=== PATIENT | female | born 1950 | race Caucasian/White ===

== ENCOUNTER 2018-08-10 21:19 | Emergency (ER) | payer MEDICARE, MEDICAID ==
[~2018-08-10] VITALS: Ht 165.1 cm; Wt 150.6 kg
[~2018-08-10 21:19] MED LIST: ALPR0.2550; ALPR0.2550 PO; AMIT100T2 PO; ARIP15TA PO; CEPH500C PO; DICL75TA2; DULO60CA6 PO; FURO20TA4 PO; HYDR-2890 PO; HYDR1CAP2; HYDR1TAB PO; LISI1TAB PO; MELO-195 PO; OMEP20TA2 PO; OXYC-272; PROP1TAB77; SIMV10TA3 PO; SRTR100T; TRAM50TA2 PO; ZOLP10TA5 PO
--- OUTSIDE RECORDS SUMMARY | 2018-08-10 21:24 | XMS REPORT | Continuity of Care Document ---
Author Organization Unknown Address Unknown Allergies There is no data. Medications There is no data. Problems There is no data. Procedures There is no data. Results Test Result Range LIPID PANEL - 07/01/18 11:55 CHOLESTEROL, TOTAL 212 mg/dL <200 HDL CHOLESTEROL 45 mg/dL >50 TRIGLYCERIDES 445 mg/dL <150 LDL-CHOLESTEROL mg/dL (calc) NRG CHOL/HDLC RATIO 4.7 (calc) <5.0 NON HDL CHOLESTEROL 167 mg/dL (calc) <130 CMP - 07/01/18 11:55 GLUCOSE 83 mg/dL 65-99 UREA NITROGEN (BUN) 16 mg/dL 7-25 CREATININE 0.80 mg/dL 0.50-0.99 eGFR NON-AFR. OMANI 76 mL/min/1.73m2 > OR=60 eGFR 88 mL/min/1.73m2 > OR=60 BUN/CREATININE RATIO NOT APPLICABLE (calc) 6-22 SODIUM 135 mmol/L 135-146 POTASSIUM 3.6 mmol/L 3.5-5.3 CHLORIDE 97 mmol/L 98-110 CARBON DIOXIDE 24 mmol/L 20-32 CALCIUM 9.0 mg/dL 8.6-10.4 PROTEIN, TOTAL 6.8 g/dL 6.1-8.1 ALBUMIN 4.0 g/dL 3.6-5.1 GLOBULIN 2.8 g/dL (calc) 1.9-3.7 ALBUMIN/GLOBULIN RATIO 1.4 (calc) 1.0-2.5 BILIRUBIN, TOTAL 0.4 mg/dL 0.2-1.2 ALKALINE PHOSPHATASE 78 U/L 33-130 AST 20 U/L 10-35 ALT 14 U/L 6-29 CULTURE, URINE - 07/15/18 14:45 CULTURE, URINE, ROUTINE SEE NOTE NRG Encounters ACCT No. Visit Date/Time Discharge Status Pt. Type Provider Facility Loc./Unit Complaint [id number] 07/15/2018 14:20:00 07/15/2018 23:59:59 CLS Outpatient LISETH DE LA ROSA [facility] [id number] 07/15/2018 14:20:00 Document Registration [id number] 07/01/2018 12:00:00 Document Registration
[2018-08-10] MEDS ORDERED: RT-ALBUTEROL/IPRATROPIUM 3 ML (DUONEB) VIAL INH ONE ×2 (22:00→23:45)
[2018-08-10 23:23] LABS: CHLORIDE 92 MMOL/L (98-107); POTASSIUM 3.7 MMOL/L (3.6-5.0); SODIUM 135 MMOL/L (135-145)
[2018-08-10 23:24] LABS: BUN/CREATININE RATIO 18; CALCIUM 8.9 MG/DL (8.5-10.1); CARBON DIOXIDE 25 MMOL/L (21-32); CREATININE SERUM 0.78 MG/DL (0.60-1.30); GFR ESTIMATED > 60; GLUCOSE 122 MG/DL (70-105)
[2018-08-10 23:25] LABS: BASOPHILS % (AUTO) 0 % (0-10); EOSINOPHILS % (AUTO) 0 % (0-10); HEMATOCRIT 47 % (35-52); HEMOGLOBIN 15.5 G/DL (11.5-16.0); LYMPHOCYTES % (AUTO) 24 % (12-44); MEAN CORPUSCULAR HEMOGLOBIN 32 PG (25-34); MEAN CORPUSCULAR HGB CONC 33 G/DL (32-36); MEAN CORPUSCULAR VOLUME 96 FL (80-99); MEAN PLATELET VOLUME 9.8 FL (7.4-10.4); MONOCYTES % (AUTO) 5 % (0-12); NEUTROPHILS % (AUTO) 71 % (42-75); PLATELET COUNT 276 10^3/uL (130-400); RED CELL DISTRIBUTION WIDTH 13.6 % (10.0-14.5); WHITE BLOOD COUNT 12.8 10^3/uL (4.3-11.0)
[2018-08-10 23:26] LABS: ATYPICAL LYMPHOCYTES 3 %; BAND NEUTROPHILS 2 %; LYMPHOCYTES # (AUTO) 3.1 X 10^3 (1.0-4.0); LYMPHOCYTES % (MANUAL) 26 %; MONOCYTES # (AUTO) 0.7 X 10^3 (0.0-1.0); MONOCYTES % (MANUAL) 3 %; NEUTROPHILS % (MANUAL) 66 %
[2018-08-10] MEDS ORDERED: DOXYCYCLINE 100 MG (VIBRAMYCIN) TABLET PO STA (23:35)
[2018-08-10] MEDS ORDERED: DOXY100T2 PO (23:40)
[2018-08-10] MEDS ORDERED: ALBU2.5V4 INH (23:40)
--- NOTE | 2018-08-10 23:41 | ED Dyspnea ---
General Chief Complaint: Cough/Cold/Flu Symptoms Stated Complaint: COUGH,SINUS DRAINAGE,SOB Nursing Triage Note: Patient states that she has been having a cough and coughing up thick green sputum for about a week. Patiet also states that she can feel her "right lung bubbling". Source of Information: Patient, Family Exam Limitations: No Limitations History of Present Illness Date Seen by Provider: Aug 10, 2018 Time Seen by Provider: 21:41 Initial Comments is is a 68 y/o f who presents to the ED for evaluation. Pt reports progressive productive cough x 2 days, green phlegm, Reports R sided chest wall pain with cough only. Increased SOB since yesterday. Longstanding tobacco abuse. Denies h/ o COPD. Denies history of needing inhalers, Has chronic LE edema that she feels is unchanged from baseline. Does not feel SOB at rest. Has chronic joint pain and anxiety. Is on daily Morphine and benzos. Allergies and Home Medications Allergies Coded Allergies: No Known Drug Allergies (Verified Allergy, Unknown, 11/20/08) Home Medications Albuterol Sulfate 2.5 Mg/3 Ml Vial.neb, 2.5 MG INH Q4H PRN for WHEEZING Prescribed by: KATHY GARCIA on 08/10/18 2340 Alprazolam 0.25 Mg Tab.rapdis, 1 EACH PO Q8HR PRN, (Reported) TAKES FOR ANXIETY CONTROL Amitriptyline Hcl 100 Mg Tablet, 1 EACH PO HS, (Reported) Aripiprazole 15 Mg Tab, 1 TAB PO DAILY, (Reported) DAILY Cephalexin Monohydrate 500 Mg Capsule, 1 EACH PO TID, (Reported) Doxycycline Hyclate 100 Mg Tablet, 100 MG PO BID Prescribed by: KATHY GARCIA on 08/10/18 2340 Duloxetine Hcl 60 Mg Capsule.dr, 1 EACH PO DAILY, (Reported) Furosemide 20 Mg Tablet, 1 EACH PO DAILY, (Reported) Hctz/Lisinopril 1 Each Tablet, 1 EACH PO DAILY, (Reported) Hydrocodone Bit/Acetaminophen 1 Each Tablet, 1 EACH PO Q8 PRN, (Reported) DO NOT USE THIS MED WHILE TAKING VICODIN (HYDROCODONE) SCRIPT GIVEN TO YOU BY DR MONREAL.(SAME MED) Hydrocodone Bit/Acetaminophen 1 Each Tablet, 1-2 EACH PO q4-6hrs PRN, (Reported) MAY TAKE 1 OR 2 TABLETS BY MOUTH EVERY 4-6 HRS NEEDED FOR PAIN DO NOT EXCEED 3000 MG TYLENOL (ACETAMINOPHEN) IN A 24 HR PERIOD Meloxicam 15 Mg Tablet, 1 EACH PO DAILY, (Reported) Omeprazole 20 Mg Tablet.dr, 20 MG PO DAILY, (Reported) Simvastatin 10 Mg Tablet, 10 MG PO DAILY, (Reported) Tramadol Hcl 50 Mg Tablet, 50 MG PO TID PRN, (Reported) TAKES FOR PAIN CONTROL Zolpidem Tartrate 10 Mg Tablet, 10 MG PO HS, (Reported) Patient Home Medication List Home Medication List Reviewed: Yes Review of Systems Review of Systems Constitutional: chills; No dizziness, No fever, No malaise, No weakness Respiratory: cough, dyspnea on exertion; No orthopnea; short of breath, wheezing Cardiovascular: No chest pain; edema; No palpitations Gastrointestinal: No abdominal pain, No diarrhea, No nausea, No vomiting Genitourinary: No dysuria, No frequency Musculoskeletal: back pain, joint pain, muscle pain Skin: No pruritus, No rash Psychiatric/Neurological: Anxiety; Denies Headache, Denies Numbness, Denies Tingling Past Qgnjnyp-Ndkkyj-Awvvkn Hx Patient Social History Alcohol Use: Denies Use Recreational Drug Use: No Smoking Status: Current Everyday Smoker Type Used: Cigarettes 2nd Hand Smoke Exposure: Yes Recent Foreign Travel: No Contact w/Someone Who Travel: No Recent Infectious Disease Expo: No Recent Hopitalizations: Yes (LEFT TKR) Physical Abuse: No Sexual Abuse: No Mistreated: No Fear: No Immunizations Up To Date Tetanus Booster (TDap): Unknown Past Medical History Surgeries: Yes (LEFT TKR) Respiratory: No Cardiac: Yes Coronary Artery Disease, Hypertension Neurological: No Reproductive Disorders: No Sexually Transmitted Disease: No Genitourinary: No Gastrointestinal: No Musculoskeletal: Yes (OSTEOARTHRITIS) Endocrine: No HEENT: No Cancer: No Psychosocial: Yes (Prior ETOH ) Depression Integumentary: No Blood Disorders: No Physical Exam Vital Signs Vital Signs - First Documented 08/10/18 08/10/18 21:30 21:35 Temp 99.2 Pulse 112 Resp 24 B/P (MAP) 118/84 (95) Pulse Ox 94 O2 Delivery Room Air Capillary Refill : Less Than 3 Seconds Height, Weight, BMI Height: 5'5.00" Weight: 332lbs. 0oz. 150.241146tg; BMI Method:Stated General Appearance: Other (morbidly obese) HEENT: PERRL/EOMI Neck: Normal Inspection; No JVD; Other (no stridor ) Respiratory: Wheezing, Other (Diffuse wheezing, no tachypnea, no accessory muscle use) Cardiovascular: Regular Rate, Rhythm, No Murmur, Other (+2 pitting edema to bilateral LE, Mild to moderate R lateral R chest wall pain tenderness) Gastrointestinal: Normal Bowel Sounds Extremity: Normal Capillary Refill Neurologic/Psychiatric: Alert, Oriented x3, No Motor/Sensory Deficits Skin: Other (venous stasis changes to bilateral LE) Progress/Results/Core Measures Results/Orders Lab Results Laboratory Tests Test 08/10/18 22:30 Range/Units White Blood Count 12.8 H 4.3-11.0 10^3/uL Red Blood Count 4.91 4.35-5.85 10^6/uL Hemoglobin 15.5 11.5-16.0 G/DL Hematocrit 47 35-52 % Mean Corpuscular Volume 96 80-99 FL Mean Corpuscular Hemoglobin 32 25-34 PG Mean Corpuscular Hemoglobin Concent 33 32-36 G/DL Red Cell Distribution Width 13.6 10.0-14.5 % Platelet Count 276 130-400 10^3/uL Mean Platelet Volume 9.8 7.4-10.4 FL Neutrophils (%) (Auto) 71 42-75 % Lymphocytes (%) (Auto) 24 12-44 % Monocytes (%) (Auto) 5 0-12 % Eosinophils (%) (Auto) 0 0-10 % Basophils (%) (Auto) 0 0-10 % Neutrophils # (Auto) 9.0 H 1.8-7.8 X 10^3 Lymphocytes # (Auto) 3.1 1.0-4.0 X 10^3 Monocytes # (Auto) 0.7 0.0-1.0 X 10^3 Eosinophils # (Auto) 0.0 0.0-0.3 10^3/uL Basophils # (Auto) 0.0 0.0-0.1 10^3/uL Neutrophils % (Manual) 66 % Lymphocytes % (Manual) 26 % Monocytes % (Manual) 3 % Band Neutrophils 2 % Atypical Lymphocytes 3 % Sodium Level 135 135-145 MMOL/L Potassium Level 3.7 3.6-5.0 MMOL/L Chloride Level 92 L 98-107 MMOL/L Carbon Dioxide Level 25 21-32 MMOL/L Anion Gap 18 H 5-14 MMOL/L Blood Urea Nitrogen 14 7-18 MG/DL Creatinine 0.78 0.60-1.30 MG/DL Estimat Glomerular Filtration Rate > 60 BUN/Creatinine Ratio 18 Glucose Level 122 H 70-105 MG/DL Calcium Level 8.9 8.5-10.1 MG/DL Troponin T 8 <=10 NG/L Pro-B-Type Natriuretic Peptide 40.7 <75.0 PG/ML Micro Results Microbiology 08/10/18 Influenza Types A,B Antigen (RADHA) - Final, Complete My Orders Orders - KATHY GARCIA DO Cbc And Manual Diff (08/10/18 21:41) Basic Metabolic Panel (08/10/18 21:41) Troponin T (08/10/18 21:41) Chest Pa/Lat (2 View) (08/10/18 21:41) Ekg Tracing (08/10/18 21:41) Probnp Fs (08/10/18 21:46) Albuterol/Ipra Inhalation Soln (Duoneb I (08/10/18 22:00) Svn Small Volume Nebulizer (08/10/18 21:46) Influenza A And B Antigens (08/10/18 21:48) Albuterol/Ipra Inhalation Soln (Duoneb I (08/10/18 23:45) Svn Small Volume Nebulizer (08/10/18 23:34) Doxycycline Hyclate Tablet (Vibramycin T (08/10/18 23:35) Doxycycline Hyclate Tablet (Vibramycin T (08/10/18 23:45) Medications Given in ED Current Medications Medications Dose Ordered Sig/Kylee Route Start Time Stop Time Status Last Admin Dose Admin Albuterol/ Ipratropium 3 ml ONCE ONCE INH 08/10/18 22:00 08/10/18 22:01 DC 08/10/18 22:09 3 ML Albuterol/ Ipratropium 3 ml ONCE ONCE INH 08/10/18 23:45 08/11/18 00:10 DC 08/10/18 23:38 3 ML Vital Signs/I&O 08/10/18 08/10/18 08/10/18 21:30 21:35 23:54 Temp 99.2 98.0 Pulse 112 99 Resp 24 24 B/P (MAP) 118/84 (95) 108/62 (77) Pulse Ox 94 100 O2 Delivery Room Air Room Air Room Air Blood Pressure Mean: 95 Progress Progress Note : Time: 23:50 Progress Note Pt significantly improved after breathing treatment and feels back to baseline. On repeat auscultation she has near resolution of wheezing. ?early infiltrate in RLL but not obvious on CXR. Will cover with Doxycycline. Given an albuterol breathing treatment prior to discharge. Given Rx for Albuterol inhaler and Doxycycline course. BNP reassuring. No elevation of troponin. Advised close follow up with PCP. Discussed Rx. ER return precautions given. Pt verbalized understanding. All questions answered. Initial ECG Impression Date: Aug 10, 2018 Initial ECG Impression Time: 22:23 Comment Normal Sinus Rhythm, HR 100, No significant ST segment changes Diagnostic Imaging Comments CXR 2 View No acute finding. Departure Impression Primary Impression: Pneumonia Additional Impression: Cough Disposition: 01 HOME, SELF-CARE Condition: Improved Departure-Patient Inst. Decision time for Depature: 23:50 Referrals: NO,LOCAL PHYSICIAN (PCP) Primary Care Physician Patient Instructions: Pneumonia, Adult (DC) Add. Discharge Instructions: Please read the attached handout. Use the inhaler as needed as prescribed. Take the entire course of antibiotics as prescribed. Follow up with your primary care physician TOMORROW. Return to the ER if your symptoms worsen or you have any other concerns. All discharge instructions reviewed with patient and/or family. Voiced understanding. Scripts Doxycycline Hyclate (Doxycycline Hyclate) 100 Mg Tablet 100 MG PO BID for 7 Days, #14 TAB 0 Refills Prov: KATHY GARCIA DO 08/10/18 Albuterol Sulfate (Albuterol Sulfate) 2.5 Mg/3 Ml Vial.neb 2.5 MG INH Q4H PRN for WHEEZING, #50 EA 1 Refill Prov: KATHY GARCIA DO 08/10/18 KATHY GARCIA DO Aug 10, 2018 23:41
[2018-08-10] MEDS ORDERED: DOXYCYCLINE 100 MG (VIBRAMYCIN) TABLET ONE (23:45)
[2018-08-10 23:54] VITALS: BP 108/62
--- NOTE | 2018-08-11 06:09 | Diagnostic Imaging Report ---
INDICATION: 68-year-old female with coughing with green sputum. COMPARISON: None. FINDINGS: PA and lateral films of chest show normal heart, pleura and diaphragms. There is mild central venous congestion with some perihilar infiltrates but no significant consolidations. There is some peribronchial cuffing suggesting an element of central reactive airway changes such as bronchitis. There is no effusion or pneumothorax. There is a right subclavian Mediport with tip projected over the upper SVC. Soft tissues and bony thorax are normal. IMPRESSION: Central reactive airway changes such as bronchitis with superimposed perihilar and bibasilar atelectatic infiltrates but no significant consolidations. Dictated by: Dictated on workstation # [id number]
== END 2018-08-10 23:54 | disposition home or self-care (01) ==
LOC: EDUNIT# 21:19 → ER FS 21:21
DX: J18.9 Pneumonia, unspecified organism (principal); I25.10 Atherosclerotic heart disease of native coronary artery without angina pectoris; I10 Essential (primary) hypertension; F32.9 Major depressive disorder, single episode, unspecified; F17.210 Nicotine dependence, cigarettes, uncomplicated; Z96.652 Presence of left artificial knee joint
CPT/HCPCS: 36415; 71046; 80048; 83880; 84484; 85007; 85027; 87804

== ENCOUNTER 2019-10-05 17:29 | Emergency (ER) | payer MEDICARE ==
[~2019-10-05] VITALS: Ht 165.1 cm; Wt 154.2 kg
[~2019-10-05 17:29] MED LIST changes: +ALBU2.5V4 INH; +APIX5TAB PO; +ARIP2TAB20 PO; +CLON1TAB13 PO; +DOXY100T2 PO; +DULO60CA59 PO; +FLUT12AE4 IH; +FURO-124 PO; +IPRA3AMP31 INH; +LISI-552 PO; +LISI1TAB26 PO; +MELO15TA39 PO; +MORP-68 PO; +NYST15CR TP; +OMEP20CA18 PO; +OXYC-471 PO; +POTA10TA36 PO; +PRED10TA22 PO; +SIMV10TA26 PO; +TRZ50T PO
--- NOTE | 2019-10-05 17:32 | ED Respiratory ---
General Stated Complaint: CHEST PAIN,SOB Source: patient Exam Limitations: no limitations History of Present Illness Date Seen by Provider: Oct 05, 2019 Time Seen by Provider: 17:32 Initial Comments 69-year-old female presents with chest pain with breathing, cough, shortness of breath. Patient has a history of CHF and COPD. Patient symptoms and again worse for the last 3 days. Patient wears 3 L home oxygen chronically. EMS reports when they arrived her oxygen was in the mid 80s, they gave her a couple DuoNeb that improved to the mid upper 90s. Patient denies fever or COVID-19 exposure. Patient admits to having chronic uterine bleeding and states that she is going to see an [employer]EM[employer] for and does not want that evaluated. Allergies and Home Medications Allergies Coded Allergies: No Known Drug Allergies (Verified , 11/20/08) Home Medications Apixaban 5 Mg Tablet, 5 MG PO BID Prescribed by: DARBY SELBY on 05/10/191917 Aripiprazole 2 Mg Tablet, 2 MG PO DAILY, (Reported) Clonazepam 1 Mg Tablet, 1 MG PO BID, (Reported) Dexamethasone 6 Mg Tablet, 6 MG PO DAILY Prescribed by: KETTY CUEVAS on 10/05/191906 Doxycycline Hyclate 100 Mg Tablet, 100 MG PO BID Prescribed by: KETTY CUEVAS on 10/05/191906 Duloxetine HCl 60 Mg Capsule.dr, 120 MG PO DAILY, (Reported) TAKES 2 (60MG) CAPSULES Fluticasone/Salmeterol 12 Gm Hfa.aer.ad, 2 PUFF IH BID@08,20 Prescribed by: DARBY SELBY on 05/11/19 1000 Furosemide 40 Mg Tablet, 40 MG PO BID Prescribed by: DARBY SELBY on 05/10/191917 Ipratropium/Albuterol Sulfate 3 Ml Ampul.neb, 3 ML INH RTQ4HR Prescribed by: DARBY SELBY on 05/10/191917 Lisinopril 20 Mg Tablet, 20 MG PO DAILY@0900 Prescribed by: DARBY SELBY on 05/10/191917 Morphine Sulfate 15 Mg Tablet.er, 15 MG PO BID, (Reported) Nystatin 15 Gm Cream..g., 1 GM TP BID Prescribed by: DARBY SELBY on 05/10/191917 Omeprazole 20 Mg Capsule.dr, 20 MG PO DAILY, (Reported) Oxycodone HCl/Acetaminophen 1 Each Tablet, 1 TAB PO BID PRN for PAIN-MODERATE (5-7), (Reported) Potassium Chloride 10 Meq Tab.er.prt, 10 MEQ PO DAILY Prescribed by: DARBY SELBY on 05/10/191917 Prednisone 10 Mg Tab.ds.pk, 10 MG PO DAILY Take 6 tabs(60mg)daily,decrease by 1 tab(10MG)daily. Prescribed by: DARBY SELBY on 05/10/191917 Simvastatin 10 Mg Tablet, 10 MG PO HS, (Reported) Trazodone HCl 50 Mg Tablet, 50-100 MG PO HS, (Reported) Patient Home Medication List Home Medication List Reviewed: Yes Review of Systems Review of Systems Constitutional: No chills, No fever EENTM: no symptoms reported Respiratory: cough, wheezing Cardiovascular: chest pain Genitourinary: see HPI Musculoskeletal: no symptoms reported Skin: no symptoms reported Psychiatric/Neurological: No Symptoms Reported Past Uewjvvh-Ytywjn-Apwrid Hx Past Med/Social Hx: Reviewed Nursing Past Med/Soc Hx Patient Social History Type Used: Cigarettes Former Smoker, Quit: May 01, 2019 2nd Hand Smoke Exposure: No Recent Hopitalizations: Yes Immunizations Up To Date Tetanus Booster (TDap): Unknown Date of Influenza Vaccine: Feb 11, 2019 Seasonal Allergies Seasonal Allergies: No Past Medical History Surgeries: Yes (LEFT TKR) Orthopedic Respiratory: No Cardiac: Yes Coronary Artery Disease, Hypertension Neurological: No Reproductive Disorders: No Sexually Transmitted Disease: No Genitourinary: No Gastrointestinal: No Musculoskeletal: Yes (OSTEOARTHRITIS) Endocrine: No HEENT: No Cancer: No Psychosocial: Yes (Prior ETOH ) Depression Integumentary: No Blood Disorders: No Physical Exam Vital Signs - First Documented 10/05/19 17:47 Temp 37.1 Pulse 96 Resp 21 B/P (MAP) 124/73 (90) Pulse Ox 96 O2 Delivery Nasal Cannula O2 Flow Rate 3.00 Capillary Refill : Height: 5'5.00" Weight: 332lbs. 0oz. 150.117804rs; 52.42 BMI Method:Stated General Appearance: no apparent distress, obese (morbid) Eyes: Bilateral Eye Normal Inspection Respiratory: no respiratory distress, wheezing (mild expiratory) Cardiovascular: regular rate, rhythm Gastrointestinal: non tender, soft Genital/Rectal: other (deferred vaginal exam) Extremities: swelling, other (dried blood on the inside of her bilateral thighs from her uterus) Neurologic/Psychiatric: alert, normal mood/affect, oriented x 3 Skin: other (chronic venous stasis changes) Progress/Results/Core Measures Suspected Sepsis SIRS Temperature: Pulse: Respiratory Rate: Laboratory Tests 10/05/19 18:00: White Blood Count 12.4H Blood Pressure / Mean: Laboratory Tests 10/05/19 18:00: Creatinine 0.90, Platelet Count 216, Total Bilirubin 0.4 Results/Orders Lab Results Laboratory Tests Test 10/05/19 18:00 Range/Units White Blood Count 12.4 H 4.3-11.0 10^3/uL Red Blood Count 4.17 L 4.35-5.85 10^6/uL Hemoglobin 12.4 11.5-16.0 G/DL Hematocrit 39 35-52 % Mean Corpuscular Volume 94 80-99 FL Mean Corpuscular Hemoglobin 30 25-34 PG Mean Corpuscular Hemoglobin Concent 32 32-36 G/DL Red Cell Distribution Width 13.3 10.0-14.5 % Platelet Count 216 130-400 10^3/uL Mean Platelet Volume 10.6 H 7.4-10.4 FL Neutrophils (%) (Auto) 88 H 42-75 % Lymphocytes (%) (Auto) 5 L 12-44 % Monocytes (%) (Auto) 6 0-12 % Eosinophils (%) (Auto) 0 0-10 % Basophils (%) (Auto) 0 0-10 % Neutrophils # (Auto) 10.9 H 1.8-7.8 X 10^3 Lymphocytes # (Auto) 0.7 L 1.0-4.0 X 10^3 Monocytes # (Auto) 0.8 0.0-1.0 X 10^3 Eosinophils # (Auto) 0.0 0.0-0.3 10^3/uL Basophils # (Auto) 0.0 0.0-0.1 10^3/uL Neutrophils % (Manual) 87 % Lymphocytes % (Manual) 6 % Monocytes % (Manual) 5 % Eosinophils % (Manual) 1 % Basophils % (Manual) 0 % Band Neutrophils 1 % Sodium Level 141 135-145 MMOL/L Potassium Level 4.3 3.6-5.0 MMOL/L Chloride Level 96 L 98-107 MMOL/L Carbon Dioxide Level 32 21-32 MMOL/L Anion Gap 13 5-14 MMOL/L Blood Urea Nitrogen 22 H 7-18 MG/DL Creatinine 0.90 0.60-1.30 MG/DL Estimat Glomerular Filtration Rate > 60 BUN/Creatinine Ratio 24 Glucose Level 114 H 70-105 MG/DL Calcium Level 8.8 8.5-10.1 MG/DL Corrected Calcium 9.3 8.5-10.1 MG/DL Magnesium Level 2.0 1.6-2.4 MG/DL Total Bilirubin 0.4 0.1-1.0 MG/DL Aspartate Amino Transf (AST/SGOT) 23 5-34 U/L Alanine Aminotransferase (ALT/SGPT) 16 0-55 U/L Alkaline Phosphatase 114 40-136 U/L Troponin I < 0.30 <0.30 NG/ML Pro-B-Type Natriuretic Peptide 309.6 H <75.0 PG/ML Total Protein 7.1 6.4-8.2 GM/DL Albumin 3.4 3.2-4.5 GM/DL My Orders Orders - TOSHA CUEVASR L DO Cbc With Automated Diff (10/05/19 17:45) Comprehensive Metabolic Panel (10/05/19 17:45) Magnesium (10/05/19 17:45) Probnp Fs (10/05/19 17:45) Dexamethasone Injection (Decadron Inject (10/05/19 17:45) Troponin I Fs (10/05/19 17:45) Chest Pa/Lat (2 View) (10/05/19 18:10) Manual Differential (10/05/19 18:00) Doxycycline Hyclate Tablet (Vibramycin T (10/05/19 18:45) Albuterol/Ipra Inhalation Soln (Duoneb I (10/05/19 19:15) Svn Small Volume Nebulizer (10/05/19 19:03) Medications Given in ED Current Medications Medications Dose Ordered Sig/Kylee Route Start Time Stop Time Status Last Admin Dose Admin Albuterol/ Ipratropium 3 ml ONCE ONCE INH 10/05/19 19:15 10/05/19 19:16 DC 10/05/19 19:16 3 ML Dexamethasone Sodium Phosphate 10 mg ONCE ONCE IV 10/05/19 17:45 10/05/19 17:46 DC 10/05/19 18:03 10 MG Vital Signs/I&O 10/05/19 17:47 Temp 37.1 Pulse 96 Resp 21 B/P (MAP) 124/73 (90) Pulse Ox 96 O2 Delivery Nasal Cannula O2 Flow Rate 3.00 Capillary Refill : Progress Note : Time: 19:04 Progress Note Patient's oxygen stayed in the mid to upper 90s throughout her stay in the ER. She was on her normal 3 L home oxygen. She was showing no signs of any respiratory distress or increased work of breathing. Patient with likely a COPD exacerbation. I will discharge her on doxycycline and steroid. Patient should follow-up with her primary care provider and 3-4 days for continuation of care and recheck in today symptoms Diagnostic Imaging Diagonstic Imaging: Xray Plain Films/CT/US/NM/MRI: chest Comments [facility] [place], [place] NAME: NURA ORTIZ [facility] REC#: [id number] PT STATUS: REG ER : 1950 PHYSICIAN: KETTY CUEVAS DO ADMIT DATE: 10/05/19/ER FS Draft Date of Exam:10/05/19 CHEST PA/LAT (2 VIEW) EXAMINATION: Chest (PA and lateral). CLINICAL INDICATION: 69-year-old female, shortness of breath. COMPARISON: May 10, 2019. FINDINGS: Stable overall appearance of the cardiomediastinal silhouette. There is no identified pneumothorax. The lateral view is significantly technically limited. There is no obvious pleural effusion. There are bilateral interstitial appearing opacities with fairly similar appearance to the comparison study. There are mild degenerative changes of the spine. IMPRESSION: Bilateral interstitial appearing opacities which may relate to pulmonary edema. Atypical infection and chronic lung changes are the primary differential diagnostic considerations. Departure Impression Primary Impression: COPD with exacerbation Additional Impression: On home oxygen therapy Disposition: 01 HOME, SELF-CARE Condition: Stable Departure-Patient Inst. Referrals: NO,LOCAL PHYSICIAN (PCP/Family) Primary Care Physician Patient Instructions: Chronic Obstructive Pulmonary Disease (COPD) (DC), Exacerbation of COPD (DC) Add. Discharge Instructions: Follow-up with your primary care provider in 3-4 days for recheck in today symptoms Scripts Dexamethasone (Dexamethasone) 6 Mg Tablet 6 MG PO DAILY for 3 Days, #3 TAB Prov: KETTY CUEVAS DO 10/05/19 Doxycycline Hyclate (Doxycycline Hyclate) 100 Mg Tablet 100 MG PO BID, #20 TAB 0 Refills Prov: KETTY CUEVAS DO 10/05/19 KETTY CUEVAS DO Oct 05, 2019 17:32
[2019-10-05] MEDS ORDERED: DEXAMETHASONE 10 MG/ML (DECADRON) 1 ML VIAL IV ONE (17:45)
--- OUTSIDE RECORDS SUMMARY | 2019-10-05 18:07 | XMS REPORT ---
Author Author Emily DE LA ROSA Organization [facility] Address [address] [place] [address] Care Team Providers Care Machine Filler Shredder Name Role Phone RJ LISETH Unavailable PROBLEMS Type Condition ICD9-CM Code [id number] Code Onset Dates Condition S tatus SNOMED Code Problem Mixed hyperlipidemia E78.2 Active 500995817 Problem Essential hypertension I10 Active 18443801 Problem Irritable bowel syndrome with diarrhea K58.0 Active 951826840 Problem Insomnia, unspecified type G47.00 Act larry 450518464 Problem Oxygen dependent Z99.81 Active 931 850020037 Problem Primary insomnia F51.01 Active 397 2004 Problem Generalized anxiety disorder F41.1 A ctive 70663926 Problem Persistent depressive disorder F34.1 Active 25650910 Problem Bipolar 1 disorder F31.9 Active 3 [id number] ALLERGIES No Information ENCOUNTERS Encounter Location Date Diagnosis [address] [place] [address] Apr, Pain in right hip M25.551 [address] [place] [address] Apr, [address] [place] [address] Mar, Pain in right hip M25.551 [address] [place] [address] Mar, [address] [place] [address] Mar, [address] [place] [address] Mar, Urinary tract infection, sit e not specified N39.[address] [place] [address] Mar, [facility] in right hip M25.551 [facility] [address] [place] [address] Mar, [facility] [address] [id number] [place] [address] Feb, [facility] [address] [place] [address] Feb, Pain in right hip M25.551 [facility] [address] [place] [address] Feb, Pain in right hip M25.551 [facility] [address] [place] [address] Feb, Urinary tract infection, sit e not specified N39.0 [facility] [address] [place] [address] Feb, Urinary tract infection, sit e not specified N39.0 [facility] [address] [place] [address] Feb, Dysuria R30.0 [facility] [address] [place] [address] Jan, Dysuria R30.0 [facility] [address] [place] [address] Jan, Pain in right hip M25.551 [facility] [address] [place] [address] Jan, [facility] [address] [place] [address] Jan, [facility] [address] [place] [address] Jan, Pain in right hip M25.551 [facility] [address] [place] [address] Jan, Hematuria, unspecified type R31.9 ; Urinary tract infection, site not specified N39.0 ; Oxygen dependent Z99.81 and Encounter for immunization Z23 [facility] [address] [place] [address] Jan, Pain in right hip M25.551 [facility] [address] [place] [address] Dec, Pain in right hip M25.551 [facility] [address] [place] [address] Dec, Yeast dermatitis B37.2 ; Ess ential hypertension I10 and Mixed hyperlipidemia E78.2 [facility] [address] [place] [address] Dec, Pain in right hip M25.551 [facility] [address] [place] [address] Nov, [facility] [address] [place] [address] Nov, Pain in right hip M25.551 [facility] [address] [place] [address] Nov, [facility] [address] [place] [address] Nov, Pain in right hip M25.551 [facility] [address] [place] [address] Nov, Pain in right hip M25.551 [facility] [address] [place] [address] Nov, [facility] [address] [place] [address] Oct, [facility] [address] [place] [address] Oct, Insomnia, unspecified type G 47.00 [facility] [address] [place] [address] Oct, Pain in right hip M25.551 [facility] [address] [place] [address] Oct, Pain in right hip M25.551 [facility] [address] [place] [address] Oct, Irritable bowel syndrome wit h diarrhea K58.0 ; Screening for breast cancer Z12.39 ; half-way (current) use of opiate analgesic Z79.891 ; Insomnia, unspecified type G47.00 ; Essential hypertension I10 ; Mixed hyperlipidemia E78.2 ; Pain in right hip M25.551 ; Pain in left hip M25.552 ; Pain in left shoulder M25.512 and Morbid obesity E66.01 [facility] [address] [place] [address] Sep, [facility] [address] [place] [address] Sep, [facility] [address] [place] [address] Sep, Pain in unspecified joint M2 5.50 [facility] [address] [place] [address] Sep, Irritable bowel syndrome wit h diarrhea K58.0 [facility] [address] [place] [address] Sep, Pain in left shoulder M25.51 2 [facility] [address] [place] [address] August, Pain in unspecified joint M2 5.50 [facility] [address] [place] [address] August, [facility] [address] [place] [address] August, Pain in left shoulder M25.51 2 [facility] [address] [place] [address] August, Irritable bowel syndrome wit h diarrhea K58.0 and Morbid obesity E66.01 [facility] [address] [place] [address] Jul, [facility] [address] [place] [address] Jul, Pain in unspecified joint M2 5.50 [facility] [address] [place] [address] Jul, [facility] [address] [place] [address] Jul, [facility] [address] [place] [address] Jul, Pain in left shoulder M25.51 2 [facility] [address] [facility] [address] [facility] [place] [address] Jul, [facility] [address] [place] [address] Jul, [facility] WO[facility] [address] [place] [address] Jul, Primary insomnia F51.01 ; Mo rbid obesity E66.01 ; Foul smelling urine R82.90 ; Painful urination R30.9 ; Dysuria R30.0 ; Acute cystitis with hematuria N30.01 and Irritable bowel syndrome with diarrhea K58.0 [facility] [address] [id number] [place] [address] Jul, Bipolar 1 disorder F31.9 ; Persistent de pressive disorder F34.1 and Generalized anxiety disorder F41.1 [facility] WO[facility] [address] [place] [address] Jun, Pain in unspecified joint M2 5.50 [facility] WO[facility] [address] [place] [address] Jun, [facility] [address] [place] [address] Jun, [facility] [address] [place] [address] Jun, Morbid obesity E66.01 and Es sential hypertension I10 [facility] [address] [id number] [place] [address] Jun, [address] [place] [address] Jun, Dysuria R30.0 [facility] [address] [place] [address] Jun, [facility] [address] [place] [address] Jun, Morbid obesity E66.01 ; Pain in left shoulder M25.512 ; Pain in unspecified joint M25.50 ; Encounter for tobacco use cessation counseling Z71.6 ; Essential hypertension I10 and Mixed hyperlipidemia E78.2 [facility] [address] [place] [address] Jun, [facility] [address] [place] [address] Jun, [facility] [address] [place] [address] Jun, [facility] [address] [place] [address] May, [facility] [address] [place] [address] May, IMMUNIZATIONS No Known Immunizations SOCIAL HISTORY Never Assessed REASON FOR VISIT Controlled fill 07/07 PLAN OF CARE VITAL SIGNS MEDICATIONS Medication Instructions Dosage Frequency Start Date End Date Duration S tatus Oxycodone-Acetaminophen 5-325 MG Orally 2 times a day 1 tablet as n eeded 12h Jun, 28 days Active RESULTS No Results PROCEDURES No Known procedures INSTRUCTIONS MEDICATIONS ADMINISTERED No Known Medications MEDICAL (GENERAL) HISTORY Type Description Date Surgical History left knee replacement Surgical History right knee replacement Surgical History cholecystectomy Hospitalization History Surgery(s) only
--- OUTSIDE RECORDS SUMMARY | 2019-10-05 18:08 | XMS REPORT | Continuity of Care Document ---
Author Organization Unknown Address Unknown Phone Unavailable Allergies Active Description Code Type Severity Reaction Onset Reported/Identified Relationship to Patient Clinical Status Yes No Known Drug Allergies [id number] Drug Allergy Unknown N/A 11/20/2008 Medications There is no data. Problems Date Dx Coded Attending Type Code Diagnosis Diagnosed By 08/10/2018 KEITHLY DO, KATHY T Ot F17.210 NICOTINE DEPENDENCE, CIGARETTES, UNCOMPL 08/10/2018 KEITHLY DO, KATHY T Ot F32.9 MAJOR DEPRESSIVE DISORDER, SINGLE EPISOD 08/10/2018 KEITHLY DO, KATHY T Ot I1 0 ESSENTIAL (PRIMARY) HYPERTENSION 08/10/2018 KEITHLY DO, KATHY T Ot I25.10 ATHSCL HEART DISEASE OF [place] CORONARY 08/10/2018 KEITHLY DO, KATHY T Ot J18.9 PNEUMONIA, UNSPECIFIED ORGANISM 08/10/2018 KEITHLY DO, KATHY T Ot R0 5 COUGH 08/10/2018 KEITHLY DO, KATHY T Ot Z96.652 PRESENCE OF LEFT ARTIFICIAL KNEE JOINT 08/12/2018 KEITHLY DO, KATHY T Ot F17.210 NICOTINE DEPENDENCE, CIGARETTES, UNCOMPL 08/12/2018 KEITHTRESA DO, KATHY T Ot F32.9 MAJOR DEPRESSIVE DISORDER, SINGLE EPISOD 08/12/2018 KEITHLY DO, KATHY T Ot I1 0 ESSENTIAL (PRIMARY) HYPERTENSION 08/12/2018 KEITHLY DO, KATHY T Ot I25.10 ATHSCL HEART DISEASE OF [place] CORONARY 08/12/2018 KEITHLY DO, KATHY T Ot J18.9 PNEUMONIA, UNSPECIFIED ORGANISM 08/12/2018 KEITHLY DO, KATHY T Ot R0 5 COUGH 08/12/2018 KEITHLY DO, KATHY T Ot Z96.652 PRESENCE OF LEFT ARTIFICIAL KNEE JOINT 05/06/2019 SELBY DO, DARBY Ot E66.01 MORBID (SEVERE) OBESITY DUE TO EXCESS CA 05/06/2019 SELBY DO, DARBY Ot F32.9 MAJOR DEPRESSIVE DISORDER, SINGLE EPISOD 05/06/2019 SELBY DO, DARBY Ot 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 HYPERTENSIVE HEART DISEASE WITH HEART FA 05/06/2019 SELBY DO, DARBY Ot I25.10 ATHSCL HEART DISEASE OF [place] CORONARY 05/06/2019 SELBY DO, DARBY Ot I50.9 HEART FAILURE, UNSPECIFIED 05/06/2019 SELBY DO, DARBY Ot J18.1 LOBAR PNEUMONIA, UNSPECIFIED ORGANISM 05/06/2019 SELBY DO, DARBY Ot M19.91 PRIMARY OSTEOARTHRITIS, UNSPECIFIED SITE 05/06/2019 SELBY DO, DARBY Ot Z68.43 BODY MASS INDEX (BMI) 50.0-59.9, ADULT 05/06/2019 SELBY DO, DARBY Ot Z87.89 1 PERSONAL HISTORY OF NICOTINE DEPENDENCE 05/06/2019 SELBY DO, DARBY Ot Z96.65 2 PRESENCE OF LEFT ARTIFICIAL KNEE JOINT 05/06/2019 SELBY DO, DARBY Ot Z99.81 DEPENDENCE ON SUPPLEMENTAL OXYGEN 05/06/2019 SELBY DO, DARBY Ot E66.01 MORBID (SEVERE) OBESITY DUE TO EXCESS CA 05/06/2019 SELBY DO, DARBY Ot F32.9 MAJOR DEPRESSIVE DISORDER, SINGLE EPISOD 05/06/2019 SELBY DO, DARBY Ot I11.0 HYPERTENSIVE HEART DISEASE WITH HEART FA 05/06/2019 SELBY DO, DARBY Ot I25.10 ATHSCL HEART DISEASE OF [place] CORONARY 05/06/2019 SELBY DO, DARBY Ot I50.9 HEART FAILURE, UNSPECIFIED 05/06/2019 SELBY DO, DARBY Ot J18.1 LOBAR PNEUMONIA, UNSPECIFIED ORGANISM 05/06/2019 SELBY DO, DARBY Ot M19.91 PRIMARY OSTEOARTHRITIS, UNSPECIFIED SITE 05/06/2019 SELBY DO, DARBY Ot Z68.43 BODY MASS INDEX (BMI) 50.0-59.9, ADULT 05/06/2019 SELBY DO, DARBY Ot Z87.89 1 PERSONAL HISTORY OF NICOTINE DEPENDENCE 05/06/2019 SELBY DO, DARBY Ot Z96.65 2 PRESENCE OF LEFT ARTIFICIAL KNEE JOINT 05/06/2019 SELBY DO, DARBY Ot Z99.81 DEPENDENCE ON SUPPLEMENTAL OXYGEN 05/06/2019 SELBY DO, DARBY Ot E66.01 MORBID (SEVERE) OBESITY DUE TO EXCESS CA 05/06/2019 SELBY DO, DARBY Ot F32.9 MAJOR DEPRESSIVE DISORDER, SINGLE EPISOD 05/06/2019 SELBY DO, DARBY Ot I11.0 HYPERTENSIVE HEART DISEASE WITH HEART FA 05/06/2019 SELBY DO, DRABY Ot I25.10 ATHSCL HEART DISEASE OF [place] CORONARY 05/06/2019 SELBY DO, DARBY Ot I50.9 HEART FAILURE, UNSPECIFIED 05/06/2019 SELBY DO, DARBY Ot J18.1 LOBAR PNEUMONIA, UNSPECIFIED ORGANISM 05/06/2019 SELBY DO, DARBY Ot M19.91 PRIMARY OSTEOARTHRITIS, UNSPECIFIED SITE 05/06/2019 SELBY DO, DARBY Ot Z68.43 BODY MASS INDEX (BMI) 50.0-59.9, ADULT 05/06/2019 SELBY DO, DARBY Ot Z87.89 1 PERSONAL HISTORY OF NICOTINE DEPENDENCE 05/06/2019 SELBY DO, DARBY Ot Z96.65 2 PRESENCE OF LEFT ARTIFICIAL KNEE JOINT 05/06/2019 SELBY DO, DARBY Ot Z99.81 DEPENDENCE ON SUPPLEMENTAL OXYGEN 05/10/2019 SELBY DO, DARBY Ot E66.01 MORBID (SEVERE) OBESITY DUE TO EXCESS CA 05/10/2019 SELBY DO, DARBY Ot F32.9 MAJOR DEPRESSIVE DISORDER, SINGLE EPISOD 05/10/2019 SELBY DO, DARBY Ot I11.0 HYPERTENSIVE HEART DISEASE WITH HEART FA 05/10/2019 SELBY DO, DARBY Ot I25.10 ATHSCL HEART DISEASE OF [place] CORONARY 05/10/2019 SELBY DO, DARBY Ot I50.9 HEART FAILURE, UNSPECIFIED 05/10/2019 SELBY DO, DARBY Ot J18.1 LOBAR PNEUMONIA, UNSPECIFIED ORGANISM 05/10/2019 SELBY DO, DARBY Ot M19.91 PRIMARY OSTEOARTHRITIS, UNSPECIFIED SITE 05/10/2019 SELBY DO, DARBY Ot Z68.43 BODY MASS INDEX (BMI) 50.0-59.9, ADULT 05/10/2019 SELBY DO, DARBY Ot Z87.89 1 PERSONAL HISTORY OF NICOTINE DEPENDENCE 05/10/2019 SELBY DO, DARBY Ot Z96.65 2 PRESENCE OF LEFT ARTIFICIAL KNEE JOINT 05/10/2019 SELBY DO, DABRY Ot Z99.81 DEPENDENCE ON SUPPLEMENTAL OXYGEN 05/11/2019 SELBY DO, DARBY Ot E66.2 MORBID (SEVERE) OBESITY WITH ALVEOLAR HY 05/11/2019 SELBY DO, DARBY Ot E78.5 HYPERLIPIDEMIA, UNSPECIFIED 05/11/2019 SELBY DO, DARBY Ot F17.21 0 NICOTINE DEPENDENCE, CIGARETTES, UNCOMPL 05/11/2019 SELBY DO, DARBY Ot F32.9 MAJOR DEPRESSIVE DISORDER, SINGLE EPISOD 05/11/2019 SELBY DO, DARBY Ot 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 HYPERTENSIVE HEART DISEASE WITH HEART FA 05/11/2019 SELBY DO, DARBY Ot I21.A1 MYOCARDIAL INFARCTION TYPE 2 05/11/2019 SELBY DO, DARBY Ot I25.10 ATHSCL HEART DISEASE OF [place] CORONARY 05/11/2019 SELBY DO, DARBY Ot I44.1 ATRIOVENTRICULAR BLOCK, SECOND DEGREE 05/11/2019 SELBY DO, DARBY Ot I48.3 TYPICAL ATRIAL FLUTTER 05/11/2019 SELBY DO, DARBY Ot I48.92 UNSPECIFIED ATRIAL FLUTTER 05/11/2019 SELBY DO, DARBY Ot I50.31 ACUTE DIASTOLIC (CONGESTIVE) HEART FAILU 05/11/2019 SELBY DO, DARBY Ot J18.1 LOBAR PNEUMONIA, UNSPECIFIED ORGANISM 05/11/2019 SELBY DO, DARBY Ot J18.9 PNEUMONIA, UNSPECIFIED ORGANISM 05/11/2019 SELBY DO, DARBY Ot J44.0 CHR OBSTRUCTIVE PULMON DISEASE WITH (ACU 05/11/2019 SELBY DO, DARBY Ot J44.1 CHRONIC OBSTRUCTIVE PULMONARY DISEASE W 05/11/2019 SELBY DO, DARBY Ot J96.01 ACUTE RESPIRATORY FAILURE WITH HYPOXIA 05/11/2019 SELBY DO, DARBY Ot J98.11 ATELECTASIS 05/11/2019 SELBY DO, DARBY Ot K21.9 GASTRO-ESOPHAGEAL REFLUX DISEASE WITHOUT 05/11/2019 SELBY DO, DARBY Ot M19.91 PRIMARY OSTEOARTHRITIS, UNSPECIFIED SITE 05/11/2019 SELBY DO, DARBY Ot R32 UNSPECIFIED URINARY INCONTINENCE 05/11/2019 SELBY DO, DARBY Ot Z68.43 BODY MASS INDEX (BMI) 50.0-59.9, ADULT 05/11/2019 SELBY DO, DARBY Ot Z87.89 1 PERSONAL HISTORY OF NICOTINE DEPENDENCE 05/11/2019 SELBY DO DARBY Ot Z96.65 2 PRESENCE OF LEFT ARTIFICIAL KNEE JOINT 05/11/2019 DARBY SELBY DO Ot Z99.81 DEPENDENCE ON SUPPLEMENTAL OXYGEN 09/01/2019 WALT, GINNA E C PYTHON DEVELOPER Ot G47.10 HYPERSOMNIA, UNSPECIFIED 09/01/2019 WALT, GINNA E C PYTHON DEVELOPER Ot G47.10 HYPERSOMNIA, UNSPECIFIED 09/06/2019 WALT, GINNA E C PYTHON DEVELOPER Ot G47.10 HYPERSOMNIA, UNSPECIFIED 09/06/2019 WALT, GINNA E C PYTHON DEVELOPER Ot G47.10 HYPERSOMNIA, UNSPECIFIED 09/06/2019 WALT, GINNA E C PYTHON DEVELOPER Ot G47.10 HYPERSOMNIA, UNSPECIFIED 09/09/2019 WALT, GINNA E C PYTHON DEVELOPER Ot G47.10 HYPERSOMNIA, UNSPECIFIED 09/09/2019 WALT, GINNA E C PYTHON DEVELOPER Ot G47.10 HYPERSOMNIA, UNSPECIFIED 09/12/2019 WALT, GINNA E C PYTHON DEVELOPER Ot G47.10 HYPERSOMNIA, UNSPECIFIED 09/12/2019 WALT, GINNA E C PYTHON DEVELOPER Ot G47.10 HYPERSOMNIA, UNSPECIFIED 09/21/2019 WALT, GINNA E C PYTHON DEVELOPER Ot G47.10 HYPERSOMNIA, UNSPECIFIED 09/21/2019 WALT, GINNA E C PYTHON DEVELOPER Ot G47.10 HYPERSOMNIA, UNSPECIFIED 10/03/2019 WALT, GINNA E C PYTHON DEVELOPER Ot G47.10 HYPERSOMNIA, UNSPECIFIED 10/03/2019 WALT, GINNA E C PYTHON DEVELOPER Ot G47.10 HYPERSOMNIA, UNSPECIFIED 10/03/2019 WALT, GINNA E C PYTHON DEVELOPER Ot G47.10 HYPERSOMNIA, UNSPECIFIED 10/03/2019 WALT, GINNA E C PYTHON DEVELOPER Ot G47.10 HYPERSOMNIA, UNSPECIFIED 10/03/2019 WALT, GINNA E C PYTHON DEVELOPER Ot G47.10 HYPERSOMNIA, UNSPECIFIED 10/03/2019 WALT, GINNA E C PYTHON DEVELOPER Ot G47.10 HYPERSOMNIA, UNSPECIFIED 10/04/2019 WALT, GINNA E C PYTHON DEVELOPER Ot G47.10 HYPERSOMNIA, UNSPECIFIED Procedures There is no data. Results Test Result Range LIPID PANEL - 07/01/18 11:55 CHOLESTEROL, TOTAL 212 mg/dL <200 HDL CHOLESTEROL 45 mg/dL >50 TRIGLYCERIDES 445 mg/dL <150 LDL-CHOLESTEROL mg/dL (calc) NRG CHOL/HDLC RATIO 4.7 (calc) <5.0 NON HDL CHOLESTEROL 167 mg/dL (calc) <13 0 CMP - 07/01/18 11:55 GLUCOSE 83 mg/dL 65-99 UREA NITROGEN (BUN) 16 mg/dL 7-25 CREATININE 0.80 mg/dL 0.50-0.99 eGFR NON-AFR. ZAMBIAN 76 mL/min/1.73m2 > OR = 60 eGFR 88 mL/min/1.73m2 > OR = 60 BUN/CREATININE RATIO NOT APPLICABLE (calc) 6-22 SODIUM 135 mmol/L 135-146 POTASSIUM 3.6 mmol/L 3.5-5.3 CHLORIDE 97 mmol/L 98-110 CARBON DIOXIDE 24 mmol/L 20-32 CALCIUM 9.0 mg/dL 8.6-10.4 PROTEIN, TOTAL 6.8 g/dL 6.1-8.1 ALBUMIN 4.0 g/dL 3.6-5.1 GLOBULIN 2.8 g/dL (calc) 1.9-3.7 ALBUMIN/GLOBULIN RATIO 1.4 (calc) 1.0-2. 5 BILIRUBIN, TOTAL 0.4 mg/dL 0.2-1.2 ALKALINE PHOSPHATASE 78 U/L 33-130 AST 20 U/L 10-35 ALT 14 U/L 6-29 CULTURE, URINE - 07/15/18 14:45 CULTURE, URINE, ROUTINE SEE NOTE [facility] Influenza virus A and B antigen detectio n - 08/10/18 21:51 FLU RESULT NEGATIVE FOR INFLUENZA A AND B ANTIGENS BY IA [facility] Whole blood basic metabolic panel - 07/14 22:30 Serum or plasma sodium measurement (moles/volume) 135 mmol/L 135-145 Serum or plasma potassium measurement (moles/volume) 3.7 mmol/L 3.6-5.0 Serum or plasma chloride measurement (moles/volume) 92 mmol/L 98-107 Carbon dioxide 25 mmol/L 21-32 Serum or plasma anion gap determination (moles/volume) 18 mmol/L 5-14 Serum or plasma urea nitrogen measurement (mass/volume ) 14 mg/dL 7-18 Serum or plasma creatinine measurement (mass/volume) 0.78 mg/dL 0.60-1.30 Serum or plasma urea nitrogen/creatinine mass ratio 18 NRG Serum or plasma creatinine measurement w ith calculation of estimated glomerular filtration rate > NRG Serum or plasma glucose measurement (mass/volume) 122 mg/dL 70-105 Serum or plasma calcium measurement (mass/volume) 8.9 mg/dL 8.5-10.1 TROPONIN T - 08/10/18 22:30 TROPONIN T 8 % <=10 PROBNP FS - 08/10/18 22:30 PROBNP FS 40.7 pg/mL <75.0 Blood CBC with ordered manual differenti al panel - 08/10/18 22:30 Blood leukocytes automated count (number/volume) 12.8 10*3/uL 4.3-11.0 Blood erythrocytes automated count (number/volume) 4.91 10*6/uL 4.35-5.85 Venous blood hemoglobin measurement (mass/volume) 15.5 g/dL 11.5-16.0 Blood hematocrit (volume fraction) 47 % 35-52 Automated erythrocyte mean corpuscular volume 96 [ foz_us] 80-99 Automated erythrocyte mean corpuscular h emoglobin (mass per erythrocyte) 32 pg 25-34 Automated erythrocyte mean corpuscular h emoglobin concentration measurement (mass/volume) 33 g/dL 32-36 Automated erythrocyte distribution width ratio 13. 6 % 10.0- 14.5 Automated blood platelet count (count/volume) 276 10*3/uL 130-400 Automated blood platelet mean volume measurement 9.8 [foz_us] 7.4-10.4 Automated blood neutrophils/100 leukocytes 71 % 42-75 Automated blood lymphocytes/100 leukocytes 24 % 12-44 Blood monocytes/100 leukocytes 3 % NRG Automated blood eosinophils/100 leukocytes 0 % 0-10 Automated blood basophils/100 leukocytes 0 % 0-10 Blood neutrophils automated count (number/volume) 9.0 10*3 1.8-7.8 Blood lymphocytes automated count (number/volume) 3.1 10*3 1.0-4.0 Blood monocytes automated count (number/volume) 0. 7 10*3 0.0-1.0 Automated eosinophil count 0.0 10*3/uL 0 .0-0.3 Automated blood basophil count (count/volume) 0.0 10*3/uL 0.0-0.1 Manual blood segmented neutrophils/100 leukocytes 66 % NRG Blood band neutrophils/100 leukocytes 2 % NRG Manual blood lymphocytes/100 leukocytes 26 % NRG Manual blood lymphocytes variant/100 leukocytes 3 % NRG PDM - 09 PANEL (PROFILE 1) - 10/18/18 10 :59 Prescribed Drug 1 Clonazepam NRG Creatinine 86.1 mg/dL > or = 20.0 pH 7.70 4.5 - 9.0 Oxidant NEGATIVE mcg/mL <200 Amphetamines NEGATIVE ng/mL <500 medMATCH Amphetamines CONSISTENT NRG Benzodiazepines POSITIVE ng/mL <100 Marijuana Metabolite NEGATIVE ng/mL <20 medMATCH Marijuana Metab CONSISTENT NRG Cocaine Metabolite NEGATIVE ng/mL <150 medMATCH Cocaine Metab CONSISTENT NRG Opiates POSITIVE ng/mL <100 Oxycodone POSITIVE ng/mL <100 COMMENT NRG Alphahydroxyalprazolam NEGATIVE ng/mL <25 medMATCH aOH alprazolam CONSISTENT NRG Alphahydroxymidazolam NEGATIVE ng/mL < 50 medMATCH aOH midazolam CONSISTENT NRG Alphahydroxytriazolam NEGATIVE ng/mL < 50 medMATCH aOH triazolam CONSISTENT NRG Aminoclonazepam 512 ng/mL <25 medMATCH Aminoclonazepam CONSISTENT NRG Hydroxyethylflurazepam NEGATIVE ng/mL <50 medMATCH OH,Et flurazepam CONSISTENT NR G Lorazepam NEGATIVE ng/mL <50 medMATCH Lorazepam CONSISTENT NRG Nordiazepam NEGATIVE ng/mL <50 medMATCH Nordiazepam CONSISTENT NRG Oxazepam NEGATIVE ng/mL <50 medMATCH Oxazepam CONSISTENT NRG Temazepam NEGATIVE ng/mL <50 medMATCH Temazepam CONSISTENT NRG Codeine NEGATIVE ng/mL <50 medMATCH Codeine CONSISTENT NRG Hydrocodone NEGATIVE ng/mL <50 medMATCH Hydrocodone CONSISTENT NRG Hydromorphone NEGATIVE ng/mL <50 medMATCH Hydromorphone CONSISTENT NRG Morphine >67548 ng/mL <50 medMATCH Morphine CONSISTENT NRG Norhydrocodone NEGATIVE ng/mL <50 medMATCH Norhydrocodone CONSISTENT NRG Prescribed Drug 2 Morphine NRG Prescribed Drug 3 Oxycodone NRG Noroxycodone 1021 ng/mL <50 medMATCH Noroxycodone CONSISTENT NRG Oxycodone 358 ng/mL <50 medMATCH Oxycodone CONSISTENT NRG Oxymorphone 165 ng/mL <50 medMATCH Oxymorphone CONSISTENT NRG Barbiturates NEGATIVE ng/mL <300 medMATCH Barbiturates CONSISTENT NRG Methadone Metabolite NEGATIVE ng/mL <100 medMATCH Methadone Metab CONSISTENT NRG Phencyclidine NEGATIVE ng/mL <25 medMATCH Phencyclidine CONSISTENT NRG CBC w/MANUAL DIFF - 12/16/18 09:55 WHITE BLOOD CELL COUNT 7.0 Thousand/uL 3 .8-10.8 RED BLOOD CELL COUNT 4.72 Million/uL 3.8 0-5.10 HEMOGLOBIN 14.3 g/dL 11.7-15.5 HEMATOCRIT 44.7 % 35.0-45.0 MCV 94.7 fL 80.0-100.0 MCH 30.3 pg 27.0-33.0 MCHC 32.0 g/dL 32.0-36.0 RDW 13.3 % 11.0-15.0 PLATELET COUNT 218 Thousand/uL 140-400 MPV 9.9 fL 7.5-12.5 ABSOLUTE NEUTROPHILS 5040 cells/uL 1500- 7800 ABSOLUTE MONOCYTES 280 cells/uL 200-950 ABSOLUTE EOSINOPHILS 70 cells/uL 15-500 ABSOLUTE BASOPHILS 0 cells/uL 0-200 NEUTROPHILS 72.0 % NRG LYMPHOCYTES 23.0 % NRG MONOCYTES 4.0 % NRG EOSINOPHILS 1.0 % NRG BASOPHILS 0 % NRG ABSOLUTE LYMPHOCYTES 1610 cells/uL 850-3 900 PLATELET ESTIMATION ADEQUATE ADEQUATE CBC MORPHOLOGY NORMAL COMMENT(S) NRG CULTURE, URINE - 01/21/19 16:06 CULTURE, URINE, ROUTINE SEE NOTE NRG CULTURE, URINE - 02/11/19 11:18 CULTURE, URINE, ROUTINE SEE NOTE NRG CULTURE, URINE - 03/25/19 14:19 CULTURE, URINE, ROUTINE SEE NOTE NRG Complete blood count (CBC) with automate d white blood cell (WBC) differential - 05/05/19 08:55 Blood leukocytes automated count (number/volume) 9.7 10*3/uL 4.3-11.0 Blood erythrocytes automated count (number/volume) 4.86 10*6/uL 4.35-5.85 Venous blood hemoglobin measurement (mass/volume) 14.8 g/dL 11.5-16.0 Blood hematocrit (volume fraction) 46 % 35-52 Automated erythrocyte mean corpuscular volume 95 [ foz_us] 80-99 Automated erythrocyte mean corpuscular h emoglobin (mass per erythrocyte) 30 pg 25-34 Automated erythrocyte mean corpuscular h emoglobin concentration measurement (mass/volume) 32 g/dL 32-36 Automated erythrocyte distribution width ratio 13. 6 % 10.0- 14.5 Automated blood platelet count (count/volume) 183 10*3/uL 130-400 Automated blood platelet mean volume measurement 10.2 [foz_us] 7.4-10.4 Automated blood neutrophils/100 leukocytes 80 % 42-75 Automated blood lymphocytes/100 leukocytes 12 % 12-44 Blood monocytes/100 leukocytes 7 % 0-12 Automated blood eosinophils/100 leukocytes 0 % 0-10 Automated blood basophils/100 leukocytes 0 % 0-10 Blood neutrophils automated count (number/volume) 7.7 10*3 1.8-7.8 Blood lymphocytes automated count (number/volume) 1.2 10*3 1.0-4.0 Blood monocytes automated count (number/volume) 0. 7 10*3 0.0-1.0 Automated eosinophil count 0.0 10*3/uL 0 .0-0.3 Automated blood basophil count (count/volume) 0.0 10*3/uL 0.0-0.1 Blood lactic acid measurement (moles/vol ume) - 05/05/19 08:55 Blood lactic acid measurement (moles/volume) 2.10 mmol/L 0.50-2.00 Comprehensive metabolic panel - 05/05/19 08:55 Serum or plasma sodium measurement (moles/volume) 134 mmol/L 135-145 Serum or plasma potassium measurement (moles/volume) 4.0 mmol/L 3.6-5.0 Serum or plasma chloride measurement (moles/volume) 90 mmol/L 98-107 Carbon dioxide 29 mmol/L 21-32 Serum or plasma anion gap determination (moles/volume) 15 mmol/L 5-14 Serum or plasma urea nitrogen measurement (mass/volume ) 20 mg/dL 7-18 Serum or plasma creatinine measurement (mass/volume) 0.75 mg/dL 0.60-1.30 Serum or plasma urea nitrogen/creatinine mass ratio 27 NRG Serum or plasma creatinine measurement w ith calculation of estimated glomerular filtration rate > NRG Serum or plasma glucose measurement (mass/volume) 149 mg/dL 70-105 Serum or plasma calcium measurement (mass/volume) 8.9 mg/dL 8.5-10.1 Serum or plasma total bilirubin measurement (mass/volu me) 0.3 mg/dL 0.1-1.0 Serum or plasma alkaline phosphatase ewelina surement (enzymatic activity/volume) 106 U/L 40-136 Serum or plasma aspartate aminotransfera se measurement (enzymatic activity/volume) 34 U/L 5-34 Serum or plasma alanine aminotransferase measurement (enzymatic activity/volume) 16 U/L 0-55 Serum or plasma protein measurement (mass/volume) 7.2 g/dL 6.4-8.2 Serum or plasma albumin measurement (mass/volume) 3.3 g/dL 3.2-4.5 CALCIUM CORRECTED 9.5 mg/dL 8.5-10.1 Magnesium - 05/05/19 08:55 Magnesium 1.7 mg/dL 1.6-2.4 TROPONIN I FS - 05/05/19 08:55 TROPONIN I FS < 0.30 <0.30 PROBNP FS - 05/05/19 08:55 PROBNP FS 1375.0 pg/mL <75.0 Bacterial blood culture - 05/05/19 08:55 Bacterial blood culture NG NRG Influenza virus A and B antigen detectio n - 05/05/19 09:37 FLU RESULT NEGATIVE FOR INFLUENZA A AND B ANTIGENS BY IA NRG Bacterial blood culture - 05/05/19 10:10 Bacterial blood culture NG NRG Arterial blood gas measurement - 0 10:15 Blood pCO2 63 mm[Hg] 35-45 Blood pO2 64 mm[Hg] 79-93 Arterial blood bicarbonate measurement (moles/volume) 36 mmol/L 23-27 Arterial blood base excess by calculation 9.0 mmol /L -2.5-2.5 Arterial blood oxygen saturation measurement 91 % 94-100 * Inhaled oxygen flow rate 3.5 NC NRG Arterial blood pH measurement with patient temperature correction 7.37 7.37-7.43 Arterial blood carbon dioxide, total measurement (mole s/volume) 38.3 mmol/L 21.0-31.0 Body site LT RADIAL NRG Assessment of wrist artery patency prior to arterial p uncture [place] NRG Setting of ventilation mode NO NR G Measurement of body temperature 37 C NRG Serum or plasma lactate measurement (mol es/volume) - 05/05/19 11:18 Serum or plasma lactate measurement (moles/volume) 1.12 mmol/L 0.50-2.00 Complete blood count (CBC) with automate d white blood cell (WBC) differential - 05/06/19 05:45 Blood leukocytes automated count (number/volume) 6.6 10*3/uL 4.3-11.0 Blood erythrocytes automated count (number/volume) 4.51 10*6/uL 4.35-5.85 Venous blood hemoglobin measurement (mass/volume) 13.3 g/dL 11.5-16.0 Blood hematocrit (volume fraction) 43 % 35-52 Automated erythrocyte mean corpuscular volume 96 [ foz_us] 80-99 Automated erythrocyte mean corpuscular h emoglobin (mass per erythrocyte) 30 pg 25-34 Automated erythrocyte mean corpuscular h emoglobin concentration measurement (mass/volume) 31 g/dL 32-36 Automated erythrocyte distribution width ratio 14. 2 % 10.0- 14.5 Automated blood platelet count (count/volume) 167 10*3/uL 130-400 Automated blood platelet mean volume measurement 10.1 [foz_us] 7.4-10.4 Automated blood neutrophils/100 leukocytes 68 % 42-75 Automated blood lymphocytes/100 leukocytes 20 % 12-44 Blood monocytes/100 leukocytes 11 % 0-12 Automated blood eosinophils/100 leukocytes 0 % 0-10 Automated blood basophils/100 leukocytes 0 % 0-10 Blood neutrophils automated count (number/volume) 4.5 10*3 1.8-7.8 Blood lymphocytes automated count (number/volume) 1.3 10*3 1.0-4.0 Blood monocytes automated count (number/volume) 0. 8 10*3 0.0-1.0 Automated eosinophil count 0.0 10*3/uL 0 .0-0.3 Automated blood basophil count (count/volume) 0.0 10*3/uL 0.0-0.1 Comprehensive metabolic panel - 05/06/19 05:45 Serum or plasma sodium measurement (moles/volume) 139 mmol/L 135-145 Serum or plasma potassium measurement (moles/volume) 3.6 mmol/L 3.6-5.0 Serum or plasma chloride measurement (moles/volume) 94 mmol/L 98-107 Carbon dioxide 30 mmol/L 21-32 Serum or plasma anion gap determination (moles/volume) 15 mmol/L 5-14 Serum or plasma urea nitrogen measurement (mass/volume ) 18 mg/dL 7-18 Serum or plasma creatinine measurement (mass/volume) 0.82 mg/dL 0.60-1.30 Serum or plasma urea nitrogen/creatinine mass ratio 22 NRG Serum or plasma creatinine measurement w ith calculation of estimated glomerular filtration rate > NRG Serum or plasma glucose measurement (mass/volume) 111 mg/dL 70-105 Serum or plasma calcium measurement (mass/volume) 8.7 mg/dL 8.5-10.1 Serum or plasma total bilirubin measurement (mass/volu me) 0.3 mg/dL 0.1-1.0 Serum or plasma alkaline phosphatase ewelina surement (enzymatic activity/volume) 87 U/L 40-136 Serum or plasma aspartate aminotransfera se measurement (enzymatic activity/volume) 32 U/L 5-34 Serum or plasma alanine aminotransferase measurement (enzymatic activity/volume) 18 U/L 0-55 Serum or plasma protein measurement (mass/volume) 6.7 g/dL 6.4-8.2 Serum or plasma albumin measurement (mass/volume) 3.2 g/dL 3.2-4.5 CALCIUM CORRECTED 9.3 mg/dL 8.5-10.1 PROCALCITONIN (PCT) - 05/06/19 05:45 PROCALCITONIN (PCT) 0.11 ng/mL <0.10 Serum or plasma troponin i.cardiac measu rement (mass/volume) - 05/06/19 05:45 Serum or plasma troponin i.cardiac measurement (mass/v olume) 0.035 ng/mL <0.028 Capillary blood glucose measurement by g lucometer (mass/volume) - 05/06/19 16:40 Capillary blood glucose measurement by glucometer (mas s/volume) 127 mg/dL 70-110 Capillary blood glucose measurement by g lucometer (mass/volume) - 05/06/19 20:21 Capillary blood glucose measurement by glucometer (mas s/volume) 130 mg/dL 70-110 Capillary blood glucose measurement by g lucometer (mass/volume) - 05/07/19 06:15 Capillary blood glucose measurement by glucometer (mas s/volume) 134 mg/dL 70-110 Whole blood basic metabolic panel - 04/14 08/30 07:55 Serum or plasma sodium measurement (moles/volume) 141 mmol/L 135-145 Serum or plasma potassium measurement (moles/volume) 3.5 mmol/L 3.6-5.0 Serum or plasma chloride measurement (moles/volume) 93 mmol/L 98-107 Carbon dioxide 34 mmol/L 21-32 Serum or plasma anion gap determination (moles/volume) 14 mmol/L 5-14 Serum or plasma urea nitrogen measurement (mass/volume ) 15 mg/dL 7-18 Serum or plasma creatinine measurement (mass/volume) 0.77 mg/dL 0.60-1.30 Serum or plasma urea nitrogen/creatinine mass ratio 19 NRG Serum or plasma creatinine measurement w ith calculation of estimated glomerular filtration rate > NRG Serum or plasma glucose measurement (mass/volume) 154 mg/dL 70-105 Serum or plasma calcium measurement (mass/volume) 9.1 mg/dL 8.5-10.1 Magnesium - 05/07/19 07:55 Magnesium 1.4 mg/dL 1.6-2.4 Capillary blood glucose measurement by g lucometer (mass/volume) - 05/07/19 11:28 Capillary blood glucose measurement by glucometer (mas s/volume) 163 mg/dL 70-110 Capillary blood glucose measurement by g lucometer (mass/volume) - 05/07/19 15:30 Capillary blood glucose measurement by glucometer (mas s/volume) 204 mg/dL 70-110 Capillary blood glucose measurement by g lucometer (mass/volume) - 05/07/19 20:06 Capillary blood glucose measurement by glucometer (mas s/volume) 102 mg/dL 70-110 Whole blood basic metabolic panel - 04/14 09/30 04:48 Serum or plasma sodium measurement (moles/volume) 140 mmol/L 135-145 Serum or plasma potassium measurement (moles/volume) 3.8 mmol/L 3.6-5.0 Serum or plasma chloride measurement (moles/volume) 94 mmol/L 98-107 Carbon dioxide 32 mmol/L 21-32 Serum or plasma anion gap determination (moles/volume) 14 mmol/L 5-14 Serum or plasma urea nitrogen measurement (mass/volume ) 19 mg/dL 7-18 Serum or plasma creatinine measurement (mass/volume) 0.80 mg/dL 0.60-1.30 Serum or plasma urea nitrogen/creatinine mass ratio 24 NRG Serum or plasma creatinine measurement w ith calculation of estimated glomerular filtration rate > NRG Serum or plasma glucose measurement (mass/volume) 134 mg/dL 70-105 Serum or plasma calcium measurement (mass/volume) 9.5 mg/dL 8.5-10.1 Capillary blood glucose measurement by g lucometer (mass/volume) - 05/08/19 05:39 Capillary blood glucose measurement by glucometer (mas s/volume) 186 mg/dL 70-110 Capillary blood glucose measurement by g lucometer (mass/volume) - 05/08/19 11:12 Capillary blood glucose measurement by glucometer (mas s/volume) 165 mg/dL 70-110 Capillary blood glucose measurement by g lucometer (mass/volume) - 05/08/19 15:45 Capillary blood glucose measurement by glucometer (mas s/volume) 183 mg/dL 70-110 Capillary blood glucose measurement by g lucometer (mass/volume) - 05/08/19 20:52 Capillary blood glucose measurement by glucometer (mas s/volume) 166 mg/dL 70-110 Capillary blood glucose measurement by g lucometer (mass/volume) - 05/09/19 05:46 Capillary blood glucose measurement by glucometer (mas s/volume) 120 mg/dL 70-110 Complete blood count (CBC) with automate d white blood cell (WBC) differential - 05/09/19 06:05 Blood leukocytes automated count (number/volume) 10.9 10*3/uL 4.3-11.0 Blood erythrocytes automated count (number/volume) 4.64 10*6/uL 4.35-5.85 Venous blood hemoglobin measurement (mass/volume) 13.7 g/dL 11.5-16.0 Blood hematocrit (volume fraction) 45 % 35-52 Automated erythrocyte mean corpuscular volume 97 [ foz_us] 80-99 Automated erythrocyte mean corpuscular h emoglobin (mass per erythrocyte) 30 pg 25-34 Automated erythrocyte mean corpuscular h emoglobin concentration measurement (mass/volume) 30 g/dL 32-36 Automated erythrocyte distribution width ratio 14. 1 % 10.0- 14.5 Automated blood platelet count (count/volume) 238 10*3/uL 130-400 Automated blood platelet mean volume measurement 10.1 [foz_us] 7.4-10.4 Automated blood neutrophils/100 leukocytes 66 % 42-75 Automated blood lymphocytes/100 leukocytes 22 % 12-44 Blood monocytes/100 leukocytes 11 % 0-12 Automated blood eosinophils/100 leukocytes 0 % 0-10 Automated blood basophils/100 leukocytes 0 % 0-10 Blood neutrophils automated count (number/volume) 7.2 10*3 1.8-7.8 Blood lymphocytes automated count (number/volume) 2.4 10*3 1.0-4.0 Blood monocytes automated count (number/volume) 1. 2 10*3 0.0-1.0 Automated eosinophil count 0.0 10*3/uL 0 .0-0.3 Automated blood basophil count (count/volume) 0.0 10*3/uL 0.0-0.1 Comprehensive metabolic panel - 05/09/19 06:05 Serum or plasma sodium measurement (moles/volume) 141 mmol/L 135-145 Serum or plasma potassium measurement (moles/volume) 4.0 mmol/L 3.6-5.0 Serum or plasma chloride measurement (moles/volume) 93 mmol/L 98-107 Carbon dioxide 37 mmol/L 21-32 Serum or plasma anion gap determination (moles/volume) 11 mmol/L 5-14 Serum or plasma urea nitrogen measurement (mass/volume ) 25 mg/dL 7-18 Serum or plasma creatinine measurement (mass/volume) 0.83 mg/dL 0.60-1.30 Serum or plasma urea nitrogen/creatinine mass ratio 30 NRG Serum or plasma creatinine measurement w ith calculation of estimated glomerular filtration rate > NRG Serum or plasma glucose measurement (mass/volume) 122 mg/dL 70-105 Serum or plasma calcium measurement (mass/volume) 9.2 mg/dL 8.5-10.1 Serum or plasma total bilirubin measurement (mass/volu me) 0.3 mg/dL 0.1-1.0 Serum or plasma alkaline phosphatase ewelina surement (enzymatic activity/volume) 91 U/L 40-136 Serum or plasma aspartate aminotransfera se measurement (enzymatic activity/volume) 53 U/L 5-34 Serum or plasma alanine aminotransferase measurement (enzymatic activity/volume) 57 U/L 0-55 Serum or plasma protein measurement (mass/volume) 7.0 g/dL 6.4-8.2 Serum or plasma albumin measurement (mass/volume) 3.4 g/dL 3.2-4.5 CALCIUM CORRECTED 9.7 mg/dL 8.5-10.1 Capillary blood glucose measurement by g lucometer (mass/volume) - 05/09/19 10:56 Capillary blood glucose measurement by glucometer (mas s/volume) 191 mg/dL 70-110 Capillary blood glucose measurement by g lucometer (mass/volume) - 05/09/19 15:52 Capillary blood glucose measurement by glucometer (mas s/volume) 190 mg/dL 70-110 Capillary blood glucose measurement by g lucometer (mass/volume) - 05/09/19 21:02 Capillary blood glucose measurement by glucometer (mas s/volume) 148 mg/dL 70-110 Capillary blood glucose measurement by g lucometer (mass/volume) - 05/10/19 05:28 Capillary blood glucose measurement by glucometer (mas s/volume) 126 mg/dL 70-110 Capillary blood glucose measurement by g lucometer (mass/volume) - 05/10/19 11:30 Capillary blood glucose measurement by glucometer (mas s/volume) 117 mg/dL 70-110 Capillary blood glucose measurement by g lucometer (mass/volume) - 05/10/19 15:43 Capillary blood glucose measurement by glucometer (mas s/volume) 217 mg/dL 70-110 Capillary blood glucose measurement by g lucometer (mass/volume) - 05/10/19 17:24 Capillary blood glucose measurement by glucometer (mas s/volume) 190 mg/dL 70-110 Capillary blood glucose measurement by g lucometer (mass/volume) - 05/10/19 20:12 Capillary blood glucose measurement by glucometer (mas s/volume) 186 mg/dL 70-110 Capillary blood glucose measurement by g lucometer (mass/volume) - 05/10/19 21:34 Capillary blood glucose measurement by glucometer (mas s/volume) 156 mg/dL 70-110 Capillary blood glucose measurement by g lucometer (mass/volume) - 05/11/19 05:45 Capillary blood glucose measurement by glucometer (mas s/volume) 131 mg/dL 70-110 Complete blood count (CBC) with automate d white blood cell (WBC) differential - 05/11/19 05:47 Blood leukocytes automated count (number/volume) 13.7 10*3/uL 4.3-11.0 Blood erythrocytes automated count (number/volume) 4.92 10*6/uL 4.35-5.85 Venous blood hemoglobin measurement (mass/volume) 14.5 g/dL 11.5-16.0 Blood hematocrit (volume fraction) 47 % 35-52 Automated erythrocyte mean corpuscular volume 96 [ foz_us] 80-99 Automated erythrocyte mean corpuscular h emoglobin (mass per erythrocyte) 30 pg 25-34 Automated erythrocyte mean corpuscular h emoglobin concentration measurement (mass/volume) 31 g/dL 32-36 Automated erythrocyte distribution width ratio 13. 9 % 10.0- 14.5 Automated blood platelet count (count/volume) 325 10*3/uL 130-400 Automated blood platelet mean volume measurement 10.2 [foz_us] 7.4-10.4 Automated blood neutrophils/100 leukocytes 66 % 42-75 Automated blood lymphocytes/100 leukocytes 23 % 12-44 Blood monocytes/100 leukocytes 10 % 0-12 Automated blood eosinophils/100 leukocytes 0 % 0-10 Automated blood basophils/100 leukocytes 0 % 0-10 Blood neutrophils automated count (number/volume) 9.1 10*3 1.8-7.8 Blood lymphocytes automated count (number/volume) 3.2 10*3 1.0-4.0 Blood monocytes automated count (number/volume) 1. 4 10*3 0.0-1.0 Automated eosinophil count 0.0 10*3/uL 0 .0-0.3 Automated blood basophil count (count/volume) 0.0 10*3/uL 0.0-0.1 Comprehensive metabolic panel - 05/11/19 05:47 Serum or plasma sodium measurement (moles/volume) 138 mmol/L 135-145 Serum or plasma potassium measurement (moles/volume) 4.1 mmol/L 3.6-5.0 Serum or plasma chloride measurement (moles/volume) 87 mmol/L 98-107 Carbon dioxide 37 mmol/L 21-32 Serum or plasma anion gap determination (moles/volume) 14 mmol/L 5-14 Serum or plasma urea nitrogen measurement (mass/volume ) 30 mg/dL 7-18 Serum or plasma creatinine measurement (mass/volume) 0.84 mg/dL 0.60-1.30 Serum or plasma urea nitrogen/creatinine mass ratio 36 NRG Serum or plasma creatinine measurement w ith calculation of estimated glomerular filtration rate > NRG Serum or plasma glucose measurement (mass/volume) 128 mg/dL 70-105 Serum or plasma calcium measurement (mass/volume) 9.5 mg/dL 8.5-10.1 Serum or plasma total bilirubin measurement (mass/volu me) 0.3 mg/dL 0.1-1.0 Serum or plasma alkaline phosphatase ewelina surement (enzymatic activity/volume) 89 U/L 40-136 Serum or plasma aspartate aminotransfera se measurement (enzymatic activity/volume) 53 U/L 5-34 Serum or plasma alanine aminotransferase measurement (enzymatic activity/volume) 79 U/L 0-55 Serum or plasma protein measurement (mass/volume) 7.6 g/dL 6.4-8.2 Serum or plasma albumin measurement (mass/volume) 3.6 g/dL 3.2-4.5 CALCIUM CORRECTED 9.8 mg/dL 8.5-10.1 Capillary blood glucose measurement by g lucometer (mass/volume) - 05/11/19 11:00 Capillary blood glucose measurement by glucometer (mas s/volume) 175 mg/dL 70-110 CBC - 08/09/19 11:51 WHITE BLOOD CELL COUNT 8.6 Thousand/uL 3 .8-10.8 RED BLOOD CELL COUNT 4.32 Million/uL 3.8 0-5.10 HEMOGLOBIN 13.5 g/dL 11.7-15.5 HEMATOCRIT 40.5 % 35.0-45.0 MCV 93.8 fL 80.0-100.0 MCH 31.3 pg 27.0-33.0 MCHC 33.3 g/dL 32.0-36.0 RDW 13.0 % 11.0-15.0 PLATELET COUNT 212 Thousand/uL 140-400 MPV 10.5 fL 7.5-12.5 ABSOLUTE NEUTROPHILS 6373 cells/uL 1500- 7800 ABSOLUTE LYMPHOCYTES 1651 cells/uL 850-3 900 ABSOLUTE MONOCYTES 499 cells/uL 200-950 ABSOLUTE EOSINOPHILS 60 cells/uL 15-500 ABSOLUTE BASOPHILS 17 cells/uL 0-200 NEUTROPHILS 74.1 % NRG LYMPHOCYTES 19.2 % NRG MONOCYTES 5.8 % NRG EOSINOPHILS 0.7 % NRG BASOPHILS 0.2 % NRG CULTURE, URINE - 08/23/19 15:23 CULTURE, URINE, ROUTINE SEE NOTE NRG PDM - 09 PANEL (PROFILE 1) - 08/23/19 15 :23 Prescribed Drug 1 Oxycodone NRG Creatinine 153.8 mg/dL > or = 20.0 pH 6.3 4.5-9.0 Oxidant NEGATIVE mcg/mL <200 Amphetamines NEGATIVE ng/mL <500 medMATCH Amphetamines CONSISTENT NRG Benzodiazepines POSITIVE ng/mL <100 Marijuana Metabolite NEGATIVE ng/mL <20 medMATCH Marijuana Metab CONSISTENT NRG Cocaine Metabolite NEGATIVE ng/mL <150 medMATCH Cocaine Metab CONSISTENT NRG Opiates POSITIVE ng/mL <100 Oxycodone POSITIVE ng/mL <100 COMMENT NRG Alphahydroxyalprazolam NEGATIVE ng/mL <25 medMATCH aOH alprazolam CONSISTENT NRG Alphahydroxymidazolam NEGATIVE ng/mL < 50 medMATCH aOH midazolam CONSISTENT NRG Alphahydroxytriazolam NEGATIVE ng/mL < 50 medMATCH aOH triazolam CONSISTENT NRG Aminoclonazepam 727 ng/mL <25 medMATCH Aminoclonazepam INCONSISTENT N RG Hydroxyethylflurazepam NEGATIVE ng/mL <50 medMATCH OH,Et flurazepam CONSISTENT NR G Lorazepam NEGATIVE ng/mL <50 medMATCH Lorazepam CONSISTENT NRG Nordiazepam NEGATIVE ng/mL <50 medMATCH Nordiazepam CONSISTENT NRG Oxazepam NEGATIVE ng/mL <50 medMATCH Oxazepam CONSISTENT NRG Temazepam NEGATIVE ng/mL <50 medMATCH Temazepam CONSISTENT NRG Codeine NEGATIVE ng/mL <50 medMATCH Codeine CONSISTENT NRG Hydrocodone NEGATIVE ng/mL <50 medMATCH Hydrocodone CONSISTENT NRG Hydromorphone 223 ng/mL <50 medMATCH Hydromorphone CONSISTENT NRG Morphine >78529 ng/mL <50 medMATCH Morphine CONSISTENT NRG Norhydrocodone NEGATIVE ng/mL <50 medMATCH Norhydrocodone CONSISTENT NRG Prescribed Drug 2 Morphine NRG Noroxycodone 2045 ng/mL <50 medMATCH Noroxycodone CONSISTENT NRG Oxycodone 495 ng/mL <50 medMATCH Oxycodone CONSISTENT NRG Oxymorphone 101 ng/mL <50 medMATCH Oxymorphone CONSISTENT NRG Barbiturates NEGATIVE ng/mL <300 medMATCH Barbiturates CONSISTENT NRG Methadone Metabolite NEGATIVE ng/mL <100 medMATCH Methadone Metab CONSISTENT NRG Phencyclidine NEGATIVE ng/mL <25 medMATCH Phencyclidine CONSISTENT NRG LIPID PANEL - 08/30/19 15:06 CHOLESTEROL, TOTAL 153 mg/dL <200 HDL CHOLESTEROL 32 mg/dL > OR = 50 TRIGLYCERIDES 276 mg/dL <150 LDL-CHOLESTEROL 85 mg/dL (calc) NRG CHOL/HDLC RATIO 4.8 (calc) <5.0 NON HDL CHOLESTEROL 121 mg/dL (calc) <13 0 CMP - 08/30/19 15:06 GLUCOSE 82 mg/dL 65-99 UREA NITROGEN (BUN) 16 mg/dL 7-25 CREATININE 0.87 mg/dL 0.50-0.99 eGFR NON-AFR. ZAMBIAN 68 mL/min/1.73m2 > OR = 60 eGFR 79 mL/min/1.73m2 > OR = 60 BUN/CREATININE RATIO NOT APPLICABLE (calc) 6-22 SODIUM 143 mmol/L 135-146 POTASSIUM 3.9 mmol/L 3.5-5.3 CHLORIDE 101 mmol/L 98-110 CARBON DIOXIDE 34 mmol/L 20-32 CALCIUM 8.5 mg/dL 8.6-10.4 PROTEIN, TOTAL 6.2 g/dL 6.1-8.1 ALBUMIN 3.5 g/dL 3.6-5.1 GLOBULIN 2.7 g/dL (calc) 1.9-3.7 ALBUMIN/GLOBULIN RATIO 1.3 (calc) 1.0-2. 5 BILIRUBIN, TOTAL 0.3 mg/dL 0.2-1.2 ALKALINE PHOSPHATASE 92 U/L 37-153 AST 10 U/L 10-35 ALT 10 U/L 6-29 Encounters ACCT No. Visit Date/Time Discharge Status Pt. Type Provider Facility Loc./Unit Complaint [id number] 09/23/2019 11:00:00 09/23/2019 23:59:5 9 [facility] Outpatient LISETH DE LA ROSA [facility] [id number] 08/30/2019 10:30:00 Document Registration [id number] 08/23/2019 13:20:00 Document Registration [id number] 08/09/2019 12:15:00 Document Registration [id number] 03/25/2019 13:45:00 Document Registration [id number] 02/11/2019 10:45:00 Document Registration [id number] 01/21/2019 15:20:00 Document Registration [id number] 12/16/2018 09:00:00 Document Registration [id number] 10/18/2018 10:20:00 Document Registration [id number] 07/15/2018 14:20:00 Document Registration [id number] 07/01/2018 12:00:00 Document Registration [id number] 09/08/2019 15:30:00 020 23:59:59 CLS Preadmit GINNA GODOY APRN [facility] RT DYSPNEA/HYPERSO MNIA [id number] 05/05/2019 11:36:00 020 13:42:00 DIS Inpatient DARBY SELBY DO, V [facility] 4TH PNEUMONIA NEW ONSET C HF [id number] 08/10/2018 21:21:00 019 23:54:00 DIS Emergency KATHY GARCIA DO [facility] ER FS COUGH,SINUS DRAINAGE,SO B
--- OUTSIDE RECORDS SUMMARY | 2019-10-05 18:08 | XMS REPORT ---
Author Author Emily DE LA ROSA Organization [facility] Address [address] [place] [address] Care Team Providers Care Wheelman Name Role Phone RJ LISETH Unavailable PROBLEMS Type Condition ICD9-CM Code [id number] Code Onset Dates Condition S tatus SNOMED Code Problem Mixed hyperlipidemia E78.2 Active 195604447 Problem Essential hypertension I10 Active 16927359 Problem Irritable bowel syndrome with diarrhea K58.0 Active 326204989 Problem Insomnia, unspecified type G47.00 Act larry 930519797 Problem Oxygen dependent Z99.81 Active 931 575612391 Problem Primary insomnia F51.01 Active 397 2004 Problem Generalized anxiety disorder F41.1 A ctive 38390598 Problem Persistent depressive disorder F34.1 Active 10565577 Problem Bipolar 1 disorder F31.9 Active 3 [id number] ALLERGIES No Information ENCOUNTERS Encounter Location Date Diagnosis [address] [place] [address] Apr, Pain in right hip M25.551 [address] [place] [address] Apr, [address] [place] [address] Mar, Pain in right hip M25.551 [address] [place] [address] Mar, [address] [place] [address] Mar, [address] [place] [address] Mar, Urinary tract infection, sit e not specified N39.[address] [place] [address] Mar, Pain in right hip M25.551 [facility] [address] [place] [address] Mar, [facility] [address] [id number] [place] [address] Feb, [facility] [address] [place] [address] Feb, Pain in right hip M25.551 [facility] [address] [place] [address] Feb, Pain in right hip M25.551 [facility] [address] [place] [address] Feb, Urinary tract infection, sit e not specified N39.0 [facility] [address] [place] [address] Feb, Urinary tract infection, sit e not specified N39.0 [facility] [address] [place] [address] Feb, Dysuria R30.0 [facility] [address] [place] [address] Jan, Dysuria R30.0 [facility] [address] [place] [address] Jan, Pain in right hip M25.551 [facility] [address] [place] [address] Jan, [facility] [address] [place] [address] Jan, [facility] [address] [place] [address] Jan, Pain in right hip M25.551 [facility] [address] [place] [address] Jan, Hematuria, unspecified type R31.9 ; Urinary tract infection, site not specified N39.0 ; Oxygen dependent Z99.81 and Encounter for immunization Z23 [facility] [address] [place] [address] Jan, Pain in right hip M25.[address] [facility] [address] [place] [address] Dec, Pain in right hip M25.[address] [facility] [address] [place] [address] Dec, Yeast dermatitis B37.2 ; Ess ential hypertension I10 and Mixed hyperlipidemia E78.[address] [facility] [address] [place] [address] Dec, Pain in right hip M25.[address] [facility] [address] [place] [address] Nov, [facility] [address] [place] [address] Nov, Pain in right hip M25.551 [facility] [address] [place] [address] Nov, [facility] [address] [place] [address] Nov, Pain in right hip M25.[address] [facility] [address] [place] [address] Nov, Pain in right hip M25.[address] [facility] [address] [place] [address] Nov, [facility] [address] [place] [address] Oct, [facility] [address] [place] [address] Oct, Insomnia, unspecified type G 47.00 [facility] [address] [place] [address] Oct, Pain in right hip M25.551 [facility] [address] [place] [address] Oct, Pain in right hip M25.551 [facility] [address] [place] [address] Oct, Irritable bowel syndrome wit h diarrhea K58.0 ; Screening for breast cancer Z12.39 ; longterm (current) use of opiate analgesic Z79.891 ; Insomnia, unspecified type G47.00 ; Essential hypertension I10 ; Mixed hyperlipidemia E78.2 ; Pain in right hip M25.551 ; Pain in left hip M25.552 ; Pain in left shoulder M25.512 and Morbid obesity E66.01 [facility] [address] [place] [address] Sep, [facility] [address] [place] [address] Sep, [facility] [address] [place] [address] Sep, Pain in unspecified joint M2 5.50 [facility] [address] [place] [address] Sep, Irritable bowel syndrome wit h diarrhea K58.[address] [facility] [address] [place] [address] Sep, Pain in left shoulder M25.51 2 [facility] [address] [place] [address] August, Pain in unspecified joint M2 5.50 [facility] [address] [place] [address] August, [facility] [address] [place] [address] August, Pain in left shoulder M25.51 [address] [facility] [address] [place] [address] August, Irritable bowel syndrome wit h diarrhea K58.0 and Morbid obesity E66.[address] [facility] [address] [place] [address] Jul, [facility] [address] [place] [address] Jul, Pain in unspecified joint M2 5.[address] [facility] [address] [place] [address] Jul, [facility] [address] [place] [address] Jul, [facility] [address] [place] [address] Jul, Pain in left shoulder M25.[address] [facility] [address] [facility] [address] [facility] [place] [address] Jul, [facility] [address] [place] [address] Jul, [facility] [address] [place] [address] Jul, Primary insomnia F51.01 ; Mo rbid obesity E66.01 ; Foul smelling urine R82.90 ; Painful urination R30.9 ; Dysuria R30.0 ; Acute cystitis with hematuria N30.01 and Irritable bowel syndrome with diarrhea K58.0 [facility] [address] [id number] [place] [address] Jul, Bipolar 1 disorder F31.9 ; Persistent de pressive disorder F34.1 and Generalized anxiety disorder F41.[address] [facility] [address] [place] [address] Jun, Pain in unspecified joint M2 5.[address] [facility] [address] [place] [address] Jun, [facility] [address] [place] [address] Jun, [facility] [address] [place] [address] Jun, Morbid obesity E66.01 and Es sential hypertension I10 [facility] [address] [id number] [place] [address] Jun, [facility] [address] [place] [address] Jun, Dysuria R30.[address] [facility] [address] [place] [address] Jun, [facility] [address] [place] [address] Jun, Morbid obesity E66.01 ; Pain in left shoulder M25.512 ; Pain in unspecified joint M25.50 ; Encounter for tobacco use cessation counseling Z71.6 ; Essential hypertension I10 and Mixed hyperlipidemia E78.[address] [facility] [address] [place] [address] Jun, [facility] [address] [place] [address] Jun, [facility] [address] [place] [address] Jun, [facility] [address] [place] [address] May, [facility] [address] [place] [address] May, IMMUNIZATIONS No Known Immunizations SOCIAL HISTORY Never Assessed REASON FOR VISIT Requests return call PLAN OF CARE VITAL SIGNS MEDICATIONS Unknown Medications RESULTS No Results PROCEDURES No Known procedures INSTRUCTIONS MEDICATIONS ADMINISTERED No Known Medications MEDICAL (GENERAL) HISTORY Type Description Date Surgical History left knee replacement Surgical History right knee replacement Surgical History cholecystectomy Hospitalization History Surgery(s) only
--- OUTSIDE RECORDS SUMMARY | 2019-10-05 18:08 | XMS REPORT ---
Author Author Emily DE LA ROSA Organization [facility] Address [address] [place] [address] Care Team Providers Care Nurse Research Name Role Phone RJ LISETH Unavailable PROBLEMS Type Condition ICD9-CM Code HOG89-CP Code Onset Dates Condition S tatus SNOMED Code Problem Mixed hyperlipidemia E78.2 Active 721802662 Problem Essential hypertension I10 Active 55509369 Problem Bipolar 1 disorder F31.9 Active 3 87201102 Problem Insomnia, unspecified type G47.00 Act larry 778278076 Problem Irritable bowel syndrome with diarrhea K58.0 Active 901771872 Problem Primary insomnia F51.01 Active 397 2004 Problem Generalized anxiety disorder F41.1 A ctive 04216588 Problem Persistent depressive disorder F34.1 Active 06502392 ALLERGIES No Information ENCOUNTERS Encounter Location Date Diagnosis [address] [address] Jan, [address] [address] Nov, [address] [address] Oct, [address] [address] Oct, Insomnia, unspecified type G47.[address] [address] Oct, Pain in right hip M25.[address] [address] Oct, Pain in right hip M25.[address] [address] Oct, Irritable bowel syndrome with diarrhea K 58.0 ; Screening for breast cancer Z12.39 ; FDC (current) use of opiate analgesic Z79.891 ; Insomnia, unspecified type G47.00 ; Essential hypertension I10 ; Mixed hyperlipidemia E78.2 ; Pain in right hip M25.551 ; Pain in left hip M25.552 ; Pain in left shoulder M25.512 and Morbid obesity E66.01 [facility] [address] [place] [address] Sep, [facility] [address] [address] Sep, [facility] [address] [address] Sep, Pain in unspecified joint M25.50 [facility] [address] [place] [address] Sep, Irritable bowel syndrome with diarrhea K 58.0 [facility] [address] [place] [address] Sep, Pain in left shoulder M25.512 [facility] [address] [place] [address] August, Pain in unspecified joint M25.50 [facility] [address] [place] [address] August, [facility] [address] [place] [address] August, Pain in left shoulder M25.512 [facility] [address] [place] [address] August, Irritable bowel syndrome with diarrhea K 58.0 and Morbid obesity E66.01 [facility] [address] [place] [address] Jul, [facility] [address] [place] [address] Jul, Pain in unspecified joint M25.50 [facility] [address] [place] [address] Jul, [facility] [address] [address] Jul, [facility] [address] [address] Jul, Pain in left shoulder M25.512 [facility] [address] [place] [address] Jul, [address] [address] Jul, [address] [address] Jul, Primary insomnia F51.01 ; Morbid obesity E66.01 ; Foul smelling urine R82.90 ; Painful urination R30.9 ; Dysuria R30.0 ; Acute cystitis with hematuria N30.01 and Irritable bowel syndrome with diarrhea K58.0 [facility] [address] [facility] [id number] [address] [place] [address] Jul, Bipolar 1 disorder F31.9 ; P ersistent depressive disorder F34.1 and Generalized anxiety disorder F41.[address] [address] Jun, Pain in unspecified joint M25.[address] [address] Jun, [address] [address] Jun, [address] [address] Jun, Morbid obesity E66.01 and Essential hype rtension I10 [facility] [address] [facility] [id number] [place] [address] Jun, [address] [address] Jun, Dysuria R30.[address] [address] Jun, [address] [address] Jun, Morbid obesity E66.01 ; Pain in left per ulder M25.512 ; Pain in unspecified joint M25.50 ; Encounter for tobacco use cessation counseling Z71.6 ; Essential hypertension I10 and Mixed hyperlipidemia E78.[address] [address] Jun, [address] [address] Jun, [address] [address] Jun, [address] [address] May, [address] [address] May, IMMUNIZATIONS No Known Immunizations SOCIAL HISTORY Never Assessed REASON FOR VISIT Controlled med refill PLAN OF CARE VITAL SIGNS MEDICATIONS Unknown Medications RESULTS No Results PROCEDURES No Known procedures INSTRUCTIONS MEDICATIONS ADMINISTERED No Known Medications MEDICAL (GENERAL) HISTORY Type Description Date Surgical History left knee replacement Surgical History right knee replacement Surgical History cholecystectomy Hospitalization History Surgery(s) only
--- OUTSIDE RECORDS SUMMARY | 2019-10-05 18:08 | XMS REPORT ---
Author Author Emily DE LA ROSA Organization [facility] Address [address] [place] [address] Care Team Providers Care Manager Of Community Relations Name Role Phone RJ, LISETH Unavailable PROBLEMS Type Condition ICD9-CM Code CCR09-OM Code Onset Dates Condition S tatus SNOMED Code Problem Mixed hyperlipidemia E78.2 Active 524227563 Problem Bipolar 1 disorder F31.9 Active 3 70842549 Problem Generalized anxiety disorder F41.1 A ctive 77001534 Problem Essential hypertension I10 Active 03437989 Problem Irritable bowel syndrome with diarrhea K58.0 Active 967991720 Problem Primary insomnia F51.01 Active 397 2004 Problem Persistent depressive disorder F34.1 Active 22681352 ALLERGIES No Information ENCOUNTERS Encounter Location Date Diagnosis [address] [address] Oct, [address] [address] Sep, [address] [address] Sep, [address] [address] Sep, Pain in unspecified joint M25.[address] [address] Sep, Irritable bowel syndrome with diarrhea K 58.[address] [address] Sep, Pain in left shoulder M25.[address] [address] August, Pain in unspecified joint M25.[address] [address] August, [facility] [address] [address] August, Pain in left shoulder M25.512 [facility] [place] [address] [address] August, Irritable bowel syndrome with diarrhea K 58.0 and Morbid obesity E66.01 [facility] [place] [address] [address] Jul, [facility] [address] [address] Jul, Pain in unspecified joint M25.50 [facility] [address] [address] Jul, [facility] [address] [address] Jul, [facility] [address] [address] Jul, Pain in left shoulder M25.512 [facility] [address] [place] [address] 15 Jul, 19 [facility] [place] [address] [address] Jul, [facility] [address] [address] Jul, Primary insomnia F51.01 ; Morbid obesity E66.01 ; Foul smelling urine R82.90 ; Painful urination R30.9 ; Dysuria R30.0 ; Acute cystitis with hematuria N30.01 and Irritable bowel syndrome with diarrhea K58.0 [facility] [address] [facility] [id number] [place] [address] Jul, Bipolar 1 disorder F31.9 ; P ersistent depressive disorder F34.1 and Generalized anxiety disorder F41.1 [facility] [address] [address] Jun, Pain in unspecified joint M25.50 [facility] [place] [address] [address] Jun, [facility] [address] [address] Jun, [facility] [address] [facility] [id number] [address] [place] [address] Jun, [facility] [address] [address] Jun, Morbid obesity E66.01 and Essential hype rtension I10 [facility] [address] [address] Jun, Dysuria R30.[address] [address] Jun, [address] [address] Jun, Morbid obesity E66.01 ; Pain in left per ulder M25.512 ; Pain in unspecified joint M25.50 ; Encounter for tobacco use cessation counseling Z71.6 ; Essential hypertension I10 and Mixed hyperlipidemia E78.[address] [address] Jun, [facility] [address] [address] Jun, [address] [address] Jun, [address] [address] May, [address] [address] May, IMMUNIZATIONS No Known Immunizations SOCIAL HISTORY Never Assessed REASON FOR VISIT request return call PLAN OF CARE VITAL SIGNS MEDICATIONS Unknown Medications RESULTS No Results PROCEDURES No Known procedures INSTRUCTIONS MEDICATIONS ADMINISTERED No Known Medications MEDICAL (GENERAL) HISTORY Type Description Date Surgical History left knee replacement Surgical History right knee replacement Surgical History cholecystectomy Hospitalization History Surgery(s) only
--- OUTSIDE RECORDS SUMMARY | 2019-10-05 18:08 | XMS REPORT ---
Author Author Emily DE LA ROSA Organization [facility] Address [address] [place] [address] Care Team Providers Care Sanitary Engineering Teacher Name Role Phone RJ LISETH Unavailable PROBLEMS Type Condition ICD9-CM Code SOA25-LW Code Onset Dates Condition S tatus SNOMED Code Problem Mixed hyperlipidemia E78.2 Active 704147293 Problem Essential hypertension I10 Active 34296839 Problem Irritable bowel syndrome with diarrhea K58.0 Active 770649967 Problem Insomnia, unspecified type G47.00 Act larry 294102264 Problem Oxygen dependent Z99.81 Active 931 147835165 Problem Primary insomnia F51.01 Active 397 2004 Problem Generalized anxiety disorder F41.1 A ctive 34750055 Problem Persistent depressive disorder F34.1 Active 04220076 Problem Bipolar 1 disorder F31.9 Active 3 32428108 ALLERGIES No Information ENCOUNTERS Encounter Location Date Diagnosis [address] [place] [address] Apr, Pain in right hip M25.551 [address] [place] [address] Apr, [address] [place] [address] Mar, Pain in right hip M25.551 [address] [place] [address] Mar, [address] [place] [address] Mar, [address] [place] [address] Mar, Urinary tract infection, sit e not specified N39.0 [address] [place] [address] Mar, Pain in right hip M25.551 [facility] [address] [place] [address] Mar, [facility] [address] [id number] [place] [address] Feb, [facility] [address] [place] [address] Feb, Pain in right hip M25.551 [facility] [address] [place] [address] Feb, Pain in right hip M25.551 [facility] [address] [place] [address] Feb, Urinary tract infection, sit e not specified N39.0 [facility] [address] [place] [address] Feb, Urinary tract infection, sit e not specified N39.0 [facility] [place] [address] [place] [address] Feb, Dysuria R30.0 [facility] [address] [place] [address] Jan, Dysuria R30.0 [facility] [address] [place] [address] Jan, Pain in right hip M25.551 [facility] [address] [place] [address] Jan, [facility] [place] [address] [place] [address] Jan, [facility] [place] [address] [place] [address] Jan, Pain in right hip M25.551 [facility] [address] [place] [address] Jan, Hematuria, unspecified type R31.9 ; Urinary tract infection, site not specified N39.0 ; Oxygen dependent Z99.81 and Encounter for immunization Z23 [facility] [address] [place] [address] Jan, Pain in right hip M25.551 [facility] [address] [place] [address] Dec, Pain in right hip M25.551 [facility] [address] [place] [address] Dec, Yeast dermatitis B37.2 ; Ess ential hypertension I10 and Mixed hyperlipidemia E78.2 [facility] [address] [place] [address] Dec, Pain in right hip M25.551 [facility] [address] [place] [address] Nov, [facility] [address] [place] [address] Nov, Pain in right hip M25.551 [facility] [address] [place] [address] Nov, [facility] [address] [place] [address] Nov, Pain in right hip M25.551 [facility] [address] [place] [address] Nov, Pain in right hip M25.551 [facility] [address] [place] [address] Nov, [facility] [address] [place] [address] Oct, [facility] [address] [place] [address] Oct, Insomnia, unspecified type G 47.00 [facility] [place] [address] [place] [address] Oct, Pain in right hip M25.551 [facility] [address] [place] [address] Oct, Pain in right hip M25.551 [facility] [address] [place] [address] Oct, Irritable bowel syndrome wit h diarrhea K58.0 ; Screening for breast cancer Z12.39 ; long-term (current) use of opiate analgesic Z79.891 ; Insomnia, unspecified type G47.00 ; Essential hypertension I10 ; Mixed hyperlipidemia E78.2 ; Pain in right hip M25.551 ; Pain in left hip M25.552 ; Pain in left shoulder M25.512 and Morbid obesity E66.01 [facility] [address] [place] [address] Sep, [facility] [place] [address] [place] [address] Sep, [facility] [place] [address] [place] [address] Sep, Pain in unspecified joint M2 5.50 [facility] [address] [place] [address] Sep, Irritable bowel syndrome wit h diarrhea K58.0 [facility] [place] [address] [place] [address] Sep, Pain in left shoulder M25.51 2 [facility] [address] [place] [address] August, Pain in unspecified joint M2 5.50 [facility] [address] [place] [address] August, [facility] [address] [place] [address] August, Pain in left shoulder M25.51 2 [facility] [address] [place] [address] August, Irritable bowel syndrome wit h diarrhea K58.0 and Morbid obesity E66.01 [facility] [place] [address] [place] [address] Jul, [facility] [place] [address] [place] [address] Jul, Pain in unspecified joint M2 5.50 [facility] [place] [address] [place] [address] Jul, [facility] [place] [address] [place] [address] Jul, [facility] [place] [address] [place] [address] Jul, Pain in left shoulder M25.51 2 [facility] [address] [facility] [address] [facility] [place] [address] Jul, [facility] [place] [address] [place] [address] Jul, [facility] [place] [address] [place] [address] Jul, Primary insomnia F51.01 ; Mo rbid obesity E66.01 ; Foul smelling urine R82.90 ; Painful urination R30.9 ; Dysuria R30.0 ; Acute cystitis with hematuria N30.01 and Irritable bowel syndrome with diarrhea K58.0 [facility] [address] [id number] [place] [address] Jul, Bipolar 1 disorder F31.9 ; Persistent de pressive disorder F34.1 and Generalized anxiety disorder F41.1 [facility] [place] [address] [place] [address] Jun, Pain in unspecified joint M2 5.50 [facility] [place] [address] [place] [address] Jun, [facility] [place] [address] [place] [address] Jun, [facility] [place] [address] [place] [address] Jun, Morbid obesity E66.01 and Es sential hypertension I10 [facility] [address] [facility] [place] [address] Jun, [facility] [address] [place] [address] Jun, Dysuria R30.0 [facility] [place] [address] [place] [address] Jun, [facility] [place] [address] [place] [address] Jun, Morbid obesity E66.01 ; Pain in left shoulder M25.512 ; Pain in unspecified joint M25.50 ; Encounter for tobacco use cessation counseling Z71.6 ; Essential hypertension I10 and Mixed hyperlipidemia E78.2 [facility] [place] [address] [place] [address] Jun, [facility] [place] [address] [place] [address] Jun, [facility] [address] [place] [address] Jun, [facility] [place] [address] [place] [address] May, [facility] [address] [place] [address] May, IMMUNIZATIONS No Known Immunizations SOCIAL HISTORY Never Assessed REASON FOR VISIT PLAN OF CARE VITAL SIGNS MEDICATIONS Unknown Medications RESULTS No Results PROCEDURES No Known procedures INSTRUCTIONS MEDICATIONS ADMINISTERED No Known Medications MEDICAL (GENERAL) HISTORY Type Description Date Surgical History left knee replacement Surgical History right knee replacement Surgical History cholecystectomy Hospitalization History Surgery(s) only
--- OUTSIDE RECORDS SUMMARY | 2019-10-05 18:08 | XMS REPORT ---
Author Author Emily DE LA ROSA Organization [facility] Address [address] [place] [address] Care Team Providers Care Supervisor [employer] Name Role Phone RJ, LISETH Unavailable PROBLEMS Type Condition ICD9-CM Code UXS38-MD Code Onset Dates Condition S tatus SNOMED Code Problem Mixed hyperlipidemia E78.2 Active 633273845 Problem Bipolar 1 disorder F31.9 Active 3 46587393 Problem Generalized anxiety disorder F41.1 A ctive 99177125 Problem Essential hypertension I10 Active 68641123 Problem Irritable bowel syndrome with diarrhea K58.0 Active 023590391 Problem Primary insomnia F51.01 Active 397 2004 Problem Persistent depressive disorder F34.1 Active 22837834 ALLERGIES No Information ENCOUNTERS Encounter Location Date Diagnosis [address] [address] Oct, [address] [address] Sep, [address] [address] Sep, [address] [address] Sep, Pain in unspecified joint M25.[address] [address] Sep, Irritable bowel syndrome with diarrhea K 58.[address] [address] Sep, Pain in left shoulder M25.[address] [address] August, Pain in unspecified joint M25.[address] [address] August, [facility] [address] [address] August, Pain in left shoulder M25.512 [facility] [place] [address] [address] August, Irritable bowel syndrome with diarrhea K 58.0 and Morbid obesity E66.01 [facility] [place] [address] [address] Jul, [facility] [address] [address] Jul, Pain in unspecified joint M25.50 [facility] [address] [address] Jul, [facility] [address] [address] Jul, [facility] [address] [address] Jul, Pain in left shoulder M25.512 [facility] [address] [place] [address] 15 Jul, 19 [facility] [place] [address] [address] Jul, [facility] [address] [address] Jul, Primary insomnia F51.01 ; Morbid obesity E66.01 ; Foul smelling urine R82.90 ; Painful urination R30.9 ; Dysuria R30.0 ; Acute cystitis with hematuria N30.01 and Irritable bowel syndrome with diarrhea K58.0 [facility] [address] [facility] [id number] [address] [address] Jul, Bipolar 1 disorder F31.9 ; P ersistent depressive disorder F34.1 and Generalized anxiety disorder F41.1 [facility] [address] [address] Jun, Pain in unspecified joint M25.50 [facility] [place] [address] [address] Jun, [facility] [address] [address] Jun, [facility] [address] [facility] [id number] [address] [place] [address] Jun, [facility] [address] [address] Jun, Morbid obesity E66.01 and Essential hype rtension I10 [facility] [address] [address] Jun, Dysuria R30.[address] [address] Jun, [address] [address] Jun, Morbid obesity E66.01 ; Pain in left per ulder M25.512 ; Pain in unspecified joint M25.50 ; Encounter for tobacco use cessation counseling Z71.6 ; Essential hypertension I10 and Mixed hyperlipidemia E78.[address] [address] Jun, [facility] [address] [address] Jun, [address] [address] Jun, [address] [address] May, [address] [address] May, IMMUNIZATIONS No Known Immunizations SOCIAL HISTORY Never Assessed REASON FOR VISIT Quit Smoking PLAN OF CARE VITAL SIGNS MEDICATIONS Unknown Medications RESULTS No Results PROCEDURES No Known procedures INSTRUCTIONS MEDICATIONS ADMINISTERED No Known Medications MEDICAL (GENERAL) HISTORY Type Description Date Surgical History left knee replacement Surgical History right knee replacement Surgical History cholecystectomy Hospitalization History Surgery(s) only
[2019-10-05 18:11] LABS: BASOPHILS % (AUTO) 0 % (0-10); EOSINOPHILS % (AUTO) 0 % (0-10); HEMATOCRIT 39 % (35-52); HEMOGLOBIN 12.4 G/DL (11.5-16.0); LYMPHOCYTES # (AUTO) 0.7 X 10^3 (1.0-4.0); LYMPHOCYTES % (AUTO) 5 % (12-44); MEAN CORPUSCULAR HEMOGLOBIN 30 PG (25-34); MEAN CORPUSCULAR HGB CONC 32 G/DL (32-36); MEAN CORPUSCULAR VOLUME 94 FL (80-99); MEAN PLATELET VOLUME 10.6 FL (7.4-10.4); MONOCYTES % (AUTO) 6 % (0-12); NEUTROPHILS # (AUTO) 10.9 X 10^3 (1.8-7.8); NEUTROPHILS % (AUTO) 88 % (42-75); PLATELET COUNT 216 10^3/uL (130-400); RED CELL DISTRIBUTION WIDTH 13.3 % (10.0-14.5); WHITE BLOOD COUNT 12.4 10^3/uL (4.3-11.0)
[2019-10-05 18:12] LABS: MONOCYTES # (AUTO) 0.8 X 10^3 (0.0-1.0)
[2019-10-05 18:28] LABS: BAND NEUTROPHILS 1 %; BASOPHILS % (MANUAL) 0 %; EOSINOPHILS % (MANUAL) 1 %; LYMPHOCYTES % (MANUAL) 6 %; MONOCYTES % (MANUAL) 5 %; NEUTROPHILS % (MANUAL) 87 %
[2019-10-05 18:41] LABS: CHLORIDE 96 MMOL/L (98-107); POTASSIUM 4.3 MMOL/L (3.6-5.0); SODIUM 141 MMOL/L (135-145)
[2019-10-05 18:42] LABS: ALANINE AMINOTRANSFERASE 16 U/L (0-55); ALBUMIN 3.4 GM/DL (3.2-4.5); ALKALINE PHOSPHATASE 114 U/L (40-136); BILIRUBIN,TOTAL 0.4 MG/DL (0.1-1.0); BUN/CREATININE RATIO 24; CALCIUM 8.8 MG/DL (8.5-10.1); CARBON DIOXIDE 32 MMOL/L (21-32); GFR ESTIMATED > 60; GLUCOSE 114 MG/DL (70-105); TOTAL PROTEIN 7.1 GM/DL (6.4-8.2)
[2019-10-05] MEDS ORDERED: DOXYCYCLINE 100 MG (VIBRAMYCIN) TABLET PO SCH (18:45)
[2019-10-05] MEDS ORDERED: DOXY100T2 PO (19:07)
[2019-10-05] MEDS ORDERED: DEXA6TAB PO (19:07)
[2019-10-05] MEDS ORDERED: RT-ALBUTEROL/IPRATROPIUM 3 ML (DUONEB) VIAL INH ONE (19:15)
--- NOTE | 2019-10-05 19:25 | NUR ---
notified son of pt discharge, son states he will bring pants for pt to wear
--- NOTE | 2019-10-05 19:30 | Diagnostic Imaging Report ---
EXAMINATION: Chest (PA and lateral). CLINICAL INDICATION: 69-year-old female, shortness of breath. COMPARISON: May 10, 2019. FINDINGS: Stable overall appearance of the cardiomediastinal silhouette. There is no identified pneumothorax. The lateral view is significantly technically limited. There is no obvious pleural effusion. There are bilateral interstitial appearing opacities with fairly similar appearance to the comparison study. There are mild degenerative changes of the spine. IMPRESSION: Bilateral interstitial appearing opacities which may relate to pulmonary edema. Atypical infection and chronic lung changes are the primary differential diagnostic considerations. Dictated by: Dictated on workstation # [id number]
[2019-10-05 19:33] VITALS: BP 153/93
== END 2019-10-05 19:33 | disposition home or self-care (01) ==
LOC: EDUNIT# 17:29 → ER FS 17:30
DX: J44.1 Chronic obstructive pulmonary disease with (acute) exacerbation (principal); I11.0 Hypertensive heart disease with heart failure; I50.9 Heart failure, unspecified; I25.10 Atherosclerotic heart disease of native coronary artery without angina pectoris; F32.9 Major depressive disorder, single episode, unspecified; Z99.81 Dependence on supplemental oxygen; Z79.01 Long term (current) use of anticoagulants; Z79.51 Long term (current) use of inhaled steroids; Z79.52 Long term (current) use of systemic steroids; Z87.891 Personal history of nicotine dependence; Z96.652 Presence of left artificial knee joint
CPT/HCPCS: 36415; 71046; 80053; 83735; 83880; 84484; 85007; 85027

== ENCOUNTER → 2019-11-21 | Outpatient (CLI) | payer MEDICARE ==
[~2019-11-21] MED LIST changes: +CATHETER FLUSH 10 ML SYR IV PRN; +DEXA6TAB PO; +HOLD METFORMIN - RECEIVED CONTRAST 20 ML VIAL IV SCH; +IOHEXOL 350 MG/ML 100 ML (OMNIPAQUE 350) VIAL IV ONE; +NS 100 ML (IVPB) BAG IV ONE
[2019-11-21 12:25] LABS: CREATININE SERUM 1.04 MG/DL (0.60-1.30)
--- NOTE | 2019-11-21 14:12 | Diagnostic Imaging Report ---
PROCEDURE: CT chest with contrast only. TECHNIQUE: Multiple contiguous axial images were obtained through the chest after administration of intravenous contrast. Auto Exposure Controls were utilized during the CT exam to meet ALARA standards for radiation dose reduction. DATE: November 21, 2019. COMPARISON: Chest radiographs October 05, 2019. INDICATION: 69-year-old female, hypoxia. Tobacco use. FINDINGS: There is a 2 mm left lower lobe pulmonary nodule on axial image 80. There is a 2 mm left lower lobe pulmonary nodule on axial image 89. There is no lung mass. There is a pleural-based 5 mm right lower lobe pulmonary nodule on axial image 66. There is no otherwise noted focal airspace consolidation. There is no pneumothorax. There is no pleural effusion. The central airways are patent. There is no identified central pulmonary embolus. There is nondiagnostic assessment for segmental and subsegmental pulmonary emboli. There are coronary artery calcifications and additional areas of atherosclerotic disease. The heart is not enlarged. There is no pericardial effusion. There is no identified abnormally enlarged mediastinal, hilar, or axillary lymph node which meets CT size criteria for adenopathy. The patient is status post cholecystectomy. There is mild intrahepatic bile duct dilation. The common bile duct is not grossly dilated. The main pancreatic duct is not abnormally dilated. Limited evaluation of the pancreatic parenchyma is unremarkable. There is an incompletely imaged low-attenuation left renal lesion measuring 1.8 cm in size on axial image 169. Internal attenuation is measured at 4 Hounsfield units. This is compatible with a benign cyst in the imaged portions of the lesion; however, the lesion cannot be definitively characterized as it is incompletely imaged. There are degenerative changes of the spine. There are severe left glenohumeral arthritic changes. There is no identified acute bony abnormality. IMPRESSION: CT CHEST. 1. Subcentimeter pulmonary nodules measuring up to maximally 5 mm in size in the right lower lobe. Recommend comparison with prior CT imaging if available to assess for possible stability. If stability cannot be documented, follow-up CT chest without contrast is recommended in 6 months. 2. No identified acute cardiopulmonary abnormality. Dictated by: Dictated on workstation # [id number]
== END ==
LOC: RT 11:42
PROVIDERS: ATTEND Nurse Practitioner Family
DX: J98.4 Other disorders of lung (principal); G47.10 Hypersomnia, unspecified; G47.8 Other sleep disorders; R91.8 Other nonspecific abnormal finding of lung field; F17.210 Nicotine dependence, cigarettes, uncomplicated
CPT/HCPCS: 36415; 71260; 82565; 84520

== ENCOUNTER 2019-11-29 09:01 | Inpatient (IN) | payer MEDICARE ==
[~2019-11-29] VITALS: Ht 165.1 cm; Wt 150.6 kg
[~2019-11-29 09:01] MED LIST changes: -CATHETER FLUSH 10 ML SYR IV PRN; -HOLD METFORMIN - RECEIVED CONTRAST 20 ML VIAL IV SCH; -IOHEXOL 350 MG/ML 100 ML (OMNIPAQUE 350) VIAL IV ONE; -NS 100 ML (IVPB) BAG IV ONE
[2019-11-29] MEDS ORDERED: NS IV 1000 ML 1,000 ML IV SCH (09:30)
--- NOTE | 2019-11-29 09:55 | Diagnostic Imaging Report ---
CLINICAL INDICATION: Patient with hip pain. Patient states she sat down hard in her recliner 2 days ago and has right hip pain since and cannot put weight on her right leg. EXAM: X-ray of the pelvis AP view and x-ray of the right hip, 2 AP views. COMPARISON: None. FINDINGS: There is no acute fracture or dislocation. There is moderate to severely hypertrophic spurs involving both hips. (Left side more than the right) with hypertrophic acetabular spurs and spurring of the proximal femoral head/neck junction region. There are small spurs involving the symphysis pubis region. Bowel gas seen overlying the sacrum and pelvis partially obscures region but there is no significant abnormality of the pelvis or sacrum seen. There is mild spurring of the sacroiliac joints. Likely phleboliths seen in the pelvis and vascular calcifications. IMPRESSION: 1: There is no acute fracture or dislocation. 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 Dictated by: Dictated on workstation # [id number]
[2019-11-29 10:15] LABS: HEMATOCRIT 26 % (35-52); HEMOGLOBIN 8.1 G/DL (11.5-16.0); MEAN CORPUSCULAR HEMOGLOBIN 28 PG (25-34); MEAN CORPUSCULAR VOLUME 91 FL (80-99); WHITE BLOOD COUNT 12.3 10^3/uL (4.3-11.0)
[2019-11-29 10:16] LABS: BASOPHILS % (AUTO) 0 % (0-10); EOSINOPHILS # (AUTO) 0.1 10^3/uL (0.0-0.3); EOSINOPHILS % (AUTO) 1 % (0-10); LYMPHOCYTES # (AUTO) 1.2 X 10^3 (1.0-4.0); LYMPHOCYTES % (AUTO) 10 % (12-44); MEAN CORPUSCULAR HGB CONC 31 G/DL (32-36); MEAN PLATELET VOLUME 10.1 FL (7.4-10.4); MONOCYTES # (AUTO) 0.7 X 10^3 (0.0-1.0); MONOCYTES % (AUTO) 5 % (0-12); NEUTROPHILS # (AUTO) 10.3 X 10^3 (1.8-7.8); NEUTROPHILS % (AUTO) 84 % (42-75); PLATELET COUNT 281 10^3/uL (130-400); RED CELL DISTRIBUTION WIDTH 14.5 % (10.0-14.5)
--- NOTE | 2019-11-29 10:24 | ED Hip Pain/Injury ---
General Chief Complaint: Hip/Pelvic Problems Stated Complaint: GEN WEAKNESS; HIP PAIN Nursing Triage Note: Patient reports she sat down hard in her recliner on Thursday and has had pain in her right hip since that time. She reports she has not been out of her recliner since Thursday as she has been unable to stand on her hip. Source: patient, EMS Exam Limitations: no limitations History of Present Illness Date Seen by Provider: Nov 29, 2019 Time Seen by Provider: 09:10 Initial Comments 69-year-old female presents via EMS for complaint of hip pain. Patient states t hat 2 days ago she fell back into her recliner and has not been able to get out of her recliner since then. States that she thought she heard her hips when she sat down in her chair, she denies falling to the floor. Patient said due to the pain in her hip she hasn't gotten out of her chair even to use the restroom. EMS reports very poor living conditions and very poor hygiene as patient had soiled herself sitting in her chair for the past at least 2 days. Allergies and Home Medications Allergies Coded Allergies: No Known Drug Allergies (Verified , 11/20/08) Home Medications Apixaban 5 Mg Tablet, 5 MG PO BID Prescribed by: DARBY SELBY on 05/10/191917 Aripiprazole 2 Mg Tablet, 2 MG PO DAILY, (Reported) Clonazepam 1 Mg Tablet, 1 MG PO BID, (Reported) Dexamethasone 6 Mg Tablet, 6 MG PO DAILY Prescribed by: KETTY CUEVAS on 10/05/191906 Doxycycline Hyclate 100 Mg Tablet, 100 MG PO BID Prescribed by: KETTY CUEVAS on 10/05/191906 Duloxetine HCl 60 Mg Capsule.dr, 120 MG PO DAILY, (Reported) TAKES 2 (60MG) CAPSULES Fluticasone/Salmeterol 12 Gm Hfa.aer.ad, 2 PUFF IH BID@ Prescribed by: DARBY SELBY on 05/11/19 1000 Furosemide 40 Mg Tablet, 40 MG PO BID Prescribed by: DARBY SELBY on 05/10/191917 Ipratropium/Albuterol Sulfate 3 Ml Ampul.neb, 3 ML INH RTQ4HR Prescribed by: DARBY SELBY on 05/10/191917 Lisinopril 20 Mg Tablet, 20 MG PO DAILY@0900 Prescribed by: DARBY SELBY on 05/10/191917 Morphine Sulfate 15 Mg Tablet.er, 15 MG PO BID, (Reported) Nystatin 15 Gm Cream..g., 1 GM TP BID Prescribed by: DARBY SELBY on 05/10/191917 Omeprazole 20 Mg Capsule.dr, 20 MG PO DAILY, (Reported) Oxycodone HCl/Acetaminophen 1 Each Tablet, 1 TAB PO BID PRN for PAIN-MODERATE (5-7), (Reported) Potassium Chloride 10 Meq Tab.er.prt, 10 MEQ PO DAILY Prescribed by: DARBY SELBY on 05/10/191917 Prednisone 10 Mg Tab.ds.pk, 10 MG PO DAILY Take 6 tabs(60mg)daily,decrease by 1 tab(10MG)daily. Prescribed by: DARBY SELBY on 05/10/191917 Simvastatin 10 Mg Tablet, 10 MG PO HS, (Reported) Trazodone HCl 50 Mg Tablet, 50-100 MG PO HS, (Reported) Patient Home Medication List Home Medication List Reviewed: Yes Review of Systems Constitutional: No diaphoresis, No dizziness, No fever; weakness (unable to get out of her recliner for 2 days. States she normally walks to restroom without assistance.) Respiratory: No cough, No short of breath Cardiovascular: No chest pain, No palpitations, No syncope Gastrointestinal: No abdominal pain, No constipation, No diarrhea, No loss of appetite, No nausea, No vomiting Genitourinary: No dysuria, No frequency Musculoskeletal: No back pain; joint pain (both hips, R greater than L) Psychiatric/Neurological: Denies Headache, Denies Numbness, Denies Paresthesia; Weakness Past Wwpmuqs-Ktfkte-Wgfhbq Hx Past Med/Social Hx: Reviewed Nursing Past Med/Soc Hx Patient Social History Alcohol Use: Occasionally Uses Recreational Drug Use: No Smoking Status: Current Everyday Smoker Type Used: Cigarettes Former Smoker, Quit: May 01, 2019 2nd Hand Smoke Exposure: No Recent Foreign Travel: No Contact w/Someone Who Travel: No Recent Infectious Disease Expo: No Recent Hopitalizations: Yes Physical Abuse: No Sexual Abuse: No Mistreated: No Fear: No Immunizations Up To Date Tetanus Booster (TDap): Unknown Date of Influenza Vaccine: Feb 11, 2019 Seasonal Allergies Seasonal Allergies: No Past Medical History Surgeries: Yes (LEFT TKR) Orthopedic Respiratory: No Cardiac: Yes Coronary Artery Disease, Hypertension Neurological: No Reproductive Disorders: No Sexually Transmitted Disease: No Genitourinary: No Gastrointestinal: No Musculoskeletal: Yes (OSTEOARTHRITIS) Endocrine: No HEENT: No Cancer: No Psychosocial: Yes (Prior ETOH ) Depression Integumentary: No Blood Disorders: No Physical Exam Vital Signs Vital Signs - First Documented 11/29/19 09:09 Temp 37.0 Pulse 91 Resp 20 Pulse Ox 95 O2 Delivery Room Air Capillary Refill : Less Than 3 Seconds Height, Weight, BMI Height: 5'5.00" Weight: 332lbs. 0oz. 150.850295we; 54.00 BMI Method:Stated General Appearance: No Apparent Distress, Obese, Other (severely poor hygiene. Wreaks of urine and stool. ) HEENT: Normal ENT Inspection Neck: Non Tender, Supple Cardiovascular: Regular Rate, Rhythm, Normal Peripheral Pulses Respiratory: Chest Non Tender, Lungs Clear Gastrointestinal: Non Tender, Soft Extremity: Other (tender b/l Hips (R >> L)) Neurologic/Psychiatric: Alert, Oriented x3, Normal Mood/Affect, Other (generalized weakness, barely able to lift either leg from bed) Progress/Results/Core Measures Results/Orders Lab Results Laboratory Tests Test 11/29/19 09:50 Range/Units White Blood Count 12.3 H 4.3-11.0 10^3/uL Red Blood Count 2.86 L 4.35-5.85 10^6/uL Hemoglobin 8.1 L 11.5-16.0 G/DL Hematocrit 26 L 35-52 % Mean Corpuscular Volume 91 80-99 FL Mean Corpuscular Hemoglobin 28 25-34 PG Mean Corpuscular Hemoglobin Concent 31 L 32-36 G/DL Red Cell Distribution Width 14.5 10.0-14.5 % Platelet Count 281 130-400 10^3/uL Mean Platelet Volume 10.1 7.4-10.4 FL Neutrophils (%) (Auto) 84 H 42-75 % Lymphocytes (%) (Auto) 10 L 12-44 % Monocytes (%) (Auto) 5 0-12 % Eosinophils (%) (Auto) 1 0-10 % Basophils (%) (Auto) 0 0-10 % Neutrophils # (Auto) 10.3 H 1.8-7.8 X 10^3 Lymphocytes # (Auto) 1.2 1.0-4.0 X 10^3 Monocytes # (Auto) 0.7 0.0-1.0 X 10^3 Eosinophils # (Auto) 0.1 0.0-0.3 10^3/uL Basophils # (Auto) 0.0 0.0-0.1 10^3/uL Sodium Level 138 135-145 MMOL/L Potassium Level 4.4 3.6-5.0 MMOL/L Chloride Level 98 98-107 MMOL/L Carbon Dioxide Level 30 21-32 MMOL/L Anion Gap 10 5-14 MMOL/L Blood Urea Nitrogen 24 H 7-18 MG/DL Creatinine 1.37 H 0.60-1.30 MG/DL Estimat Glomerular Filtration Rate 38 BUN/Creatinine Ratio 18 Glucose Level 134 H 70-105 MG/DL Lactic Acid Level 1.36 0.50-2.00 MMOL/L Calcium Level 8.7 8.5-10.1 MG/DL Corrected Calcium 9.3 8.5-10.1 MG/DL Total Bilirubin 0.2 0.1-1.0 MG/DL Aspartate Amino Transf (AST/SGOT) 12 5-34 U/L Alanine Aminotransferase (ALT/SGPT) 8 0-55 U/L Alkaline Phosphatase 89 40-136 U/L Total Protein 6.8 6.4-8.2 GM/DL Albumin 3.2 3.2-4.5 GM/DL My Orders Orders - ROVENSTHARVEY GEORGE DO Ed Iv/Invasive Line Start (11/29/19 09:19) Cbc With Automated Diff (11/29/19 09:19) Comprehensive Metabolic Panel (11/29/19 09:19) Lactic Acid Analyzer (11/29/19 09:19) Urinalysis (11/29/19 09:19) Pelvis With Right Hip 2-3 View (11/29/19 09:20) Ns Iv 1000 Ml (Sodium Chloride 0.9%) (11/29/19 09:30) Ibuprofen Tablet (Motrin Tablet) (11/29/19 11:00) Medications Given in ED Current Medications Medications Dose Ordered Sig/Kylee Route Start Time Stop Time Status Last Admin Dose Admin Ibuprofen 800 mg ONCE ONCE PO 11/29/19 11:00 11/29/19 11:02 DC 11/29/19 11:24 800 MG Vital Signs/I&O 11/29/19 09:09 Temp 37.0 Pulse 91 Resp 20 B/P (MAP) Pulse Ox 95 O2 Delivery Room Air Progress Progress Note : Progress Note Nursing called [facility] and spoke to Nurse who is going to assist w getting more frequent Home Health care assistance. Currently only getting 2 hours weekly. Patient probably needs daily to every other day. Diagnostic Imaging Diagonstic Imaging: Xray Comments NAME: NURA ORTIZ [facility] REC#: [id number] PT STATUS: REG ER : 1950 PHYSICIAN: HARVEY MCLAUGHLIN DO ADMIT DATE: 11/29/19/ER FS Draft Date of Exam:11/29/19 PELVIS WITH RIGHT HIP 2-3 VIEW CLINICAL INDICATION: Patient with hip pain. Patient states she sat down hard in her recliner 2 days ago and has right hip pain since and cannot put weight on her right leg. EXAM: X-ray of the pelvis AP view and x-ray of the right hip, 2 AP views. COMPARISON: None. FINDINGS: There is no acute fracture or dislocation. There is moderate to severely hypertrophic spurs involving both hips. (Left side more than the right) with hypertrophic acetabular spurs and spurring of the proximal femoral head/neck junction region. There are small spurs involving the symphysis pubis region. Bowel gas seen overlying the sacrum and pelvis partially obscures region but there is no significant abnormality of the pelvis or sacrum seen. There is mild spurring of the sacroiliac joints. Likely phleboliths seen in the pelvis and vascular calcifications. IMPRESSION: 1: There is no acute fracture or dislocation. 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 Dictated on workstation # [id number] Dict: 11/29/19 0948 Trans: 11/29/19 0954 [facility] [id number] Interpreted by: NAVJOT POWERS MD Electronically signed by: Departure Communication (Admissions) Time/Spoke to Admitting Phy: 15:[address] Niall Lima, who accepts for transfer to [facility]. Explained prolonged attempt by Nursing staff to either get care to manage her or get LT care facility to take her..... both stated they said they were unable to manage her Will need forensic social worker consultation for LT placement. Impression Primary Impression: Weakness Additional Impressions: Dehydration Poor social situation Unable to ambulate Disposition: HOME, SELF-CARE Condition: Stable Admissions Decision to Admit Reason: Admit from ER (General) Decision to Admit/Date: Nov 29, 2019 Time/Decision to Admit Time: 15:00 Departure-Patient Inst. Referrals: [facility]/JESSICA (PCP) Primary Care Physician LISETH DE LA ROSA APRN (Family) Primary Care Physician HARVEY MCLAUGHLIN DO Nov 29, 2019 10:24
--- OUTSIDE RECORDS SUMMARY | 2019-11-29 10:27 | XMS REPORT ---
Author Author Emily DE LA ROSA Organization [facility] Address [address] [place] [address] Care Team Providers Care Parts Designer Name Role Phone RJ LISETH Unavailable PROBLEMS Type Condition ICD9-CM Code [id number] Code Onset Dates Condition S tatus SNOMED Code Problem Essential hypertension I10 Active 63863816 Problem Mixed hyperlipidemia E78.2 Active 494777023 Problem Primary insomnia F51.01 Active 397 2004 Problem Irritable bowel syndrome with diarrhea K58.0 Active 964395266 Problem Persistent depressive disorder F34.1 Active 92755047 Problem Generalized anxiety disorder F41.1 A ctive 01287558 Problem Oxygen dependent Z99.81 Active 931 265756052 Problem Morbid (severe) obesity due to excess calories E66 .01 Active 626758775 Problem Congestive heart failure, un specified HF chronicity, unspecified heart failure type I50.9 Active 02187072 Problem Incontinence in female R32 Active 74947750 Problem Insomnia, unspecified type G47.00 Act larry 087421927 Problem Other chronic pain G89.29 Active 8 0364666 Problem Bipolar 1 disorder F31.9 Active 3 31258158 Problem History of atrial fibrillation Z86.79 Active 365130374 Problem Postmenopausal bleeding N95.0 Active 06851990 Problem Vaginal bleeding, abnormal N93.9 Act larry 94313067662589 Problem Tobacco abuse Z72.0 Active 241690 05 ALLERGIES No Information ENCOUNTERS Encounter Location Date Diagnosis [address] [id number], [place] [address] Oct, Pain in right hip M25.[address] 340B [id number], [place] [address] Oct, Pain in right hip M25.[address] 340B [id number], [place] [address] Sep, [facility] [address] [id number] [place] [address] Sep, [facility] [address] [id number] [place] [address] Sep, Pain in right hip M25.551 [facility] [address] 340B [id number] [place] [address] Sep, Breast cancer screening Z12. 39 [facility] [address] [id number] [place] [address] 08 Sep, 2019 Pain in right hip M25.551 [facility] [address] [id number], [place] [address] August, Pain in right hip M25.551 [facility] WOODS [address] 340[address] [id number], [place] [address] August, [facility] [address] [id number], [place] [address] August, Essential hypertension I10 a nd Mixed hyperlipidemia E78.2 [facility] [address] [id number], [place] [address] August, [facility] [address] [id number] [place] [address] August, Essential hypertension I10 ; Mixed hyperlipidemia E78.2 ; Pain in right hip M25.551 ; Pain in left shoulder M25.512 ; Medication monitoring encounter Z51.81 ; Breast cancer screening Z12.39 ; Incontinence in female R32 ; Frequent UTI N39.0 and Encounter for immunization Z23 [facility] [address] [id number], [place] [address] August, Pain in right hip M25.551 [facility] [address] [id number], [place] [address] August, [facility] WOODS [address] [id number] [place] [address] 30 Jul, 2019 [facility] [address] 340B [id number] [place] [address] Jul, Postmenopausal bleeding N95. 0 [facility] [address] [place] [address] Jul, 0 [facility] [address] 340B [id number] [place] [address] Jul, Pain in right hip M25.551 [facility] [address] 340B [id number] [place] [address] Jul, [facility] [address] [id number] [place] [address] Jul, Postmenopausal bleeding N95. 0 [facility] [address] [id number] [place] [address] Jul, [facility] [address] 340B [id number] [place] [address] Jul, Pain in right hip M25.551 [facility] [address] 340B [id number] [place] [address] Jul, [facility] [address] 340B [id number] [place] [address] Jul, [facility] [address] [id number] [place] [address] Jun, [facility] [address] 340B [id number] [place] [address] 30 Jun, 2019 Postmenopausal bleeding N95. 0 [facility] [address] [id number] [place] [address] Jun, [facility] [address] 340B [id number] [place] [address] Jun, Pain in right hip M25.551 [facility] [address] 340B [id number] [place] [address] Jun, [facility] [address] [facility] [id number] 100KS [place] [address] Jun, [address] 340[address] [id number], [place] [address] Jun, Essential hypertension I10 ; Bipolar 1 disorder F31.9 ; Persistent depressive disorder F34.1 ; Generalized anxiety disorder F41.1 ; Primary insomnia F51.01 ; Mixed hyperlipidemia E78.2 ; Irritable bowel syndrome with diarrhea K58.0 ; Oxygen dependent Z99.81 ; Congestive heart failure, unspecified HF chronicity, unspecified heart failure type I50.9 and Tobacco abuse Z72.[address] 340B [id number], [place] [address] Jun, [address] 340[address] [id number], [place] [address] 16 Jun, 2019 Pain in right hip M25.[address] 340B [id number], [place] [address] 28 May, 2019 History of atrial fibrillati on Z86.[address] 340B [id number], [place] [address] 28 May, 2019 Pain in right hip M25.551 [facility] [address] [facility] [id number] 100[place] [address] 24 May, [address] 340B [id number], [place] [address] 19 May, 2019 History of atrial fibrillati on Z86.[address] 340B [id number], [place] [address] 14 May, 2019 Pain in right hip M25.[address] 340B [id number], [place] [address] 07 May, [address] 340B [id number], [place] [address] 04 May, 2019 Hospital discharge follow-up Z09 ; Essential hypertension I10 ; Morbid (severe) obesity due to excess calories E66.01 ; Congestive heart failure, unspecified HF chronicity, unspecified heart failure type I50.9 and Pneumonia due to infectious organism, unspecified laterality, unspecified part of lung J18.9 [facility] WO[facility]S [address] 340B [id number] [place] [address] May, [facility] [address] [facility] [id number] 100[place], [place] [address] Apr, [facility] [address] [facility] [id number] 100[place] [address] Apr, [facility] WOODS [address] 340B [id number] [place] [address] Apr, Pain in right hip M25.551 [facility] WOODS [address] 340B [id number] [place] [address] Apr, [facility] WOODS [address] 340B [id number] [place] [address] Apr, [facility] WOODS [address] 340B [id number] [place] [address] Apr, Pain in right hip M25.551 [facility] WOODS [address] 340B [id number] [place] [address] Apr, [facility] WO[facility] [address] 340B [id number] [place] [address] Mar, Pain in right hip M25.551 [facility] [address] [id number] [place] [address] Mar, [facility] WO[facility] [address] 340B [id number] [place] [address] Mar, [facility] [address] [id number] [place] [address] Mar, Urinary tract infection, sit e not specified N39.0 [facility] WO[facility]S [address] 340B [id number] [place] [address] Mar, Pain in right hip M25.551 [facility] [address] [id number] [place] [address] Mar, [facility] [address] [facility] [id number] 100[place] [address] Feb, [facility] [address] 340B [id number] [place] [address] Feb, Pain in right hip M25.551 [facility] [address] [id number] [place] [address] Feb, Pain in right hip M25.551 [facility] WO[facility] [address] 340B [id number] [place] [address] Feb, Urinary tract infection, sit e not specified N39.0 [facility] [address] [id number] [place] [address] Feb, Urinary tract infection, sit e not specified N39.0 [facility] [address] [id number] [place] [address] Feb, Dysuria R30.[address] [facility] [address] 340B [id number] [place] [address] Jan, Dysuria R30.0 [facility] [address] [id number] [place] [address] Jan, Pain in right hip M25.551 [facility] [address] 340B [id number] [place] [address] Jan, [facility] [address] [id number] [place] [address] Jan, [facility] [address] [id number] [place] [address] Jan, Pain in right hip M25.551 [facility] [address] [id number] [place] [address] Jan, Hematuria, unspecified type R31.9 ; Urinary tract infection, site not specified N39.0 ; Oxygen dependent Z99.81 and Encounter for immunization Z23 [facility] [address] 340B [id number] [place] [address] Jan, Pain in right hip M25.551 [facility] [address] 340B [id number] [place] [address] Dec, Pain in right hip M25.551 [facility] [address] 340B [id number] [place] [address] Dec, Yeast dermatitis B37.2 ; Ess ential hypertension I10 and Mixed hyperlipidemia E78.2 [facility] [address] 340B [id number] [place] [address] Dec, Pain in right hip M25.551 [facility] [address] 340B [id number] [place] [address] Nov, [facility] [address] 340B [id number] [place] [address] Nov, Pain in right hip M25.551 [facility] [address] [id number] [place] [address] Nov, [facility] [address] 340B [id number] [place] [address] Nov, Pain in right hip M25.551 [facility] [address] [id number] [place] [address] Nov, Pain in right hip M25.551 [facility] [address] [id number] [place] [address] Nov, [facility] [address] [id number] [place] [address] Oct, [facility] [address] 340B [id number], [place] [address] Oct, Insomnia, unspecified type G 47.00 [facility] [address] 340B [id number] [place] [address] Oct, Pain in right hip M25.551 [facility] [address] 340B [id number] [place] [address] Oct, Pain in right hip M25.551 [facility] [address] 340B [id number], [place] [address] Oct, Irritable bowel syndrome wit h diarrhea K58.0 ; Screening for breast cancer Z12.39 ; grape cutter (current) use of opiate analgesic Z79.891 ; Insomnia, unspecified type G47.00 ; Essential hypertension I10 ; Mixed hyperlipidemia E78.2 ; Pain in right hip M25.551 ; Pain in left hip M25.552 ; Pain in left shoulder M25.512 and Morbid obesity E66.01 [facility] [address] 340B [id number], [place] [address] Sep, [facility] [address] 340B [id number] [place] [address] Sep, [facility] [address] 340B [id number], [place] [address] Sep, Pain in unspecified joint M2 5.50 [facility] [address] 340B [id number], [place] [address] Sep, Irritable bowel syndrome wit h diarrhea K58.0 [facility] [address] 340B [id number] [place] [address] Sep, Pain in left shoulder M25.51 2 [facility] [address] 340B [id number], [place] [address] August, Pain in unspecified joint M2 5.50 [facility] [address] 340B [id number], [place] [address] August, [facility] [address] 340B [id number] [place] [address] August, Pain in left shoulder M25.51 2 [facility] WOODS [address] 340B [id number] [place] [address] August, Irritable bowel syndrome wit h diarrhea K58.0 and Morbid obesity E66.01 [facility] [address] [id number] [place] [address] Jul, [facility] [address] 340B [id number] [place] [address] Jul, Pain in unspecified joint M2 5.50 [facility] [address] [id number] [place] [address] Jul, [facility] [address] 340[address] [id number], [place] [address] Jul, [facility] [address] 340[address] [id number], [place] [address] Jul, Pain in left shoulder M25.51 2 [facility] [address] [place] [address] [facility] [id number] [place] [address] Jul, [facility] [address] 340[address] [id number], [place] [address] Jul, [facility] [address] [id number] [place] [address] Jul, Primary insomnia F51.01 ; Mo rbid obesity E66.01 ; Foul smelling urine R82.90 ; Painful urination R30.9 ; Dysuria R30.0 ; Acute cystitis with hematuria N30.01 and Irritable bowel syndrome with diarrhea K58.0 [facility] [address] [facility] [id number] [address] [address] Jul, Bipolar 1 disorder F31.9 ; P ersistent depressive disorder F34.1 and Generalized anxiety disorder F41.1 [facility] WO[facility] [address] 340B [id number] [place] [address] Jun, Pain in unspecified joint M2 5.50 [facility] [address] 340B [id number] [place] [address] Jun, [facility] [address] 340B [id number] [place] [address] Jun, [facility] [address] [facility] [id number] 100[place] [address] Jun, [facility] [address] 340B [id number] [place] [address] Jun, Morbid obesity E66.01 and Es sential hypertension I10 [facility] [address] 340 [id number], [place] [address] Jun, Dysuria R30.0 [facility] [address] 340B [id number] [place] [address] Jun, [facility] [address] 340B [id number], [place] [address] Jun, Morbid obesity E66.01 ; Pain in left shoulder M25.512 ; Pain in unspecified joint M25.50 ; Encounter for tobacco use cessation counseling Z71.6 ; Essential hypertension I10 and Mixed hyperlipidemia E78.2 [facility] [address] 340B [id number] [place] [address] Jun, [facility] [address] 340 [id number], [place] [address] Jun, [facility] [address] 340B [id number], [place] [address] Jun, [facility] [address] 340B [id number], [place] [address] May, [facility] [address] 340B [id number], [place] [address] May, IMMUNIZATIONS No Known Immunizations SOCIAL HISTORY Never Assessed REASON FOR VISIT PLAN OF CARE VITAL SIGNS MEDICATIONS Unknown Medications RESULTS No Results PROCEDURES No Known procedures INSTRUCTIONS MEDICATIONS ADMINISTERED No Known Medications MEDICAL (GENERAL) HISTORY Type Description Date Surgical History left knee replacement Surgical History right knee replacement Surgical History cholecystectomy Hospitalization History Surgery(s) only Hospitalization History via zhnag for 6 days 04/2019
--- OUTSIDE RECORDS SUMMARY | 2019-11-29 10:28 | XMS REPORT | Continuity of Care Document ---
Author Author [facility] Organization [employer] Address Unknown Phone Unavailable Allergies Active Description Code Type Severity Reaction Onset Reported/Identified Relationship to Patient Clinical Status Yes No Known Drug Allergies [id number] Drug Allergy Unknown N/A 11/20/2008 Medications There is no data. Problems Date Dx Coded Attending Type Code Diagnosis Diagnosed By 08/10/2018 JOSE BLUM, KATHY T Ot F17.210 NICOTINE DEPENDENCE, CIGARETTES, UNCOMPL 08/10/2018 KEPARDEEPLY DO, KATHY T Ot F32.9 MAJOR DEPRESSIVE DISORDER, SINGLE EPISOD 08/10/2018 KECHASE DO, KATHY T Ot I1 0 ESSENTIAL (PRIMARY) HYPERTENSION 08/10/2018 KECHASE DO, KATHY T Ot I25.10 ATHSCL HEART DISEASE OF [place] CORONARY 08/10/2018 KECHASE DO, KATHY T Ot J18.9 PNEUMONIA, UNSPECIFIED ORGANISM 08/10/2018 KEITHTRESA DO, KATHY T Ot R0 5 COUGH 08/10/2018 KEITHTRESA DO, KATHY T Ot Z96.652 PRESENCE OF LEFT ARTIFICIAL KNEE JOINT 08/12/2018 KECHASE DO KATHY T Ot F17.210 NICOTINE DEPENDENCE, CIGARETTES, UNCOMPL 08/12/2018 KECHASE DO, KATHY T Ot F32.9 MAJOR DEPRESSIVE DISORDER, SINGLE EPISOD 08/12/2018 KEITHTRESA DO, KATHY T Ot I1 0 ESSENTIAL (PRIMARY) HYPERTENSION 08/12/2018 KEITHLY DO, KATHY T Ot I25.10 ATHSCL HEART DISEASE OF [place] CORONARY 08/12/2018 KECHASE DO, KATHY T Ot J18.9 PNEUMONIA, UNSPECIFIED ORGANISM 08/12/2018 KECHASE DO, KATHY T Ot R0 5 COUGH 08/12/2018 KECHASE DO, KATHY T Ot Z96.652 PRESENCE OF LEFT ARTIFICIAL KNEE JOINT 05/06/2019 BAL BLUM DARBY Ot E66.01 MORBID (SEVERE) OBESITY DUE TO EXCESS CA 05/06/2019 SELBY DO, DARBY Ot F32.9 MAJOR DEPRESSIVE DISORDER, SINGLE EPISOD 05/06/2019 SELBY DO, DARBY Ot I11.0 HYPERTENSIVE HEART DISEASE WITH HEART FA 05/06/2019 SELBY DO, DARBY Ot I25.10 ATHSCL HEART DISEASE OF [place] CORONARY 05/06/2019 SELBY DO, DARBY Ot I50.9 [...] DARBY Ot I25.10 ATHSCL HEART DISEASE OF [place] CORONARY 05/06/2019 SELBY DO, DARBY Ot I50.9 [...] DARBY Ot I25.10 ATHSCL HEART DISEASE OF [place] CORONARY 05/06/2019 SELBY DO, DARBY Ot I50.9 [...] DARBY Ot I25.10 ATHSCL HEART DISEASE OF [place] CORONARY 05/10/2019 SELBY DO, DARBY Ot I50.9 [...] LEFT ARTIFICIAL KNEE JOINT 05/10/2019 SELBY DO, DARBY Ot Z99.81 DEPENDENCE ON SUPPLEMENTAL OXYGEN 05/11/2019 [...] DARBY Ot I25.10 ATHSCL HEART DISEASE OF [place] CORONARY 05/11/2019 SELBY DO, DARBY Ot I44.1 [...] PERSONAL HISTORY OF NICOTINE DEPENDENCE 05/11/2019 SELBY DO, DARBY Ot Z96.65 2 PRESENCE OF LEFT ARTIFICIAL KNEE JOINT 05/11/2019 BAL BLUM, DARBY Ot Z99.81 DEPENDENCE ON SUPPLEMENTAL OXYGEN 09/01/2019 WALT, GINNA E CUTTER IN Ot G47.10 HYPERSOMNIA, UNSPECIFIED 09/01/2019 WALT, GINNA E CUTTER IN Ot G47.10 HYPERSOMNIA, UNSPECIFIED 09/06/2019 WALT, GINNA E CUTTER IN Ot G47.10 HYPERSOMNIA, UNSPECIFIED 09/06/2019 WALT, GINNA E CUTTER IN Ot G47.10 HYPERSOMNIA, UNSPECIFIED 09/06/2019 WALT, GINNA E CUTTER IN Ot G47.10 HYPERSOMNIA, UNSPECIFIED 09/09/2019 WALT, GINNA E CUTTER IN Ot G47.10 HYPERSOMNIA, UNSPECIFIED 09/09/2019 WALT, GINNA E CUTTER IN Ot G47.10 HYPERSOMNIA, UNSPECIFIED 09/12/2019 WALT, GINNA E CUTTER IN Ot G47.10 HYPERSOMNIA, UNSPECIFIED 09/12/2019 WALT, GINNA E CUTTER IN Ot G47.10 HYPERSOMNIA, UNSPECIFIED 09/21/2019 WALT, GINNA E CUTTER IN Ot G47.10 HYPERSOMNIA, UNSPECIFIED 09/21/2019 WALT, GINNA E CUTTER IN Ot G47.10 HYPERSOMNIA, UNSPECIFIED 10/03/2019 WALT, GINNA E CUTTER IN Ot G47.10 HYPERSOMNIA, UNSPECIFIED 10/03/2019 WALT, GINNA E CUTTER IN Ot G47.10 HYPERSOMNIA, UNSPECIFIED 10/03/2019 WALT, GINNA E CUTTER IN Ot G47.10 HYPERSOMNIA, UNSPECIFIED 10/03/2019 WALT, GINNA E CUTTER IN Ot G47.10 HYPERSOMNIA, UNSPECIFIED 10/03/2019 WALT, GINNA E CUTTER IN Ot G47.10 HYPERSOMNIA, UNSPECIFIED 10/03/2019 WALT, GINNA E CUTTER IN Ot G47.10 HYPERSOMNIA, UNSPECIFIED 10/04/2019 WALT, GINNA E CUTTER IN Ot G47.10 HYPERSOMNIA, UNSPECIFIED 10/07/2019 CUEVAS DO, KETTY L Ot F32.9 MAJOR DEPRESSIVE DISORDER, SINGLE EPISOD 10/07/2019 CUEVAS DO, KETTY L Ot I11.0 HYPERTENSIVE HEART DISEASE WITH HEART FA 10/07/2019 CUEVAS DO, EKTTY L Ot I25.1 0 ATHSCL HEART DISEASE OF [place] CORONARY 10/07/2019 CUEVAS DO, KETTY L Ot I50.9 HEART FAILURE, UNSPECIFIED 10/07/2019 CUEVAS DO, KETTY L Ot J44.1 CHRONIC OBSTRUCTIVE PULMONARY DISEASE W 10/07/2019 CUEVAS DO, KETTY L Ot R07.9 CHEST PAIN, UNSPECIFIED 10/07/2019 CUEVAS DO, KETTY L Ot Z79.0 1 PRISON (CURRENT) USE OF ANTICOAGULANT 10/07/2019 CUEVAS DO, KETTY L Ot 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 10/07/2019 CUEVAS DO, KETTY L Ot Z79.5 2 GRIPPER ATTACHER (CURRENT) USE OF SYSTEMIC STER 10/07/2019 CUEVAS DO, KETTY L Ot Z87.8 91 PERSONAL HISTORY OF NICOTINE DEPENDENCE 10/07/2019 CUEVAS DO, KETTY L Ot Z96.6 52 PRESENCE OF LEFT ARTIFICIAL KNEE JOINT 10/07/2019 CUEVAS DO, KETTY L Ot Z99.8 1 DEPENDENCE ON SUPPLEMENTAL OXYGEN 10/11/2019 WALT, GINNA E CUTTER IN Ot G47.10 HYPERSOMNIA, UNSPECIFIED 10/11/2019 WALT, GINNA E CUTTER IN Ot G47.10 HYPERSOMNIA, UNSPECIFIED 10/13/2019 WALT, GINNA E CUTTER IN Ot G47.10 HYPERSOMNIA, UNSPECIFIED 10/13/2019 WALT, GINNA E CUTTER IN Ot G47.10 HYPERSOMNIA, UNSPECIFIED 10/27/2019 WALT, GINNA E CUTTER IN Ot G47.10 HYPERSOMNIA, UNSPECIFIED 10/27/2019 WALT, GINNA E CUTTER IN Ot G47.10 HYPERSOMNIA, UNSPECIFIED 10/27/2019 WALT, GINNA E CUTTER IN Ot G47.10 HYPERSOMNIA, UNSPECIFIED 10/27/2019 WALT, GINNA E CUTTER IN Ot G47.10 HYPERSOMNIA, UNSPECIFIED 11/08/2019 WALT, GINNA E CUTTER IN Ot G47.10 HYPERSOMNIA, UNSPECIFIED 11/08/2019 WALT, GINNA E CUTTER IN Ot G47.10 HYPERSOMNIA, UNSPECIFIED 11/14/2019 WALT, GINNA E CUTTER IN Ot G47.10 HYPERSOMNIA, UNSPECIFIED 11/23/2019 WALT, GINNA E CUTTER IN Ot F17.210 NICOTINE DEPENDENCE, CIGARETTES, UNCOMPL 11/23/2019 THNAG GODOYINE E CUTTER IN Ot G47.10 HYPERSOMNIA, UNSPECIFIED 11/23/2019 THANG GODOYINE E CUTTER IN Ot G47.8 OTHER SLEEP DISORDERS 11/23/2019 WALT GINNA E CUTTER IN Ot J98.4 OTHER DISORDERS OF LUNG 11/23/2019 WALT GINNA E CUTTER IN Ot R91.8 OTHER NONSPECIFIC ABNORMAL FINDING OF [place] 11/27/2019 GINNA GODOY CUTTER IN Ot F17.210 NICOTINE DEPENDENCE, CIGARETTES, UNCOMPL 11/27/2019 THANG GODOYINE Diana CUTTER IN Ot G47.10 HYPERSOMNIA, UNSPECIFIED 11/27/2019 THANG GODOYINE Diana CUTTER IN Ot G47.8 OTHER SLEEP DISORDERS 11/27/2019 THANG GODOYINE Diana CUTTER IN Ot J98.4 OTHER DISORDERS OF LUNG 11/27/2019 THANG GODOYINE Diana CUTTER IN Ot R91.8 OTHER NONSPECIFIC ABNORMAL FINDING OF [place] Procedures There is no data. Results Test [...] 7-25 CREATININE 0.80 mg/dL 0.50-0.99 eGFR NON-AFR. WELSH 76 mL/min/1.73m2 > OR = 60 eGFR [...] 07/15/18 14:45 CULTURE, URINE, ROUTINE SEE NOTE [facility] Influenza virus A and B antigen detectio n - 08/10/18 21:51 FLU RESULT NEGATIVE FOR INFLUENZA A AND B ANTIGENS BY IA [facility] Whole blood basic metabolic panel - 07/14 [...] ng/mL <50 medMATCH Hydromorphone CONSISTENT NRG Morphine >56242 ng/mL <50 medMATCH Morphine CONSISTENT NRG Norhydrocodone [...] ng/mL <50 medMATCH Hydromorphone CONSISTENT NRG Morphine >71514 ng/mL <50 medMATCH Morphine CONSISTENT NRG Norhydrocodone [...] 7-25 CREATININE 0.87 mg/dL 0.50-0.99 eGFR NON-AFR. WELSH 68 mL/min/1.73m2 > OR = 60 eGFR [...] 10 U/L 10-35 ALT 10 U/L 6-29 Complete blood count (CBC) with automate d white blood cell (WBC) differential - 10/05/19 18:00 Blood leukocytes automated count (number/volume) 12.4 10*3/uL 4.3-11.0 Blood erythrocytes automated count (number/volume) 4.17 10*6/uL 4.35-5.85 Venous blood hemoglobin measurement (mass/volume) 12.4 g/dL 11.5-16.0 Blood hematocrit (volume fraction) 39 % 35-52 Automated erythrocyte mean corpuscular volume 94 [ foz_us] 80-99 Automated erythrocyte mean corpuscular h emoglobin (mass per erythrocyte) 30 pg 25-34 Automated erythrocyte mean corpuscular h emoglobin concentration measurement (mass/volume) 32 g/dL 32-36 Automated erythrocyte distribution width ratio 13. 3 % 10.0- 14.5 Automated blood platelet count (count/volume) 216 10*3/uL 130-400 Automated blood platelet mean volume measurement 10.6 [foz_us] 7.4-10.4 Automated blood neutrophils/100 leukocytes 88 % 42-75 Automated blood lymphocytes/100 leukocytes 5 % 12-44 Blood monocytes/100 leukocytes 6 % 0-12 Automated blood eosinophils/100 leukocytes 0 % 0-10 Automated blood basophils/100 leukocytes 0 % 0-10 Blood neutrophils automated count (number/volume) 10.9 10*3 1.8-7.8 Blood lymphocytes automated count (number/volume) 0.7 10*3 1.0-4.0 Blood monocytes automated count (number/volume) 0. 8 10*3 0.0-1.0 Automated eosinophil count 0.0 10*3/uL 0 .0-0.3 Automated blood basophil count (count/volume) 0.0 10*3/uL 0.0-0.1 Manual absolute plasma cell count - 09/12 07/31 18:00 Blood monocytes/100 leukocytes 5 % NRG Manual blood segmented neutrophils/100 leukocytes 87 % NRG Blood band neutrophils/100 leukocytes 1 % NRG Manual blood lymphocytes/100 leukocytes 6 % NRG Manual eosinophils/100 leukocytes in nose 1 % NRG Manual blood basophils/100 leukocytes 0 % NRG Comprehensive metabolic panel - 10/05/19 18:00 Serum or plasma sodium measurement (moles/volume) 141 mmol/L 135-145 Serum or plasma potassium measurement (moles/volume) 4.3 mmol/L 3.6-5.0 Serum or plasma chloride measurement (moles/volume) 96 mmol/L 98-107 Carbon dioxide 32 mmol/L 21-32 Serum or plasma anion gap determination (moles/volume) 13 mmol/L 5-14 Serum or plasma urea nitrogen measurement (mass/volume ) 22 mg/dL 7-18 Serum or plasma creatinine measurement (mass/volume) 0.90 mg/dL 0.60-1.30 Serum or plasma urea nitrogen/creatinine mass ratio 24 NRG Serum or plasma creatinine measurement w ith calculation of estimated glomerular filtration rate > NRG Serum or plasma glucose measurement (mass/volume) 114 mg/dL 70-105 Serum or plasma calcium measurement (mass/volume) 8.8 mg/dL 8.5-10.1 Serum or plasma total bilirubin measurement (mass/volu me) 0.4 mg/dL 0.1-1.0 Serum or plasma alkaline phosphatase ewelina surement (enzymatic activity/volume) 114 U/L 40-136 Serum or plasma aspartate aminotransfera se measurement (enzymatic activity/volume) 23 U/L 5-34 Serum or plasma alanine aminotransferase measurement (enzymatic activity/volume) 16 U/L 0-55 Serum or plasma protein measurement (mass/volume) 7.1 g/dL 6.4-8.2 Serum or plasma albumin measurement (mass/volume) 3.4 g/dL 3.2-4.5 CALCIUM CORRECTED 9.3 mg/dL 8.5-10.1 Magnesium - 10/05/19 18:00 Magnesium 2.0 mg/dL 1.6-2.4 TROPONIN I FS - 10/05/19 18:00 TROPONIN I FS < 0.30 <0.30 PROBNP FS - 10/05/19 18:00 PROBNP FS 309.6 pg/mL <75.0 [id number] - 11/21/19 12:03 Serum or plasma urea nitrogen measurement (mass/volume ) 19 mg/dL 7-18 Serum or plasma creatinine measurement (mass/volume) 1.04 mg/dL 0.60-1.30 Serum or plasma urea nitrogen/creatinine mass ratio 18 NRG Serum or plasma creatinine measurement w ith calculation of estimated glomerular filtration rate 53 NRG Encounters ACCT No. Visit Date/Time Discharge Status Pt. Type Provider Facility Loc./Unit Complaint [id number] 09/23/2019 11:00:00 09/23/2019 23:59:5 9 CLS Outpatient RJ LISETH Rios Digna [facility] [id number] 08/30/2019 10:30:00 Document Registration [id number] 08/23/2019 13:20:00 Document Registration [id number] 08/09/2019 12:15:00 Document Registration [id number] 03/25/2019 13:45:00 Document Registration [id number] 02/11/2019 10:45:00 Document Registration [id number] 01/21/2019 15:20:00 Document Registration [id number] 12/16/2018 09:00:00 Document Registration [id number] 10/18/2018 10:20:00 Document Registration [id number] 07/15/2018 14:20:00 Document Registration [id number] 07/01/2018 12:00:00 Document Registration [id number] 11/21/2019 11:42:00 23:59:59 CLS Outpatient GINNA GODOY CUTTER IN [facility] RT DYSPNEA/HYPERSO MNIA [id number] 10/18/2019 10:30:00 23:59:59 CLS Preadmit GINNA GODOY CUTTER IN [facility] RT DYSPNEA/HYPERSO MNIA [id number] 10/05/2019 17:30:00 19:33:00 DIS Outpatient KETTY CUEVAS DO [facility] ER FS CHEST PAIN,SOB [id number] 05/05/2019 11:36:00 020 13:42:00 DIS Inpatient DARBY SELBY DO, [facility] 4TH PNEUMONIA NEW ONSET C HF [id number] 08/10/2018 21:21:00 23:54:00 DIS Emergency KATHY GARCIA DO [facility] ER FS COUGH,SINUS DRAINAGE,SO B
[2019-11-29 10:32] LABS: ALBUMIN 3.2 GM/DL (3.2-4.5); BILIRUBIN,TOTAL 0.2 MG/DL (0.1-1.0); CALCIUM 8.7 MG/DL (8.5-10.1); CREATININE SERUM 1.37 MG/DL (0.60-1.30); POTASSIUM 4.4 MMOL/L (3.6-5.0); TOTAL PROTEIN 6.8 GM/DL (6.4-8.2)
--- NOTE | 2019-11-29 10:45 | NUR ---
Spoke with nurse at patient's PCP office, explained patient's poor hygiene at home and increased need for home health care. Nurse at Mickie Maza's office states she will speak with provider and attempt to arrange more care for patient.
[2019-11-29] MEDS ORDERED: IBUPROFEN 800 MG (MOTRIN) TAB PO ONE (11:00)
--- NOTE | 2019-11-29 12:00 | NUR ---
Physician informed of patient's blood pressure readings.
--- NOTE | 2019-11-29 12:04 | NUR ---
Patient given extensive hygiene care by ER staff, large open wound noted to patient's buttock, skin discolored from dried stool, large amounts of dried and fresh stool cleaned from patient's skin. Patient's abdominal, groin, and buttock folds excoriated and bleeding. Patient states she has had ongoing vaginal bleeding for several months, states she has not made it to her [facility] to be evaluated. Patient states she is unable to roll herself over in bed, unable to stand to get herself to the bathroom at home. Called patient's son, he states he works time motion analyst and is unable to care for patient at her home, states the family does not have the funds to place patient in long-term care. He states he checks on patient daily and tries to get her out of her chair, but she refuses. He states he has an aide coming to the patient's house two times per week to help patient take a bath. Patient states she has not been getting up to bathe when aide comes. Called patient's PCP office per Dr. Thompson to increase patient's home health care and involve a social media executive. Called [facility], home health RN states she will call Mickie Maza (patient's PCP) and discuss patient's situation.
--- NOTE | 2019-11-29 12:52 | NUR ---
Call received from patient's PCP's office, they state home health is unable to offer the level of care that patient requires. PCP's office states that an emergency assisted admission would be the best solution, state they are unable to make that happen today. This RN has attempted to contact patient's son and daughter multiple times, messages left for both son and daughter, no answer received.
--- NOTE | 2019-11-29 14:03 | NUR ---
Again attempted to contact patient's son, phone went straight to voicenjil. Patient states she is willing to go to a facility to ensure her safety and physical care needs are met. Called [facility], welfare administrator states patient's insurance will likely not cover admission/long-term care. Cardiology Clinical Nurse Specialist suggested [facility] as a possible admission site. Situation discussed with Dr. Thompson, call placed to [facility], patient information faxed to facility.
--- NOTE | 2019-11-29 14:54 | NUR ---
Call received from [facility]. RN states that patient would need to be more medically stable before they could accept her. Dr. Thompson notified.
--- NOTE | 2019-11-29 16:40 | NUR ---
patient has been running SBP in low to highs 80s. Doctor Clarence aware of BP and stated no additional needs at this time due to patient being Asymptomatic
[2019-11-29 16:41] VITALS: BP 89/46
--- NOTE | 2019-11-29 16:42 | NUR ---
NURA ORTIZ admitted to room 404-1, with an admitting diagnosis of Debility, on 11/29/19 from [facility], accompanied by staff.NURA ORTIZ introduced to surroundings, call light, bed controls, phone, TV, temperature control, lights, meal times, smoking policy, visitor policy, side rail policy, bathrooms and showers. Patient Rights given to patient in the handbook. NURA ORTIZ verbalizes understanding that [facility] is not responsible for the loss or damage to any personal effects or valuables that are kept in the patients posession during their hospitalization. NURA ORTIZ verbalizes understanding of Interdisciplinary Patient Education. Patient and/or family were informed about the Rapid Response Team and its purpose.
[2019-11-29] MEDS ORDERED: PATIENT MAY USE OWN MEDS, ALL PO SCH (16:45)
[2019-11-29] MEDS ORDERED: FURO40TA4 PO (17:07)
[2019-11-29] MEDS ORDERED: METO-333 PO (17:07)
[2019-11-29] MEDS ORDERED: LISI-552 PO (17:07)
[2019-11-29] MEDS ORDERED: BUPR100T8 PO (17:07)
[2019-11-29] MEDS ORDERED: APIX5TAB PO (17:07)
[2019-11-29] MEDS ORDERED: POTA10CA43 PO (17:07)
[2019-11-29] MEDS ORDERED: FLUT12AE4 IH (17:07)
--- NOTE | 2019-11-29 17:08 | NUR ---
SPOKE WITH THE PT, WENT THRU THE EXT MED HISTORY, GOT A MED LIST FROM [facility] AND CALLED [facility] TO COMPLETE THE MED REC WHEN I SPOKE WITH THE PT SHE COULD NOT ANSWER ANY OF MY QUESTIONS AND SAID SHE DIDNT KNOW ANYTHING ABOUT HER MEDICATIONS AND SUGGESTED I CALL HER SON SHANKAR. WHEN I ASKED IF SHANKAR HELPED HER TAKE CARE OF HER MEDS SHE SAID "NO BUT HE SHOULD KNOW THEM" I REACHED OUT TO SHANKAR AND IT WENT STRAIGHT TO VOICE MAIL. DUE TO THE REASONS ABOVE I HAVE ENTERED THE MED REC USING THE EXT MED HISTORY AND THE LIST FROM [facility]. BUPROPION [id number] IS NOT ON THE LIST FROM [facility] BUT THE [facility] PRESCRIBES THIS- I REACHED OUT TO THE OFFICE AND SPOKE WITH THE NURSE AND SHE VERIFIED THAT YES THE PT DOES TAKES BUPROPION SR 100MG 2 TABS DAILY AND DULOXETINE 60MG 2 TABS DAILY.
--- NOTE | 2019-11-29 18:30 | NUR ---
requested yeast powder for patient. no orders at this time
[2019-11-29] MEDS ORDERED: ENOXAPARIN 60 MG/0.6 ML (LOVENOX) SYR SC SCH (19:00)
--- OUTSIDE RECORDS SUMMARY | 2019-11-29 19:37 | XMS REPORT | Continuity of Care Document ---
Author Author [facility] Organization [employer] Address Unknown Phone Unavailable Allergies Active Description Code Type Severity Reaction Onset Reported/Identified Relationship to Patient Clinical Status Yes No Known Drug Allergies [id number] Drug Allergy Unknown N/A 11/20/2008 Medications There [...] T Ot I25.10 ATHSCL HEART DISEASE OF [place] CORONARY 08/10/2018 KECHASE DO, KATHY T Ot [...] T Ot I25.10 ATHSCL HEART DISEASE OF [place] CORONARY 08/12/2018 KECHASE DO, KATHY T Ot [...] DARBY Ot I25.10 ATHSCL HEART DISEASE OF [place] CORONARY 05/06/2019 SELBY DO, DARBY Ot I50.9 [...] DARBY Ot I25.10 ATHSCL HEART DISEASE OF [place] CORONARY 05/06/2019 SELBY DO, DARBY Ot I50.9 [...] DARBY Ot I25.10 ATHSCL HEART DISEASE OF [place] CORONARY 05/06/2019 SELBY DO, DARBY Ot I50.9 [...] DARBY Ot I25.10 ATHSCL HEART DISEASE OF [place] CORONARY 05/10/2019 SELBY DO, DARBY Ot I50.9 [...] DARBY Ot I25.10 ATHSCL HEART DISEASE OF [place] CORONARY 05/11/2019 SELBY DO, DARBY Ot I44.1 [...] ON SUPPLEMENTAL OXYGEN 09/01/2019 WALT, GINNA E HYDRAULIC GOVERNOR ASSEMBLER Ot G47.10 HYPERSOMNIA, UNSPECIFIED 09/01/2019 WALT, GINNA E HYDRAULIC GOVERNOR ASSEMBLER Ot G47.10 HYPERSOMNIA, UNSPECIFIED 09/06/2019 WALT, GINNA E HYDRAULIC GOVERNOR ASSEMBLER Ot G47.10 HYPERSOMNIA, UNSPECIFIED 09/06/2019 WALT, GINNA E HYDRAULIC GOVERNOR ASSEMBLER Ot G47.10 HYPERSOMNIA, UNSPECIFIED 09/06/2019 WALT, GINNA E HYDRAULIC GOVERNOR ASSEMBLER Ot G47.10 HYPERSOMNIA, UNSPECIFIED 09/09/2019 WALT, GINNA E HYDRAULIC GOVERNOR ASSEMBLER Ot G47.10 HYPERSOMNIA, UNSPECIFIED 09/09/2019 WALT, GINNA E HYDRAULIC GOVERNOR ASSEMBLER Ot G47.10 HYPERSOMNIA, UNSPECIFIED 09/12/2019 WALT, GINNA E HYDRAULIC GOVERNOR ASSEMBLER Ot G47.10 HYPERSOMNIA, UNSPECIFIED 09/12/2019 WALT, GINNA E HYDRAULIC GOVERNOR ASSEMBLER Ot G47.10 HYPERSOMNIA, UNSPECIFIED 09/21/2019 WALT, GINNA E HYDRAULIC GOVERNOR ASSEMBLER Ot G47.10 HYPERSOMNIA, UNSPECIFIED 09/21/2019 WALT, GINNA E HYDRAULIC GOVERNOR ASSEMBLER Ot G47.10 HYPERSOMNIA, UNSPECIFIED 10/03/2019 WALT, GINNA E HYDRAULIC GOVERNOR ASSEMBLER Ot G47.10 HYPERSOMNIA, UNSPECIFIED 10/03/2019 WALT, GINNA E HYDRAULIC GOVERNOR ASSEMBLER Ot G47.10 HYPERSOMNIA, UNSPECIFIED 10/03/2019 WALT, GINNA E HYDRAULIC GOVERNOR ASSEMBLER Ot G47.10 HYPERSOMNIA, UNSPECIFIED 10/03/2019 WALT, GINNA E HYDRAULIC GOVERNOR ASSEMBLER Ot G47.10 HYPERSOMNIA, UNSPECIFIED 10/03/2019 WALT, GINNA E HYDRAULIC GOVERNOR ASSEMBLER Ot G47.10 HYPERSOMNIA, UNSPECIFIED 10/03/2019 WALT, GINNA E HYDRAULIC GOVERNOR ASSEMBLER Ot G47.10 HYPERSOMNIA, UNSPECIFIED 10/04/2019 WALT, GINNA E HYDRAULIC GOVERNOR ASSEMBLER Ot G47.10 HYPERSOMNIA, UNSPECIFIED 10/07/2019 CUEVAS DO, KETTY L Ot F32.9 MAJOR DEPRESSIVE DISORDER, SINGLE EPISOD 10/07/2019 CUEVAS DO, KETTY L Ot I11.0 HYPERTENSIVE HEART DISEASE WITH HEART FA 10/07/2019 CUEVAS DO, KETTY L Ot I25.1 0 ATHSCL HEART DISEASE OF [place] CORONARY 10/07/2019 CUEVAS DO, KETTY L Ot I50.9 HEART FAILURE, UNSPECIFIED 10/07/2019 CUEVAS DO, KETTY L Ot J44.1 CHRONIC OBSTRUCTIVE PULMONARY DISEASE W 10/07/2019 CUEVAS DO, KETTY L Ot R07.9 CHEST PAIN, UNSPECIFIED 10/07/2019 CUEVAS DO, KETTY L Ot Z79.0 1 LONG-TERM (CURRENT) USE OF ANTICOAGULANT 10/07/2019 CUEVAS DO, KETTY L Ot Z79.5 1 CORPORATE EXECUTIVE CHEF (CURRENT) USE OF INHALED STERO 10/07/2019 CUEVAS DO, KETTY L Ot Z79.5 2 CORPORATE EXECUTIVE CHEF (CURRENT) USE OF SYSTEMIC STER 10/07/2019 CUEVAS DO, KETTY L Ot Z87.8 91 PERSONAL HISTORY OF NICOTINE DEPENDENCE 10/07/2019 CUEVAS DO, KETTY L Ot Z96.6 52 PRESENCE OF LEFT ARTIFICIAL KNEE JOINT 10/07/2019 CUEVAS DO, KETTY L Ot Z99.8 1 DEPENDENCE ON SUPPLEMENTAL OXYGEN 10/11/2019 WALT, GINNA E HYDRAULIC GOVERNOR ASSEMBLER Ot G47.10 HYPERSOMNIA, UNSPECIFIED 10/11/2019 WALT, GINNA E HYDRAULIC GOVERNOR ASSEMBLER Ot G47.10 HYPERSOMNIA, UNSPECIFIED 10/13/2019 WALT, GINNA E HYDRAULIC GOVERNOR ASSEMBLER Ot G47.10 HYPERSOMNIA, UNSPECIFIED 10/13/2019 WALT, GINNA E HYDRAULIC GOVERNOR ASSEMBLER Ot G47.10 HYPERSOMNIA, UNSPECIFIED 10/27/2019 WALT, GINNA E HYDRAULIC GOVERNOR ASSEMBLER Ot G47.10 HYPERSOMNIA, UNSPECIFIED 10/27/2019 WALT, GINNA E HYDRAULIC GOVERNOR ASSEMBLER Ot G47.10 HYPERSOMNIA, UNSPECIFIED 10/27/2019 WALT, GINNA E HYDRAULIC GOVERNOR ASSEMBLER Ot G47.10 HYPERSOMNIA, UNSPECIFIED 10/27/2019 WALT, GINNA E HYDRAULIC GOVERNOR ASSEMBLER Ot G47.10 HYPERSOMNIA, UNSPECIFIED 11/08/2019 WALT, GINNA E HYDRAULIC GOVERNOR ASSEMBLER Ot G47.10 HYPERSOMNIA, UNSPECIFIED 11/08/2019 WALT, GINNA E HYDRAULIC GOVERNOR ASSEMBLER Ot G47.10 HYPERSOMNIA, UNSPECIFIED 11/14/2019 WALT, GINNA E HYDRAULIC GOVERNOR ASSEMBLER Ot G47.10 HYPERSOMNIA, UNSPECIFIED 11/23/2019 WALT, GINNA E HYDRAULIC GOVERNOR ASSEMBLER Ot F17.210 NICOTINE DEPENDENCE, CIGARETTES, UNCOMPL 11/23/2019 THANG GODOYINE E HYDRAULIC GOVERNOR ASSEMBLER Ot G47.10 HYPERSOMNIA, UNSPECIFIED 11/23/2019 THANG GODOYINE E HYDRAULIC GOVERNOR ASSEMBLER Ot G47.8 OTHER SLEEP DISORDERS 11/23/2019 WALT GINNA E HYDRAULIC GOVERNOR ASSEMBLER Ot J98.4 OTHER DISORDERS OF LUNG 11/23/2019 WALT GINNA E HYDRAULIC GOVERNOR ASSEMBLER Ot R91.8 OTHER NONSPECIFIC ABNORMAL FINDING OF [place] 11/27/2019 GINNA GODOY HYDRAULIC GOVERNOR ASSEMBLER Ot F17.210 NICOTINE DEPENDENCE, CIGARETTES, UNCOMPL 11/27/2019 THANG GODOYINE Diana HYDRAULIC GOVERNOR ASSEMBLER Ot G47.10 HYPERSOMNIA, UNSPECIFIED 11/27/2019 THANG GODOYINE Diana HYDRAULIC GOVERNOR ASSEMBLER Ot G47.8 OTHER SLEEP DISORDERS 11/27/2019 THANG GODOYINE Diana HYDRAULIC GOVERNOR ASSEMBLER Ot J98.4 OTHER DISORDERS OF LUNG 11/27/2019 THANG GODOYINE Diana HYDRAULIC GOVERNOR ASSEMBLER Ot R91.8 OTHER NONSPECIFIC ABNORMAL FINDING OF [...] 7-25 CREATININE 0.80 mg/dL 0.50-0.99 eGFR NON-AFR. DJIBOUTIAN 76 mL/min/1.73m2 > OR = 60 eGFR [...] 14:45 CULTURE, URINE, ROUTINE SEE NOTE [facility] Influenza virus A and B antigen detectio n - 08/10/18 21:51 FLU RESULT NEGATIVE FOR INFLUENZA A AND B ANTIGENS BY IA [facility] Whole blood basic metabolic panel - 07/14 [...] ng/mL <50 medMATCH Hydromorphone CONSISTENT NRG Morphine >59835 ng/mL <50 medMATCH Morphine CONSISTENT NRG Norhydrocodone [...] ng/mL <50 medMATCH Hydromorphone CONSISTENT NRG Morphine >62968 ng/mL <50 medMATCH Morphine CONSISTENT NRG Norhydrocodone [...] 7-25 CREATININE 0.87 mg/dL 0.50-0.99 eGFR NON-AFR. DJIBOUTIAN 68 mL/min/1.73m2 > OR = 60 eGFR [...] 10/05/19 18:00 PROBNP FS 309.6 pg/mL <75.0 [id number] - 11/21/19 12:03 Serum or plasma urea nitrogen measurement (mass/volume ) 19 mg/dL 7-18 Serum or plasma creatinine measurement (mass/volume) 1.04 mg/dL 0.60-1.30 Serum or plasma urea nitrogen/creatinine mass ratio 18 NRG Serum or plasma creatinine measurement w ith calculation of estimated glomerular filtration rate 53 NRG Encounters ACCT No. Visit Date/Time Discharge Status Pt. Type Provider Facility Loc./Unit Complaint [id number] 09/23/2019 11:00:00 09/23/2019 23:59:5 9 CLS Outpatient RJ LISETH Rios Digna [facility] [id number] 08/30/2019 10:30:00 Document Registration [id number] 08/23/2019 13:20:00 Document Registration [id number] 08/09/2019 12:15:00 Document Registration [id number] 03/25/2019 13:45:00 Document Registration [id number] 02/11/2019 10:45:00 Document Registration [id number] 01/21/2019 15:20:00 Document Registration [id number] 12/16/2018 09:00:00 Document Registration [id number] 10/18/2018 10:20:00 Document Registration [id number] 07/15/2018 14:20:00 Document Registration [id number] 07/01/2018 12:00:00 Document Registration [id number] 11/21/2019 11:42:00 23:59:59 CLS Outpatient GINNA GODOY HYDRAULIC GOVERNOR ASSEMBLER [facility] RT DYSPNEA/HYPERSO MNIA [id number] 10/18/2019 10:30:00 23:59:59 CLS Preadmit GINNA GODOY HYDRAULIC GOVERNOR ASSEMBLER [facility] RT DYSPNEA/HYPERSO MNIA [id number] 10/05/2019 17:30:00 19:33:00 DIS Outpatient KETTY CUEVAS DO [facility] ER FS CHEST PAIN,SOB [id number] 05/05/2019 11:36:00 020 13:42:00 DIS Inpatient DARBY SELBY DO, V [facility] 4TH PNEUMONIA NEW ONSET C HF [id number] 08/10/2018 21:21:00 23:54:00 DIS Emergency KATHY GARCIA DO [facility] ER FS COUGH,SINUS DRAINAGE,SO B
[2019-11-29 20:07] VITALS: BP 122/77
[2019-11-29] MEDS ORDERED: ACETAMINOPHEN 500 MG TAB (TYLENOL) PO PRN (20:45)
--- NOTE | 2019-11-29 20:50 | NUR ---
pt requesting pain medication for bilateral hip pain this rn contacted dr. nevarez orders received for pain management & also received order for Desenex/miconazole powder
[2019-11-29] MEDS: MICONAZOLE 2% POWDER (DESENEX AF) 90 GM TOP SCH (21:25)
--- NOTE | 2019-11-29 21:37 | History & Physical ---
HPI History of Present Illness: 69 yo female brought to ER due to severe hip pain bilaterally, she states that started suddenly about a week ago. It is so severe that she has been unable to get out of her chair and had soiled herself and apparently been in her chair for a few days. She has had some home health, but they were unable to assist her david ugh to adequately move her either. She denies fever or other signs of illness. Her left ear feels like it needs to pop. Source: patient Date seen by provider: Nov 29, 2019 Time Seen by Provider: 20:10 Attending Physician Kesha Lima MD PCP [facility] Consult Date of Admission Nov 29, 2019 at 16:29 Home Medications Home Medications Reviewed patient Home Medication Reconciliation performed by pharmacy medication reconciliations engine test cell technician and/or nursing. Patients Allergies have been reviewed. Allergies Coded Allergies: No Known Drug Allergies (Verified , 11/20/08) NRC-Ezehri-Xqpbca Hx Patient Social History Alcohol Use: Occasionally Uses Recreational Drug Use: No Smoking Status: Current Everyday Smoker Type Used: Cigarettes 2nd Hand Smoke Exposure: No Recent Foreign Travel: No Contact w/other who traveled: No Recent Hopitalizations: Yes Recent Infectious Disease Expo: No Immunizations Up To Date Tetanus Booster (TDap): Unknown Date of Influenza Vaccine: Feb 11, 2019 Past Medical History PMHx: Poor historian- denies PMH but is on multiple medications suggesting HTN, HLD, COPD, CHF, mood disorder Review of Systems (CHC) Constitutional: No fever EENTM: No nose congestion, No throat pain Respiratory: No cough, No short of breath Cardiovascular: No chest pain Gastrointestinal: No abdominal pain; constipation, diarrhea, nausea, vomiting Genitourinary: No dysuria Musculoskeletal: joint pain Reviewed Test Results Reviewed Test Results Lab Laboratory Tests Test 11/29/19 09:50 Range/Units White Blood Count 12.3 H 4.3-11.0 10^3/uL Red Blood Count 2.86 L 4.35-5.85 10^6/uL Hemoglobin 8.1 L 11.5-16.0 G/DL Hematocrit 26 L 35-52 % Mean Corpuscular Volume 91 80-99 FL Mean Corpuscular Hemoglobin 28 25-34 PG Mean Corpuscular Hemoglobin Concent 31 L 32-36 G/DL Red Cell Distribution Width 14.5 10.0-14.5 % Platelet Count 281 130-400 10^3/uL Mean Platelet Volume 10.1 7.4-10.4 FL Neutrophils (%) (Auto) 84 H 42-75 % Lymphocytes (%) (Auto) 10 L 12-44 % Monocytes (%) (Auto) 5 0-12 % Eosinophils (%) (Auto) 1 0-10 % Basophils (%) (Auto) 0 0-10 % Neutrophils # (Auto) 10.3 H 1.8-7.8 X 10^3 Lymphocytes # (Auto) 1.2 1.0-4.0 X 10^3 Monocytes # (Auto) 0.7 0.0-1.0 X 10^3 Eosinophils # (Auto) 0.1 0.0-0.3 10^3/uL Basophils # (Auto) 0.0 0.0-0.1 10^3/uL Sodium Level 138 135-145 MMOL/L Potassium Level 4.4 3.6-5.0 MMOL/L Chloride Level 98 98-107 MMOL/L Carbon Dioxide Level 30 21-32 MMOL/L Anion Gap 10 5-14 MMOL/L Blood Urea Nitrogen 24 H 7-18 MG/DL Creatinine 1.37 H 0.60-1.30 MG/DL Estimat Glomerular Filtration Rate 38 BUN/Creatinine Ratio 18 Glucose Level 134 H 70-105 MG/DL Lactic Acid Level 1.36 0.50-2.00 MMOL/L Calcium Level 8.7 8.5-10.1 MG/DL Corrected Calcium 9.3 8.5-10.1 MG/DL Total Bilirubin 0.2 0.1-1.0 MG/DL Aspartate Amino Transf (AST/SGOT) 12 5-34 U/L Alanine Aminotransferase (ALT/SGPT) 8 0-55 U/L Alkaline Phosphatase 89 40-136 U/L Total Protein 6.8 6.4-8.2 GM/DL Albumin 3.2 3.2-4.5 GM/DL Radiology Pelvis X-ray 11/28: IMPRESSION: 1: There is no acute fracture or dislocation. 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 Physical Exam-(CHC) Physical Exam Vital Signs VS - Last 72 Hours, by Label 11/29/19 11/29/19 11/29/19 11/29/19 09:09 15:35 16:41 16:41 Temp 37.0 36.8 36.8 Pulse 91 89 92 Resp 20 20 16 B/P (MAP) 82/38 89/46 Pulse Ox 95 94 98 98 O2 Delivery Room Air Room Air Nasal Cannula Nasal Cannula O2 Flow Rate 3.00 3.00 11/29/19 11/29/19 19:31 20:07 Temp 36.9 Pulse 79 Resp 20 B/P (MAP) 122/77 (92) Pulse Ox 100 O2 Delivery Nasal Cannula Nasal Cannula O2 Flow Rate 3.00 3.00 Capillary Refill : Less Than 3 Seconds General Appearance: no apparent distress, obese Eyes: Bilateral Eye EOMI Respiratory: lungs clear, normal breath sounds, other (limited exam- patient unable to sit up due to pain) Cardiovascular: regular rate, rhythm, no murmur Gastrointestinal: normal bowel sounds, non tender, soft Extremities: no pedal edema Neurologic/Psychiatric: alert; No abnormal cerebellar tests; abnormal application security engineer II-XII (decreased hearing to finger rub on left, normal facial sensation and facial muscle strength, shoulder shrug and tongue movement); No facial droop; other (oriented to self and location, slowly able to come to the month and year for date but not day, frequently mumbling and changing subjects. 5/5 strength in elbow flexion, decreased statistical secretary strength bilaterally, unable to raise arms due to shoulder pain, minimally able to lift legs off bed which she relates to pain) Skin: normal color, warm/dry Assessment/Plan Assessment/Plan Admission Status: Observation (1) Acute kidney injury Assessment & Plan: NS @ 125 (2) Hip pain Status: Acute Assessment & Plan: No fracture, marked arthritis, already on chronic opiate therapy. PT, will likely need NH placement given inability to transfer with assistance at home. (3) Hypertension Status: Chronic Assessment & Plan: BP low to normal, hold home meds. Qualifiers: Qualified Codes: I10 - Essential (primary) hypertension (4) Mood disorder Status: Chronic Assessment & Plan: On multiple mood medications, will resume. (5) Chronic pain Status: Chronic Assessment & Plan: Resume home morphine. (6) Morbid obesity Status: Chronic (7) Obesity hypoventilation syndrome Status: Chronic (8) Debility (9) Chronic respiratory failure Status: Chronic Assessment & Plan: On baseline 3 lpm. Qualifiers: Qualified Codes: J96.11 - Chronic respiratory failure with hypoxia (10) Leukocytosis Status: Acute Assessment & Plan: Uncertain etiology, no clear evidence of infection, possibly reactive, monitor. (11) Anemia Status: Acute Assessment & Plan: Check iron studies. (12) DVT prophylaxis Status: Acute Assessment & Plan: Enoxaparin Clinical Quality Measures DVT/VTE Risk/Contraindication: Risk Factor Score Per Nursin RFS Level Per Nursing on Admit: 4+=Very High KESHA LIMA MD Nov 29, 2019 21:37
[2019-11-29] MEDS ORDERED: NS IV 1000 ML 1,000 ML ONE (22:06)
[2019-11-29] MEDS ORDERED: morphine ER 15 MG (MS CONTIN) TAB PO ONE (22:06)
[2019-11-29] MEDS: morphine ER 15 MG (MS CONTIN) TAB PO SCH (22:11)
[2019-11-29] MEDS: NS IV 1000 ML 1,000 ML IV SCH (22:11)
[2019-11-30] MEDS ORDERED: oxyCODONE/APAP 5/325MG (PERCOCET 5) TABLET ONE ×2 (03:56→17:27)
[2019-11-30] MEDS ORDERED: meTOprolol TARTRATE 25 MG (LOPRESSOR) TABLET PO SCH (09:00)
[2019-11-30] MEDS ORDERED: clonazePAM 1 MG (KlonoPIN) TAB PO SCH (09:00)
[2019-11-30] MEDS ORDERED: lisINopril 20 MG (PRINIVIL) TABLET PO SCH (09:00)
[2019-11-30] MEDS ORDERED: buPROPion SR 100 MG (WELLBUTRIN SR) TAB PO SCH (09:00)
[2019-11-30] MEDS ORDERED: NON-FORMULARY MEDICATION 1 EA EA (Potassium Chloride 10 MEQ) PO SCH (09:00)
[2019-11-30] MEDS ORDERED: WATER (STERILE) FOR INJECTION 10 ML ONE (09:47)
[2019-11-30] MEDS ORDERED: cefTRIAXone 1,000 MG IV (ROCEPHIN) VIAL ONE (09:47)
[2019-11-30] MEDS ORDERED: PERMETHRIN (NIX) 1% LOTION 60 ML BTL TOP ONE ×2 (10:25→11:00)
[2019-11-30] MEDS ORDERED: APIXABAN 5 MG (ELIQUIS) TABLET ONE ×2 (10:29→19:43)
[2019-11-30] MEDS ORDERED: FUROSEMIDE 40 MG (LASIX) TAB ONE ×2 (10:30→19:43)
[2019-11-30] MEDS ORDERED: clonazePAM 1 MG (KlonoPIN) TAB ONE ×2 (10:30→22:01)
[2019-11-30] MEDS ORDERED: NS IV 1000 ML 1,000 ML ONE (15:13)
[2019-11-30] MEDS ORDERED: SIMvastatin 10 MG (ZOCOR) TAB ONE (19:43)
[2019-11-30] MEDS ORDERED: traZODone 50 MG (DESYREL) TAB ONE (19:46)
[2019-11-30] MEDS ORDERED: morphine ER 15 MG (MS CONTIN) TAB PO ONE (20:42)
[2019-11-30] MEDS ORDERED: SIMvastatin 10 MG (ZOCOR) TAB PO SCH (21:00)
[2019-11-30] MEDS ORDERED: traZODone 50 MG (DESYREL) TAB PO SCH (21:00)
[2019-11-30] MEDS ORDERED: clonazePAM 1 MG (KlonoPIN) TAB PO ONE (23:00)
[2019-12-01] MEDS: RT-ALBUTEROL/IPRATROPIUM 3 ML (DUONEB) VIAL INH SCH ×5 (06:04→22:05)
[2019-12-01 06:17] LABS: HEMATOCRIT 25 % (35-52); HEMOGLOBIN 7.9 G/DL (11.5-16.0); MEAN CORPUSCULAR HEMOGLOBIN 29 PG (25-34); MEAN CORPUSCULAR VOLUME 91 FL (80-99); WHITE BLOOD COUNT 11.8 10^3/uL (4.3-11.0)
[2019-12-01 06:18] LABS: BASOPHILS % (AUTO) 0 % (0-10); EOSINOPHILS % (AUTO) 0 % (0-10); LYMPHOCYTES # (AUTO) 1.6 X 10^3 (1.0-4.0); LYMPHOCYTES % (AUTO) 14 % (12-44); MEAN CORPUSCULAR HGB CONC 32 G/DL (32-36); MEAN PLATELET VOLUME 10.4 FL (7.4-10.4); MONOCYTES # (AUTO) 0.6 X 10^3 (0.0-1.0); MONOCYTES % (AUTO) 5 % (0-12); NEUTROPHILS # (AUTO) 9.4 X 10^3 (1.8-7.8); NEUTROPHILS % (AUTO) 80 % (42-75); PLATELET COUNT 277 10^3/uL (130-400)
[2019-12-01 06:19] LABS: CARBON DIOXIDE 28 MMOL/L (21-32); CHLORIDE 104 MMOL/L (98-107); GLUCOSE 117 MG/DL (70-105); SODIUM 140 MMOL/L (135-145)
[2019-12-01 08:00] VITALS: BP 116/67
[2019-12-01 08:32] LABS: WHITE BLOOD COUNT 8.8 10^3/uL (4.3-11.0)
[2019-12-01 08:33] LABS: BASOPHILS % (AUTO) 0 % (0-10); EOSINOPHILS # (AUTO) 0.1 10^3/uL (0.0-0.3); EOSINOPHILS % (AUTO) 1 % (0-10); HEMATOCRIT 21 % (35-52); HEMOGLOBIN 6.2 G/DL (11.5-16.0); LYMPHOCYTES # (AUTO) 1.6 X 10^3 (1.0-4.0); LYMPHOCYTES % (AUTO) 18 % (12-44); MEAN CORPUSCULAR HEMOGLOBIN 29 PG (25-34); MEAN CORPUSCULAR HGB CONC 30 G/DL (32-36); MEAN CORPUSCULAR VOLUME 95 FL (80-99); MEAN PLATELET VOLUME 10.3 FL (7.4-10.4); MONOCYTES # (AUTO) 0.7 X 10^3 (0.0-1.0); MONOCYTES % (AUTO) 8 % (0-12); NEUTROPHILS # (AUTO) 6.5 X 10^3 (1.8-7.8); NEUTROPHILS % (AUTO) 73 % (42-75); PLATELET COUNT 258 10^3/uL (130-400); RED CELL DISTRIBUTION WIDTH 14.6 % (10.0-14.5)
[2019-12-01 08:36] LABS: POTASSIUM 4.2 MMOL/L (3.6-5.0)
[2019-12-01 08:37] LABS: CALCIUM 7.6 MG/DL (8.5-10.1)
--- NOTE | 2019-12-01 09:20 | NUR ---
0900: Patient assisted to recliner by PT with walker and assist x1. 0920: Patient yelling out for help from room. States "staff abandoned me", call light in patients hand, patient states she needs back in bed due to hip pain. Patient assisted back to bed by this RN and PCT. Patient up x2 with walker. Patient required extensive assistance from recliner to standing position. Once in standing position patient was able to pivot and back up to bed. Patient required assistance lifting legs into bed and assistance with positioning in bed.
--- NOTE | 2019-12-01 09:25 | Physical Therapy Daily Note ---
PT Daily Note-Current Subjective Patient is very agreeable to participate with therapy. Mental Status Patient Orientation: Normal For Age Attachments: Oxygen Transfers SCALE: Activities may be completed with or without assistive devices. 3-Fwuqnhhilz-yluxerk completes the activity by him/herself with no assistance from a helper. 5-Set-up or Clean-up Assistance-helper sets up or cleans up; patient completes activity. [place] assists only prior to or following the activity. 4-Supervision or Touching Assistance-helper provides verbal cues and/or touching/steadying and/or contact guard assistance as patient completes activity. Assistance may be provided throughout the activity or intermittently. 3-Partial/Moderate Assistance-helper does LESS THAN HALF the effort. [place] lifts, holds or supports trunk or limbs, but provides less than half the effort. 2-Substantial/Maximal Assistance-helper does MORE THAN HALF the effort. [place] lifts or holds trunk or limbs and provides more than half the effort. 4-Vmjleuuoi-dpkayb does ALL the effort. Patient does none of the effort to complete the activity. Or, the assistance of 2 or more helpers is required for the patient to complete the activity. If activity was not attempted, code reason: 7-Patient Refused. 9-Not Applicable-not attempted and the patient did not perform the activity before the current illness, exacerbation or injury. 10-Not Attempted due to Environmental Limitations-(lack of equipment, weather restraints, etc.). 88-Not Attempted due to Medical Conditions or Safety Concerns. Lying to Sitting/Side of Bed(Q: 6 Sit to Stand (QC): 6 Chair/Avi-ve-Sdsgf Xfer(QC): 5 Weight Bearing Right Lower Extremity: Right Weight Bearing/Tolerated Left Lower Extremity: Left Weight Bearing/Tolerated Gait Training Does the Patient Walk?: Yes Distance: 10' Walk 10 feet (QC): 5 Gait Assistive Device: FWW trunk flexed posture Exercises Seated Therapy Exercises: Ankle pumps, Long arc quads Seated Reps: 15 Treatments Incontinent BM requiring BODY MAKER to cleanse. Assessment Patient is up in recliner with needs met. Patient is able to perform bed mobility, transfers and ambulation at a modified independent to independent. Patient does require time to complete tasks and redirection to remain on task. PT Plan Treatment/Plan Treatment Plan: Continue Plan of Care Treatment Duration: Dec 10, 2019 Frequency: 6 times per week Estimated Hrs Per Day: .25 hour per day Time/GCodes Time In: 834 Time Out: 857 Total Billed Treatment Time: 23 Total Billed Treatment 1 visit FA x 2 23 min SUSANNE TORRES PT Dec 01, 2019 09:25
[2019-12-01] MEDS: ADVAIR HFA 115/21 MCG INHALER 8 GM IH SCH ×2 (10:32→18:03)
[2019-12-01] MEDS: PANTOPRAZOLE 20 MG TABLET (PROTONIX) PO SCH (11:20)
[2019-12-01] MEDS: DULoxetine 30 MG (CYMBALTA) CAP PO SCH (11:20)
--- NOTE | 2019-12-01 11:20 | NUR ---
Morning medications administered at this time. Abilify 2mg tab, eliquis 5mg, klonopin 1mg, lasix 40mg, bupropion SR 200mg,MS Contin 15mg, 120mg cymbalta, 20mg protonix, NIX creme applied, desenex powder applied, and 1000ml bag of NS spiked and running at 125mL/hour.
--- NOTE | 2019-12-01 11:23 | Occupational Ther Daily Note ---
OT Current Status-Daily Note Subjective Pt seen in bed this am. Pt states pain in R hip to start. During session pain increases during UE theraband ex with no initiation of LE movement- manager nursing notified of pt's pain. Mental Status/Objective Patient Orientation: Normal For Age Attachments: Enriquez Catheter, IV ADL-Treatment Therapy Code Descriptions/Definitions Functional [place] Measure: 0=Not Assessed/NA 4=Minimal Assistance 1=Total Assistance 5=Supervision or Setup 2=Maximal Assistance 6=Modified [place] 3=Moderate Assistance 7=Complete IndependenceSCALE: Activities may be completed with or without assistive devices. 9-Jcvsjtgrau-pupsysb completes the activity by him/herself with no assistance from a helper. 5-Set-up or Clean-up Assistance-helper sets up or cleans up; patient completes activity. [place] assists only prior to or following the activity. 4-Supervision or Touching Assistance-helper provides verbal cues and/or touching/steadying and/or contact guard assistance as patient completes activity. Assistance may be provided throughout the activity or intermittently. 3-Partial/Moderate Assistance-helper does LESS THAN HALF the effort. [place] lifts, holds or supports trunk or limbs, but provides less than half the effort. 2-Substantial/Maximal Assistance-helper does MORE THAN HALF the effort. [place] lifts or holds trunk or limbs and provides more than half the effort. 2-Iqdgldaqm-gweqpf does ALL the effort. Patient does none of the effort to complete the activity. Or, the assistance of 2 or more helpers is required for the patient to complete the activity. If activity was not attempted, code reason: 7-Patient Refused. 9-Not Applicable-not attempted and the patient did not perform the activity before the current illness, exacerbation or injury. 10-Not Attempted due to Environmental Limitations-(lack of equipment, weather restraints, etc.). 88-Not Attempted due to Medical Conditions or Safety Concerns. Other Treatment Pt denies OOB activity or ADLs this date, stating she was just up in the recliner and came back to bed. Pt agrees to UE theraband ex, stating she enjoys working out. Pt able to complete 10 reps of back flies without pain. Suddenly, pt grabs R hip and states pain with grimace. Pt states sometimes her hip suddenly begins hurting (shooting pain) even without movement. Pt states this morning with PT pt was "completely normal," and got into chair with no pain. Pt now states any movement hurts, then begins attempting to roll back and forth in bed and states it helps with pain. Repositioning attempted with pt's assist for comfort. Pt unable to be comforted positionally. computer aided design technician notified per pt's request for pain meds. TV begins switching channels and pt attempts to regulate TV for ~30 seconds- no c/o pain or grimacing during this time. Once redirected b ack to tx, pt states her pain is unbearable and "(she) has a doctor and they need to find out what's wrong with (her) hip." Pt educated on breathing through pain rather than ceasing breath/ grimacing. Pt continues requiring cues throughout for breath/ pain management. Pt completes 10 reps bicep curls on LUE, denies completing any on RUE due to pain in RLE. pt educated on 2 different UE exercises to be completed later when she has decreased pain. Pt left in bed with all needs met, manager nursing had been notified of pain. Education OT Patient Education: Exercise program, Home exercise program, Transfer techniques, Other (benefits of diaphragmatic breathing for pain) Teaching Recipient: Patient Teaching Methods: Demonstration, Discussion Response to Teaching: Verbalize Understanding, Return Demonstration, Reinforcement Needed OT Halfway Goals Benefits Coordinator Goals 1=Demonstrate adherence to instructed precautions during ADL tasks. 2=Patient will verbalize/demonstrate understanding of assistive devices/modifications for ADL. 3=Patient will improve strength/tolerance for activity to enable patient to perform ADL's. OT Education/Plan Problem List/Assessment Assessment: Decreased Activ Tolerance, Decreased UE Strength, Dependent Transfers, Impaired Bed Mobility, Impaired Funct Balance, Impaired I ADL's, Impaired Self-Care Skills, Restricted Funct UE ROM Discharge Recommendations Plan/Recommendations: Continue POC Therapy Discharge Recommendati: 24 Hour Supervision Treatment Plan/Plan of Care Treatment,Training & Education: Yes Patient would benefit from OT for education, treatment and training to promote independence in ADL's, mobility, safety and/or upper extremity function for ADL's. Plan of Care: ADL Retraining, Caregiver Training, Functional Mobility, Group Exercise/Act as Ind, UE Funct Exercise/Act, W/C Management Training Treatment Duration: Dec 07, 2019 Frequency: 5 times per week Estimated Hrs Per Day: .25 hour per day Agreement: Yes Rehab Potential: Fair Time/GCodes Start Time: 10:50 Stop Time: 11:15 Total Time Billed (hr/min): 25 Billed Treatment Time 1, ADL, EX (25) MAXWELL DENG OTR Dec 01, 2019 11:23
[2019-12-01] MEDS: cefTRIAXone 1,000 MG/SWFI 10 ML IV PUSH IV SCH ×2 (11:56)
[2019-12-01 12:00] VITALS: BP 133/81
--- NOTE | 2019-12-01 12:52 | Progress Note ---
Subjective Subjective/Events-last exam Afebrile, feeling much better. Was able to stand and get to chair, but then had a lot of pain and felt she couldn't really get back to bed. She wants to go home rather than nursing facility but also feels her hip has to get fixed for her to go home. She had low hemoglobin yesterday requiring transfusion, suspect secondary to her vaginal bleeding, discussed with her that this also needs addressed outpatient. Focused Exam Lactate Level 11/29/19 09:50: Lactic Acid Level 1.36 Objective Exam Last Set of Vital Signs Vital Signs Date Time Temp Pulse Resp B/P (MAP) Pulse Ox O2 Delivery O2 Flow Rate FiO2 12/01/19 10:32 92 Nasal Cannula 3.00 12/01/19 08:00 36.4 98 20 116/67 (83) Capillary Refill : Less Than 3 Seconds General: Alert, No Acute Distress Lungs: Clear to Auscultation, Normal Air Movement Heart: Regular Rate, No Murmurs Abdomen: Normal Bowel Sounds, Soft Psych/Mental Status: Mental Status NL, Mood NL Results/Procedures Lab Laboratory Tests 12/01/19 06:00: White Blood Count 11.8H, Red Blood Count 2.75L, Hemoglobin 7.9L, Hematocrit 25L, Mean Corpuscular Volume 91, Mean Corpuscular Hemoglobin 29, Mean Corpuscular Hemoglobin Concent 32, Red Cell Distribution Width 15.0H, Platelet Count 277, Mean Platelet Volume 10.4, Neutrophils (%) (Auto) 80H, Lymphocytes (%) (Auto) 14, Monocytes (%) (Auto) 5, Eosinophils (%) (Auto) 0, Basophils (%) (Auto) 0, Neutrophils # (Auto) 9.4H, Lymphocytes # (Auto) 1.6, Monocytes # (Auto) 0.6, Eosinophils # (Auto) 0.0, Basophils # (Auto) 0.0, Sodium Level 140, Potassium Level 4.0, Chloride Level 104, Carbon Dioxide Level 28, Anion Gap 8, Blood Urea Nitrogen , Creatinine , BUN/Creatinine Ratio , Glucose Level 117H, Calcium Level 8.0L Microbiology 11/29/19 Blood Culture - Preliminary, Resulted Escherichia coli Radiology Pelvis X-ray 11/28: IMPRESSION: 1: There is no acute fracture or dislocation. 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 Assessment/Plan Assessment/Plan (1) Acute kidney injury Status: Resolved Assessment & Plan: NS @ 125 (2) Hip pain Status: Acute Assessment & Plan: No fracture, marked arthritis, already on chronic opiate therapy. PT, will likely need NH placement given inability to transfer with assistance at home. (3) Hypertension Status: Chronic Assessment & Plan: BP low to normal, hold home meds. Qualifiers: Qualified Codes: I10 - Essential (primary) hypertension (4) Mood disorder Status: Chronic Assessment & Plan: On multiple mood medications, will resume. (5) Chronic pain Status: Chronic Assessment & Plan: Resume home morphine. (6) Morbid obesity Status: Chronic (7) Obesity hypoventilation syndrome Status: Chronic (8) Debility Status: Chronic (9) Chronic respiratory failure Status: Chronic Assessment & Plan: On baseline 3 lpm. Qualifiers: Qualified Codes: J96.11 - Chronic respiratory failure with hypoxia (10) Leukocytosis Status: Acute Assessment & Plan: Uncertain etiology, no clear evidence of infection, possibly reactive, monitor. Blood culture positive for E coli yesterday (11/29) started on ceftriaxone, sensitivity pending. (11) Anemia Status: Acute Assessment & Plan: Check iron studies. 11/30 worsened- hgb below 7 yesterday, suspect due to chronic vaginal bleeding. Transfused yesterday and Hgb 7.9 today. Hesitant to hold anticoagulation due to her a fib. (12) Pubic lice Status: Acute Assessment & Plan: Possible, suspected per nursing but no clear infection noted on my exam on 11/29, treated empirically. (13) Postmenopausal bleeding Status: Chronic Assessment & Plan: Discussed need for work-up, she is unable to get outpatient EMB due to morbid obesity, it sounds from her as if she has been referred and plan for OR procedure (D&C?), but was waiting on clearance from other physic ians. If unable to maintain hemoglobin after transfusion, will consider further inpatient treatment. (14) History of atrial fibrillation Status: Chronic (15) DVT prophylaxis Status: Acute Assessment & Plan: Apixaban Clinical Quality Measures DVT/VTE Risk/Contraindication: Risk Factor Score Per Nursin RFS Level Per Nursing on Admit: 4+=Very High KESHA REINOSO MD Dec 01, 2019 12:52
[2019-12-01] MEDS: MICONAZOLE 2% POWDER (DESENEX AF) 90 GM TOP SCH (13:00)
--- NOTE | 2019-12-01 14:55 | NUR ---
LAMIN/THU follow up. The patient was sitting up in the recliner when this sw came for a visit. She reports "I feel good as new". The patient states that she was able to get out of the bed and into the chair by herself today and her hips are not hurting like they were. LAMIN/SS informed her that the skilled facility needed an updated card for the referral. She stated that she does not think she needs a penitentiary anymore. LAMIN/SS discussed safety and hygiene with patient. She reports that since she is able to now get up and walk she does not need to be in a penitentiary. Patient verbalized she would like with sw to cancel penitentiary referral. LAMIN/SS contacted Jessica from [facility] and cancelled referral. She verbalized understanding. LAMIN/THU informed the patient's physician. She verbalized understanding. LAMIN/THU spoke with Honey the DCF worker to give an update. She reports that the patient does have HCBS services. The patient has 25 hours per week for paid caregivers. Her son is working for 23 of the hours and another worker for the 2 additional hours to help with baiting. LAMIN/SS discussed that if the patient went home, having home health would be beneficial. LAMIN/SS asked the patient if she would be willing to have home health. She gave verbal consent. CM/SS will provide patient with patient preference form and send referral to patient's choice. CM/SS will continue to follow for discharge planning. Addendum: 12/01/19 at 1701 by SAMI VAZQUEZ Home Health: The patient picked [facility]. LAMIN/SS contacted [facility] and spoke with Sergey. CM/SS faxed referral. They state they can start care on Tuesday 12/05.
[2019-12-01 16:19] VITALS: BP 114/73
[2019-12-01 19:23] VITALS: BP 113/74
[2019-12-01] MEDS: NS IV 1000 ML 1,000 ML IV SCH (19:33)
[2019-12-01] MEDS: FUROSEMIDE 40 MG (LASIX) TAB PO SCH (21:35)
[2019-12-01] MEDS: APIXABAN 5 MG (ELIQUIS) TABLET PO SCH (21:36)
[2019-12-01] MEDS: morphine ER 15 MG (MS CONTIN) TAB PO SCH (21:39)
[2019-12-02] VITALS: BP 142/63
[2019-12-02] MEDS: oxyCODONE/APAP 5/325MG (PERCOCET 5) TABLET PO PRN ×2 (00:42→13:07)
[2019-12-02] MEDS: MICONAZOLE 2% POWDER (DESENEX AF) 90 GM TOP SCH ×2 (00:45→08:13)
[2019-12-02] MEDS: RT-ALBUTEROL/IPRATROPIUM 3 ML (DUONEB) VIAL INH SCH ×4 (02:36→15:05)
[2019-12-02] MEDS: NS IV 1000 ML 1,000 ML IV SCH (03:31)
[2019-12-02 03:58] VITALS: BP 128/76
[2019-12-02 06:33] LABS: HEMOGLOBIN 7.2 G/DL (11.5-16.0); MEAN PLATELET VOLUME 10.5 FL (7.4-10.4); WHITE BLOOD COUNT 10.7 10^3/uL (4.3-11.0)
[2019-12-02 06:44] LABS: BUN/CREATININE RATIO 9; CARBON DIOXIDE 26 MMOL/L (21-32); CHLORIDE 103 MMOL/L (98-107); CREATININE SERUM 0.75 MG/DL (0.60-1.30); GFR ESTIMATED > 60; GLUCOSE 113 MG/DL (70-105); POTASSIUM 3.7 MMOL/L (3.6-5.0); SODIUM 137 MMOL/L (135-145)
[2019-12-02] MEDS: ADVAIR HFA 115/21 MCG INHALER 8 GM IH SCH (06:49)
[2019-12-02 07:49] VITALS: BP 116/56
[2019-12-02] MEDS: FUROSEMIDE 40 MG (LASIX) TAB PO SCH (08:10)
[2019-12-02] MEDS: DULoxetine 30 MG (CYMBALTA) CAP PO SCH (08:11)
[2019-12-02] MEDS: PANTOPRAZOLE 20 MG TABLET (PROTONIX) PO SCH (08:11)
--- NOTE | 2019-12-02 08:12 | NUR ---
12/02/19 0900 dose of Abilify 2mg, Klonopin 1mg, and wellbutrin 200mg given at this time.
[2019-12-02] MEDS: APIXABAN 5 MG (ELIQUIS) TABLET PO SCH (08:13)
[2019-12-02] MEDS: morphine ER 15 MG (MS CONTIN) TAB PO SCH (09:28)
--- NOTE | 2019-12-02 10:25 | Physical Therapy Progress Note ---
Therapy Progress Note Patient refused PT stating, "I'm going home and I don't want to get out of bed." PT attempted to educate patient on importance of OOB activity and to improve strength and mobility, however, patient reports she would be fine at home and can take care of herself. SW notified. 1 ref ([phone]) SUSANNE TORRES PT Dec 02, 2019 10:25
--- NOTE | 2019-12-02 10:49 | Occupational Ther Daily Note ---
OT Current Status-Daily Note Subjective Pt seen in room, up in bed, agreeable to OT. Pain behaviors observed with UE movement but not verbalized or rated. Pt was able to self-limit movement Appearance Alert, cooperative. Reported going home today ADL-Treatment Therapy Code Descriptions/Definitions Functional [place] Measure: 0=Not Assessed/NA 4=Minimal Assistance 1=Total Assistance 5=Supervision or Setup 2=Maximal Assistance 6=Modified [place] 3=Moderate Assistance 7=Complete IndependenceSCALE: Activities may be completed with or without assistive devices. 2-Crvyllyxrt-cdxutkx completes the activity by him/herself with no assistance from a helper. 5-Set-up or Clean-up Assistance-helper sets up or cleans up; patient completes activity. [place] assists only prior to or following the activity. 4-Supervision or Touching Assistance-helper provides verbal cues and/or touching/steadying and/or contact guard assistance as patient completes activity. Assistance may be provided throughout the activity or intermittently. 3-Partial/Moderate Assistance-helper does LESS THAN HALF the effort. [place] lifts, holds or supports trunk or limbs, but provides less than half the effort. 2-Substantial/Maximal Assistance-helper does MORE THAN HALF the effort. [place] lifts or holds trunk or limbs and provides more than half the effort. 8-Xumxrlfjo-qkcodi does ALL the effort. Patient does none of the effort to complete the activity. Or, the assistance of 2 or more helpers is required for the patient to complete the activity. If activity was not attempted, code reason: 7-Patient Refused. 9-Not Applicable-not attempted and the patient did not perform the activity before the current illness, exacerbation or injury. 10-Not Attempted due to Environmental Limitations-(lack of equipment, weather restraints, etc.). 88-Not Attempted due to Medical Conditions or Safety Concerns. Other Treatment Pt education on two different bilat UE exercises that are done with hands clasped together and work on elbow extension and shoulder flexion, as needed to help with getting up and down from chair or bed. She was able to complete 5 reps each and then later demonstrate understanding of exercise and do 3 more reps. She also completed 10 reps three different bilat UE exercises with yellow theraband that she recalled from previous education and added one more exercise. Pt education on doing these at home to maintain shoulder movement and increase UE strength to help with ADLs. Pt verbalized understanding. Pt left up in bed, all needs met. Education OT Patient Education: Home exercise program, Purpose of tx/functional activities Teaching Recipient: Patient Teaching Methods: Demonstration, Discussion Response to Teaching: Verbalize Understanding, Return Demonstration OT Nurse Practitioner Physicians Assistant Goals Long-Term Goals 1=Demonstrate adherence to instructed precautions during ADL tasks. 2=Patient will verbalize/demonstrate understanding of assistive devices/modifications for ADL. 3=Patient will improve strength/tolerance for activity to enable patient to perform ADL's. OT Education/Plan Discharge Recommendations Plan/Recommendations: Continue POC Treatment Plan/Plan of Care Patient would benefit from OT for education, treatment and training to promote independence in ADL's, mobility, safety and/or upper extremity function for ADL's. Plan of Care: ADL Retraining, Caregiver Training, Functional Mobility, Group E xercise/Act as Ind, UE Funct Exercise/Act, W/C Management Training Treatment Duration: Dec 07, 2019 Frequency: 5 times per week Estimated Hrs Per Day: .25 hour per day Agreement: Yes Rehab Potential: Fair Time/GCodes Start Time: 10:13 Stop Time: 10:29 Total Time Billed (hr/min): 16 Billed Treatment Time visit, 16 minutes exercise BLAINE DAVIS OT Dec 02, 2019 10:49
[2019-12-02] MEDS: cefTRIAXone 1,000 MG/SWFI 10 ML IV PUSH IV SCH ×2 (11:10)
[2019-12-02 11:14] VITALS: BP 128/69
[2019-12-02] MEDS ORDERED: CEFD300C3 PO (12:34)
--- NOTE | 2019-12-02 12:42 | Discharge Summary ---
Discharge Summary Instructions for Patient Assessment/Instructions Follow up with Mickie Maza APRN on 12/06 at 9:20 am. Physician to follow Patient: Mickie Maza APRN Discharge Diet for Home: Cardiac Diet Hospital Course Date of Admission: Nov 29, 2019 at 16:29 Admission Diagnosis : Debility Bilateral hip pain Anemia Acute renal insufficiency Morbid obesity Chronic pain Mood disorder Family Physician/Provider: Mickie Maza Aprn Date of Discharge: 12/02/19 Discharge Diagnosis: See problem list Hospital Course: Pt brought to ER due to inability to get out of chair at home, had soiled herself and had severe bilateral hip pain. Found to have acute renal insufficiency and blood culture positive for E coli, suspect urinary source. Treated with ceftriaxone and transitioned to cefdinir on d/c. Hip x-rays showed severe degenerative changes but no fractures. Initially she had agreed to fpc placement, but she was able to get out of bed with PT and wanted to go home and declined NF. During stay nursing noted possible pubic lice which was not confirmed but treated empirically. She also had vaginal bleeding which she reported is chronic. She did have anemia to below 7 and required transfusion but was not bleeding profusely. She reported she was working on outpatient work-up for her postmenopausal bleeding. Will need hemoglobin rechecked on Thursday, was trending down slightly after transfusion. She continued to have severe left hip pain, discussed that with severe arthritis and already on chronic opiates and likely not surgical candidate due to comorbidities, options are limited. Labs and Pending Lab Test: Laboratory Tests 12/02/19 05:05: White Blood Count 10.7, Red Blood Count 2.60L, Hemoglobin 7.2L, Hematocrit 24L, Mean Corpuscular Volume 92, Mean Corpuscular Hemoglobin 28, Mean Corpuscular Hemoglobin Concent 30L, Red Cell Distribution Width 15.0H, Platelet Count 266, Mean Platelet Volume 10.5H, Sodium Level 137, Potassium Level 3.7, Chloride Level 103, Carbon Dioxide Level 26, Anion Gap 8, Blood Urea Nitrogen 7, Creatinine 0.75, Estimat Glomerular Filtration Rate > 60, BUN/Creatinine Ratio 9, Glucose Level 113H, Calcium Level 8.0L Microbiology 11/29/19 Blood Culture - Final, Complete Escherichia coli Home Meds Active Iprat-Albut 0.5-3(2.5) mg/3 ml (Ipratropium/Albuterol Sulfate) 3 Ml Ampul.neb 3 Ml INH RTQ4HR Reported Metoprolol Tartrate 25 Mg Tablet 25 Mg PO BID Lisinopril 20 Mg Tablet 20 Mg PO DAILY Potassium Chloride 10 Meq Capsule.er 10 Meq PO DAILY Eliquis (Apixaban) 5 Mg Tablet 5 Mg PO BID Advair Hfa 115-21 Mcg Inhaler (Fluticasone/Salmeterol) 12 Gm Hfa.aer.ad 2 Puff IH BID Furosemide 40 Mg Tablet 40 Mg PO BID Bupropion HCl Sr (Bupropion HCl) 100 Mg Tablet.er 200 Mg PO DAILY TAKES 2 (100MG) TABS Omeprazole 20 Mg Capsule.dr 20 Mg PO DAILY Aripiprazole 2 Mg Tablet 2 Mg PO DAILY Morphine Sulfate ER (Morphine Sulfate) 15 Mg Tablet.er 15 Mg PO Q12H Oxycodone-Acetaminophen 5-325 (Oxycodone HCl/Acetaminophen) 1 Each Tablet 1 Tab PO BID PRN Duloxetine HCl 60 Mg Capsule.dr 120 Mg PO DAILY TAKES 2 (60MG) CAPSULES Trazodone HCl 50 Mg Tablet 50-100 Mg PO HS Simvastatin 10 Mg Tablet 10 Mg PO HS Clonazepam 1 Mg Tablet 1 Mg PO DAILY Patient Allergies: Coded Allergies: No Known Drug Allergies (Verified , 11/20/08) Height (Feet): 5 Height (Inches): 5.00 Weight (Pounds): 332 Weight (Ounces): 0 Home Health Need/Face to Face Date of Face to Face: Dec 02, 2019 Clinical Findings: Generalized weakness and fatigue, Muscle weakness, Pain with ambulation I have seen Pt ensl-sg-wyid: Yes Discharged To: Home Diagnosis/Conditions: See problem list Problems/Diagnosis/Condition: (1) History of atrial fibrillation (2) Morbid obesity (3) Postmenopausal bleeding (4) Pubic lice (5) Debility (6) Acute kidney injury (7) Chronic respiratory failure (8) Anemia (9) Leukocytosis (10) Chronic pain (11) Hypertension (12) Hip pain Patient is Homebound due to: Sea fall risk due to instabilty, Muscle wea kness, Pain w/ambulation Homebound Status Due to the above stated illness, injury or surgical procedure (medical condition or diagnosis) and associated clinical findings, the patient is homebound because of his/her inability to leave home except with aid of a supportive device and/or person AND leaving the home requires a considerable and taxing effort or is medically contraindicated. Pt req the following assistanc: Aid of another person, Walker Home Health Nursing Orders Home Health Services Order: Nursing Services, Well Servicing Rig Operator-Evaluate & Treat, Physical Therapy-Evaluate & Treat Check CBC on Sunday 12/03. Home Health Infusion Therapy Line Start Date: Nov 29, 2019 Home Health Lab Orders Labs (specify type/freq): CBC Sunday 12/03. Therapy Orders Therapy Orders: Physical Therapy, PT to assess for OT Therapy Specific Orders: Increase strength/endurance Certify Stmt I certify that this patient is under my care and that I, a nurse practitioner or a physician; a commercial assistant working with me, had a face to face encounter that -meets the physician face to face encounter requirements with this patient as dated. Discharge Physical Exam General: Alert, No Acute Distress Lungs: Clear to Auscultation, Normal Air Movement Heart: Regular Rate, No Murmurs Psych/Mental Status: Mental Status NL, Mood NL KESHA REINOSO MD Dec 02, 2019 12:41
--- NOTE | 2019-12-02 13:06 | NUR ---
RD ASSESSMENT PMHx: Note pt is a poor historian; Pt may have PMH of HTN | HLD | COPD | CHF based on current medications (per H&P, not this RD's speculation) PT INTERACTION: Pt was awake and pleasant during nutrition assessment. Note pt is a poor historian, per chart review. Pt states current appetite is "not the greatest," and it has been this way for a long time. Note avg PO intake 50-75% x1d, per chart review. Pt states following a regular diet at home, and has no issues with chewing/swallowing food. Pt states some recent issues with nausea and vomiting. Note last BM was 11/30, and pt not currently on bowel regimen, per chart review. Pt states unsure of recent wt changes. Note recent 17# wt loss x2mon, per chart review. ABNORMAL NUTRITION-RELATED LAB VALUES LOW: Ca 8.0; HIGH: glu 113 Est. kcal needs: 1425 kcal | 25 kcal/kg IBW, based on IBW of 56.8 kg (125#) Est. Pro needs: 57 g Pro | 1.0 g Pro/kg IBW, based on IBW of 56.8 kg (125#) PES STATEMENT: Inadequate oral intake (NI-2.1) related to loss of appetite | nausea | vomiting as evidenced by pt interview | avg PO intake 50-75% x1d INTERVENTION: Continue with current diet order of 2000mg Na diet. Pt may benefit from nutrition supplementation if PO intake declines. Encouraged pt to eat when able. Will continue to follow and reassess as pt needs, intake, and status change. MONITOR/EVALUATE: PO Intake; Plan of Care; Hydration Status; Weight Status; Lab Values Roger Rueda, MS, RD, LD
--- NOTE | 2019-12-02 13:17 | Physician Query Clarification ---
"Physician Query-General Query to Physician: The medical record reflects the following clinical scenario: History/Risk factors: Extremely poor hygiene, covered in Urine and stool on admission Clinical Findings: HR 90-100s, Admission BP 82/38, BC + EColi, WBC 12.3 Treatment: IV fluids, IV Abx Question: What condition best reflects the above clinical scenario? Please document response in the Progress notes or Discharge Summary. 1. Sepsis present on Admission 2. Leukocytosis (as currently documented) 3. Other , with explanation of the clinical findings 4. Clinically undetermined, no explanation for the clinical findings Please remember a lack of response to the above will prompt a phone page by CDI/coding staff In responding to this query, please exercise your independent professional judgment. The purpose of this communication is to more accurately reflect the complexity of your patients condition. The fact that a question is asked does not imply that any particular answer is desired or expected. Thank you for timely response to this clarification. Noemy Escudero, MSN, RN RN Specialist-Clinical Doc Improvement CD -Health Info Mgmt Operations [address] [facility] t: [phone] | f: [phone] If you are unable to reach me at my extension, I may be working from home. Please contact me at [phone] PHYSICIAN RESPONSE: Based on the clinical findings in the record, please respond to the query above on this document as an addendum. Physician Response: Physician Response Sepsis present on admission If you have questions please contact: Children Counselor: Ext: Thank you for your time and cooperation. Clinical Social Problems Specialist/Children Counselor This is a permanent part of the medical record NOEMY ESCUDERO Dec 02, 2019 13:17 KESHA REINOSO MD Dec 02, 2019 15:25"
--- NOTE | 2019-12-02 14:57 | NUR ---
DISCHARGE PLAN: Patient is discharged to home with [facility] to start service.
--- NOTE | 2019-12-05 14:07 | NUR ---
CM/THU received call and voice mail from Patsy at [facility] in regards to patient. CM/THU Lopez contacted main [facility] line and spoke with Chioma. She reports that patient was not accepted onto their home health service due to patient's long history of non-compliance. CM/SS attempted to contact patient twice with two voice mails and call back number to make sure patient is aware home health is not accepting. CM/THU will help set up home health from outpatient if patient call back.
== END 2019-12-02 15:30 | disposition home health service (06) | DRG 872 ==
LOC: EDUNIT# 09:01 → ER FS 09:02 → 4TH 16:29
PROVIDERS: ADMIT Family Medicine; ATTEND Family Medicine
DX: A41.51 Sepsis due to Escherichia coli [E. coli] (principal); N17.9 Acute kidney failure, unspecified; J96.10 Chronic respiratory failure, unspecified whether with hypoxia or hypercapnia; E78.5 Hyperlipidemia, unspecified; I11.0 Hypertensive heart disease with heart failure; I50.9 Heart failure, unspecified; J44.9 Chronic obstructive pulmonary disease, unspecified; F39 Unspecified mood [affective] disorder; G89.29 Other chronic pain; E66.01 Morbid (severe) obesity due to excess calories; D64.9 Anemia, unspecified; N95.0 Postmenopausal bleeding; I48.91 Unspecified atrial fibrillation; B85.3 Phthiriasis; M16.0 Bilateral primary osteoarthritis of hip
CPT/HCPCS: 36415; 73502; 80048; 80053; 82728; 83605; 85025; 85027; 86850; 86900; 86901; 86920; 87040; 87077; 87186; 94640; 94760

== ENCOUNTER → 2020-01-03 | Outpatient (CLI) | payer MEDICARE, MEDICAID ==
[~2020-01-03] MED LIST changes: +BUPR100T8 PO; +CEFD300C3 PO; +FURO40TA4 PO; +METO-333 PO; +POTA10CA43 PO; +RT-ALBUTEROL SULF 2.5 MG/3 ML PRE-MIX VIAL INH ONE
[2020-01-03 15:21] LABS: ABG BASE EXCESS 3.6 MMOL/L (-2.5-2.5); ABG OXYGEN SATURATION 96 % (94-100); ABG PCO2 53 MMHG (35-45); ABG PH 7.36 (7.37-7.43); ABG PO2 76 MMHG (79-93); ABG TCO2 30.1 MMOL/L (21.0-31.0)
[2020-01-03 15:22] LABS: ALLENS TEST YES-POS; INSPIRED O2 RA; PATIENT TEMP 37.6; VENTILATOR NO
== END ==
LOC: RT 13:59
PROVIDERS: ATTEND Nurse Practitioner Family
DX: G47.10 Hypersomnia, unspecified (principal); G47.33 Obstructive sleep apnea (adult) (pediatric); F17.210 Nicotine dependence, cigarettes, uncomplicated; J98.4 Other disorders of lung; Z72.0 Tobacco use
CPT/HCPCS: 36600; 82805; 94060; 94729; G0399

== ENCOUNTER 2020-04-13 13:14 | Inpatient (IN) | payer MEDICARE, MEDICAID ==
[~2020-04-13] VITALS: Ht 165.1 cm; Wt 151.5 kg
[~2020-04-13 13:14] MED LIST changes: -RT-ALBUTEROL SULF 2.5 MG/3 ML PRE-MIX VIAL INH ONE
--- NOTE | 2020-04-13 13:21 | ED General ---
General Stated Complaint: SOB Source of Information: Patient History of Present Illness Date Seen by Provider: Apr 13, 2020 Time Seen by Provider: 13:20 Initial Comments 69-year-old female brought in due to shortness of breath. Patient has significant chronic medical conditions, normally wears 3 L home oxygen, morbidly obese and chronically ill. Patient reports that she got up to go the restroom without her oxygen. That when she got to the restroom a sitdown she gotten somewhat week. That she was in than the restroom for a while and continued ago bit weaker without her oxygen. That she was unable to wake her son up to come help her. That so she pressed her home alert button. EMS reports when they arrived she was weak and short of breath. That they placed her on 3 L oxygen and her oxygen improved into the upper 90s to 100%. That she is now much more alert and awake. Patient denies any fever, increased cough or other symptoms prior to this morning. Allergies and Home Medications Allergies Coded Allergies: No Known Drug Allergies (Verified , 11/20/08) Home Medications Apixaban 5 Mg Tablet, 5 MG PO BID, (Reported) Aripiprazole 2 Mg Tablet, 2 MG PO DAILY, (Reported) Bupropion HCl 100 Mg Tablet.er, 200 MG PO DAILY, (Reported) TAKES 2 (100MG) TABS Cefdinir 300 Mg Capsule, 300 MG PO BID Prescribed by: KESHA REINOSO on 12/02/19 1234 Clonazepam 1 Mg Tablet, 1 MG PO DAILY, (Reported) Duloxetine HCl 60 Mg Capsule.dr, 120 MG PO DAILY, (Reported) TAKES 2 (60MG) CAPSULES Fluticasone/Salmeterol 12 Gm Hfa.aer.ad, 2 PUFF IH BID, (Reported) Furosemide 40 Mg Tablet, 40 MG PO BID, (Reported) Ipratropium/Albuterol Sulfate 3 Ml Ampul.neb, 3 ML INH RTQ4HR Prescribed by: DARBY SELBY on 05/10/191917 Lisinopril 20 Mg Tablet, 20 MG PO DAILY, (Reported) Metoprolol Tartrate 25 Mg Tablet, 25 MG PO BID, (Reported) Morphine Sulfate 15 Mg Tablet.er, 15 MG PO Q12H, (Reported) Omeprazole 20 Mg Capsule.dr, 20 MG PO DAILY, (Reported) Oxycodone HCl/Acetaminophen 1 Each Tablet, 1 TAB PO BID PRN for PAIN-MODERATE (5-7), (Reported) Potassium Chloride 10 Meq Capsule.er, 10 MEQ PO DAILY, (Reported) Simvastatin 10 Mg Tablet, 10 MG PO HS, (Reported) Trazodone HCl 50 Mg Tablet, 50-100 MG PO HS, (Reported) Patient Home Medication List Home Medication List Reviewed: Yes Review of Systems Review of Systems Constitutional: No chills, No fever Respiratory: see HPI, dyspnea on exertion, short of breath Cardiovascular: No chest pain (chronic), No palpitations Gastrointestinal: no symptoms reported Genitourinary: no symptoms reported Musculoskeletal: no symptoms reported Skin: no symptoms reported Psychiatric/Neurological: No Symptoms Reported Past Tqbuobo-Pggfoq-Dderwt Hx Patient Social History Type Used: Cigarettes Former Smoker, Quit: May 01, 2019 2nd Hand Smoke Exposure: No Recent Hopitalizations: Yes Immunizations Up To Date Tetanus Booster (TDap): Unknown Date of Influenza Vaccine: Feb 11, 2019 Seasonal Allergies Seasonal Allergies: No Past Medical History Surgeries: Yes (LEFT TKR) Orthopedic Respiratory: No Cardiac: Yes Coronary Artery Disease, Hypertension Neurological: No Reproductive Disorders: No Sexually Transmitted Disease: No Genitourinary: No Gastrointestinal: No Musculoskeletal: Yes (OSTEOARTHRITIS) Endocrine: No HEENT: No Cancer: No Psychosocial: Yes (Prior ETOH ) Depression Integumentary: No Blood Disorders: No Physical Exam Vital Signs Vital Signs - First Documented 04/13/20 13:46 Temp 36.4 Pulse 73 Resp 25 B/P (MAP) 73/56 (62) Pulse Ox 100 O2 Delivery Nasal Cannula O2 Flow Rate 3.00 Capillary Refill : Height, Weight, BMI Height: 5'5.00" Weight: 332lbs. 0oz. 150.377753wb; 56.00 BMI Method:Stated General Appearance: Chronically ill, Obese (morbid), Other (unkept) HEENT: PERRL/EOMI Neck: Full Range of Motion Respiratory: Decreased Breath Sounds (likely related to body habitus) Cardiovascular: Regular Rate, Rhythm, Other (chronic 1+ lower extremity edema with some mild venous stasis change) Gastrointestinal: Non Tender, Soft, Other (morbidly obese) Extremity: Normal Capillary Refill Neurologic/Psychiatric: Alert, No Motor/Sensory Deficits, Normal Mood/Affect Skin: Other (bilateral lower extremities with chronic venous stasis changes) Progress/Results/Core Measures Suspected Sepsis SIRS Temperature: Pulse: Respiratory Rate: Laboratory Tests 04/13/20 13:20: White Blood Count 9.1 Blood Pressure / Mean: Laboratory Tests 04/13/20 13:20: Creatinine 3.38H, Platelet Count 208, Total Bilirubin 0.2 Results/Orders Lab Results Laboratory Tests Test 04/13/20 13:20 Range/Units White Blood Count 9.1 4.3-11.0 10^3/uL Red Blood Count 2.15 L 4.35-5.85 10^6/uL Hemoglobin 4.7 *L 11.5-16.0 G/DL Hematocrit 17 *L 35-52 % Mean Corpuscular Volume 78 L 80-99 FL Mean Corpuscular Hemoglobin 22 L 25-34 PG Mean Corpuscular Hemoglobin Concent 28 L 32-36 G/DL Red Cell Distribution Width 18.9 H 10.0-14.5 % Platelet Count 208 130-400 10^3/uL Mean Platelet Volume 11.3 H 7.4-10.4 FL Immature Granulocyte % (Auto) 0 % Neutrophils (%) (Auto) 69 42-75 % Lymphocytes (%) (Auto) 22 12-44 % Monocytes (%) (Auto) 7 0-12 % Eosinophils (%) (Auto) 2 0-10 % Basophils (%) (Auto) 0 0-10 % Neutrophils # (Auto) 6.2 1.8-7.8 X 10^3 Lymphocytes # (Auto) 2.0 1.0-4.0 X 10^3 Monocytes # (Auto) 0.6 0.0-1.0 X 10^3 Eosinophils # (Auto) 0.2 0.0-0.3 10^3/uL Basophils # (Auto) 0.0 0.0-0.1 10^3/uL Immature Granulocyte # (Auto) 0.0 0.0-0.1 10^3/uL Sodium Level 134 L 135-145 MMOL/L Potassium Level 4.7 3.6-5.0 MMOL/L Chloride Level 97 L 98-107 MMOL/L Carbon Dioxide Level 23 21-32 MMOL/L Anion Gap 14 5-14 MMOL/L Blood Urea Nitrogen 54 H 7-18 MG/DL Creatinine 3.38 H 0.60-1.30 MG/DL Estimat Glomerular Filtration Rate 14 BUN/Creatinine Ratio 16 Glucose Level 116 H 70-105 MG/DL Calcium Level 8.0 L 8.5-10.1 MG/DL Corrected Calcium 8.6 8.5-10.1 MG/DL Total Bilirubin 0.2 0.1-1.0 MG/DL Aspartate Amino Transf (AST/SGOT) 10 5-34 U/L Alanine Aminotransferase (ALT/SGPT) 8 0-55 U/L Alkaline Phosphatase 96 40-136 U/L C-Reactive Protein 0.63 H <0.50 MG/DL Total Protein 6.2 L 6.4-8.2 GM/DL Albumin 3.2 3.2-4.5 GM/DL My Orders Orders - CUEVAS,KETTY L DO Cbc With Automated Diff (04/13/20 13:21) Comprehensive Metabolic Panel (04/13/20 13:21) Ua Culture If Indicated (04/13/20 13:21) Crp Fs (04/13/20 13:21) Chest 1 View Ap/Pa Only (04/13/20 13:21) Ed Iv/Invasive Line Start (04/13/20 13:32) Ns Iv 1000 Ml (Sodium Chloride 0.9%) (04/13/20 13:45) Ns Iv 1000 Ml (Sodium Chloride 0.9%) (04/13/20 13:31) Vital Signs/I&O 04/13/20 13:46 Temp 36.4 Pulse 73 Resp 25 B/P (MAP) 73/56 (62) Pulse Ox 100 O2 Delivery Nasal Cannula O2 Flow Rate 3.00 Capillary Refill : Progress Note : Time: 13:59 Progress Note Patient with hemoglobin of 4.7, a drop from 7.1 and November. Patient with likely chronic anemia as she is stable. Patient's blood pressure is difficult to obtain due to body habitus as ranging from the mid 70s to the mid 90s. I will give her 1 L IV fluid bit will read frame from too much due to hemodilution. Due to our inability to provide any blood bank services with only 2 units of O- for trauma at our facility we will expedite transfer to [facility] ICU. Discussed with Dr. Selby was in agreement and graciously accepted. She will notify Dr. SLAUGHTER due to reports of black tarry school stool from EMS but not from patient Departure Communication (Admissions) Time/Spoke to Admitting Phy: 13:50 okay to admit ICU Impression Primary Impression: Anemia Qualified Codes: D64.9 - Anemia, unspecified Additional Impression: Hypovolemia Disposition: 30 STILL A PATIENT Condition: Critical Admissions Decision to Admit Reason: Admit from ER (General) Decision to Admit/Date: Apr 13, 2020 Time/Decision to Admit Time: 13:55 Departure-Patient Inst. Referrals: LISETH DE LA ROSA APRN (PCP/Family) Primary Care Physician KETTY CUEVAS DO Apr 13, 2020 13:20
[2020-04-13] MEDS ORDERED: NS IV 1000 ML 1,000 ML ONE (13:31)
[2020-04-13 13:39] LABS: EOSINOPHILS % (AUTO) 2 % (0-10); LYMPHOCYTES % (AUTO) 22 % (12-44); MEAN CORPUSCULAR HEMOGLOBIN 22 PG (25-34); MEAN CORPUSCULAR HGB CONC 28 G/DL (32-36); MEAN CORPUSCULAR VOLUME 78 FL (80-99); MEAN PLATELET VOLUME 11.3 FL (7.4-10.4); MONOCYTES % (AUTO) 7 % (0-12); NEUTROPHILS % (AUTO) 69 % (42-75); PLATELET COUNT 208 10^3/uL (130-400); WHITE BLOOD COUNT 9.1 10^3/uL (4.3-11.0)
[2020-04-13 13:40] LABS: BASOPHILS % (AUTO) 0 % (0-10); EOSINOPHILS # (AUTO) 0.2 10^3/uL (0.0-0.3); MONOCYTES # (AUTO) 0.6 X 10^3 (0.0-1.0); NEUTROPHILS # (AUTO) 6.2 X 10^3 (1.8-7.8)
[2020-04-13 13:41] LABS: HEMATOCRIT 17 % (35-52)
[2020-04-13 13:42] LABS: HEMOGLOBIN 4.7 G/DL (11.5-16.0)
--- NOTE | 2020-04-13 13:44 | Diagnostic Imaging Report ---
Indication: Shortness of breath. Time of exam: 1:27 PM Comparison made to prior study 10/05/2019. The heart size is normal. The pulmonary vascularity is unremarkable. The lungs are clear. No infiltrate, effusion or pneumothorax is detected. Right chest wall port has tip overlying the SVC. Impression: No acute cardiopulmonary process is detected. Dictated by: Dictated on workstation # [id number]
[2020-04-13] MEDS ORDERED: NS IV 1000 ML 1,000 ML IV SCH (13:45)
[2020-04-13 13:52] LABS: ALBUMIN 3.2 GM/DL (3.2-4.5); BILIRUBIN,TOTAL 0.2 MG/DL (0.1-1.0); CREATININE SERUM 3.38 MG/DL (0.60-1.30); POTASSIUM 4.7 MMOL/L (3.6-5.0); TOTAL PROTEIN 6.2 GM/DL (6.4-8.2)
--- NOTE | 2020-04-13 16:14 | CONSULTATION REPORT ---
DATE OF SERVICE: ATTENDING ANALOG IC DESIGN ENGINEER: Mickie Maza APRN ADMITTING PHYSICIAN: Dr. Zuniga. HISTORY OF PRESENT ILLNESS: The patient is a 69-year-old female who was brought to [facility] due to shortness of breath and weakness. She does normally wear oxygen at home due to what sounds to be COPD; however, she also is morbidly obese. She states that she continued to feel more weak as well as more short of breath and was seen in the Emergency Department where laboratory work did show a hemoglobin of 4.7. She also does report a history of gastroesophageal reflux disease as well as peptic ulcer disease. PAST MEDICAL HISTORY: Coronary artery disease, hypertension, hypercholesterolemia, osteoarthritis, depression. PAST SURGICAL HISTORY: Bilateral total knee arthroplasty. ALLERGIES: No known drug allergies. MEDICATIONS: Apixaban 5 mg daily, aripiprazole 2 mg daily, bupropion 100 mg daily, cefdinir 300 mg b.i.d., clonazepam 1 mg daily, duloxetine 60 mg daily, fluticasone 2 puffs b.i.d., furosemide 40 mg b.i.d., ipratropium 3 mL q.4 hours, lisinopril 20 mg daily, metoprolol 25 mg daily, morphine 15 mg q.12 hours, omeprazole 20 mg daily, oxycodone p.r.n., potassium 10 mEq daily, simvastatin 10 mg daily, trazodone 50 mg each day at bedtime. SOCIAL HISTORY: Positive for smoke greater than 40 pack years. Previous alcohol. Has not drunk in recent years. FAMILY HISTORY: Noncontributory. VITAL SIGNS: Temperature 36.4, pulse 73, respirations 25, systolic blood pressure 15, pulse ox 100% on 3 liters nasal cannula. REVIEW OF SYSTEMS: Obese female currently in no acute distress. She is experiencing shortness of breath as well as weakness, which has been occurring for some time; however, much worse today. She also does have a history of gastroesophageal reflux disease. No hematemesis, no coffee ground emesis. She also does not recall any red blood per rectum nor any dark tarry stools. No fever, chills, no recent inadvertent weight loss. All other review of systems negative. PHYSICAL EXAMINATION: CHEST: Scattered rales and decreased breath sounds bilaterally. HEART: Regular, no murmurs. EXTREMITIES: +1/3 bilateral lower extremity edema, negative Homans sign. HEENT: No scleral icterus. NECK: No cervical lymphadenopathy. ABDOMEN: Soft, nontender, nondistended. SKIN: Warm, dry. LABORATORY DATA: WBC 9.1, hemoglobin 4.7, hematocrit 17, platelets 208. ASSESSMENT AND PLAN: A 69-year-old female with a symptomatic blood loss anemia. She has poor peripheral venous circulation and will require central venous catheter for resuscitation with IV fluids as well as blood. When she is stable, then we will proceed with at least an EGD on this admission. Job ID: [id number] DocumentID: [id number] Dictated Date: 04/13/2020 15:51:13 Power Builder Developer Date: 04/13/2020 16:13:27 Dictated By: BULMARO SLAUGHTER MD
[2020-04-13 16:25] LABS: HEMOGLOBIN 4.6 g/dL (11.5-16.0)
--- NOTE | 2020-04-13 16:25 | Diagnostic Imaging Report ---
INDICATION: Central line placement. TIME OF EXAM: 3:59 p.m. COMPARISON: Correlation is made with prior chest of earlier the same day. FINDINGS: Left subclavian line has tip overlying the left innominate vein. A right chest wall port has tip overlying the SVC. No pneumothorax is identified. Lungs are clear. IMPRESSION: Central line placement with tip overlying the left innominate vein. Dictated by: Dictated on workstation # [id number]
[2020-04-13] MEDS ORDERED: FLU QUADRIvalent (3YOA+) 60 mcg/0.5 ml 2020-21 (AFLURIA) IM ONE (16:30)
[2020-04-13] MEDS: NS IV 1000 ML 1,000 ML IV SCH (16:32)
[2020-04-13] MEDS ORDERED: NS IV 500 ML 500 ML IV SCH (17:30)
[2020-04-13 17:47] VITALS: BP 102/50
--- NOTE | 2020-04-13 17:51 | History & Physical-Hospitalist ---
History of Present Illness HPI/Chief Complaint Chief complaint: Severe anemia History present illness: This is a 69-year-old morbidly obese white female with a past medical history of chronic anemia without known source who has been admitted for transfusions before who presented to [facility] with shortness of breath upon even minimal exertion at home. She was assessed to have hypoxia on admission with hypotension with systolic of 70. Patient ultimately was revealed to have severe symptomatic anemia with hemoglobin of 4.7 with hypotension and melonic stools. Patient was transported rapidly to [facility] ICU after IV fluid resuscitation due to the fact she was in need of transfusions and no ready access to that at the [facility] ER. Dr. Sanchez has been consulted for GI bleed and central line if her port does not work. Patient appears to be very pale and chronically debilitated and will monitor her closely in the ICU. Source: patient, RN/MD, old records Exam Limitations: clinical condition Date Seen 04/13/20 Time Seen by a Provider: 14:30 Attending Physician Livia Zuniga Amanda S Aprn Referring Physician Date of Admission Apr 13, 2020 at 14:19 Home Medications & Allergies Home Medications Reviewed patient Home Medication Reconciliation performed by pharmacy medication reconciliations sleep technician and/or nursing. Patients Allergies have been reviewed. Allergies Allergies Coded Allergies No Known Drug Allergies (Verified11/20/08) Past Kgmsnwn-Jwurpo-Jiweiv Hx Past Med/Social Hx: Reviewed Nursing Past Med/Soc Hx, Reviewed and Corrections made Patient Social History Marrital Status: single Employed/Student: unemployed Alcohol Use: Rarely Uses Recreational Drug Use: Yes (alcohol abuse) Smoking Status: Former Smoker Former Smoker, Quit: May 01, 2019 Type Used: Cigarettes 2nd Hand Smoke Exposure: No Recent Foreign Travel: No Contact w/other who traveled: No Recent Hopitalizations: No Recent Infectious Disease Expo: No Immunizations Up To Date Tetanus Booster (TDap): Unknown Date of Pneumonia Vaccine: Apr 13, 2018 Date of Influenza Vaccine: Feb 11, 2019 Seasonal Allergies Seasonal Allergies: No Past Medical History Surgeries: Orthopedic Cardiac: Atrial Fibrillation, Coronary Artery Disease, Heart Attack, Hypertension Reproductive: No Sexually Transmitted Disease: No Gastrointestinal: Gastroesophageal Reflux, Liver Disease/Jaundice Musculoskeletal: Arthritis Psychosocial: Depression History of Blood Disorders: Yes (hx chronic anemia (prior blood transfusions)) Review of Systems Constitutional: see HPI Gastrointestinal: loss of appetite, melena, nausea Physical Exam Physical Exam Vital Signs Vital Signs - First Documented 04/13/20 13:46 Temp 36.4 Pulse 73 Resp 25 B/P (MAP) 73/56 (62) Pulse Ox 100 O2 Delivery Nasal Cannula O2 Flow Rate 3.00 Capillary Refill : Greater Than 3 Seconds Height, Weight, BMI Height: 5'5.00" Weight: 332lbs. 0oz. 150.551467uy; 54.36 BMI Method:Stated General Appearance: Anxious, Chronically ill, Mild Distress, Obese, Other (pale, melo) Eyes: Right Eye Normal Inspection, Right Eye PERRL HEENT: PERRL/EOMI, Normal ENT Inspection, Pharynx Normal, Moist Mucous Membranes, Pale Conjunctivae (L), Pale Conjunctivae (R) Neck: Full Range of Motion, Normal Inspection, Non Tender Respiratory: Chest Non Tender, Lungs Clear, Normal Breath Sounds, No Accessory Muscle Use, No Respiratory Distress Cardiovascular: No Edema, No Gallop, No JVD, No Murmur, Normal Peripheral Pulses, Irregularly Irregular Gastrointestinal: Normal Bowel Sounds, No Organomegaly, No Pulsatile Mass, Non Tender, Soft Back: Normal Inspection, No CVA Tenderness, No Vertebral Tenderness Extremity: Normal Capillary Refill, Normal Inspection, Normal Range of Motion, Non Tender, No Calf Tenderness, No Pedal Edema Neurologic/Psychiatric: Alert, Oriented x3, No Motor/Sensory Deficits, Normal Mood/Affect Skin: Normal Color, Warm/Dry Lymphatic: No Adenopathy Results Results/Procedures Labs Laboratory Tests 04/13/20 13:20 04/13/20 15:45 Patient resulted labs reviewed. Assessment/Plan Admission Diagnosis Assessment: Severe symptomatic anemia requiring at least 4 units of blood Melonic stools consulting Dr. Sanchez Morbid obesity Chronic O2 dependence Obstructive sleep apnea/obesity hypoventilation syndrome Chronic pain Poor social situation needs OK but has declined in the past multiple times Incontinence AF HTN Mood disorder/Mental illness COPD Plan: Transfuse 2 units of blood now Dr. Sanchez consult IV fluids Monitor oxygen level Admission Status: Inpatient Order (span 2 midnights) Reason for Inpatient Admission: GIB severe Diagnosis/Problems Diagnosis/Problems (1) GI bleed (2) Melena (3) Hypotension (4) Atrial fibrillation (5) Obesity Clinical Quality Measures DVT/VTE Risk/Contraindication: Risk Factor Score Per Nursin RFS Level Per Nursing on Admit: 4+=Very High ZUNIGA,LIVIA DO Apr 13, 2020 17:51
[2020-04-13] MEDS ORDERED: CALCIUM CARBONATE 500 MG (TUMS) TAB.CHEW PO PRN (18:00)
[2020-04-13] MEDS ORDERED: HYDROmorphone 2 MG/ML VIAL (DILAUDID) IVP PRN (18:00)
[2020-04-13] MEDS ORDERED: PANTOPRAZOLE 40 MG (PROTONIX) VIAL IV ONE (18:00)
[2020-04-13] MEDS ORDERED: ACETAMINOPHEN 500 MG TAB (TYLENOL) PO PRN (18:00)
[2020-04-13] MEDS ORDERED: diphenhydrAMINE 25 MG TAB (BENADRYL) PO PRN (18:00)
--- NOTE | 2020-04-13 18:17 | OPERATIVE REPORT ---
DATE OF SERVICE: 04/13/2020 ADMITTING PHYSICIAN: Dr. Zuniga. ATTENDING PRIMARY SENIOR QA AUTOMATION ENGINEER: Mickie Maza APRN PREOPERATIVE DIAGNOSIS: Symptomatic blood loss anemia. POSTOPERATIVE DIAGNOSES: Symptomatic blood loss anemia. PROCEDURE: Placement of left subclavian central venous catheter. SURGEON: Bulmaro Slaughter MD. ANESTHESIA: Local. ESTIMATED BLOOD LOSS: Minimal. DISPOSITION: The patient tolerated the procedure well. INDICATIONS: The patient is a 69-year-old female with multiple medical problems including COPD, morbid obesity as well as coronary artery disease. She normally takes oxygen at home; however, has felt more short of breath requiring more oxygen as well as fatigue. She was seen at [facility] where her hemoglobin was found to be 4.7. She also does report a history of gastroesophageal reflux disease. DESCRIPTION OF PROCEDURE: The chest and neck were prepped and draped in standard surgical fashion. 1% lidocaine was used to anesthetize the subclavian region. The left subclavian vein was then cannulated with drawing of venous blood. The guidewire was then inserted without any resistance. The cannulating needle removed and a skin incision made using 11 blade. A tract was then created using a venous dilator and through this opening, a triple lumen central venous catheter was placed over the guidewire using the Seldinger technique. The guidewire was removed and all three ports linda venous blood and saline pushed in without any resistance. The catheter was sutured to the skin using 3-0 silk interrupted sutures. Catheter was then cleaned and covered with Op-Site. The patient tolerated the procedure well. We will get a post-procedure chest x-ray. Job ID: [id number] DocumentID: [id number] Dictated Date: 04/13/2020 15:54:05 Mattress Stripper Date: 04/13/2020 18:17:02 Dictated By: BULMARO SLAUGHTER MD
[2020-04-13] MEDS ORDERED: PANTOPRAZOLE 40 MG (PROTONIX) VIAL ONE (18:27)
[2020-04-13 20:06] VITALS: BP 95/55
[2020-04-13 20:20] LABS: HEMOGLOBIN 5.6 g/dL (11.5-16.0)
[2020-04-13 20:21] VITALS: BP 95/46
[2020-04-14 00:36] LABS: HEMOGLOBIN 6.5 g/dL (11.5-16.0)
[2020-04-14] MEDS: NS IV 1000 ML 1,000 ML IV SCH ×4 (01:00→23:40)
[2020-04-14] MEDS ORDERED: NS IV 500 ML 500 ML IV SCH (01:00)
[2020-04-14 01:04] VITALS: BP 104/88
[2020-04-14 04:31] LABS: BASOPHILS % (AUTO) 0 % (0-10); EOSINOPHILS # (AUTO) 0.1 10^3/uL (0.0-0.3); EOSINOPHILS % (AUTO) 1 % (0-10); HEMATOCRIT 24 % (35-52); HEMOGLOBIN 7.3 g/dL (11.5-16.0); LYMPHOCYTES # (AUTO) 1.5 10^3/uL (1.0-4.0); LYMPHOCYTES % (AUTO) 14 % (12-44); MEAN CORPUSCULAR HEMOGLOBIN 25 pg (25-34); MEAN CORPUSCULAR HGB CONC 31 g/dL (32-36); MEAN CORPUSCULAR VOLUME 82 fL (80-99); MEAN PLATELET VOLUME 11.6 fL (9.0-12.2); MONOCYTES # (AUTO) 0.7 10^3/uL (0.0-1.0); MONOCYTES % (AUTO) 7 % (0-12); NEUTROPHILS # (AUTO) 8.2 10^3/uL (1.8-7.8); NEUTROPHILS % (AUTO) 78 % (42-75); PLATELET COUNT 147 10^3/uL (130-400); WHITE BLOOD COUNT 10.5 10^3/uL (4.3-11.0)
[2020-04-14 04:42] LABS: POTASSIUM 4.8 MMOL/L (3.6-5.0)
[2020-04-14 04:43] LABS: CALCIUM 7.2 MG/DL (8.5-10.1)
[2020-04-14 04:47] LABS: CREATININE SERUM 2.12 MG/DL (0.60-1.30); PHOSPHORUS 4.4 MG/DL (2.3-4.7)
[2020-04-14] MEDS: KCL 20 MEQ TAB (K-DUR) PO SCH (05:25)
[2020-04-14] MEDS: MAGNESIUM 1 GM/100 ML IVPB 100 ML IV SCH (05:25)
[2020-04-14] MEDS: POTASSIUM CL 10MEQ/50ML IVPB 50 ML IV SCH (05:25)
[2020-04-14] MEDS ORDERED: KCL 20 MEQ TAB (K-DUR) PO SCH (06:00)
[2020-04-14] MEDS ORDERED: MAGNESIUM 1 GM/100 ML IVPB 100 ML IV SCH (06:00)
[2020-04-14] MEDS ORDERED: POTASSIUM CL 10MEQ/50ML IVPB 50 ML IV SCH (06:00)
--- NOTE | 2020-04-14 07:28 | Progress Note - Hospitalist ---
Subjective HPI/CC On Admission Date Seen by Provider: Apr 14, 2020 Time Seen by Provider: 11:00 Chief complaint: Severe anemia History present illness: This is a 69-year-old morbidly obese white female with a past medical history of chronic anemia without known source who has been admitted for transfusions before who presented to [facility] with shortness of breath upon even minimal exertion at home. She was assessed to have hypoxia on admission with hypotension with systolic of 70. Patient ultimately was revealed to have severe symptomatic anemia with hemoglobin of 4.7 with hypotension and melonic stools. Patient was transported rapidly to [facility] ICU after IV fluid resuscitation due to the fact she was in need of transfusions and no ready access to that at the [facility]. Dr. Sanchez has been consulted for GI bleed and central line if her port does not work. Patient appears to be very pale and chronically debilitated and will monitor her closely in the ICU. Subjective/Events-last exam Transfusions tolerated Dr Maynard will perform card stripper exam during EGD tomorrow with Dr Sanchez Hgb stable Hypotension noted Review of Systems General: Fatigue, Malaise Objective Exam Vital Signs Vital Signs Date Time Temp Pulse Resp B/P (MAP) Pulse Ox O2 Delivery O2 Flow Rate FiO2 04/15/20 06:00 95 114/57 (76) 95 Nasal Cannula 3.00 04/15/20 00:00 36.6 04/14/20 01:04 20 Capillary Refill : Less Than 3 Seconds General Appearance: No Apparent Distress, WD/WN, Chronically ill, Obese Respiratory: Lungs Clear, Normal Breath Sounds Cardiovascular: Regular Rate, Rhythm Neurologic/Psychiatric: Alert, Oriented x3, No Motor/Sensory Deficits, Normal Mood/Affect Results/Procedures Lab Laboratory Tests 04/14/20 09:30 04/14/20 15:55 04/14/20 20:05 04/15/20 00:56 04/15/20 03:45 Patient resulted labs reviewed. Assessment/Plan Assessment and Plan Assess & Plan/Chief Complaint Assessment: Severe symptomatic anemia requiring at least 4 units of blood Melonic stools consulting Dr. Sanchez Morbid obesity Chronic O2 dependence Obstructive sleep apnea/obesity hypoventilation syndrome Chronic pain Poor social situation needs NH but has declined in the past multiple times Incontinence AF HTN Mood disorder/Mental illness COPD Plan: Transfuse 2 units of blood now Dr. Sanchez consult IV fluids Monitor oxygen level 04/14/20: Monitor hgb Dr Maynard will perform card stripper exam with EGD tomorrow Diagnosis/Problems Diagnosis/Problems (1) GI bleed (2) Melena (3) Hypotension (4) Atrial fibrillation (5) Obesity Clinical Quality Measures DVT/VTE Risk/Contraindication: Risk Factor Score Per Nursin RFS Level Per Nursing on Admit: 4+=Very High Contraindications-Pharm: Other *list below* Other: DARBY Hernández DO Apr 14, 2020 07:28
--- NOTE | 2020-04-14 07:50 | Diagnostic Imaging Report ---
INDICATION: Anemia. TECHNIQUE: Single view chest 2:18 AM. CORRELATION STUDY: 04/13/2020 FINDINGS: Left subclavian central line and right subclavian Hwoyxu-x-Mxwn catheter remain in place. Heart size and mediastinum generally stable. Vascular perhaps slightly more prominent from prior. Lung llanes demonstrate no definitive new infiltrate. IMPRESSION: 1. Given difference in technique, overall generally stable appearance about the portable chest examination. Dictated by: Dictated on workstation # [id number]
[2020-04-14] MEDS: PANTOPRAZOLE 40 MG (PROTONIX) VIAL IV SCH (07:53)
[2020-04-14 09:41] LABS: HEMOGLOBIN 7.2 g/dL (11.5-16.0)
--- NOTE | 2020-04-14 11:47 | Progress Note ---
Subjective Date Seen by a Provider: Apr 14, 2020 Time Seen by a Provider: 11:00 Subjective/Events-last exam doing better today. does have some confusion however hx dementia. Hb elevation appropriate for PRBC. nurses note mild vaginal bleed. Objective Exam Vital Signs Date Time Temp Pulse Resp B/P (MAP) Pulse Ox O2 Delivery O2 Flow Rate FiO2 04/14/20 11:00 87 96/43 (65) 97 Nasal Cannula 3.00 04/14/20 10:45 90 97/62 (90) 97 04/14/20 10:30 88 86/66 (77) 98 04/14/20 10:15 82 85/48 (60) 96 04/14/20 10:00 84 92/58 (72) 95 Nasal Cannula 3.00 04/14/20 09:45 83 97/58 (77) 96 04/14/20 09:30 86 96/69 (76) 04/14/20 09:15 84 97/64 (78) 95 04/14/20 09:00 88 113/61 (83) 97 Nasal Cannula 3.00 04/14/20 08:45 87 95/54 (70) 95 04/14/20 08:30 89 98/55 (66) 95 04/14/20 08:15 85 93/49 (69) 97 04/14/20 08:00 97 Nasal Cannula 3.00 04/14/20 08:00 88 78/62 (72) 96 Nasal Cannula 3.00 04/14/20 07:45 87 110/63 (77) 96 04/14/20 07:30 89 107/82 (91) 97 04/14/20 07:15 86 115/62 (82) 96 04/14/20 07:00 127/84 (95) Nasal Cannula 3.00 04/14/20 07:00 85 04/14/20 06:45 85 115/59 (84) 96 04/14/20 06:30 85 109/60 (82) 96 04/14/20 06:15 87 115/62 (71) 97 04/14/20 06:00 86 117/67 (84) 96 Nasal Cannula 3.00 04/14/20 05:30 36.1 04/14/20 05:00 84 108/63 (79) 97 Nasal Cannula 3.00 04/14/20 04:00 82 106/75 (88) 97 Nasal Cannula 3.00 04/14/20 04:00 97 Nasal Cannula 3.00 04/14/20 03:00 83 110/95 (104) 96 Nasal Cannula 3.00 04/14/20 02:00 83 93/69 (83) 97 Nasal Cannula 3.00 04/14/20 01:04 80 104/88 (93) 93 Nasal Cannula 3.00 04/14/20 01:04 36.0 81 20 104/88 94 Nasal Cannula 2.00 04/14/20 01:00 80 04/14/20 00:00 100 Nasal Cannula 3.00 04/14/20 00:00 80 94/60 (71) 91 Nasal Cannula 3.00 04/13/20 23:30 36.0 04/13/20 23:00 79 90/53 (65) 93 Nasal Cannula 3.00 04/13/20 22:28 Nasal Cannula 3.00 04/13/20 22:00 76 91/53 (62) 90 Nasal Cannula 3.00 04/13/20 21:00 73 92/48 (67) 100 Nasal Cannula 3.00 04/13/20 20:21 71 20 95/46 100 Nasal Cannula 3.00 04/13/20 20:19 79 98/61 (85) Nasal Cannula 3.00 04/13/20 20:06 35.9 71 22 95/55 100 Nasal Cannula 3.00 04/13/20 20:03 71 95/55 (67) 100 Nasal Cannula 3.00 04/13/20 20:00 100 Nasal Cannula 3.00 04/13/20 19:43 36.3 04/13/20 19:04 70 98/59 (67) 100 Nasal Cannula 3.00 04/13/20 19:00 70 04/13/20 18:00 84/31 (48) 100 Nasal Cannula 3.00 04/13/20 17:47 35.7 71 16 102/50 100 Nasal Cannula 3.00 04/13/20 17:00 73 95/45 (62) 94 Nasal Cannula 3.00 04/13/20 16:00 35.8 04/13/20 16:00 72 18 108/54 (72) 100 Nasal Cannula 3.00 04/13/20 15:19 Nasal Cannula 3.00 04/13/20 15:00 71 111/83 (92) Nasal Cannula 3.00 04/13/20 14:15 71 27 74/49 100 Nasal Cannula 3.00 04/13/20 13:46 36.4 73 25 73/56 (62) 100 Nasal Cannula 3.00 I & O 04/14/20 07:00 Intake Total 0 ml Output Total 1300 ml Balance -1300 ml Capillary Refill : Less Than 3 Seconds General Appearance: No Apparent Distress HEENT: PERRL/EOMI Neck: Full Range of Motion Respiratory: Decreased Breath Sounds Cardiovascular: Regular Rate, Rhythm Gastrointestinal: normal bowel sounds, non tender, soft Extremity: Normal Capillary Refill Neurologic/Psychiatric: Alert Skin: Normal Color Lymphatic: No Adenopathy Results Lab Laboratory Tests 04/13/20 13:20: White Blood Count 9.1, Red Blood Count 2.15L, Hemoglobin 4.7*L, Hematocrit 17*L, Mean Corpuscular Volume 78L, Mean Corpuscular Hemoglobin 22L, Mean Corpuscular Hemoglobin Concent 28L, Red Cell Distribution Width 18.9H, Platelet Count 208, Mean Platelet Volume 11.3H, Immature Granulocyte % (Auto) 0, Neutrophils (%) (Auto) 69, Lymphocytes (%) (Auto) 22, Monocytes (%) (Auto) 7, Eosinophils (%) (Auto) 2, Basophils (%) (Auto) 0, Neutrophils # (Auto) 6.2, Lymphocytes # (Auto) 2.0, Monocytes # (Auto) 0.6, Eosinophils # (Auto) 0.2, Basophils # (Auto) 0.0, Immature Granulocyte # (Auto) 0.0, Sodium Level 134L, Potassium Level 4.7, Chloride Level 97L, Carbon Dioxide Level 23, Anion Gap 14, Blood Urea Nitrogen 54H, Creatinine 3.38H, Estimat Glomerular Filtration Rate 14, BUN/Creatinine Ratio 16, Glucose Level 116H, Calcium Level 8.0L, Corrected Calcium 8.6, Total Bilirubin 0.2, Aspartate Amino Transf (AST/SGOT) 10, Alanine Aminotransferase (ALT/SGPT) 8, Alkaline Phosphatase 96, C-Reactive Protein 0.63H, Total Protein 6.2L, Albumin 3.2 04/13/20 15:45: Hemoglobin 4.6*L, Hematocrit 17*L 04/13/20 20:10: Hemoglobin 5.6#*L, Hematocrit 19*L 04/14/20 00:15: Hemoglobin 6.5*L, Hematocrit 21L 04/14/20 04:29: White Blood Count 10.5, Red Blood Count 2.89L, Hemoglobin 7.3L, Hematocrit 24L, Mean Corpuscular Volume 82, Mean Corpuscular Hemoglobin 25, Mean Corpuscular Hemoglobin Concent 31L, Red Cell Distribution Width 18.0H, Platelet Count 147, Mean Platelet Volume 11.6, Immature Granulocyte % (Auto) 0, Neutrophils (%) (Auto) 78H, Lymphocytes (%) (Auto) 14, Monocytes (%) (Auto) 7, Eosinophils (%) (Auto) 1, Basophils (%) (Auto) 0, Neutrophils # (Auto) 8.2H, Lymphocytes # (Auto) 1.5, Monocytes # (Auto) 0.7, Eosinophils # (Auto) 0.1, Basophils # (Auto) 0.0, Immature Granulocyte # (Auto) 0.0, Sodium Level 135, Potassium Level 4.8, Chloride Level 104, Carbon Dioxide Level 24, Anion Gap 7, Blood Urea Nitrogen 46H, Creatinine 2.12H, Estimat Glomerular Filtration Rate 23, BUN/Creatinine Ratio 22, Glucose Level 101, Calcium Level 7.2L, Phosphorus Level 4.4, Magnesium Level 2.0 04/14/20 09:30: Hemoglobin 7.2L, Hematocrit 23L Assessment/Plan Assessment/Plan Assess & Plan/Chief Complaint severe sx anemia with hx GERD. states had a colonoscopy 3-4 years ago and believes to be normal. will proceed with EGD tomorrow. Clinical Quality Measures DVT/VTE Risk/Contraindication: Risk Factor Score Per Nursin RFS Level Per Nursing on Admit: 4+=Very High Contraindications-Pharm: Other *list below* Other: BULMARO Allred MD Apr 14, 2020 11:47
--- NOTE | 2020-04-14 12:22 | Consultation ---
History of Present Illness History of Present Illness Patient Consulted On(tereza/time) 04/14/20 12:14 Date Seen by Provider: Apr 15, 2020 Time Seen by Provider: 12:30 Reason for Visit: postmenopausal bleedind, anemia, hypovolemia. History of Present Illness This is a 69 year old G5P postmenopausal female well known to me. [place] [id number]. However, she could not tolerate a vaginal exam in the office. She was unable to lie backwards to allow the exam due to pulmonary issues and had pain causing limitations. She was to get pulmonary clearance, and then return to schedule an EUA and biopsy, but this took months to get this done. She has not seen me back in the office, but has finally followed up with Dr. Riddle and has gotten risk stratification from him. She is of moderate risk for anesthesia. She has not returned to my office. Apparently she continued to have bleeding to the point of hypovolemia. She states the bleeding has continued and she is now passing very large clots on a regular basis. She thinks last pap was 2 years ago, but cannot remember who did this. States "they were keeping up on this". Reports no history of abnormal pap smears in the past. She has had IUD in the past but it kept causing pain so was removed. Unsure where this was done however. She is unsure where or when last mammogram was, but states she is up to date with those. She had menopause in her 40s and has never been on hormone therapy. She is a smoker and has continued to smoke. States she has generalized abdominal pain with exam but nothing acute, no groin swelling/lymphadenopathy. Currently she is on 3 L O2 with sats in the upper 90s. She is without current distress but RN states that she has passed some clots since her admission. A urinary catheter is in place. Allergies and Home Medications Allergies Coded Allergies: No Known Drug Allergies (Verified , 11/20/08) Home Medications Apixaban 5 Mg Tablet, 5 MG PO BID, (Reported) Aripiprazole 2 Mg Tablet, 2 MG PO DAILY, (Reported) Bupropion HCl 100 Mg Tablet.er, 200 MG PO DAILY, (Reported) TAKES 2 (100MG) TABS Cefdinir 300 Mg Capsule, 300 MG PO BID Prescribed by: KESHA REINOSO on 12/02/19 1234 Clonazepam 1 Mg Tablet, 1 MG PO DAILY, (Reported) Duloxetine HCl 60 Mg Capsule.dr, 120 MG PO DAILY, (Reported) TAKES 2 (60MG) CAPSULES Fluticasone/Salmeterol 12 Gm Hfa.aer.ad, 2 PUFF IH BID, (Reported) Furosemide 40 Mg Tablet, 40 MG PO BID, (Reported) Ipratropium/Albuterol Sulfate 3 Ml Ampul.neb, 3 ML INH RTQ4HR Prescribed by: DARBY SELBY on 05/10/191917 Lisinopril 20 Mg Tablet, 20 MG PO DAILY, (Reported) Metoprolol Tartrate 25 Mg Tablet, 25 MG PO BID, (Reported) Morphine Sulfate 15 Mg Tablet.er, 15 MG PO Q12H, (Reported) Omeprazole 20 Mg Capsule.dr, 20 MG PO DAILY, (Reported) Oxycodone HCl/Acetaminophen 1 Each Tablet, 1 TAB PO BID PRN for PAIN-MODERATE (5-7), (Reported) Potassium Chloride 10 Meq Capsule.er, 10 MEQ PO DAILY, (Reported) Simvastatin 10 Mg Tablet, 10 MG PO HS, (Reported) Trazodone HCl 50 Mg Tablet, 50-100 MG PO HS, (Reported) Patient Home Medication List Home Medication List Reviewed: Yes Past Ixhlyrh-Kmctsk-Flzneb Hx Past Med/Social Hx: Reviewed Nursing Past Med/Soc Hx, Reviewed and Corrections made Patient Social History Alcohol Use: Rarely Uses Recreational Drug Use: Yes (alcohol abuse) Smoking Status: Former Smoker Type Used: Cigarettes Former Smoker, Quit: May 01, 2019 2nd Hand Smoke Exposure: No Recent Foreign Travel: No Contact w/Someone Who Travel: No Recent Infectious Disease Expo: No Recent Hopitalizations: No Physical Abuse: No Sexual Abuse: No Mistreated: No Fear: No Immunizations Up To Date Tetanus Booster (TDap): Unknown Date of Pneumonia Vaccine: Apr 13, 2018 Date of Influenza Vaccine: Feb 11, 2019 Seasonal Allergies Seasonal Allergies: No Past Medical History Surgeries: Yes (LEFT TKR) Gallbladder, Orthopedic Respiratory: Yes (severe KEVIN with hypoxia, Home O2 requirement 3L/m) Sleep Apnea, COPD Cardiac: Yes (Acute diastolic CHF, Hx 2nd degree AV block) Atrial Fibrillation, Coronary Artery Disease, Heart Attack, Hypertension Neurological: No Hx : 5 Hx Para: 5 Hx Total # of Abortions (Sp): 0 Reproductive Disorders: No Female Reproductive Disorders: Menstrual Problems PEA [employer] History: IUD Sexually Transmitted Disease: No HIV/AIDS: No Genitourinary: Yes (Hx ARF) Gastrointestinal: Yes (Alcoholic liver dz, ) Gastroesophageal Reflux, Liver Disease/Jaundice Musculoskeletal: Yes (Osteoarthritis) Arthritis Endocrine: Yes (Morbid obesity) HEENT: No Cancer: No Psychosocial: Yes (Prior ETOH addiction, mood disorder ) Depression Integumentary: No Blood Disorders: Yes (hx chronic anemia (prior blood transfusions)) Review of Systems-General Constitutional: weakness Respiratory: see HPI Cardiovascular: see HPI Gastrointestinal: no symptoms reported Genitourinary: see HPI : No Physical Exam-General Problems Physical Exam Vital Signs Vital Signs - First Documented 04/13/20 13:46 Temp 36.4 Pulse 73 Resp 25 B/P (MAP) 73/56 (62) Pulse Ox 100 O2 Delivery Nasal Cannula O2 Flow Rate 3.00 Capillary Refill : Less Than 3 Seconds General Appearance: moderate distress, obese Respiratory: chest non-tender Gastrointestinal: normal bowel sounds, non tender, soft, no organomegaly, no pulsatile mass Genital/Rectal: other (unable to do exam in the bed.) Lymphatic: no adenopathy Assessment/Plan Assessment/Plan Admission Diagnosis/Plan 1. Post menopausal bleeding - inability to tolerate exam while awake. Due to pain and respiratory difficulty 2. anemia due to above bleeding 3. Heme positive stools Plan - Exam under anesthesia, pap smear and endometrial biopsy after EGD is done. Then further imaging as needed for post menopausal bleeding (US vs CT), vs attempting Hysteroscopy and dilation and curettage in the OR on Thursday. Clinical Quality Measures DVT/VTE Risk/Contraindication: Risk Factor Score Per Nursin RFS Level Per Nursing on Admit: 4+=Very High Contraindications-Pharm: Other *list below* Other: GILA Mcrae DO Apr 14, 2020 12:22
--- NOTE | 2020-04-14 15:03 | Consultation-Cardiology ---
HPI-Cardiology Cardiology Consultation: Date of Consultation 04/14/20 Time Seen by a Provider: 12:00 Date of Admission Attending Physician Livia Selby DO Admitting Physician Mickie Maza Aprn Consulting Physician KIERRA NUÑEZ MD, MA, FACP, FACC, FSCAI, CCDS Physician requesting consult: Dr Selby HPI: Chief Complaint: Reason for consultation: H/o A Fib HPI 69 yo woman admitted to Dr Selby with bleeding that the patient feels is vaginal and whose source she thinks is the uterus. Denies n/v/d. Denies cp or palp or syncope. Mod, chronic, exertional shortness of breath, unchanged. Chronic, mild, intermittent leg swelling. Denies any cardiac history. Upon direct questioning, does recall having been on a blood thinner about a year ago that she then quit taking and does not recall why she quit it. Review of Systems-Cardiology Review of Systems Constitutional: malaise, tiredness Eyes: No vision change Ears/Nose/Throat: No ear discharge, No nasal drainage Respiratory: As described under HPI Cardiovascular: As described under HPI Gastrointestinal: No diarrhea, No nausea, No vomiting Genitourinary: As described under HPI; No hematuria, No urine frequency changes Musculoskeletal: No back pain, No joint pain Skin: No rash, No ulcerations Psychiatric/Neurological: No seizure, No focal weakness, No syncope OLO-[id number]-Ltmvad Hx Patient Social History Marrital Status: single Employed/Student: unemployed Alcohol Use: Rarely Uses Recreational Drug Use: Yes (alcohol abuse) Smoking Status: Former Smoker Type Used: Cigarettes 2nd Hand Smoke Exposure: No Recent Foreign Travel: No Recent Infectious Disease Expo: No Hospitalization with Isolation: Denies Immunizations Up To Date Tetanus Booster (TDap): Unknown Date of Pneumonia Vaccine: Apr 13, 2018 Date of Influenza Vaccine: Feb 11, 2019 Past Medical History PMH As described under Assessment. Family Medical History Family Medical History: Does not report fam h/o early CAD Allergies and Home Medications Allergies Coded Allergies: No Known Drug Allergies (Verified , 11/20/08) Home Medications Apixaban 5 Mg Tablet, 5 MG PO BID, (Reported) Aripiprazole 2 Mg Tablet, 2 MG PO DAILY, (Reported) Bupropion HCl 100 Mg Tablet.er, 200 MG PO DAILY, (Reported) TAKES 2 (100MG) TABS Cefdinir 300 Mg Capsule, 300 MG PO BID Prescribed by: KESHA REINOSO on 12/02/19 1234 Clonazepam 1 Mg Tablet, 1 MG PO DAILY, (Reported) Duloxetine HCl 60 Mg Capsule.dr, 120 MG PO DAILY, (Reported) TAKES 2 (60MG) CAPSULES Fluticasone/Salmeterol 12 Gm Hfa.aer.ad, 2 PUFF IH BID, (Reported) Furosemide 40 Mg Tablet, 40 MG PO BID, (Reported) Ipratropium/Albuterol Sulfate 3 Ml Ampul.neb, 3 ML INH RTQ4HR Prescribed by: LIVIA SELBY on 05/10/19 191 Lisinopril 20 Mg Tablet, 20 MG PO DAILY, (Reported) Metoprolol Tartrate 25 Mg Tablet, 25 MG PO BID, (Reported) Morphine Sulfate 15 Mg Tablet.er, 15 MG PO Q12H, (Reported) Omeprazole 20 Mg Capsule.dr, 20 MG PO DAILY, (Reported) Oxycodone HCl/Acetaminophen 1 Each Tablet, 1 TAB PO BID PRN for PAIN-MODERATE (5-7), (Reported) Potassium Chloride 10 Meq Capsule.er, 10 MEQ PO DAILY, (Reported) Simvastatin 10 Mg Tablet, 10 MG PO HS, (Reported) Trazodone HCl 50 Mg Tablet, 50-100 MG PO HS, (Reported) Patient Home Medication List Home Medication List Reviewed: Yes Physical Exam-Cardiology Physical Exam Vital Signs/I&O 04/14/20 04/14/20 04/14/20 04/14/20 03:00 04:00 04:00 05:00 Pulse 83 82 84 B/P (MAP) 110/95 (104) 106/75 (88) 108/63 (79) Pulse Ox 96 97 97 97 O2 Delivery Nasal Cannula Nasal Cannula Nasal Cannula Nasal Cannula O2 Flow Rate 3.00 3.00 3.00 3.00 04/14/20 04/14/20 04/14/20 04/14/20 05:30 06:00 06:15 06:30 Temp 36.1 Pulse 86 87 85 B/P (MAP) 117/67 (84) 115/62 (71) 109/60 (82) Pulse Ox 96 97 96 O2 Delivery Nasal Cannula O2 Flow Rate 3.00 04/14/20 04/14/20 04/14/20 04/14/20 06:45 07:00 07:00 07:15 Pulse 85 85 86 B/P (MAP) 115/59 (84) 127/84 (95) 115/62 (82) Pulse Ox 96 96 O2 Delivery Nasal Cannula O2 Flow Rate 3.00 04/14/20 04/14/20 04/14/20 04/14/20 07:30 07:45 08:00 08:00 Pulse 89 87 88 B/P (MAP) 107/82 (91) 110/63 (77) 78/62 (72) Pulse Ox 97 96 96 97 O2 Delivery Nasal Cannula Nasal Cannula O2 Flow Rate 3.00 3.00 04/14/20 04/14/20 04/14/20 04/14/20 08:15 08:30 08:45 09:00 Pulse 85 89 87 88 B/P (MAP) 93/49 (69) 98/55 (66) 95/54 (70) 113/61 (83) Pulse Ox 97 95 95 97 O2 Delivery Nasal Cannula O2 Flow Rate 3.00 04/14/20 04/14/20 04/14/20 04/14/20 09:15 09:30 09:45 10:00 Pulse 84 86 83 84 B/P (MAP) 97/64 (78) 96/69 (76) 97/58 (77) 92/58 (72) Pulse Ox 95 96 95 O2 Delivery Nasal Cannula O2 Flow Rate 3.00 04/14/20 04/14/20 04/14/20 04/14/20 10:15 10:30 10:45 11:00 Pulse 82 88 90 87 B/P (MAP) 85/48 (60) 86/66 (77) 97/62 (90) 96/43 (65) Pulse Ox 96 98 97 97 O2 Delivery Nasal Cannula O2 Flow Rate 3.00 04/14/20 04/14/20 04/14/20 12:00 12:37 13:00 Pulse 84 84 87 B/P (MAP) 111/57 (75) 107/76 (86) Pulse Ox 96 96 O2 Delivery Nasal Cannula Nasal Cannula O2 Flow Rate 3.00 3.00 04/14/20 00:00 Intake Total 0 ml Output Total 650 ml Balance -650 ml Capillary Refill : Less Than 3 Seconds Constitutional: AAO x 3, well-developed, well-nourished HEENT: EOMI, hard of hearing; No xanthelasmas are seen Neck: carotid bruit, carotid pulses are 2 + bilaterally Respiratory: No accessory muscle use; other (fair to good, bilateral air entry, somewhat diminished at the bases) Cardiovascular: regular rate-rhythm, S1 and S2, systolic murmur (soft RACHEAL at card base) Gastrointestinal: No tender; soft; No guarding, No rebound; audible bowel sounds Extremities: No clubbing, No cyanosis, No significant edema Neurologic/Psychiatric: oriented x 3, other (moves all limbs equally) Skin: warm/dry; No rash on exposed areas, No ulcerations on exposed areas Data Review Labs Laboratory Tests 04/13/20 15:45: Hemoglobin 4.6*L, Hematocrit 17*L 04/13/20 20:10: Hemoglobin 5.6#*L, Hematocrit 19*L 04/14/20 00:15: Hemoglobin 6.5*L, Hematocrit 21L 04/14/20 04:29: Hemoglobin 7.3L, Hematocrit 24L, White Blood Count 10.5, Red Blood Count 2.89L, Mean Corpuscular Volume 82, Mean Corpuscular Hemoglobin 25, Mean Corpuscular Hemoglobin Concent 31L, Red Cell Distribution Width 18.0H, Platelet Count 147, Mean Platelet Volume 11.6, Immature Granulocyte % (Auto) 0, Neutrophils (%) (Auto) 78H, Lymphocytes (%) (Auto) 14, Monocytes (%) (Auto) 7, Eosinophils (%) (Auto) 1, Basophils (%) (Auto) 0, Neutrophils # (Auto) 8.2H, Lymphocytes # (Auto) 1.5, Monocytes # (Auto) 0.7, Eosinophils # (Auto) 0.1, Basophils # (Auto) 0.0, Immature Granulocyte # (Auto) 0.0, Sodium Level 135, Potassium Level 4.8, Chloride Level 104, Carbon Dioxide Level 24, Anion Gap 7, Blood Urea Nitrogen 46H, Creatinine 2.12H, Estimat Glomerular Filtration Rate 23, BUN/Creatinine Ratio 22, Glucose Level 101, Calcium Level 7.2L, Phosphorus Level 4.4, Magnesium Level 2.0 04/14/20 09:30: Hemoglobin 7.2L, Hematocrit 23L 04/14/20 12:29: Glucometer 106 A/P-Cardiology Assessment/Admission Diagnosis Severe anemia due to blood loss (GI vs Uterine blood loss) managed by Dr Selby H/o argenis solis 2:1 AV conduction, first noted in Dr Castle's hospital progress note of 05/08/19 Obesity with BMI approx 55 Chronic tobacco use, advised to quit Discussion and Recomendations * Currently in NSR * We recommend eval and treatement of bleeding sourse ASHLEY, and then resumption of Eliquis 5 mg bid (once safe from the bleeding standpoint) * Monitor labs Clinical Quality Measures DVT/VTE Risk/Contraindication: Risk Factor Score Per Nursin RFS Level Per Nursing on Admit: 4+=Very High Contraindications-Pharm: Other *list below* Other: KIERRA Anderson MD FACP FAC CCDS Apr 14, 2020 15:03
[2020-04-14 16:08] LABS: HEMOGLOBIN 7.1 g/dL (11.5-16.0)
[2020-04-14 20:16] LABS: HEMOGLOBIN 6.9 g/dL (11.5-16.0)
[2020-04-15 01:21] LABS: HEMOGLOBIN 6.9 g/dL (11.5-16.0)
[2020-04-15] MEDS ORDERED: DEXTROMETHORPHAN SUSP 30 MG/5 ML 30 ML (DELSYM) PO PRN (02:15)
[2020-04-15] MEDS ORDERED: guaiFENesin/CODEINE (ROBITUSSIN AC) 10ML UDC ONE (02:39)
[2020-04-15] MEDS ORDERED: guaiFENesin/CODEINE (ROBITUSSIN AC) 10ML UDC PO PRN (02:45)
[2020-04-15 04:17] LABS: BASOPHILS % (AUTO) 0 % (0-10); EOSINOPHILS # (AUTO) 0.1 10^3/uL (0.0-0.3); EOSINOPHILS % (AUTO) 1 % (0-10); HEMATOCRIT 24 % (35-52); HEMOGLOBIN 7.3 g/dL (11.5-16.0); LYMPHOCYTES # (AUTO) 1.2 10^3/uL (1.0-4.0); LYMPHOCYTES % (AUTO) 13 % (12-44); MEAN CORPUSCULAR HEMOGLOBIN 25 pg (25-34); MEAN CORPUSCULAR HGB CONC 30 g/dL (32-36); MEAN CORPUSCULAR VOLUME 83 fL (80-99); MEAN PLATELET VOLUME 11.3 fL (9.0-12.2); MONOCYTES # (AUTO) 0.6 10^3/uL (0.0-1.0); MONOCYTES % (AUTO) 7 % (0-12); NEUTROPHILS # (AUTO) 7.2 10^3/uL (1.8-7.8); NEUTROPHILS % (AUTO) 79 % (42-75); PLATELET COUNT 167 10^3/uL (130-400); WHITE BLOOD COUNT 9.1 10^3/uL (4.3-11.0)
[2020-04-15 04:44] LABS: CALCIUM 7.7 MG/DL (8.5-10.1)
[2020-04-15 04:48] LABS: CREATININE SERUM 1.03 MG/DL (0.60-1.30); PHOSPHORUS 2.6 MG/DL (2.3-4.7)
[2020-04-15 04:51] LABS: MAGNESIUM 2.1 MG/DL (1.6-2.4)
[2020-04-15] MEDS: ONDANSETRON 4 MG/2 ML (SDV) Z0FRAN IVP PRN (04:58)
[2020-04-15] MEDS: POTASSIUM CL 10MEQ/50ML IVPB 50 ML IV SCH (06:21)
[2020-04-15] MEDS: KCL 20 MEQ TAB (K-DUR) PO SCH (06:22)
[2020-04-15] MEDS: MAGNESIUM 1 GM/100 ML IVPB 100 ML IV SCH (06:22)
[2020-04-15] MEDS: NS IV 1000 ML 1,000 ML IV SCH (07:40)
[2020-04-15] MEDS: PANTOPRAZOLE 40 MG (PROTONIX) VIAL IV SCH (07:40)
--- NOTE | 2020-04-15 09:30 | Progress Note-Pre Operative ---
Pre-Operative Progress Note H&P Reviewed The H&P was reviewed, patient examined and no changes noted. Scheduled for EUA, pap, possible endometrial biopsy today at time of EGD under sedation. Date Seen by Provider: Apr 15, 2020 Time Seen by Provider: 09:15 Date H&P Reviewed: Apr 15, 2020 Time H&P Reviewed: 09:15 Pre-Operative Diagnosis: post menopausal bleeding, vaginal hemorrhage, anemia, hypovolemia GILA PARKER DO Apr 15, 2020 09:30
--- NOTE | 2020-04-15 09:52 | Progress Note ---
Progress Note Assessment/Plan Date Seen by Provider: Apr 15, 2020 Time Seen by Provider: 09:15 Events since last exam Has received total 3 units PRBCs, Hgb is appropriately increased States she continues to pass clots. Consent obtained for EUA, pap smear and endometrial biopsy. Will do in the ICU bed today after the EGD is done. There are minimal risks but would include further bleeding. Will likely require an additional exam for tissue evaulation and or dilation and curettage. Plus imaging such as US vs CT. Likely abnormal pathology causing bleeding worsened by anticoagulant. Assessment/Plan 1. Post menopausal bleeding - inability to tolerate exam while awake. Due to pain and respiratory difficulty 2. anemia due to above bleeding 3. Heme positive stools 4. anticoagulated Plan - Exam under anesthesia, pap smear and endometrial biopsy after EGD is done. Then further imaging as needed for post menopausal bleeding (US vs CT), vs attempting Hysteroscopy and dilation and curettage in the OR on Thursday. Vitals Last set of Vitals Signs Vital Signs Date Time Temp Pulse Resp B/P (MAP) Pulse Ox O2 Delivery O2 Flow Rate FiO2 04/15/20 09:00 90 121/68 (85) 99 Nasal Cannula 3.00 04/15/20 07:40 36.4 04/14/20 01:04 20 I&O I&O Intake and Output 04/15/20 00:00 Intake Total 1550 ml Output Total 2353 ml Balance -803 ml Intake Oral 1550 ml Output Urine Total 2350 ml Stool Total 3 ml Labs Laboratory Tests 04/14/20 12:29: Glucometer 106 04/14/20 15:55: Hemoglobin 7.1L, Hematocrit 23L 04/14/20 17:31: Glucometer 109 04/14/20 20:05: Hemoglobin 6.9*L, Hematocrit 22L 04/15/20 00:56: Hemoglobin 6.9*L, Hematocrit 23L 04/15/20 03:45: Hemoglobin 7.3L, Hematocrit 24L, White Blood Count 9.1, Red Blood Count 2.88L, Mean Corpuscular Volume 83, Mean Corpuscular Hemoglobin 25, Mean Corpuscular Hemoglobin Concent 30L, Red Cell Distribution Width 18.6H, Platelet Count 167, Mean Platelet Volume 11.3, Immature Granulocyte % (Auto) 0, Neutrophils (%) (Auto) 79H, Lymphocytes (%) (Auto) 13, Monocytes (%) (Auto) 7, Eosinophils (%) (Auto) 1, Basophils (%) (Auto) 0, Neutrophils # (Auto) 7.2, Lymphocytes # (Auto) 1.2, Monocytes # (Auto) 0.6, Eosinophils # (Auto) 0.1, Basophils # (Auto) 0.0, Immature Granulocyte # (Auto) 0.0, Sodium Level 141, Potassium Level 4.0, Chloride Level 110H, Carbon Dioxide Level 24, Anion Gap 7, Blood Urea Nitrogen 24H, Creatinine 1.03, Estimat Glomerular Filtration Rate 53, BUN/Creatinine Ratio 23, Glucose Level 108H, Calcium Level 7.7L, Phosphorus Level 2.6, Magnesium Level 2.1 Clinical Quality Measures DVT/VTE Risk/Contraindication: Risk Factor Score Per Nursin RFS Level Per Nursing on Admit: 4+=Very High Contraindications-Pharm: Other *list below* Other: GILA Mcrae DO Apr 15, 2020 09:52
[2020-04-15] MEDS ORDERED: LIDOCAINE JELLY 2% 6 ML SYRINGE ONE (09:56)
[2020-04-15] MEDS ORDERED: fentaNYL INJECTION 100 MCG/2 ML AMP ONE ×2 (09:56)
[2020-04-15] MEDS ORDERED: MIDAZOLAM 5 MG/5 ML (VERSED) VIAL ONE ×2 (09:56→09:57)
[2020-04-15] MEDS ORDERED: HURRICAINE EXT TUBE (BENZOCAINE) ONE (09:57)
--- NOTE | 2020-04-15 10:46 | Progress Note-Post Operative ---
Post-Operative Progess Note Surgeon (s)/Tempering Oven Operator (s) Surgeon BULMARO SLAUGHTER MD Tempering Oven Operator: none Pre-Operative Diagnosis sx anemia with hx GERD Post-Operative Diagnosis reflux esophagitis(stage 2), small HH(2cm), mild-moderate gastritis, no active bleed. Procedure & Operative Findings Date of Procedure 04/15/20 Procedure Performed/Findings EGD with bx. Anesthesia Type cs Estimated Blood Loss Estimated blood loss (mL): minimal Specimens/Packing Specimens Removed ge jxn, antrum BULMARO SLAUGHTER MD Apr 15, 2020 10:46
--- NOTE | 2020-04-15 10:50 | Operative Report ---
Operative Report Date of Procedure/Surgery Apr 15, 2020 Surgeon (s) GILA PARKER DO Chiropractic Assistant (s): none Post-Operative Diagnosis post menopausal bleeding, likely endometrial source Procedure Performed EUA pap endometrial biopsy Description of Procedure Anesthesia Type: Conscious Sedation Estimated blood loss (mL): minimal Specimen(s) collected/removed pap smear endometrial biopsy Description of the Procedure With informed consent, after the EGD was completed and the patient was still sedated, she was placed on the bed. Two assistants provided retraction of the legs. She was placed in trendelenburg and then an exam was done. The patient did not tolerate inserting the speculum. There was dried blood on the perineum. I did a bimanual exam. The cervix is small. I was able to do a blind pap smear of the cervix. There was arnulfo red blood on the pap. This was sent for pathology for pap and HPV typing. I then was able to insert the endometerial pipelle into the cervix. I was not able to advance this up into the endometrial canal, but was able to retract the plunger and take a biopsy specimen. This was bloody with a clot on the end. This was placed in the specimen container. A rectovaginal exam was done. There was no evidence of rectovaginal, vaginal or cervical pathology. It is difficult to assess the size of the uterus due to body habitus. A pelvic US is scheduled and then will proceed with hysteroscopy, dilation and curettage in the OR on 04/17/2020 if necessary. Will plan to place a progestin containing IUD in the OR with US guidance (if possible) for the post menopausal bleeding. For the time being, will start Megestrol. There is likely uterine pathology, but the extent is not known. Findings of the Procedure bloody discharge with small clots Allergies and Home Medications Allergies Coded Allergies: No Known Drug Allergies (Verified , 11/20/08) Home Medications Apixaban 5 Mg Tablet, 5 MG PO BID, (Reported) Aripiprazole 2 Mg Tablet, 2 MG PO DAILY, (Reported) Bupropion HCl 100 Mg Tablet.er, 200 MG PO DAILY, (Reported) TAKES 2 (100MG) TABS Cefdinir 300 Mg Capsule, 300 MG PO BID Prescribed by: KESHA REINOSO on 12/02/19 1234 Clonazepam 1 Mg Tablet, 1 MG PO DAILY, (Reported) Duloxetine HCl 60 Mg Capsule.dr, 120 MG PO DAILY, (Reported) TAKES 2 (60MG) CAPSULES Fluticasone/Salmeterol 12 Gm Hfa.aer.ad, 2 PUFF IH BID, (Reported) Furosemide 40 Mg Tablet, 40 MG PO BID, (Reported) Ipratropium/Albuterol Sulfate 3 Ml Ampul.neb, 3 ML INH RTQ4HR Prescribed by: DARBY SELBY on 05/10/191917 Lisinopril 20 Mg Tablet, 20 MG PO DAILY, (Reported) Metoprolol Tartrate 25 Mg Tablet, 25 MG PO BID, (Reported) Morphine Sulfate 15 Mg Tablet.er, 15 MG PO Q12H, (Reported) Omeprazole 20 Mg Capsule.dr, 20 MG PO DAILY, (Reported) Oxycodone HCl/Acetaminophen 1 Each Tablet, 1 TAB PO BID PRN for PAIN-MODERATE (5-7), (Reported) Potassium Chloride 10 Meq Capsule.er, 10 MEQ PO DAILY, (Reported) Simvastatin 10 Mg Tablet, 10 MG PO HS, (Reported) Trazodone HCl 50 Mg Tablet, 50-100 MG PO HS, (Reported) Patient Home Medication List Home Medication List Reviewed: Yes GILA PARKER DO Apr 15, 2020 10:50
[2020-04-15] MEDS ORDERED: fentaNYL INJECTION 100 MCG/2 ML AMP IVP ONE (11:30)
[2020-04-15] MEDS ORDERED: LIDOCAINE JELLY 2% 6 ML SYRINGE MM PRN (11:30)
[2020-04-15] MEDS ORDERED: HURRICAINE EXT TUBE (BENZOCAINE) XX PRN (11:30)
[2020-04-15] MEDS ORDERED: MIDAZOLAM 5 MG/5 ML (VERSED) VIAL IV ONE (11:30)
--- NOTE | 2020-04-15 11:44 | Progress Note - Hospitalist ---
Subjective HPI/CC On Admission Date Seen by Provider: Apr 15, 2020 Time Seen by Provider: 11:00 Chief complaint: Severe anemia History present illness: This is a 69-year-old morbidly obese white female with a past medical history of chronic anemia without known source who has been admitted for transfusions before who presented to [place] with shortness of breath upon even minimal exertion at home. She was assessed to have hypoxia on admission with hypotension with systolic of 70. Patient ultimately was revealed to have severe symptomatic anemia with hemoglobin of 4.7 with hypotension and melonic stools. Patient was transported rapidly to [facility] ICU after IV fluid resuscitation due to the fact she was in need of transfusions and no ready access to that at the [place] ER. Dr. Sanchez has been consulted for GI bleed and central line if her port does not work. Patient appears to be very pale and chronically debilitated and will monitor her closely in the ICU. Subjective/Events-last exam Patient stable Moving to women services Dr Maynard performed PAP/Pelvic while she was sedated for EGD and confirmed source of bleeding was uterine. Megace was started and hgb stable at 7.3 Pelvic USG will be performed tomorrow Review of Systems General: Fatigue, Malaise Objective Exam Vital Signs Vital Signs Date Time Temp Pulse Resp B/P (MAP) Pulse Ox O2 Delivery O2 Flow Rate FiO2 04/15/20 19:21 93 Nasal Cannula 3.00 04/15/20 16:20 37.1 100 20 116/64 (81) Capillary Refill : Less Than 3 Seconds General Appearance: No Apparent Distress, WD/WN, Chronically ill Respiratory: Chest Non Tender, Lungs Clear, Normal Breath Sounds, No Accessory Muscle Use, No Respiratory Distress Cardiovascular: Regular Rate, Rhythm, No Edema, No Gallop, No JVD, No Murmur, Normal Peripheral Pulses Neurologic/Psychiatric: Alert, Oriented x3, No Motor/Sensory Deficits, Normal Mood/Affect Results/Procedures Lab Laboratory Tests 04/14/20 20:05 04/15/20 00:56 04/15/20 03:45 Patient resulted labs reviewed. Assessment/Plan Assessment and Plan Assess & Plan/Chief Complaint Assessment: Severe symptomatic anemia requiring at least 4 units of blood Melonic stools consulting Dr. Sanchez Morbid obesity Chronic O2 dependence Obstructive sleep apnea/obesity hypoventilation syndrome Chronic pain Poor social situation needs NH but has declined in the past multiple times Incontinence AF HTN Mood disorder/Mental illness COPD Plan: Transfuse 2 units of blood now Dr. Sanchez consult IV fluids Monitor oxygen level 04/14/20: Monitor hgb Dr Maynard will perform chalk tester exam with EGD tomorrow 04/14/20: EGD no source of bleeding Uterine source confirmed as source of bleeding on pelvic exam by Dr Maynard while EGD performed and patient was sedated Megace started to stop the bleeding Could be uterine cancer Hold OAC in meantime Diagnosis/Problems Diagnosis/Problems (1) DUB (dysfunctional uterine bleeding) (2) GI bleed (3) Melena (4) Hypotension (5) Atrial fibrillation (6) Obesity Clinical Quality Measures DVT/VTE Risk/Contraindication: Risk Factor Score Per Nursin RFS Level Per Nursing on Admit: 4+=Very High Contraindications-Pharm: Other *list below* Other: DARBY Hernández DO Apr 15, 2020 11:44
[2020-04-15] MEDS: MEGESTROL 40 MG (MEGACE) TAB PO SCH ×2 (12:07→21:06)
[2020-04-15 13:05] VITALS: BP 119/63
--- NOTE | 2020-04-15 15:01 | OPERATIVE REPORT ---
DATE OF SERVICE: 04/15/2020 ATTENDING SEARCHLIGHT OPERATOR: Mickie Maza APRN. ADMITTING PHYSICIAN: Dr. Zuniga. PREOPERATIVE DIAGNOSIS: Symptomatic anemia with history of gastroesophageal reflux disease. POSTOPERATIVE DIAGNOSES: Reflux esophagitis stage II, small hiatal hernia approximately 2 cm in size and mild to moderate gastritis. No formal ulcerations, polyps or any neoplasms as well as no active bleeding. Pylorus and duodenum appeared normal. PROCEDURE PERFORMED: EGD with biopsy. SURGEON: Bulmaro Slaughter MD. ANESTHESIA: Conscious sedation. ESTIMATED BLOOD LOSS: Minimal. FINDINGS: Same as postoperative diagnoses. DISPOSITION: The patient tolerated the procedure well. INDICATIONS FOR PROCEDURE: The patient is a 69-year-old female, who was admitted to the ICU from [facility] due to shortness of breath and weakness. She normally wears oxygen at home for COPD; however, she is minimally ambulatory and morbidly obese. She stated continuing feeling more weak as well as more shortness of breath and was seen at [facility], where labs were drawn, which did show a hemoglobin of 4.7. She also does report a history of gastroesophageal reflux disease as well as peptic ulcer disease. She is on anticoagulation with Eliquis as well. She did receive 3 units of packed red blood cells and her hemoglobin did increase appropriately. DESCRIPTION OF PROCEDURE IN DETAIL: In the ICU under monitor, adequate IV and sedative medications and conscious sedation were given and the mouthpiece was applied. The endoscope was placed in the mouth, visualizing the pharynx and hypopharyngeal region. Vocal cords, epiglottis and vallecula identified and appeared to be normal. The endoscope was then gently intubated, esophageal opening and esophagus insufflated. The endoscope was then advanced through the first, second and third portion of the esophagus. At the level of the GE junction, reflux esophagitis stage II identified. A biopsy was taken with forceps with visualization of good hemostasis. The endoscope was advanced in the stomach and endoscope retroflexed, visualizing a small hiatal hernia approximately 2 cm in size. There was mild to moderate gastritis. No formal ulcerations, polyps or any neoplasms as well as no active bleeding. A biopsy was taken of the antrum to rule out H. pylori with visualization of good hemostasis. The endoscope was then advanced through the pylorus and the first and second portion of the duodenum, which appeared normal with no ulcerations or any active bleeding sources. The endoscope was then slowly withdrawn while taking a second look and suctioning of residual air with no additional findings. The patient tolerated the procedure well. We will continue with medical management with a proton pump inhibitor as well as the necessary lifestyle and diet accommodation. After the endoscopy was performed, gynecology proceeded with the vaginal exam as well as biopsy as appropriate for vaginal bleeding and we will monitor these results as well. Job ID: [id number] DocumentID: [id number] Dictated Date: 04/15/2020 10:44:12 [employer] Operator Date: 04/15/2020 15:00:52 Dictated By: BULMARO SLAUGHTER MD MTDD
[2020-04-15 16:20] VITALS: BP 116/64
[2020-04-15] MEDS: RT-ALBUTEROL/IPRATROPIUM 3 ML (DUONEB) VIAL INH SCH ×2 (19:20→22:04)
[2020-04-15 20:55] VITALS: BP 139/63
[2020-04-15] MEDS: traZODone 50 MG (DESYREL) TAB PO SCH (21:06)
[2020-04-15] MEDS: SIMvastatin 10 MG (ZOCOR) TAB PO SCH (21:06)
[2020-04-15] MEDS: ADVAIR HFA 115/21 MCG INHALER 8 GM IH SCH (22:04)
[2020-04-15] MEDS: MELATONIN 3 MG TABLET PO PRN (22:35)
[2020-04-15 23:44] VITALS: BP 127/67
[2020-04-16] MEDS: ALPRAZolam 0.25 MG (XANAX) TAB PO PRN (00:26)
[2020-04-16] MEDS: HYDROcodone/APAP 5 MG/325 MG (LORTAB) TAB PO PRN ×3 (01:20→19:42)
[2020-04-16] MEDS: traZODone 50 MG (DESYREL) TAB PO SCH ×2 (01:49→20:45)
[2020-04-16] MEDS: RT-ALBUTEROL/IPRATROPIUM 3 ML (DUONEB) VIAL INH SCH ×3 (02:10→10:37)
[2020-04-16] MEDS: ONDANSETRON 4 MG/2 ML (SDV) Z0FRAN IVP PRN (03:28)
[2020-04-16 05:45] VITALS: BP 131/69
[2020-04-16] MEDS: ADVAIR HFA 115/21 MCG INHALER 8 GM IH SCH ×2 (06:54→19:08)
[2020-04-16 06:56] LABS: BASOPHILS % (AUTO) 0 % (0-10); EOSINOPHILS % (AUTO) 0 % (0-10); HEMATOCRIT 25 % (35-52); HEMOGLOBIN 7.3 g/dL (11.5-16.0); LYMPHOCYTES # (AUTO) 1.2 10^3/uL (1.0-4.0); LYMPHOCYTES % (AUTO) 14 % (12-44); MEAN CORPUSCULAR HEMOGLOBIN 25 pg (25-34); MEAN CORPUSCULAR HGB CONC 29 g/dL (32-36); MEAN CORPUSCULAR VOLUME 85 fL (80-99); MEAN PLATELET VOLUME 11.1 fL (9.0-12.2); MONOCYTES # (AUTO) 0.5 10^3/uL (0.0-1.0); MONOCYTES % (AUTO) 6 % (0-12); NEUTROPHILS # (AUTO) 6.8 10^3/uL (1.8-7.8); NEUTROPHILS % (AUTO) 79 % (42-75); PLATELET COUNT 191 10^3/uL (130-400); WHITE BLOOD COUNT 8.6 10^3/uL (4.3-11.0)
[2020-04-16 07:08] LABS: CHLORIDE 110 MMOL/L (98-107); POTASSIUM 3.9 MMOL/L (3.6-5.0); SODIUM 143 MMOL/L (135-145)
[2020-04-16 07:09] LABS: CALCIUM 7.9 MG/DL (8.5-10.1)
[2020-04-16 07:10] LABS: GLUCOSE 137 MG/DL (70-105); TOTAL PROTEIN 5.8 GM/DL (6.4-8.2)
[2020-04-16 07:11] LABS: CARBON DIOXIDE 26 MMOL/L (21-32)
[2020-04-16 07:12] LABS: BILIRUBIN,TOTAL 0.2 MG/DL (0.1-1.0)
--- NOTE | 2020-04-16 07:13 | Progress Note ---
Progress Note Assessment/Plan Date Seen by Provider: Apr 16, 2020 Time Seen by Provider: 09:30 Events since last exam Transferred to floor from the floor yesterday. Continues to have mild bleeding EGD showed mild gastritis and hiatal hernia, but no obvious source of bleeding. Endometrial biopsy and pap done yesterday. Hgb is stable today US today pending. Plan hysteroscopy, dilation and curettage tomorrow with possible IUD placement. Assessment/Plan 1. Post menopausal bleeding - inability to tolerate exam while awake. Due to pain and respiratory difficulty 2. anemia due to above bleeding 3. Heme positive stools 4. anticoagulated - held for now Plan- hysteroscopy, dilation and curettage on 04/17/2020. NPO after Midnight Consents have been obtained. Risks include but are not limited to, increased bleeding, infection, injury to bowel, bladder and ureter. Complications related to anesthesia. She is of moderate risk due to the pulmonary issues. Will attempt to place IUD at the same time for bleeding, but there is not one a vailable. Patient states, "they had to take it out before anyway". So likely will not have one to place tomorrow. She is on Megace to help with the bleeding. If evidence of malignancy, will consider MRI for evaluation of the pelvis and uterus. Otherwise, will send her home with follow up for pathology as long as she is stable. Preop Covid test is pending. Vitals Last set of Vitals Signs Vital Signs Date Time Temp Pulse Resp B/P (MAP) Pulse Ox O2 Delivery O2 Flow Rate FiO2 04/16/20 06:54 95 Nasal Cannula 3.00 04/15/20 23:44 36.7 97 20 127/67 (87) I&O I&O Intake and Output 04/15/20 23:59 Intake Total 1300 ml Output Total 1276 ml Balance 24 ml Intake Oral 1300 ml Output Urine Total 1275 ml Stool Total 1 ml # Bowel Movements 2 Labs Laboratory Tests 04/15/20 11:41: Glucometer 131H 04/15/20 21:20: 04/16/20 06:31: White Blood Count 8.6, Red Blood Count 2.93L, Hemoglobin 7.3L, Hematocrit 25L, Mean Corpuscular Volume 85, Mean Corpuscular Hemoglobin 25, Mean Corpuscular Hemoglobin Concent 29L, Red Cell Distribution Width 19.1H, Platelet Count 191, Mean Platelet Volume 11.1, Immature Granulocyte % (Auto) 1, Neutrophils (%) (Auto) 79H, Lymphocytes (%) (Auto) 14, Monocytes (%) (Auto) 6, Eosinophils (%) (Auto) 0, Basophils (%) (Auto) 0, Neutrophils # (Auto) 6.8, Lymphocytes # (Auto) 1.2, Monocytes # (Auto) 0.5, Eosinophils # (Auto) 0.0, Basophils # (Auto) 0.0, I mmature Granulocyte # (Auto) 0.1, Sodium Level 143, Potassium Level 3.9, Chloride Level 110H, Carbon Dioxide Level 26, Anion Gap 7, Glucose Level 137H, Calcium Level 7.9L, Corrected Calcium 8.7, Total Bilirubin 0.2, Total Protein 5.8L, Albumin 3.0L Radiology addendum - US results 04/16/2020 1657 [facility], [place] NAME: NURA ORTIZ [facility] REC#: [id number] PT STATUS: ADM IN : 1950 PHYSICIAN: GILA PARKER DO ADMIT DATE: 04/13/20/WS Signed Date of Exam:04/16/20 US NON OB PELVIS COMP/TRANSVAG PROCEDURE: Pelvic comp/transvaginal sonogram. TECHNIQUE: Complete transabdominal and transvaginal pelvic ultrasound was performed. In addition, limited pelvic Doppler was performed. INDICATION: Postoperative possible bleeding. Uterus is anteverted measuring 8.0 x 4.8 x 4.6 cm. Endometrium is abnormally thickened measuring up to 2.1 cm. Endometrium does appear to be somewhat heterogeneous and irregular. There is some fluid in the endometrial canal. No myometrial mass is identified. Ovaries cannot be visualized. Trace free fluid in the posterior cul-de-sac is noted. IMPRESSION: Abnormally thickened and heterogeneous endometrium measuring up to 2.1 cm. Endometrial neoplasm cannot be entirely excluded and tissue sampling is likely indicated. Nonvisualized ovaries. Dictated by: Dictated on workstation # [id number] Dict: 04/16/20 1442 Trans: 04/16/20 1600 [facility] [id number] Interpreted by: JULIANE BARBOZA MD Electronically signed by: JULIANE BARBOZA MD 04/16/20 1600 Medications Meds Started megace for bleeding Focused Exam Respiratory: Chest Non Tender, Lungs Clear, Normal Breath Sounds Clinical Quality Measures DVT/VTE Risk/Contraindication: Risk Factor Score Per Nursin RFS Level Per Nursing on Admit: 4+=Very High Contraindications-Pharm: Other *list below* Other: GILA Mcrae DO Apr 16, 2020 07:13
[2020-04-16 07:14] LABS: ALKALINE PHOSPHATASE 75 U/L (40-136); GFR ESTIMATED > 60
[2020-04-16 07:15] LABS: BUN/CREATININE RATIO 10
[2020-04-16 07:17] LABS: ALANINE AMINOTRANSFERASE 12 U/L (0-55)
[2020-04-16] MEDS ORDERED: clonazePAM 1 MG (KlonoPIN) TAB PO SCH (09:00)
[2020-04-16 10:34] VITALS: BP 134/64
[2020-04-16] MEDS: DULoxetine 30 MG (CYMBALTA) CAP PO SCH (10:39)
[2020-04-16] MEDS: PANTOPRAZOLE 40 MG (PROTONIX) TAB PO SCH (10:41)
[2020-04-16] MEDS: MEGESTROL 40 MG (MEGACE) TAB PO SCH ×2 (10:41→20:45)
[2020-04-16] MEDS: buPROPion SR 100 MG (WELLBUTRIN SR) TAB PO SCH (10:42)
--- NOTE | 2020-04-16 11:14 | Progress Note - Hospitalist ---
DARIN GILLILAND MED STUDENT 04/16/20 1114: Subjective HPI/CC On Admission Date Seen by Provider: Apr 16, 2020 Time Seen by Provider: 10:10 Chief complaint: Severe anemia History present illness: This is a 69-year-old morbidly obese white female with a past medical history of chronic anemia without known source who has been admitted for transfusions before who presented to [place] with shortness of breath upon even minimal exertion at home. She was assessed to have hypoxia on admission with hypotension with systolic of 70. Patient ultimately was revealed to have severe symptomatic anemia with hemoglobin of 4.7 with hypotension and melonic stools. Patient was transported rapidly to [facility] ICU after IV fluid resuscitation due to the fact she was in need of transfusions and no ready access to that at the [place] ER. Dr. Sanchez has been consulted for GI bleed and central line if her port does not work. Patient appears to be very pale and chronically debilitated and will monitor her closely in the ICU. Subjective/Events-last exam Patient states that she feels tired this morning. She says that she is still bleeding vaginally. The blood comes "from time to time" and describes it as a decent quantity of blood. She is not ambulating at this time and is only drinking liquids. She recently had a negative EGD and Dr. Maynard attempted a pelvic exam, but due to difficulties will try to do a D/C & pelvic US tomorrow, as well as progestin IUD. She is on Megestrol for the time being. Patient's HGB has improved to 7.3 from in the 4's on admission. She has had 3 transfusions since her admission. Currently waiting for results of covid test. Had a foul smelling, loose bowel movement and will also be tested for C.diff Objective Exam Vital Signs Vital Signs Date Time Temp Pulse Resp B/P (MAP) Pulse Ox O2 Delivery O2 Flow Rate FiO2 04/16/20 10:34 36.9 95 20 134/64 (87) 99 Nasal Cannula 3.00 Capillary Refill : Less Than 3 Seconds General Appearance: No Apparent Distress Neck: Full Range of Motion, Non Tender Respiratory: Chest Non Tender, Lungs Clear, Normal Breath Sounds, No Accessory Muscle Use, No Respiratory Distress Cardiovascular: Regular Rate, Rhythm, No Edema, No Gallop, No JVD, No Murmur, Normal Peripheral Pulses Gastrointestinal: Normal Bowel Sounds, Non Tender Rectal: Deferred Neurologic/Psychiatric: Alert, Oriented x3 Skin: Normal Color, Warm/Dry Results/Procedures Lab Laboratory Tests 04/16/20 06:31 Patient resulted labs reviewed. Assessment/Plan Assessment and Plan Assess & Plan/Chief Complaint Continue daily CBC, CMP Monitor for worsening Anemia NPO tonight in preparation for procedure tomorrow Transfusion if there is another severe decrease in HGB Pelvic US/ D/C tomorrow Progestin IUD tomorrow Diagnosis/Problems Diagnosis/Problems (1) History of atrial fibrillation Status: Chronic (2) DUB (dysfunctional uterine bleeding) (3) Nicotine dependence, cigarettes, uncomplicated Status: Chronic (4) Morbid obesity Status: Chronic (5) Postmenopausal bleeding Status: Chronic (6) Debility Status: Chronic (7) Mood disorder Status: Chronic (8) Anemia Status: Acute Qualifiers: Qualified Codes: D64.9 - Anemia, unspecified (9) DVT prophylaxis Status: Acute Clinical Quality Measures DVT/VTE Risk/Contraindication: Risk Factor Score Per Nursin RFS Level Per Nursing on Admit: 4+=Very High Contraindications-Pharm: Other *list below* Other: gib Supervisory-Addendum Brief Verification & Attestation Participated in pt care: history, physical Personally performed: exam, history Care discussed with: other Procedures: n/a n/a KESHA REINOSO MD 04/16/20 1702: Supervisory-Addendum Brief Verification & Attestation Participated in pt care: history, MDM, physical Personally performed: exam, history, MDM Care discussed with: Medical Student, other Procedures: n/a I personally saw and examined this patient today and did my own history and physical exam. I did not evaluate for JVD, but otherwise agree with the exam as documented by the medical student. Severe anemia suspected to be from dysfunctional uterine bleeding in combination with Eliquis use for A fib, EGD yesterday without source of bleed, need to rule out endometrial cancer, and Dr. Maynard will possibly place progesterone IUD in OR for DUB in the meantime. DARIN GILLILAND MED STUDENT Apr 16, 2020 11:14 KESHA REINOSO MD Apr 16, 2020 17:02
--- NOTE | 2020-04-16 14:46 | Diagnostic Imaging Report ---
PROCEDURE: Pelvic comp/transvaginal sonogram. TECHNIQUE: Complete transabdominal and transvaginal pelvic ultrasound was performed. In addition, limited pelvic Doppler was performed. INDICATION: Postoperative possible bleeding. Uterus is anteverted measuring 8.0 x 4.8 x 4.6 cm. Endometrium is abnormally thickened measuring up to 2.1 cm. Endometrium does appear to be somewhat heterogeneous and irregular. There is some fluid in the endometrial canal. No myometrial mass is identified. Ovaries cannot be visualized. Trace free fluid in the posterior cul-de-sac is noted. IMPRESSION: Abnormally thickened and heterogeneous endometrium measuring up to 2.1 cm. Endometrial neoplasm cannot be entirely excluded and tissue sampling is likely indicated. Nonvisualized ovaries. Dictated by: Dictated on workstation # [id number]
[2020-04-16] MEDS: RT-ALBUTEROL INHALER HFA (VENTOLIN HFA) 18 GM IH SCH ×3 (15:01→22:44)
[2020-04-16 15:51] VITALS: BP 144/66
[2020-04-16] MEDS ORDERED: ZINC OXIDE 16% OINT (BUTT PASTE) 57 GM TUBE TOP PRN (17:30)
[2020-04-16] MEDS: SIMvastatin 10 MG (ZOCOR) TAB PO SCH (20:40)
[2020-04-16] MEDS: clonazePAM 1 MG (KlonoPIN) TAB PO SCH (20:41)
[2020-04-16 20:58] VITALS: BP 127/58
[2020-04-16] MEDS: MELATONIN 3 MG TABLET PO PRN (23:24)
[2020-04-17] VITALS (14 sets, daily range): BP systolic 112–186; BP diastolic 57–99
[2020-04-17] MEDS: RT-ALBUTEROL INHALER HFA (VENTOLIN HFA) 18 GM IH SCH ×6 (02:12→21:30)
[2020-04-17 03:53] LABS: MEAN PLATELET VOLUME 10.6 fL (9.0-12.2); WHITE BLOOD COUNT 9.4 10^3/uL (4.3-11.0)
[2020-04-17 03:55] LABS: HEMOGLOBIN 6.9 g/dL (11.5-16.0)
[2020-04-17 04:18] LABS: CHLORIDE 109 MMOL/L (98-107); POTASSIUM 3.5 MMOL/L (3.6-5.0); SODIUM 142 MMOL/L (135-145)
[2020-04-17 04:19] LABS: CALCIUM 7.9 MG/DL (8.5-10.1)
[2020-04-17 04:20] LABS: GLUCOSE 109 MG/DL (70-105)
[2020-04-17 04:21] LABS: CARBON DIOXIDE 26 MMOL/L (21-32)
[2020-04-17 04:23] LABS: CREATININE SERUM 0.76 MG/DL (0.60-1.30); GFR ESTIMATED > 60
[2020-04-17 04:24] LABS: BUN/CREATININE RATIO 8
[2020-04-17] MEDS: HYDROcodone/APAP 5 MG/325 MG (LORTAB) TAB PO PRN ×2 (05:57→20:06)
[2020-04-17] MEDS: ADVAIR HFA 115/21 MCG INHALER 8 GM IH SCH ×2 (06:14→21:30)
[2020-04-17] MEDS ORDERED: KCL 20 MEQ TAB (K-DUR) PO NR (07:00)
[2020-04-17] MEDS ORDERED: NS IV 500 ML 500 ML IV SCH ×2 (07:00)
--- NOTE | 2020-04-17 07:31 | Progress Note-Pre Operative ---
Pre-Operative Progress Note H&P Reviewed The H&P was reviewed, patient examined and no changes noted. Hemoglobin 6.9 this am. Stable, but with projected bleeding will have blood on hold to OR Plan hysteroscopy, dilation and curettage with placement of IUD today. Date Seen by Provider: Apr 17, 2020 Time Seen by Provider: 07:30 Date H&P Reviewed: Apr 17, 2020 Time H&P Reviewed: 07:30 Pre-Operative Diagnosis: thickened endometrium, abnormal uterine bleeding, anemia GILA PARKER DO Apr 17, 2020 07:31
[2020-04-17] MEDS ORDERED: ceFAZolin 2 GM IV Premixed 50 ML IV ONE (08:00)
[2020-04-17] MEDS ORDERED: LIDOCAINE PF 2% 5 ML (XYLOCAINE) VIAL ONE (08:01)
[2020-04-17] MEDS ORDERED: fentaNYL INJECTION 100 MCG/2 ML AMP ONE ×2 (08:01→09:26)
[2020-04-17] MEDS ORDERED: SEVOFLURANE (ULTANE) 15 ML INHAL SOLN ONE ×2 (08:01→09:11)
[2020-04-17] MEDS ORDERED: ROCURONIUM 10 MG/ML 5 ML SYRINGE IV ONE ×2 (08:01→09:29)
[2020-04-17] MEDS ORDERED: ONDANSETRON 4 MG/2 ML (SDV) Z0FRAN ONE (08:01)
[2020-04-17] MEDS ORDERED: MIDAZOLAM 2 MG/2 ML (VERSED) VIAL ONE ×3 (08:01→09:26)
[2020-04-17] MEDS ORDERED: proPOfol 200 MG/20 ML (DIPRIVAN) VIAL IV ONE (08:01)
[2020-04-17] MEDS ORDERED: NEOSTIGMINE 3 MG/3 ML VIAL ONE (08:05)
[2020-04-17] MEDS ORDERED: GLYCOPYRROLATE 0.2 MG/ML (ROBINUL) 2 ML VIAL ONE (08:05)
[2020-04-17] MEDS ORDERED: NS IV 1000 ML 1,000 ML IV ONE (08:30)
[2020-04-17] MEDS ORDERED: SUCCINYLCHOLINE INJ 100 MG/5 ML SYR/VIAL ONE (08:47)
[2020-04-17] MEDS ORDERED: FUROSEMIDE 40 MG/4 ML INJ (LASIX) ONE (09:04)
[2020-04-17] MEDS ORDERED: KETOROLAC 15 MG/ML VIAL IVP ONE (09:30)
[2020-04-17] MEDS ORDERED: PROPOFOL DRIP (ICU) 0 ML IV ONE (09:38)
--- NOTE | 2020-04-17 09:48 | Operative Report ---
Operative Report Date of Procedure/Surgery Apr 17, 2020 Surgeon (s) GILA PARKER DO Residential Instructor (s): none Post-Operative Diagnosis thickened endometrium, abnormal uterine bleeding - post menopausal Procedure Performed hysteroscopy, dilation and curettage, placement of IUD Description of Procedure Anesthesia Type: General Estimated blood loss (mL): minimal Specimen(s) collected/removed endometrial curettings Description of the Procedure with informed consent the patient was placed in the dorsal lithotomy position. She was not acutely bleeding. However, she does have chronic changes in the inner thighs consistent with friction. The Enriquez catheter was removed as the tubing was soiled. She was prepped and draped in the usual sterile fashion. Initially we attempted to place her legs in candy cane stirrups but, due to her knee replacement, opted to use the Wil stirrups to avoid strain on the knees. The patient was then prepped and draped. She did have some old loose stool on a sacral pad so this pad was removed. She does have a decubitus ulcer on the right buttock and upper thigh. This is not bleeding and is stage 2. There was no active bleeding. The cervix was grasped with a tenaculum and the cervix was gently dilated. I then suctioned a small amount of blood and clotted blood out of the uterus. I gently dilated the cervix with Jon and then Ware dilators. The uterus sounded to 7 cm. I did a hysteroscope that revealed abundant proliferative tissue on all miller of the uterus (anterior, posterior and fundal). There was no abnormal tissue on the cervix or the vaginal epithelium I removed the scope and did a gently curettage for pathologic specimen. I then placed the IUD in standard fashion to 7 cm. The strings were cut. The instruments were then removed from the vagina. The hemoglobin was 6.9 prior to surgery, so she is receiving another unit of blood currently. Due to chronic lung disease, she will not be immediately extubated, but will return to the ICU for monitoring and will return to her room once she is able to be extubated safely. She was rolled with transfer and a dressing was placed over the decubitus on the right buttock. I spoke with her son He Meyers, , following the procedure and anesthesia will speak with him about the ventilator and the plans for extu bation. Findings of the Procedure Clots in the uterus. irregular thickened endometrium Vagina and cervix without lesion Allergies and Home Medications Allergies Coded Allergies: No Known Drug Allergies (Verified , 11/20/08) Home Medications Apixaban 5 Mg Tablet, 5 MG PO BID, (Reported) Aripiprazole 2 Mg Tablet, 2 MG PO DAILY, (Reported) Bupropion HCl 100 Mg Tablet.er, 200 MG PO DAILY, (Reported) TAKES 2 (100MG) TABS Clonazepam 1 Mg Tablet, 1 MG PO DAILY, (Reported) Duloxetine HCl 60 Mg Capsule.dr, 120 MG PO DAILY, (Reported) TAKES 2 (60MG) CAPSULES Fluticasone/Salmeterol 12 Gm Hfa.aer.ad, 2 PUFF IH BID, (Reported) Furosemide 40 Mg Tablet, 40 MG PO BID, (Reported) Ipratropium/Albuterol Sulfate 3 Ml Ampul.neb, 3 ML INH RTQ4HR Prescribed by: DARBY SELBY on 05/10/191917 Lisinopril 20 Mg Tablet, 20 MG PO DAILY, (Reported) Metoprolol Tartrate 25 Mg Tablet, 25 MG PO BID, (Reported) Morphine Sulfate 15 Mg Tablet.er, 15 MG PO Q12H, (Reported) Omeprazole 20 Mg Capsule.dr, 20 MG PO DAILY, (Reported) Oxycodone HCl/Acetaminophen 1 Each Tablet, 1 TAB PO BID PRN for PAIN-MODERATE (5-7), (Reported) Potassium Chloride 10 Meq Capsule.er, 10 MEQ PO DAILY, (Reported) Simvastatin 10 Mg Tablet, 10 MG PO HS, (Reported) Trazodone HCl 50 Mg Tablet, 50-100 MG PO HS, (Reported) Patient Home Medication List Home Medication List Reviewed: Yes GILA PARKER DO Apr 17, 2020 09:48
[2020-04-17] MEDS ORDERED: ONDANSETRON 4 MG/2 ML (SDV) Z0FRAN IVP PRN (10:00)
[2020-04-17] MEDS ORDERED: HYDROmorphone 2 MG/ML VIAL (DILAUDID) IV ONE (10:00)
--- NOTE | 2020-04-17 11:05 | Progress Note ---
LINDA CANALES III MED STUDENT 04/17/20 1105: Subjective Date Seen by a Provider: Apr 17, 2020 Time Seen by a Provider: 10:45 Subjective/Events-last exam PT is a 69 yo female who is being seen for symptomatic anemia most likely 2/2 dysfunctional uterine bleeding of uknown cause. She has some associated SOB and fatigue w/ noted melanotic stool that has developed in to diarrhea, though she has had no BM today. Pt was taken to the OR today by Dr. Parker for an IUD placement as well as D&C for uterine tissue sample. Review of Systems General: Fatigue Pulmonary: Dyspnea Cardiovascular: No: Chest Pain, Palpitations, Orthopnea, Paroxysmal Noc. Dyspnea, Edema, Lt Headedness Gastrointestinal: Diarrhea Genitourinary: Other (dysfunctional uterine bleeding) Objective Exam Last Set of Vital Signs Vital Signs Date Time Temp Pulse Resp B/P (MAP) Pulse Ox O2 Delivery O2 Flow Rate FiO2 04/17/20 10:30 36.4 22 151/73 (99) 96 Nasal Cannula 4 04/17/20 07:51 85 Capillary Refill : Less Than 3 Seconds I&O Intake and Output 04/17/20 00:00 Intake Total 1640 ml Output Total 1150 ml Balance 490 ml Intake Oral 1640 ml Output Urine Total 850 ml Emesis 300 ml # Bowel Movements 3 Results Lab Laboratory Tests Test 04/15/20 11:41 04/15/20 21:20 04/16/20 06:31 04/17/20 03:45 Range/Units Glucometer 131 H 70-110 MG/DL Coronavirus (COVID-19)(PCR) Negative Negative White Blood Count 8.6 9.4 4.3-11.0 10^3/uL Red Blood Count 2.93 L 2.75 L 3.80-5.11 10^6/uL Hemoglobin 7.3 L 6.9 *L 11.5-16.0 g/dL Hematocrit 25 L 23 L 35-52 % Mean Corpuscular Volume 85 85 80-99 fL Mean Corpuscular Hemoglobin 25 25 25-34 pg Mean Corpuscular Hemoglobin Concent 29 L 30 L 32-36 g/dL Red Cell Distribution Width 19.1 H 19.4 H 10.0-14.5 % Platelet Count 191 176 130-400 10^3/uL Mean Platelet Volume 11.1 10.6 9.0-12.2 fL Immature Granulocyte % (Auto) 1 % Neutrophils (%) (Auto) 79 H 42-75 % Lymphocytes (%) (Auto) 14 12-44 % Monocytes (%) (Auto) 6 0-12 % Eosinophils (%) (Auto) 0 0-10 % Basophils (%) (Auto) 0 0-10 % Neutrophils # (Auto) 6.8 1.8-7.8 10^3/uL Lymphocytes # (Auto) 1.2 1.0-4.0 10^3/uL Monocytes # (Auto) 0.5 0.0-1.0 10^3/uL Eosinophils # (Auto) 0.0 0.0-0.3 10^3/uL Basophils # (Auto) 0.0 0.0-0.1 10^3/uL Immature Granulocyte # (Auto) 0.1 0.0-0.1 10^3/uL Sodium Level 143 142 135-145 MMOL/L Potassium Level 3.9 3.5 L 3.6-5.0 MMOL/L Chloride Level 110 H 109 H 98-107 MMOL/L Carbon Dioxide Level 26 26 21-32 MMOL/L Anion Gap 7 7 5-14 MMOL/L Blood Urea Nitrogen 8 6 L 7-18 MG/DL Creatinine 0.80 0.76 0.60-1.30 MG/DL Estimat Glomerular Filtration Rate > 60 > 60 BUN/Creatinine Ratio 10 8 Glucose Level 137 H 109 H 70-105 MG/DL Calcium Level 7.9 L 7.9 L 8.5-10.1 MG/DL Corrected Calcium 8.7 8.5-10.1 MG/DL Total Bilirubin 0.2 0.1-1.0 MG/DL Aspartate Amino Transf (AST/SGOT) 17 5-34 U/L Alanine Aminotransferase (ALT/SGPT) 12 0-55 U/L Alkaline Phosphatase 75 40-136 U/L Total Protein 5.8 L 6.4-8.2 GM/DL Albumin 3.0 L 3.2-4.5 GM/DL Laboratory Tests 04/17/20 03:45 Microbiology 04/16/20 C. difficile GDH Antigen & Toxins - Final, Complete Meds Home Meds Active Iprat-Albut 0.5-3(2.5) mg/3 ml (Ipratropium/Albuterol Sulfate) 3 Ml Ampul.neb 3 Ml INH RTQ4HR Reported Metoprolol Tartrate 25 Mg Tablet 25 Mg PO BID Lisinopril 20 Mg Tablet 20 Mg PO DAILY Potassium Chloride 10 Meq Capsule.er 10 Meq PO DAILY Eliquis (Apixaban) 5 Mg Tablet 5 Mg PO BID Advair Hfa 115-21 Mcg Inhaler (Fluticasone/Salmeterol) 12 Gm Hfa.aer.ad 2 Puff IH BID Furosemide 40 Mg Tablet 40 Mg PO BID Bupropion HCl Sr (Bupropion HCl) 100 Mg Tablet.er 200 Mg PO DAILY TAKES 2 (100MG) TABS Omeprazole 20 Mg Capsule.dr 20 Mg PO DAILY Aripiprazole 2 Mg Tablet 2 Mg PO DAILY Morphine Sulfate ER (Morphine Sulfate) 15 Mg Tablet.er 15 Mg PO Q12H Oxycodone-Acetaminophen 5-325 (Oxycodone HCl/Acetaminophen) 1 Each Tablet 1 Tab PO BID PRN Duloxetine HCl 60 Mg Capsule.dr 120 Mg PO DAILY TAKES 2 (60MG) CAPSULES Trazodone HCl 50 Mg Tablet 50-100 Mg PO HS Simvastatin 10 Mg Tablet 10 Mg PO HS Clonazepam 1 Mg Tablet 1 Mg PO DAILY Radiology [facility]. [place], [place] NAME: NURA ORTIZ [facility] REC#: [id number] PT STATUS: ADM IN : 1950 PHYSICIAN: GILA PARKER DO ADMIT DATE: 04/13/20/ Signed Date of Exam:04/16/20 US NON OB PELVIS COMP/TRANSVAG PROCEDURE: Pelvic comp/transvaginal sonogram. TECHNIQUE: Complete transabdominal and transvaginal pelvic ultrasound was performed. In addition, limited pelvic Doppler was performed. INDICATION: Postoperative possible bleeding. Uterus is anteverted measuring 8.0 x 4.8 x 4.6 cm. Endometrium is abnormally thickened measuring up to 2.1 cm. Endometrium does appear to be somewhat heterogeneous and irregular. There is some fluid in the endometrial canal. No myometrial mass is identified. Ovaries cannot be visualized. Trace free fluid in the posterior cul-de-sac is noted. IMPRESSION: Abnormally thickened and heterogeneous endometrium measuring up to 2.1 cm. Endometrial neoplasm cannot be entirely excluded and tissue sampling is likely indicated. Nonvisualized ovaries. Dictated by: Dictated on workstation # [id number] Dict: 04/16/20 1442 Trans: 04/16/20 1600 [facility] [id number] Interpreted by: JULIANE BARBOZA MD Electronically signed by: JULIANE BARBOZA MD 04/16/20 1600 Procedures Procedures Pt was taken to the OR today for placement of IUD to help with dysfunctional uterine bleeding as well as D&C to take tissue samples to evaluate for any endometrial abnormalities Assessment/Plan Assessment/Plan Assess & Plan/Chief Complaint Pt is a 69 yo female who presented to the hospital with symptomatic anemia 2/2 dysfunctional uterine bleeding Dysfunctional uterine bleeding w/ anemia Heterogenic and thickened endometrium on transvaginal US Continued diarrhea decubitus ulcer Plan: IUD placed to help w/ uterine bleeding Another unit of blood given in the OR, continue to monitor symptoms and routine CBC Uterine tissue samples taken for biopsy Decubitus ulcer being treated with bandages and frequent turns Stool sample was negative for C diff, but continued diarrhea prompt for testing for parasitic organisms Diagnosis/Problems Diagnosis/Problems (1) DUB (dysfunctional uterine bleeding) Status: Chronic (2) Anemia Status: Chronic Qualifiers: Qualified Codes: D64.9 - Anemia, unspecified (3) Postmenopausal bleeding Status: Chronic (4) History of atrial fibrillation Status: Chronic (5) Chronic pain Status: Chronic (6) Melena Status: Acute (7) Mood disorder Status: Chronic Clinical Quality Measures DVT/VTE Risk/Contraindication: Risk Factor Score Per Nursin RFS Level Per Nursing on Admit: 4+=Very High Contraindications-Pharm: Other *list below* Other: KESAH Tan MD 04/17/20 1149: Supervisory-Addendum Brief Verification & Attestation Participated in pt care: history, MDM, physical Personally performed: exam, history, MDM Care discussed with: Medical Student Procedures: n/a I personally saw and examined this patient today and did my own exam and history. Agree with student documentation. Pt has significant debility and will likely need retirement on discharge, this was planned last hospitalization but she declined. Fourth unit of blood ordered today due to hemoglobin below 7 again. May need pelvic MRI depending on endometrial pathology. LINDA CANALES III MED STUDENT Apr 17, 2020 11:05 KESHA REINOSO MD Apr 17, 2020 11:49
[2020-04-17] MEDS ORDERED: KCL 20 MEQ TAB (K-DUR) PO ONE (11:43)
[2020-04-17] MEDS: PANTOPRAZOLE 40 MG (PROTONIX) TAB PO SCH (11:48)
[2020-04-17] MEDS: buPROPion SR 100 MG (WELLBUTRIN SR) TAB PO SCH (11:49)
[2020-04-17] MEDS: DULoxetine 30 MG (CYMBALTA) CAP PO SCH (11:49)
[2020-04-17] MEDS: MEGESTROL 40 MG (MEGACE) TAB PO SCH ×2 (11:50→20:06)
[2020-04-17] MEDS: traZODone 50 MG (DESYREL) TAB PO SCH (20:05)
[2020-04-17] MEDS: clonazePAM 1 MG (KlonoPIN) TAB PO SCH (20:06)
[2020-04-17] MEDS: SIMvastatin 10 MG (ZOCOR) TAB PO SCH (20:06)
[2020-04-18] VITALS (7 sets, daily range): BP systolic 112–148; BP diastolic 56–77
[2020-04-18] MEDS: HYDROcodone/APAP 5 MG/325 MG (LORTAB) TAB PO PRN ×2 (00:10→20:04)
[2020-04-18] MEDS: MELATONIN 3 MG TABLET PO PRN (01:31)
[2020-04-18] MEDS: ALPRAZolam 0.25 MG (XANAX) TAB PO PRN ×2 (01:31→22:09)
[2020-04-18] MEDS: RT-ALBUTEROL INHALER HFA (VENTOLIN HFA) 18 GM IH SCH ×6 (02:12→23:06)
[2020-04-18 06:23] LABS: HEMOGLOBIN 7.7 g/dL (11.5-16.0); MEAN PLATELET VOLUME 11.4 fL (9.0-12.2); WHITE BLOOD COUNT 12.3 10^3/uL (4.3-11.0)
[2020-04-18 06:30] LABS: POTASSIUM 4.3 MMOL/L (3.6-5.0)
[2020-04-18 06:31] LABS: CALCIUM 7.8 MG/DL (8.5-10.1)
[2020-04-18] MEDS: ADVAIR HFA 115/21 MCG INHALER 8 GM IH SCH ×2 (06:36→23:07)
--- NOTE | 2020-04-18 07:04 | Anesthesia-General Post-Op ---
General Patient Condition Mental Status/LOC: Same as Preop Cardiovascular: Satisfactory Nausea/Vomiting: Absent Respiratory: Satisfactory Pain: Controlled Complications: Absent Post Op Complications Complications None Follow Up Care/Instructions Patient Instructions None needed. Anesthesia/Patient Condition Patient Condition Patient is doing well, no complaints, stable vital signs, no apparent adverse anesthesia problems. No complications reported per nursing. D/C home per [facility] Criteria: Yes POLLY KILLIAN CRNA Apr 18, 2020 07:04
--- NOTE | 2020-04-18 08:18 | Anesthesia-General Post-Op ---
General Patient Condition Mental Status/LOC: Same as Preop Cardiovascular: Satisfactory Nausea/Vomiting: Absent Respiratory: Satisfactory Pain: Controlled Complications: Absent Post Op Complications Complications None Follow Up Care/Instructions Patient Instructions None needed. Anesthesia/Patient Condition Patient Condition Patient is doing well, no complaints, stable vital signs, no apparent adverse anesthesia problems. No complications reported per nursing. D/C home per [facility] Criteria: Yes JOYCE MCKEON CRNA Apr 18, 2020 08:18
[2020-04-18] MEDS: DULoxetine 30 MG (CYMBALTA) CAP PO SCH (09:41)
[2020-04-18] MEDS: buPROPion SR 100 MG (WELLBUTRIN SR) TAB PO SCH (09:41)
[2020-04-18] MEDS: FUROSEMIDE 40 MG (LASIX) TAB PO SCH ×2 (09:42→17:23)
[2020-04-18] MEDS: MEGESTROL 40 MG (MEGACE) TAB PO SCH ×2 (09:42→19:54)
[2020-04-18] MEDS: PANTOPRAZOLE 40 MG (PROTONIX) TAB PO SCH (09:42)
--- NOTE | 2020-04-18 09:59 | Progress Note ---
Standard Progress Note Progress Notes/Assess & Plan Date Seen by a Provider: Apr 18, 2020 Time Seen by a Provider: 07:40 Progress/Assessment & Plan Patient had dilation and curettage and IUD placement yesterday. Continues on megace bid. Bleeding is minimal. Await pathology. I can sign off surgically. And follow up once path is completed. May need MRI for staging if malignant, but that can be done as outpatient or from skilled. Had been having work up for diarrhea, but has had no loose stools in 2 days. Diarrhea likely due to EGD and liquid diet. she is seated on her bed after bathing with OT. Slightly winded but no other complains. 04/18/20 04/18/20 04/18/20 04/18/20 00:10 02:14 04:15 06:36 Temp 37.2 37.5 Pulse 99 93 Resp 20 20 B/P (MAP) 124/77 (93) 148/72 (97) Pulse Ox 98 95 97 97 O2 Delivery Nasal Cannula Nasal Cannula Nasal Cannula Nasal Cannula O2 Flow Rate 4.00 3.00 3.00 3.00 04/18/20 09:20 Pulse Ox 100 O2 Delivery Nasal Cannula O2 Flow Rate 3.00 04/18/20 00:00 Intake Total 540 ml Output Total 300 ml Balance 240 ml Laboratory Tests Test 04/18/20 06:00 Range/Units White Blood Count 12.3 H 4.3-11.0 10^3/uL Red Blood Count 2.97 L 3.80-5.11 10^6/uL Hemoglobin 7.7 L 11.5-16.0 g/dL Hematocrit 25 L 35-52 % Mean Corpuscular Volume 85 80-99 fL Mean Corpuscular Hemoglobin 26 25-34 pg Mean Corpuscular Hemoglobin Concent 31 L 32-36 g/dL Red Cell Distribution Width 18.7 H 10.0-14.5 % Platelet Count 180 130-400 10^3/uL Mean Platelet Volume 11.4 9.0-12.2 fL Sodium Level 140 135-145 MMOL/L Potassium Level 4.3 3.6-5.0 MMOL/L Chloride Level 108 H 98-107 MMOL/L Carbon Dioxide Level 26 21-32 MMOL/L Anion Gap 6 5-14 MMOL/L Blood Urea Nitrogen 9 7-18 MG/DL Creatinine 1.00 0.60-1.30 MG/DL Estimat Glomerular Filtration Rate 55 BUN/Creatinine Ratio 9 Glucose Level 122 H 70-105 MG/DL Calcium Level 7.8 L 8.5-10.1 MG/DL 1. Post menopausal bleeding/ abnormal uterine bleeding 2. anemia secondary to above with hypovolemia 3. atrial fib requiring anticoagulation Plan - continue Megace and IUD. Follow up for pathology and possible further staging/treatment. Focused Exam Respiratory: Chest Non Tender, Decreased Breath Sounds, Expiration (wheezes), Inspiration, Wheezing, Other (coarse throught the right lung llanes. ) Cardiovascular: Irregularly Irregular Skin: normal color, other (per RN the dressing on the right buttock was not present so she placed an additional dressing this morning. ) GILA PARKER DO Apr 18, 2020 09:59
--- NOTE | 2020-04-18 10:06 | Progress Note ---
Standard Progress Note Progress Notes/Assess & Plan Date Seen by a Provider: Apr 18, 2020 Time Seen by a Provider: 07:50 Progress/Assessment & Plan Patient had dilation and curettage and IUD placement yesterday. Continues on megace bid. Bleeding is minimal. Await pathology. I can sign off surgically. And follow up once path is completed. May need MRI for staging if malignant, but that can be done as outpatient or from skilled. Had been having work up for diarrhea, but has had no loose stools in 2 days. Diarrhea likely due to EGD and liquid diet. she is seated on her bed after bathing with OT. Slightly winded but no other complains. 04/18/20 04/18/20 04/18/20 04/18/20 00:10 02:14 04:15 06:36 Temp 37.2 37.5 Pulse 99 93 Resp 20 20 B/P (MAP) 124/77 (93) 148/72 (97) Pulse Ox 98 95 97 97 O2 Delivery Nasal Cannula Nasal Cannula Nasal Cannula Nasal Cannula O2 Flow Rate 4.00 3.00 3.00 3.00 04/18/20 09:20 Pulse Ox 100 O2 Delivery Nasal Cannula O2 Flow Rate 3.00 04/18/20 00:00 Intake Total 540 ml Output Total 300 ml Balance 240 ml Laboratory Tests Test 04/18/20 06:00 Range/Units White Blood Count 12.3 H 4.3-11.0 10^3/uL Red Blood Count 2.97 L 3.80-5.11 10^6/uL Hemoglobin 7.7 L 11.5-16.0 g/dL Hematocrit 25 L 35-52 % Mean Corpuscular Volume 85 80-99 fL Mean Corpuscular Hemoglobin 26 25-34 pg Mean Corpuscular Hemoglobin Concent 31 L 32-36 g/dL Red Cell Distribution Width 18.7 H 10.0-14.5 % Platelet Count 180 130-400 10^3/uL Mean Platelet Volume 11.4 9.0-12.2 fL Sodium Level 140 135-145 MMOL/L Potassium Level 4.3 3.6-5.0 MMOL/L Chloride Level 108 H 98-107 MMOL/L Carbon Dioxide Level 26 21-32 MMOL/L Anion Gap 6 5-14 MMOL/L Blood Urea Nitrogen 9 7-18 MG/DL Creatinine 1.00 0.60-1.30 MG/DL Estimat Glomerular Filtration Rate 55 BUN/Creatinine Ratio 9 Glucose Level 122 H 70-105 MG/DL Calcium Level 7.8 L 8.5-10.1 MG/DL 1. Post menopausal bleeding/ abnormal uterine bleeding 2. anemia secondary to above with hypovolemia 3. atrial fib requiring anticoagulation Plan - continue Megace and IUD. Follow up for pathology and possible further staging/treatment. Focused Exam Respiratory: Chest Non Tender, Crackles, Expiration, Inspiration, Rhonci (throughout right lung field), Wheezing (exp) Cardiovascular: Irregularly Irregular Skin: ulcerations (right buttock and upper thigh. RN placed dressing as the one placed after the OR had falling or been taken off. She has chronic changes in the inner thighs due to friction/rubbing. These are not dirty) GILA PARKER DO Apr 18, 2020 10:06
--- NOTE | 2020-04-18 10:13 | Physical Therapy Evaluation ---
PT Evaluation-General Medical Diagnosis Admission Date Apr 13, 2020 at 14:19 Medical Diagnosis: Anemia, SOB Onset Date: Apr 13, 2020 Therapy Diagnosis Therapy Diagnosis: debility Height/Weight Height (Feet): 5 Height (Inches): 5.00 Weight (Pounds): 332 Weight (Ounces): 0 Precautions Precautions/Isolations: Fall Prevention, Standard Precautions, Pressure Ulcer Weight Bear Status Right Lower Extremity: Right Full Weight Bearing Left Lower Extremity: Left Full Weight Bearing Referral Physician: Clarence Reason for Referral: Evaluation/Treatment Medical History Pertinent Medical History: Atrial Fib, Arthritis, CAD, COPD, GERD, Heart Failure, HTN, [place], OA, Smoking Additional Medical History former smoker, morbid obesity, (L) TKR, chronic anemia, chronic O2 dependence, KEVIN, obesity hypoventilation syndrome, chronic pain, incontinence, mood disorder/mental illness, alcoholic liver disease, jaundice Current History Pt admitted through ED on 04/13/20 due to SOB. Pt ambulated to BR without O2, became weak and SOB, pressed life alert button. On admission, Hgb 4.7. Found to have uterine bleeding. On 04/17/20, underwent hysteroscopy, D and C, placement of IUD. Found to have decubitus ulcer on (R) buttock, upper thigh. Reviewed History: Yes Social History Home: Single Level Current Living Status: Children Entry Into Home: Ramp Prior Prior Level of Function SCALE: Activities may be completed with or without assistive devices. 2-Slxhanbcgc-yxlubuv completes the activity by him/herself with no assistance from a helper. 5-Set-up or Clean-up Assistance-helper sets up or cleans up; patient completes activity. [place] assists only prior to or following the activity. 4-Supervision or Touching Assistance-helper provides verbal cues and/or touching/steadying and/or contact guard assistance as patient completes activity. Assistance may be provided throughout the activity or intermittently. 3-Partial/Moderate Assistance-helper does LESS THAN HALF the effort. [place] lifts, holds or supports trunk or limbs, but provides less than half the effort. 2-Substantial/Maximal Assistance-helper does MORE THAN HALF the effort. [place] lifts or holds trunk or limbs and provides more than half the effort. 2-Cykvuodhp-arcyeq does ALL the effort. Patient does none of the effort to complete the activity. Or, the assistance of 2 or more helpers is required for the patient to complete the activity. If activity was not attempted, code reason: 7-Patient Refused. 9-Not Applicable-not attempted and the patient did not perform the activity before the current illness, exacerbation or injury. 10-Not Attempted due to Environmental Limitations-(lack of equipment, weather restraints, etc.). 88-Not Attempted due to Medical Conditions or Safety Concerns. Bed Mobility: 9 Transfers (B,C,W/C): 6 Gait: 6 Stairs: 9 Wheelchair Mobility: 9 Indoor Mobility (Ambulation): Independent Stairs: Not Applicalbe Prior Devices Use: None Prior Device Use: Pt has walker, reports she does not utilize for household mobility. Pt reports that she sleeps in a recliner. Has a concentrator but not extended tubing; takes 3L O2 off to use the BR. States she is (I) with household ambulation. Son is caregiver. Has additional help on Thursday and to help with pericare and bathing. PT Evaluation-Current Subjective Pt in bed, agreeable. Denied pain. Pt/Family Goals Home ASHLEY Objective Patient Orientation: Person, Place, Time, Situation Attachments: SCD's, Oxygen, Enriquez Catheter ROM/Strength ROM Upper Extremities See OT ROM Lower Extremities Grossly WFL; limited by soft tissue approximation Strength Upper Extremities See OT Strength Lower Extremities Grossly 3/5 Integumentary/Posture Integumentary See nurses' notes. Reported decubitus ulcer on (R) buttock/upper thigh Bladder Incontinence: Enriquez Cath Posture Kyphotic Sensory Vision: Functional Hearing: Functional Transfers Roll Left to Right (QC): 4 Sit to Lying (QC): 5 Lying to Sitting/Side of Bed(Q: 4 Sit to Stand (QC): 4 Pt stood at FWW x 5' for pericare, nursing assessment and linen change. Pt leaning forearms on FWW but denies pain. Gait Does the Patient Walk?: No and Walking Goal IS indicated Mode of Locomotion: Walk Anticipated Mode of Locomotion: Walk Walk 10 feet (QC): 7 Walk 50 ft with 2 Turns(QC): 7 Walk 150 ft (QC): 7 Walking 10ft/uneven surface-QC: 7 Comments/Gait Description Pt stood at bedside, requested to return to sitting then supine after approximately 5' standing. Wheelchair Training Does the Pt Use a Wheelchair?: No Wheel 50 ft with 2 turns (QC): 9 Wheel 150 ft (QC): 9 Type of Wheelchair: N/A Stairs #of Steps: 9 1 Step (curb) (QC): 9 4 Steps (QC): 9 12 Steps (QC): 9 Balance Sitting Static: Normal Sitting Dynamic: Normal Standing Static: Good Standing Dynamic: Good Picking up an Object (QC): 9 Treatment Eval. Pt returned to bed with O2 and SCD's/heel protectors in situ, turned to (R) side for pressure relief, needs met. Assessment/Needs Pt would benefit from short term skilled PT to improve functional strength and activity tolerance to restore PLOF for safe return home with decreased caregiver burden. Rehab Potential: Fair PT Short Term Goals Short Term Goals Time Frame: Apr 25, 2020 Roll Left & Right: 6 Sit to lyin Lying to sitting on side of be: 6 Sit to stand: 6 PT Residential Goals Supply Officer Goals PT Residential Goals Time Frame: May 02, 2020 Roll Left & Right (QC): 6 Sit to Lying (QC): 6 Lying-Sitting on Side/Bed(QC): 6 Sit to Stand (QC): 6 Chair/Cny-ho-Uzkza Xfer(QC): 6 Toilet Transfer (QC): 6 Car Transfer (QC): 4 Does the Patient Walk: No and Walking Goal IS indicated Walk 10 feet (QC): 6 Walk 50ft with 2 Turns (QC): 6 Walk 150 ft (QC): 9 Walking 10ft on Uneven Surface: 9 1 Step (curb) (QC): 9 4 Steps (QC): 9 12 Steps (QC): 9 Picking up an Object (QC): 9 Does the Pt use WC or Scooter?: No Wheel 50 feet with 2 turns (QC: 9 Type: N/A Wheel 150 feet: 9 Type: N/A PT LTGs established to allow safe return home with decreased caregiver burden. PT Plan Problem List Problem List: Activity Tolerance, Functional Strength, Safety, Balance, Gait, Transfer, Bed Mobility Treatment/Plan Treatment Plan: Continue Plan of Care Treatment Plan: Bed Mobility, Education, Functional Activity Neri, Functional Strength, Gait, Safety, Therapeutic Exercise, Transfers Treatment Duration: May 02, 2020 Frequency: 6 times per week Estimated Hrs Per Day: .25 hour per day Patient and/or Family Agrees t: Yes Safety Risks/Education Teaching Recipient: Patient Teaching Methods: Discussion Response to Teaching: Verbalize Understanding, Reinforcement Needed Role of PT, importance of increasing activity OOB Time/GCodes Time In: 940 Time Out: 1005 Total Billed Treatment Time: 24 Total Billed Treatment 1, EVHIGH x 24' Co-eval with OT due to obesity, poor activity tolerance. PT addressing gross mo bility, LE, balance. OT addressing UE, ADLs. MARICRUZ TRONCOSO DPT Apr 18, 2020 10:13
--- NOTE | 2020-04-18 11:18 | Progress Note ---
LINDA CANALES III MED STUDENT 04/18/20 1118: Subjective Date Seen by a Provider: Apr 18, 2020 Time Seen by a Provider: 09:00 Subjective/Events-last exam Pt is a 69 yo female who presented to the hospital with symptomatic anemia 2/2 dysfunctional uterine bleeding s/p iud placement w/ D&C on 04/[address] Maynard. She states she is doing much better today though she does have some lower abdominal pain. States she has not noticed any bleeding. Has not had a BM for the last 2 days, so unsure whether she is still having diarrhea or not. Feels some fatigue and SOB which appears to be near baseline for her. Review of Systems General: Fatigue, Malaise HEENT: No Head Aches, No Eye Pain, No Ear Pain, No Dysphasia, No Sinus Congestion, No Post Nasal Drip, No Sore Throat Pulmonary: Dyspnea; No Cough, No Pleuritic Chest Pain Cardiovascular: No: Chest Pain, Palpitations, Orthopnea, Paroxysmal Noc. Dyspnea, Edema, Lt Headedness Gastrointestinal: Abdominal Pain; No: Nausea, Vomiting Genitourinary: Other (some pain, most likely from surgery) Neurological: No: Weakness, Numbness Objective Exam Last Set of Vital Signs Vital Signs Date Time Temp Pulse Resp B/P (MAP) Pulse Ox O2 Delivery O2 Flow Rate FiO2 04/18/20 10:06 98 Nasal Cannula 3.00 04/18/20 04:15 37.5 93 20 148/72 (97) Capillary Refill : Less Than 3 Seconds I&O Intake and Output 04/18/20 00:00 Intake Total 2190 ml Output Total 1095 ml Balance 1095 ml Intake Oral 2140 ml IV Total 50 ml Output Urine Total 1095 ml General: Alert, Oriented X3, Cooperative, No Acute Distress HEENT: Atraumatic, PERRLA Neck: Supple, No JVD, No Thyromegaly Lungs: Clear to Auscultation, Normal Air Movement Heart: Regular Rate, Normal S1, Normal S2, No Murmurs Abdomen: Normal Bowel Sounds, Soft Extremities: No Clubbing, Normal Pulses, Other Skin: Other (has ulcer that is being managed by surgery) Psych/Mental Status: Mental Status NL, Mood NL Results Lab Laboratory Tests 04/18/20 06:00 Laboratory Tests Test 04/17/20 03:45 04/18/20 06:00 Range/Units White Blood Count 9.4 12.3 H 4.3-11.0 10^3/uL Red Blood Count 2.75 L 2.97 L 3.80-5.11 10^6/uL Hemoglobin 6.9 *L 7.7 L 11.5-16.0 g/dL Hematocrit 23 L 25 L 35-52 % Mean Corpuscular Volume 85 85 80-99 fL Mean Corpuscular Hemoglobin 25 26 25-34 pg Mean Corpuscular Hemoglobin Concent 30 L 31 L 32-36 g/dL Red Cell Distribution Width 19.4 H 18.7 H 10.0-14.5 % Platelet Count 176 180 130-400 10^3/uL Mean Platelet Volume 10.6 11.4 9.0-12.2 fL Sodium Level 142 140 135-145 MMOL/L Potassium Level 3.5 L 4.3 3.6-5.0 MMOL/L Chloride Level 109 H 108 H 98-107 MMOL/L Carbon Dioxide Level 26 26 21-32 MMOL/L Anion Gap 7 6 5-14 MMOL/L Blood Urea Nitrogen 6 L 9 7-18 MG/DL Creatinine 0.76 1.00 0.60-1.30 MG/DL Estimat Glomerular Filtration Rate > 60 55 BUN/Creatinine Ratio 8 9 Glucose Level 109 H 122 H 70-105 MG/DL Calcium Level 7.9 L 7.8 L 8.5-10.1 MG/DL Microbiology 04/16/20 C. difficile GD Antigen & Toxins - Final, Complete Meds Home Meds Active Iprat-Albut 0.5-3(2.5) mg/3 ml (Ipratropium/Albuterol Sulfate) 3 Ml Ampul.neb 3 Ml INH RTQ4HR Reported Metoprolol Tartrate 25 Mg Tablet 25 Mg PO BID Lisinopril 20 Mg Tablet 20 Mg PO DAILY Potassium Chloride 10 Meq Capsule.er 10 Meq PO DAILY Eliquis (Apixaban) 5 Mg Tablet 5 Mg PO BID Advair Hfa 115-21 Mcg Inhaler (Fluticasone/Salmeterol) 12 Gm Hfa.aer.ad 2 Puff IH BID Furosemide 40 Mg Tablet 40 Mg PO BID Bupropion HCl Sr (Bupropion HCl) 100 Mg Tablet.er 200 Mg PO DAILY TAKES 2 (100MG) TABS Omeprazole 20 Mg Capsule.dr 20 Mg PO DAILY Aripiprazole 2 Mg Tablet 2 Mg PO DAILY Morphine Sulfate ER (Morphine Sulfate) 15 Mg Tablet.er 15 Mg PO Q12H Oxycodone-Acetaminophen 5-325 (Oxycodone HCl/Acetaminophen) 1 Each Tablet 1 Tab PO BID PRN Duloxetine HCl 60 Mg Capsule.dr 120 Mg PO DAILY TAKES 2 (60MG) CAPSULES Trazodone HCl 50 Mg Tablet 50-100 Mg PO HS Simvastatin 10 Mg Tablet 10 Mg PO HS Clonazepam 1 Mg Tablet 1 Mg PO DAILY Procedures Procedures Had IUD placement w/ D&C by Dr Maynard on 04/17. Awaiting tissue results from D&C. will most likely be outpatient management when results return Assessment/Plan Assessment/Plan Assess & Plan/Chief Complaint Pt is a 69 yo female who presented to the hospital with symptomatic anemia 2/2 dysfunctional uterine bleeding Dysfunctional uterine bleeding w/ anemia Heterogenic and thickened endometrium on transvaginal US Diarrhea (no BM for 2 days) decubitus ulcer Plan: IUD placed to help w/ uterine bleeding Another unit of blood given in the OR on 04/17, Hgb today was 7.7. continue to monitor with cbc Uterine tissue samples taken for biopsy awaiting results Decubitus ulcer being treated with bandages and frequent turns Plan for PT/OT to assess pts mobility and transferring capabilities Pt was agreeable to half-way after discharge when discussing this morning Final Diagnosis Symptomatic anemia 2/2 dysfunctional uterine bleeding Diagnosis/Problems Diagnosis/Problems (1) DUB (dysfunctional uterine bleeding) Status: Chronic Assessment & Plan: IUD placed on 04/17 along w/ D&C for tissue sample looking for endometrial cancer (2) Anemia Status: Chronic Assessment & Plan: hgb 7.7 today, has been given 4units of blood since ad mission Qualifiers: Qualified Codes: D64.9 - Anemia, unspecified (3) Postmenopausal bleeding Status: Chronic (4) History of atrial fibrillation Status: Chronic Assessment & Plan: not currently on anticoagulation due to concerns for rebleeding at this time (5) Chronic pain Status: Chronic (6) Melena Status: Acute (7) Mood disorder Status: Chronic Clinical Quality Measures DVT/VTE Risk/Contraindication: Risk Factor Score Per Nursin RFS Level Per Nursing on Admit: 4+=Very High Contraindications-Pharm: Other *list below* Other: KESHA Tan MD 04/18/20 1149: Supervisory-Addendum Brief Verification & Attestation Participated in pt care: history, MDM, physical Personally performed: exam, history Care discussed with: Medical Student Procedures: n/a I personally saw and examined this patient today and did my own history and exa m. Later, patient declined SNF and wanted to go home with home health, stating she would go to a [facility] if she couldn't do well enough at home. Hogshead Stripper placing report. LINDA CANALES III MED STUDENT Apr 18, 2020 11:18 KESHA REINOSO MD Apr 18, 2020 11:49
--- NOTE | 2020-04-18 12:19 | Diagnostic Imaging Report ---
INDICATION: Crackles and fluid overload. Time of exam 11:21 AM Correlation is made with prior chest from 04/14/2020. Heart size is stable. Right chest wall port has tip overlying SVC. Left subclavian line has tip over the left innominate vein. Lungs are clear. There are no infiltrates. There is no effusion or pneumothorax. IMPRESSION: No acute cardiopulmonary process is detected. Dictated by: Dictated on workstation # [id number]
--- NOTE | 2020-04-18 13:17 | Progress Note ---
Standard Progress Note Progress Notes/Assess & Plan Date Seen by a Provider: Apr 18, 2020 Time Seen by a Provider: 16:30 Progress/Assessment & Plan Addendum - spoke with Dr. Mon. 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 Ordered MRI for staging, but patient is apparently just above the weight limit. So ordered CT abdomen and pelvis. There does not seem to be any lymphadenopathy. Will plan to DC and then refer to cyber systems engineer oncology for further management. Plan to see her back in a few months for monitoring the IUD and megace or sooner if she cannot see a cyber systems engineer onc. She has told me she has transportation. Encouraged smoking cessation. GILA PARKER DO Apr 18, 2020 13:17
[2020-04-18] MEDS ORDERED: IOHEXOL 350 MG/ML 100 ML (OMNIPAQUE 350) VIAL IV ONE (13:45)
[2020-04-18] MEDS ORDERED: CATHETER FLUSH 10 ML SYR IV PRN (13:45)
[2020-04-18] MEDS ORDERED: NS 100 ML (IVPB) BAG IV ONE (13:45)
[2020-04-18] MEDS ORDERED: HOLD METFORMIN - RECEIVED CONTRAST 20 ML VIAL IV SCH (13:45)
--- NOTE | 2020-04-18 14:26 | Occupational Therapy Eval ---
OT Evaluation-General/PLF Medical Diagnosis Admission Date Apr 13, 2020 at 14:19 Medical Diagnosis: Anemia, SOB Onset Date: Apr 13, 2020 Therapy Diagnosis Therapy Diagnosis: Debility Height/Weight Height (Feet): 5 Height (Inches): 5.00 Weight (Pounds): 332 Weight (Ounces): 0 Precautions Precautions/Isolations: Fall Prevention, Standard Precautions, Pressure Ulcer Weight Bear Status Weight Bearing Restriction: Weight Bearing/Tolerated Referral Physician: Clarence Referral Reason: Activity Tolerance, Self Care, Evaluation/Treatment, Strengthening/ROM Medical History Pertinent Medical History: Atrial Fib, Arthritis, CAD, COPD, GERD, Heart Failu re, HTN, [place], OA, Smoking Additional Medical History Apnea, anemia Current History Pt. reports that she took oxygen off at home to use bathroom. She became very SOA while using bathroom, and unable to get up. She was unable to get a hold of her son, and so pushed her life alert. Upon arrival. pt's hemoglobin low and found to be anemic. Pt. underwent IUD placement due to uterine bleeding. Reviewed History: Yes Social History Home: Single Level Current Living Status: Children (Son who is paid caregiver.) Entry Into Home: Ramp ADL-Prior Level of Function SCALE: Activities may be completed with or without assistive devices. 1-Nzwtqzjhjq-ujyxkgs completes the activity by him/herself with no assistance from a helper. 5-Set-up or Clean-up Assistance-helper sets up or cleans up; patient completes activity. [place] assists only prior to or following the activity. 4-Supervision or Touching Assistance-helper provides verbal cues and/or touching/steadying and/or contact guard assistance as patient completes activity. Assistance may be provided throughout the activity or intermittently. 3-Partial/Moderate Assistance-helper does LESS THAN HALF the effort. [place] lifts, holds or supports trunk or limbs, but provides less than half the effort. 2-Substantial/Maximal Assistance-helper does MORE THAN HALF the effort. [place] lifts or holds trunk or limbs and provides more than half the effort. 3-Ujremjpwq-glulyx does ALL the effort. Patient does none of the effort to c omplete the activity. Or, the assistance of 2 or more helpers is required for the patient to complete the activity. If activity was not attempted, code reason: 7-Patient Refused. 9-Not Applicable-not attempted and the patient did not perform the activity before the current illness, exacerbation or injury. 10-Not Attempted due to Environmental Limitations-(lack of equipment, weather restraints, etc.). 88-Not Attempted due to Medical Conditions or Safety Concerns. ADL PLOF Comments Pt. states that her son is a caregiver, but does not help her bathe or complete talon care. She reports that she has a woman that comes to help her on Tuesdays and for bathing/dressing. She reports that she has not been able to get into her shower for awhile due to not being able to step over tub. OT questions pt. about whether or not she has been able to bathe since then, and pt. is inconsistent with answers. She does say that she has a walker and wheelchair, and uses them both, "sometimes." Pt. reports, "I have been down awhile." Self Care: Needed Some Help Functional Cognition: Unknown DME/Equipment: Tub/Shower DME/Equipment Comments Pt. has walker and wheelchair. OT Current Status Subjective Pt. states that she is sore with movement. Does not indicate where or pain level. Appearance Pt. in bed. Agrees to work with therapy. Mental Status/Objective Patient Orientation: Person, Place Current Upper Extremity ROM WFL ADL-Treatment On/Off Footwear (QC): 2 Toileting Hygiene (QC): 1 Other Treatments Pt. agrees to work with therapy. OT/PT completed co-treatment due to need of skilled assistance x 2. Pt. transfers supine-sit with mod assist. Walker provided. Pt. unable to don her own slipper socks, and so OT did this for her. OT assessed ADL skills while PT assessed mobility. Pt. stood at walker with min assist, and nursing assessed wound on bottom. Pt. able to take several little steps toward HOB with walker, but is unable to stand very long. Sat back down. OT brushed pt's hair while she is able to maintain sitting balance EOB. Required max x 2 to be pulled up in bed. Pt. able to assist with rolling for pillows to be placed for positioning. All needs met. Education OT Patient Education: Correct positioning, Modified ADL techniques, Progress toward Goal/Update tx plan, Purpose of tx/functional activities, Reviewed precautions, Rehab process, Transfer techniques Teaching Recipient: Patient Teaching Methods: Demonstration, Discussion Response to Teaching: Verbalize Understanding, Return Demonstration, Reinforcement Needed OT Short Term Goals Short Term Goals Time Frame: Apr 25, 2020 Eatin Oral hygiene: 4 Toileting hygiene: 3 OT Nut Tightener Goals Nut Tightener Goals Time Frame: May 02, 2020 Eating (QC): 6 Oral Hygiene (QC): 5 Toileting Hygiene (QC): 6 Upper Body Dressing (QC): 4 Lower Body Dressing (QC): 3 (Min assist with AE) On/Off Footwear (QC): 3 Additional Goals: 1-Demonstrate ADL Tasks, 2-Verbalize Understanding, 3-ImproveStrength/Neri 1=Demonstrate adherence to instructed precautions during ADL tasks. 2=Patient will verbalize/demonstrate understanding of assistive devices/modifications for ADL. 3=Patient will improve strength/tolerance for activity to enable patient to perform ADL's. Pt. verbalizes having caregiver shoe parts molder for ADLs. Will make goals to increase independence with AE, but goals will not reflect full independence. OT Education/Plan Problem List/Assessment Assessment: Decreased Activ Tolerance, Impaired I ADL's, Impaired Self-Care Skills Discharge Recommendations Plan/Recommendations: Continue POC Therapy Discharge Recommendati: Scheduled Assistance, Bath Aide Treatment Plan/Plan of Care Treatment,Training & Education: Yes Patient would benefit from OT for education, treatment and training to promote independence in ADL's, mobility, safety and/or upper extremity function for ADL's. Plan of Care: ADL Retraining, Functional Mobility, UE Funct Exercise/Act Treatment Duration: May 02, 2020 Frequency: 5 times per week Estimated Hrs Per Day: .5 hour per day Agreement: Yes Rehab Potential: Fair Time/GCodes Start Time: 09:41 Stop Time: 10:05 Total Time Billed (hr/min): 24 Billed Treatment Time 1, EVH x 10minutes, ADL x 14minutes Co-treatment with PT. Please see above note for designated roles. LUBA BENAVIDEZ OT Apr 18, 2020 14:26
--- NOTE | 2020-04-18 14:56 | Diagnostic Imaging Report ---
PROCEDURE: CT abdomen and pelvis with and without contrast. TECHNIQUE: Precontrast acquisitions were acquired through the abdomen and pelvis. Multiple contiguous axial images were obtained through the abdomen and pelvis after the administration of intravenous contrast. Auto Exposure Controls were utilized during the CT exam to meet ALARA standards for radiation dose reduction. INDICATION: Pelvic pain. History of uterine cancer. COMPARISON: None. FINDINGS: Included portions of the lung bases show small bibasilar effusions and associated mild bibasilar atelectasis. CT ABDOMEN: There is colonic diverticulosis, but no CT evidence acute diverticulitis. There is focal colonic wall thickening involving the sigmoid colon. Sigmoid colonic wall measures 1.3 cm in thickness (image 39, series 604). Appendix is somewhat prominent in size and it measures 8 mm in diameter. There is however no periappendiceal or pericecal inflammation to suggest acute appendicitis. Small bowel loops are nondistended. Benign left renal cyst is noted. Otherwise, kidneys, adrenal glands, spleen, pancreas, and liver have a normal CT appearance. There is no loculated fluid collection, free fluid or free air within the abdomen. No abnormal mesenteric or retroperitoneal adenopathy is seen. There is advanced diffuse calcified aortic and arterial atherosclerosis. Osseous structures show no acute abnormalities. Fat-containing periumbilical hernia is identified. Ostium measures 2.[address] PELVIS: There is trace free fluid within the pelvis. There is no loculated fluid collection or free air. Enriquez catheter is present within the urinary bladder. Urinary bladder is decompressed. No abnormal pelvic adenopathy is seen. Osseous structures show no acute abnormalities. IMPRESSION: 1. Thickened appearance to the wall of the sigmoid colon. This may be artifactual and related to incomplete distention. Findings could be a sequela of chronic diverticulitis or other infectious or inflammatory colitis. Colonic malignancy may have a similar appearance. Correlation with colonoscopy is recommended when clinically appropriate. 2. Small amount of pelvic free fluid. 3. Small bibasilar effusions. Dictated by: Dictated on workstation # [id number]
[2020-04-18] MEDS: clonazePAM 1 MG (KlonoPIN) TAB PO SCH (19:54)
[2020-04-18] MEDS: SIMvastatin 10 MG (ZOCOR) TAB PO SCH (19:54)
[2020-04-18] MEDS: traZODone 50 MG (DESYREL) TAB PO SCH (20:04)
[2020-04-19] MEDS: RT-ALBUTEROL INHALER HFA (VENTOLIN HFA) 18 GM IH SCH ×3 (02:48→11:10)
[2020-04-19 02:54] VITALS: BP 114/53
[2020-04-19] MEDS: HYDROcodone/APAP 5 MG/325 MG (LORTAB) TAB PO PRN (02:58)
[2020-04-19 05:53] LABS: HEMOGLOBIN 7.9 g/dL (11.5-16.0)
[2020-04-19 05:55] LABS: CHLORIDE 105 MMOL/L (98-107); POTASSIUM 3.9 MMOL/L (3.6-5.0); SODIUM 139 MMOL/L (135-145)
[2020-04-19 05:56] LABS: CALCIUM 7.7 MG/DL (8.5-10.1)
[2020-04-19 05:57] LABS: GLUCOSE 108 MG/DL (70-105)
[2020-04-19 05:58] LABS: CARBON DIOXIDE 21 MMOL/L (21-32)
[2020-04-19 06:01] LABS: BUN/CREATININE RATIO 15; CREATININE SERUM 0.89 MG/DL (0.60-1.30); GFR ESTIMATED > 60
[2020-04-19] MEDS: ADVAIR HFA 115/21 MCG INHALER 8 GM IH SCH (07:19)
[2020-04-19] MEDS: MEGESTROL 40 MG (MEGACE) TAB PO SCH (07:50)
[2020-04-19] MEDS: FUROSEMIDE 40 MG (LASIX) TAB PO SCH (07:50)
[2020-04-19] MEDS: PANTOPRAZOLE 40 MG (PROTONIX) TAB PO SCH (07:51)
[2020-04-19] MEDS: buPROPion SR 100 MG (WELLBUTRIN SR) TAB PO SCH (07:51)
[2020-04-19] MEDS: DULoxetine 30 MG (CYMBALTA) CAP PO SCH (07:51)
[2020-04-19 07:55] VITALS: BP 108/57
--- NOTE | 2020-04-19 09:24 | Discharge Inst-Women's Service ---
Discharge Inst-Women's Serv Consults/Follow Up Additional Follow Up: Yes (follow up with Dr. Parker in 2-[address] Parker will make arrangements for gynecologic oncology referral for endometrial cancer. ) GILA PARKER DO Apr 19, 2020 09:24
--- NOTE | 2020-04-19 09:34 | Discharge Summary ---
Diagnosis/Chief Complaint Date of Admission Apr 13, 2020 at 14:19 Date of Discharge Discharge Summary-Simple/Stand Consultations Discharge Physical Examination Allergies: Coded Allergies: No Known Drug Allergies (Verified , 11/20/08) Vitals & I&Os Vital Sign - Last 12Hours Date Time Temp Pulse Resp B/P (MAP) Pulse Ox O2 Delivery O2 Flow Rate FiO2 04/19/20 08:35 98 Nasal Cannula 3.00 04/19/20 07:55 36.7 107 20 108/57 (74) Intake and Output 04/19/20 00:00 Intake Total 1230 ml Output Total 1600 ml Balance -370 ml Hospital Course See final discharge diagnosis. Discharge Instructions to patient/family Please see electronic discharge instructions given to patient. Discharge Medications Reviewed and agree with Discharge Medication list on patient's Discharge Instruction sheet Clinical Quality Measures DVT/VTE Risk/Contraindication: Risk Factor Score Per Nursin RFS Level Per Nursing on Admit: 4+=Very High Contraindications-Pharm: Other *list below* Other: MARTHA Qureshi MD Apr 19, 2020 09:34
[2020-04-19] MEDS ORDERED: LISI-552 PO (09:38)
[2020-04-19] MEDS ORDERED: APIX5TAB PO (09:38)
[2020-04-19] MEDS ORDERED: METO-333 PO (09:38)
[2020-04-19] MEDS ORDERED: MEGE40TA5 PO (09:38)
--- NOTE | 2020-04-19 09:43 | Discharge Summary ---
Discharge Summary Reconcile Patient Problems Problems Reviewed?: Yes Instructions for Patient Via [employer], Assessment/Instructions Severe Debility and Safety training Physician to follow Patient: Gault Discharge Diet for Home: Cardiac Diet Hospital Course Date of Admission: Apr 13, 2020 at 14:19 Admission Diagnosis : Family Physician/Provider: Mickie Maza Aprn Date of Discharge: 04/19/20 Discharge Diagnosis: Severe symptomatic anemia Dysfunctional uterine bleeding Morbid Obesity COPD KEVIN HTN Atrial fibrillation on OAC Severe Debility Adenocarcinoma of the uterine lining Hospital Course: 69 yo F that came to ER with severe anemia from dysfunctional uterine bleeding. Patient was seen by Dr Maynard and had D&C with IUD placement. Pathology revealed adenocarcinoma and MRI was recommended. Patient was unable to have this completed due to weight restrictions and will need outpatient f.u. Patient received 4 units pRBCs during admission. Currently holding anti coagulation and HTN medications until seen in the office. Labs and Pending Lab Test: Laboratory Tests 04/19/20 05:25: White Blood Count 11.0, Red Blood Count 2.98L, Hemoglobin 7.9L, Hematocrit 25L, Mean Corpuscular Volume 84, Mean Corpuscular Hemoglobin 27, Mean Corpuscular Hemoglobin Concent 32, Red Cell Distribution Width 18.9H, Platelet Count 177, Mean Platelet Volume 12.0, Sodium Level 139, Potassium Level 3.9, Chloride Level 105, Carbon Dioxide Level 21, Anion Gap 13, Blood Urea Nitrogen 13, Creatinine 0.89, Estimat Glomerular Filtration Rate > 60, BUN/Creatinine Ratio 15, Glucose Level 108H, Calcium Level 7.7L Microbiology 04/16/20 C. difficile GDH Antigen & Toxins - Final, Complete Home Meds Active Megestrol Acetate 40 Mg Tablet 80 Mg PO BID Metoprolol Tartrate 25 Mg Tablet 25 Mg PO BID 30 Days Hold until f.u Lisinopril 20 Mg Tablet 20 Mg PO DAILY 30 Days Hold until f/u Eliquis (Apixaban) 5 Mg Tablet 5 Mg PO BID 30 Days Hold until F/u Iprat-Albut 0.5-3(2.5) mg/3 ml (Ipratropium/Albuterol Sulfate) 3 Ml Ampul.neb 3 Ml INH RTQ4HR Reported Potassium Chloride 10 Meq Capsule.er 10 Meq PO DAILY Advair Hfa 115-21 Mcg Inhaler (Fluticasone/Salmeterol) 12 Gm Hfa.aer.ad 2 Puff IH BID Furosemide 40 Mg Tablet 40 Mg PO BID Bupropion HCl Sr (Bupropion HCl) 100 Mg Tablet.er 200 Mg PO DAILY TAKES 2 (100MG) TABS Omeprazole 20 Mg Capsule.dr 20 Mg PO DAILY Aripiprazole 2 Mg Tablet 2 Mg PO DAILY Morphine Sulfate ER (Morphine Sulfate) 15 Mg Tablet.er 15 Mg PO Q12H Oxycodone-Acetaminophen 5-325 (Oxycodone HCl/Acetaminophen) 1 Each Tablet 1 Tab PO BID PRN Duloxetine HCl 60 Mg Capsule.dr 120 Mg PO DAILY TAKES 2 (60MG) CAPSULES Trazodone HCl 50 Mg Tablet 50-100 Mg PO HS Simvastatin 10 Mg Tablet 10 Mg PO HS Clonazepam 1 Mg Tablet 1 Mg PO DAILY Patient Allergies: Coded Allergies: No Known Drug Allergies (Verified , 11/20/08) Height (Feet): 5 Height (Inches): 5.00 Weight (Pounds): 332 Weight (Ounces): 0 New Medications: Megestrol Acetate (Megestrol Acetate) 40 Mg Tablet 80 MG PO BID, #60 TAB Changed Medications: Apixaban (Eliquis) 5 Mg Tablet 5 MG PO BID for 30 Days, TAB (Medication details modified) Hold until F/u Lisinopril (Lisinopril) 20 Mg Tablet 20 MG PO DAILY for 30 Days, TAB (Medication details modified) Hold until f/u Metoprolol Tartrate (Metoprolol Tartrate) 25 Mg Tablet 25 MG PO BID for 30 Days, TAB (Medication details modified) Hold until f.u Continued Medications: Aripiprazole (Aripiprazole) 2 Mg Tablet 2 MG PO DAILY, TAB Bupropion HCl (Bupropion HCl Sr) 100 Mg Tablet.er 200 MG PO DAILY, TAB TAKES 2 (100MG) TABS Clonazepam (Clonazepam) 1 Mg Tablet 1 MG PO DAILY, TAB Duloxetine HCl (Duloxetine HCl) 60 Mg Capsule.dr 120 MG PO DAILY, CAP TAKES 2 (60MG) CAPSULES Fluticasone/Salmeterol (Advair Hfa 115-21 Mcg Inhaler) 12 Gm Hfa.aer.ad 2 PUFF IH BID, GM Furosemide (Furosemide) 40 Mg Tablet 40 MG PO BID, TAB Ipratropium/Albuterol Sulfate (Iprat-Albut 0.5-3(2.5) mg/3 ml) 3 Ml Ampul.neb 3 ML INH RTQ4HR, #90 INHALER Morphine Sulfate (Morphine Sulfate ER) 15 Mg Tablet.er 15 MG PO Q12H, TAB Omeprazole (Omeprazole) 20 Mg Capsule.dr 20 MG PO DAILY, CAP Oxycodone HCl/Acetaminophen (Oxycodone-Acetaminophen 5-325) 1 Each Tablet 1 TAB PO BID PRN for PAIN-MODERATE (5-7), TAB Potassium Chloride (Potassium Chloride) 10 Meq Capsule.er 10 MEQ PO DAILY, CAP Simvastatin (Simvastatin) 10 Mg Tablet 10 MG PO HS, TAB Trazodone HCl (Trazodone HCl) 50 Mg Tablet 50-100 MG PO HS, TAB Home Health Need/Face to Face Date of Face to Face: Apr 19, 2020 Clinical Findings: Generalized weakness and fatigue, Instability, Shortness of breath, Unsteady gait I have seen Pt [id number]: Yes Discharged To: Home Diagnosis/Conditions: See Above Patient is Homebound due to: Sea fall risk due to instabilty, Muscle weakness, Shortness of breath/distress Homebound Status Due to the above stated illness, injury or surgical procedure (medical condition or diagnosis) and associated clinical findings, the patient is homebound because of his/her inability to leave home except with aid of a supportive device and/or person AND leaving the home requires a considerable and taxing effort or is medically contraindicated. Pt req the following assistanc: Walker Home Health Nursing Orders Home Health Services Order: Nursing Services, Instructor Industrial Design-Evaluate & Treat, Physical Therapy-Evaluate & Treat Home Health Infusion Therapy Line Start Date: Apr 13, 2020 Therapy Orders Therapy Orders: OT (must have SN or PT order), PT to assess for OT Therapy Specific Orders: Eval assistive deivces, Teach enviro modifications/safety, Gait training, Increase strength/endurance Certify Stmt I certify that this patient is under my care and that I, a nurse practitioner or a physician; a emergency room physician assistant working with me, had a face to face encounter that - meets the physician face to face encounter requirements with this patient as dated. Discharge Physical Exam General: Alert, Oriented X3, Other (Morbid obesity) Lungs: Clear to Auscultation Heart: Regular Rate, No Murmurs Abdomen: Soft Psych/Mental Status: Mental Status NL, Mood NL MARTHA MAY MD Apr 19, 2020 09:43
--- NOTE | 2020-04-19 10:22 | Physical Therapy Daily Note ---
PT Daily Note-Current Subjective Patient agrees to PT. Patient reports she is going home today. Mental Status Patient Orientation: Normal For Age Attachments: Oxygen, Enriquez Catheter Transfers SCALE: Activities may be completed with or without assistive devices. 6-Ajvotdbktj-fksseqp completes the activity by him/herself with no assistance from a helper. 5-Set-up or Clean-up Assistance-helper sets up or cleans up; patient completes activity. Mccune assists only prior to or following the activity. 4-Supervision or Touching Assistance-helper provides verbal cues and/or touching/steadying and/or contact guard assistance as patient completes activity. Assistance may be provided throughout the activity or intermittently. 3-Partial/Moderate Assistance-helper does LESS THAN HALF the effort. Mccune lifts, holds or supports trunk or limbs, but provides less than half the effort. 2-Substantial/Maximal Assistance-helper does MORE THAN HALF the effort. Mccune lifts or holds trunk or limbs and provides more than half the effort. 8-Fpdptrjkv-hdixfh does ALL the effort. Patient does none of the effort to complete the activity. Or, the assistance of 2 or more helpers is required for the patient to complete the activity. If activity was not attempted, code reason: 7-Patient Refused. 9-Not Applicable-not attempted and the patient did not perform the activity before the current illness, exacerbation or injury. 10-Not Attempted due to Environmental Limitations-(lack of equipment, weather restraints, etc.). 88-Not Attempted due to Medical Conditions or Safety Concerns. Sit to Lying (QC): 5 Lying to Sitting/Side of Bed(Q: 5 Sit to Stand (QC): 5 Weight Bearing Right Lower Extremity: Right Full Weight Bearing Left Lower Extremity: Left Full Weight Bearing Gait Training Does the Patient Walk?: Yes Distance: 15' x 2 Walk 10 feet (QC): 5 Gait Assistive Device: FWW Assessment Patient much improved with gross motor skills. PT Short Term Goals Short Term Goals Time Frame: Apr 25, 2020 Roll Left & Right: 6 Sit to lyin Lying to sitting on side of be: 6 Sit to stand: 6 PT Custodial Goals Custodial Goals PT Custodial Goals Time Frame: May 02, 2020 Roll Left & Right (QC): 6 Sit to Lying (QC): 6 Lying-Sitting on Side/Bed(QC): 6 Sit to Stand (QC): 6 Chair/Syx-ds-Wewwe Xfer(QC): 6 Toilet Transfer (QC): 6 Car Transfer (QC): 4 Does the Patient Walk: No and Walking Goal IS indicated Walk 10 feet (QC): 6 Walk 50ft with 2 Turns (QC): 6 Walk 150 ft (QC): 9 Walking 10ft on Uneven Surface: 9 1 Step (curb) (QC): 9 4 Steps (QC): 9 12 Steps (QC): 9 Picking up an Object (QC): 9 Does the Pt use WC or Scooter?: No Wheel 50 feet with 2 turns (QC: 9 Type: N/A Wheel 150 feet: 9 Type: N/A PT Plan Treatment/Plan Treatment Plan: Continue Plan of Care Treatment Plan: Bed Mobility, Education, Functional Activity Neri, Functional Strength, Gait, Safety, Therapeutic Exercise, Transfers Treatment Duration: May 02, 2020 Frequency: 6 times per week Estimated Hrs Per Day: .25 hour per day Patient and/or Family Agrees t: Yes Time/GCodes Time In: 950 Time Out: 1001 Total Billed Treatment Time: 11 Total Billed Treatment 1 visit FA 11 min SUSANNE TORRES PT Apr 19, 2020 10:22
== END 2020-04-19 12:25 | disposition home health service (06) | DRG 744 ==
LOC: ER FS 13:14 → EDUNIT# 13:14 → ICU 14:19 → WS 04-15 12:10
PROVIDERS: ADMIT Internal Medicine; ATTEND Family Medicine
PROC: 0UB97ZX Excision of Uterus, Via Natural or Artificial Opening, Diagnostic (ICD-10-PCS; 2020-04-15)
PROC: 0DB48ZX Excision of Esophagogastric Junction, Via Natural or Artificial Opening Endoscopic, Diagnostic (ICD-10-PCS; 2020-04-15)
PROC: 0DB78ZX Excision of Stomach, Pylorus, Via Natural or Artificial Opening Endoscopic, Diagnostic (ICD-10-PCS; 2020-04-15)
PROC: 0UDB8ZX Extraction of Endometrium, Via Natural or Artificial Opening Endoscopic, Diagnostic (ICD-10-PCS; principal; 2020-04-17 08:33)
DX: C54.1 Malignant neoplasm of endometrium (principal); K92.1 Melena; I48.92 Unspecified atrial flutter; E66.2 Morbid (severe) obesity with alveolar hypoventilation; Z68.43 Body mass index [BMI] 50.0-59.9, adult; D50.0 Iron deficiency anemia secondary to blood loss (chronic); E86.1 Hypovolemia; K21.9 Gastro-esophageal reflux disease without esophagitis; K44.9 Diaphragmatic hernia without obstruction or gangrene; Z87.11 Personal history of peptic ulcer disease; I95.9 Hypotension, unspecified; F03.90 Unspecified dementia, unspecified severity, without behavioral disturbance, psychotic disturbance, mood disturbance, and anxiety; K21.00 Gastro-esophageal reflux disease with esophagitis, without bleeding; K29.70 Gastritis, unspecified, without bleeding; L89.152 Pressure ulcer of sacral region, stage 2; L89.892 Pressure ulcer of other site, stage 2; R19.7 Diarrhea, unspecified; I10 Essential (primary) hypertension; I25.10 Atherosclerotic heart disease of native coronary artery without angina pectoris; Z99.81 Dependence on supplemental oxygen; F17.210 Nicotine dependence, cigarettes, uncomplicated; I48.91 Unspecified atrial fibrillation; R32 Unspecified urinary incontinence; F32.9 Major depressive disorder, single episode, unspecified; F39 Unspecified mood [affective] disorder; M19.91 Primary osteoarthritis, unspecified site; I25.2 Old myocardial infarction; Z20.822 Contact with and (suspected) exposure to COVID-19; Z23 Encounter for immunization; Z96.652 Presence of left artificial knee joint; Z79.2 Long term (current) use of antibiotics; Z79.02 Long term (current) use of antithrombotics/antiplatelets; Z79.891 Long term (current) use of opiate analgesic
CPT/HCPCS: 36415; 51702; 71045; 74178; 76830; 76856; 80048; 80053; 82962; 83735; 84100; 85014; 85018; 85025; 85027; 86141; 86850; 86900; 86901; 86920; 87324; 87449; 87635; 88305; 90686; 93005; 94640; 94760

== ENCOUNTER 2020-09-19 10:00 | Emergency (ER) | payer MEDICARE, MEDICAID ==
[~2020-09-19] VITALS: Ht 165 cm; Wt 154.0 kg
[~2020-09-19 10:00] MED LIST changes: -LISI-552 PO; +LISI20TA26 PO; +MEGE40TA5 PO; -OXYC-471 PO; +OXYC1TAB11 PO
[2020-09-19 10:13] VITALS: BP 111/64
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
== END 2020-09-19 10:37 | disposition home or self-care (01) ==
LOC: EDUNIT# 10:00 → ER FS 10:01
DX: T20.24XA Burn of second degree of nose (septum), initial encounter (principal); T20.22XA Burn of second degree of lip(s), initial encounter; T20.27XA Burn of second degree of neck, initial encounter; T21.21XA Burn of second degree of chest wall, initial encounter; T20.26XA Burn of second degree of forehead and cheek, initial encounter; T20.23XA Burn of second degree of chin, initial encounter; I11.0 Hypertensive heart disease with heart failure; I50.32 Chronic diastolic (congestive) heart failure; J44.9 Chronic obstructive pulmonary disease, unspecified; I48.91 Unspecified atrial fibrillation; I25.10 Atherosclerotic heart disease of native coronary artery without angina pectoris; I25.2 Old myocardial infarction; F32.9 Major depressive disorder, single episode, unspecified; K21.9 Gastro-esophageal reflux disease without esophagitis; E66.01 Morbid (severe) obesity due to excess calories; F17.210 Nicotine dependence, cigarettes, uncomplicated; Z99.81 Dependence on supplemental oxygen; Z79.01 Long term (current) use of anticoagulants; Z79.51 Long term (current) use of inhaled steroids; Z79.899 Other long term (current) drug therapy; X08.8XXA Exposure to other specified smoke, fire and flames, initial encounter
CPT/HCPCS: 99282

== ENCOUNTER 2021-01-21 07:25 | Emergency (ER) | payer MEDICARE, MEDICAID ==
[~2021-01-21] VITALS: Ht 154 cm; Wt 158.0 kg
--- OUTSIDE RECORDS SUMMARY | 2021-01-21 07:29 | XMS REPORT | Clinical Summary ---
Author Author [facility] Organization [facility] Address Unknown Phone Unavailable Care Team Providers Care Bioinformatics Team Member Name Role Phone Mickie Maza NP PCP Kathie Castle MD Unavailable Naun Riddle DO Unavailable Naun Riddle DO Unavailable Unavailable Source Comments Some departments are not documenting in the electronic medical record. If you d o not see the information that you expected, contact Release of Information in [facility] Information Management department at [phone] for further assistan ce in locating additional records.[facility] Allergies No Known Active Allergies Medications End Date Status Medication Sig Dispensed Refills Start Date Active ARIPiprazole (ABILIFY) 2 Take 2 mg by 0 04/25 mg tablet mouth daily. 1 Active buPROPion SR Take 200 mg 0 (WELLBUTRIN-SR) 100 mg by mouth 1 tablet daily. Active clonazePAM (KLONOPIN) 1 Take 1 mg by 0 mg tablet mouth daily. [address] (CYMBALTA) Take 120 mg 0 10/16 60 mg capsule by mouth 8 daily. Active ADVAIR HFA 115-21 Inhale 2 0 mcg/actuation inhaler puffs by 0 mouth into the lungs twice daily as needed. Active furosemide (LASIX) 40 mg Take 40 mg by 0 04/23 tablet mouth twice 1 daily. Active albuterol-ipratropium every 4 0 (DUO-NEB) 0.5 mg-3 mg(2.5 hours. mg base)/3 mL nebulizer solution Active loperamide (IMODIUM A-D) 2 mg four 0 2 mg tablet times daily as needed. Active morphine SR (MS CONTIN) Take 15 mg by 0 15 mg tablet mouth every [address] (PRILOSEC) Take 20 mg by 0 04/02 20 mg capsule mouth daily. 0 Active oxyCODONE/acetaminophen Take 1 tablet 0 (PERCOCET) 5/325 mg by mouth 1 tablet twice daily as needed Active simvastatin (ZOCOR) 10 mg Take 10 mg by 0 10/0 tablet mouth at 8 bedtime daily. Active traZODone (DESYREL) 50 mg Take 50-100 0 04/13 tablet mg by mouth 1 at bedtime daily. Active megestroL (MEGACE) 40 mg Take 80 mg by 0 04/19 tablet mouth twice 1 daily. Active potassium chloride SR Take 10 mEq 0 (K-DUR) 10 mEq tablet by mouth daily. Take with a meal and a full glass of water. Active albuterol sulfate (PROAIR Inhale 2 0 HFA) 90 mcg/actuation HFA puffs by aerosol inhaler mouth into the lungs every 6 hours as needed for Wheezing or Shortness of Breath. Shake well before use. Active cyanocobalamin (VITAMIN Take two 90 tablet 1 B-12) 500 mcg tablet tablets by 1 mouth daily. Active ferrous sulfate (FEOSOL) Take one 90 tablet 1 0 325 mg (65 mg iron) tablet by 1 tablet mouth daily. Take on an empty stomach at least 1 hour before or 2 hours after food. Active metoprolol tartrate Take one 180 tablet 0 (LOPRESSOR) 25 mg tablet tablet by 1 mouth twice daily. Active enoxaparin (LOVENOX) 150 Inject 1 mL 60 each 1 0 mg/mL syringe under the 1 skin every 12 hours. Active nicotine (NICODERM CQ Apply one 28 patch 0 07/13 STEP 2) 14 mg/day patch to top 1 patchIndications: smoking of skin as cessation directed daily. Rotate patch location. Indications: stop smoking Active Problems Problem Noted Date Atrial flutter 08/06/2020 Endometrial cancer 05/12/2020 Hypertension Obesity Chronic respiratory failure with hypoxi a CAD (coronary artery disease) History of second degree heart block Psychiatric illness Overview: Formatting of this note might be differ ent from the original. anxiety, depression Encounters Care Team Description Date Type Specialty Aramis Bradshaw MD Koehn, Jordyn Endometrial cancer (HCC) (Primary Dx) 12/19/2020 Clinical Oncology Support from Last 3 Months Immunizations Name Administration Dates Next Due COVID-19 (MODERNA), mRNA 08/08/2020 vacc, 100 mcg/0.5 mL (PF) Surgical History Surgery Date Site/Laterality Comments HX CHOLECYSTECTOMY KNEE REPLACEMENT Bilateral BRACHYTHERAPY 08/20/2020 N/A INSERTION UTERI NE performed by Carlos Garduno MD at [facility] [place] Medical devices from this surgery are i n the Implants section. INTRAUTERINE DEVICE 08/20/2020 Vagina /N/A REMOVAL OF INTRAUTERINE DEVICE performed by REMOVAL Carlos Garduno MD at [facility] OR Medical devices from this surgery are i n the Implants section. BRACHYTHERAPY 08/24/2020 Vagina /N/A INSERTION UTERI NE Y Applicator performed by Carlos Garduno MD at [facility] OR BRACHYTHERAPY 08/28/2020 Vagina /N/A INSERTION UTERI NE Y APPLICATOR performed by Carlos Garduno MD at [facility] [place] Medical devices from this surgery are i n the Implants section. Medical History Medical History Date Comments On supplemental oxygen therapy 3 liters continually Hypertension Back pain Heart disease Obesity COPD (chronic obstructive pulmonary disease) (HCC) Arrhythmia Congestive heart disease (HCC) Arthritis Cancer (HCC) Gastrointestinal disorder gerd Hyperlipidemia Liver cirrhosis (HCC) History of dental problems full upper/lower denture s Psychiatric illness anxiety, depression Poor historian Family History Medical History Relation Name Comments Tumor Brother Unknown type or age of dx Complete Hysterectomy Mother dx 30-40s Relation Name Status Comments Brother Alive Father Mother Social History Date Tobacco Use Types Packs/Day Years Used Current Every Day Smoker Cigarettes 0.25 30 Smokeless Tobacco: Never Used Comments Alcohol Use Standard Drinks/Week Never 0 (1 standard drink = 0.6 o z pure alcohol) Alcohol Habits Answer Date Recorded How often do you have a drink containing alcohol? Never 05/08/2020 How many drinks containing alcohol do you have on No t asked a typical day when you are drinking? How often do you have six or more drinks on one Not asked occasion? Comment: Not asked Sex Assigned at Date Recorded Female 08/01/2020 10:44 AM CDT Obstetrics History Term Pre Abrt (TAB) (SAB) (Ect) Mult Lvng Comments Grav Para 5 5 Date GA Total Labor Labor/2nd/3rd Weight Sex Delivery Anes PTL Jennifer A1 A5 Name Clin Outcome Para Para Para Para Para Last Filed Vital Signs Reading Time Taken Comments Vital Sign 129/67 08/28/2020 1:00 PM CDT Blood Pressure 81 08/28/2020 1:00 PM CDT Pulse 36.6 C (97.8 F) 08/28/2020 8:46 AM CDT Temperature 19 08/24/2020 12:00 PM CDT Respiratory Rate 98% 08/28/2020 1:00 PM CDT Oxygen Saturation - - Inhaled Oxygen Concentration 154.2 kg (340 lb) 08/28/2020 7:19 AM CDT Weight 165.1 cm (5' 5") 08/28/2020 7:19 AM CDT Height 56.58 08/28/2020 7:19 AM CDT Body Mass Index Plan of Treatment Health Maintenance Due Date Last Done Comments MEDICARE ANNUAL WELLNESS 1951 VISIT PNEUMONIA (PPSV23) 1957 VACCINE (1 of 2 - PPSV23) DTAP/TDAP VACCINES (1 - 1969 Tdap) HEPATITIS C SCREENING 1969 PHYSICAL (COMPREHENSIVE) 1969 EXAM BREAST CANCER SCREENING 1991 COLORECTAL CANCER 2001 SCREENING OSTEOPOROSIS 2016 SCREENING/MONITORING COVID-19 VACCINE (3 - 10/04/2020 09/06/2020, Moderna risk 3-dose 08/08/2020 series) INFLUENZA VACCINE 11/11/2020 04/19/2020 SHINGLES RECOMBINANT Completed 05/01/2020, VACCINE 12/22/2019 Goals Goal Patient Associated Recent Progress Patient-Stat Aut hor Goal Type Problems ed? Improve wellness [facility] No Giselle Willis, RN Implants Device Identifier Shelf Expiration Date Model / Serial / L ot Implanted Type Area Manufactur er / NA / NA Set [employer]iot N/A: Vagina Endometrrial Applicator Implanted: Qty: 1 on 08/20/2020 by Carlos Garduno MD at [facility] / N/A / N/A Set [employer]iot Endometrial Applicator Implanted: Qty: 1 on 08/28/2020 by Carlos Garduno MD at [facility] Results Not on filefrom Last 3 Months Insurance Type Payer Benefit Subscriber ID Effective Phone Address Plan / Dates Group Medicare AETNA MEDICARE AETNA [id number] 2019-P MEDICARE resent PPO Medicaid [employer] [place] [employer] [id number] 2018-P [facility]/HO [id number] 08/01/2020 - [place] Present HEALTH/SNF /FCI [id number] Advance Directives Patient Rhinologist Explanation Type Date Recorded Advance 08/06/2020 5:09 PM Directive/DPOA Date Inactivated Comments Code Status Date Activated 08/08/2020 6:19 PM Full Code 08/07/2020 1:52 AM Provider has discussed Code Status Yes w/Patient or Family?
--- OUTSIDE RECORDS SUMMARY | 2021-01-21 07:29 | XMS REPORT | Encounter Summary ---
Author Author [facility] Organization [facility] Address Unknown Phone Unavailable Care Team Providers Care It Project Coordinator Name Role Phone Mickie Maza NP PCP Kathie Castle MD Unavailable Naun Riddle DO Unavailable Naun Riddle DO Unavailable Unavailable Reason for Referral * Consult, Test & Treat (Routine) Referred By Contact Referred To Contact Status Reason Specialty Diagnoses / Procedures Jeferson Maier MD [address] [facility] Ortho/Med [facility] [address] [place] [address] Cc - Ww Cl Exm/Proc [address] [place], [place] New Request Specialty Services Oncology Diagnoses Required Endometrial cancer (HCC) Answer Question Patient wishes to seek out support information What is the reason for referral? No Is the patient aware of the referral? Level 2: Patient is in need, but issue does not need immediate resolution for patient to function. What is the patient urgency? Electronically signed by Jeferson Maier MD at Reason for Visit * Reason Comments Cancer * Consult, Test & Treat (Routine) Referred By Contact Referred To Contact Status Reason Specialty Diagnoses / Procedures Carlos Garduno MD [address] [address] Cc - Ww Cl Exm/Proc [address] [facility]. [place], [place] Authorized Specialty Services Oncology Diagnoses Required Endometrial cancer (HCC) Encounter Details Care Team Description Date Type Department Aramis Bradshaw MD [address] [place] [address] [phone] Nelly Jeffries Endometrial cancer (HCC) (Primary Dx) 12/19/2020 Clinical Oncology: [facility], [facility] [address] [place] [address] Social History Date Tobacco Use Types Packs/Day [...] Date Recorded Female 08/01/2020 10:44 AM CDT documented as of this encounter Functional Status Date of Assessment Functional Status Response 08/10/2020 Does the patient have a hearing impairment: No 08/10/2020 Does the patient have a visual impairment: Yes 08/10/2020 Does the patient have impaired ambulation: No 08/10/2020 Does the patient have an activity of daily living No (ADL) impairment: 08/10/2020 Does the patient have an instrumental activity of No daily living (IADL) impairment: Date of Assessment Cognitive Status Response 08/10/2020 Does the patient have a cognitive impairment: No documented as of this encounter Progress Notes * Nelly Jeffries - 12/19/2020 12:30 PM CDT Images from the original note were not included. NAME: Emily Foster MRN: KU# [id number] : 1950 [facility] Genetic Counseling Date:12/19/2020 Referring physician: Carlos Garduno MD Hoover, Andrew C, MD requested a consultation for genetic counseling and risk as sessment for Emily Foster, 70 y.o., for discussion of her personal histo ry of cancer. The patient's verbal consent was obtained to provide this teleheal th visit due to the [facility]. Clinical History Medical History: Diagnosis Date Arrhythmia Arthritis Back pain Cancer (HCC) Congestive heart disease (HCC) COPD (chronic obstructive pulmonary disease) (HCC) Gastrointestinal disorder gerd Heart disease History of dental problems full upper/lower dentures Hyperlipidemia Hypertension Liver cirrhosis (HCC) Obesity On supplemental oxygen therapy 3 liters continually Poor historian Psychiatric illness anxiety, depression There were no other major medical concerns reported at today's appointment. Surgical History: Procedure Laterality Date INSERTION UTERINE N/A 08/20/2020 Performed by Carlos Garduno MD at [facility] OR REMOVAL OF INTRAUTERINE DEVICE N/A 08/20/2020 Performed by Carlos Garduno MD at [facility] OR INSERTION UTERINE Y Applicator N/A 08/24/2020 Performed by Carlos Garduno MD at [facility] OR INSERTION UTERINE Y APPLICATOR N/A 08/28/2020 Performed by Carlos Garduno MD at [facility] OR HX CHOLECYSTECTOMY KNEE REPLACEMENT Bilateral Family History Problem Relation Age of Onset Complete Hysterectomy Mother dx 30-40s Tumor Brother Unknown type or age of dx A detailed, 4-generation family history was obtained. Significant diagnoses are listed below: Discussion We discussed hereditary cancer syndromes involving endometrial (uterine) cancers in the family. Cancer develops through a variety of interactions between environmental and gene tic risk factors. Hereditary cancers are typically identified through observing multiple family members with cancer through multiple generations of a family. Ad ditionally, these cancers tend to have an earlier age of diagnosis in comparison to the general population, often with a diagnosis of cancer prior to the age of [id number]. Lastly, multiple primary cancers in the one individual and cluste rs of certain types of cancer seen in family members can be indicative of a pote ntial genetic predisposition to cancer. Turcios syndrome, also known as Hereditary Non-Polyposis Colorectal Cancer Syndrom e, is an autosomal dominant condition caused by a mutation (change) in one of th e mismatch repair genes: MLH1, MSH2, MSH6, PMS2, or EPCAM. A mutation in one of these genes causes an increased risk for the following cancers: colorectal, endo metrial, ovarian, bladder, gastric, small bowel, pancreas, and to a lesser exten t biliary tract, prostate, and brain cancer. Since the genes associated with Imelda ch syndrome are autosomal dominant, someone with a mutation in one of these gene s has a 50% chance of passing on their pathogenic variant to their children rega rdless of the individual's sex. We discussed the National Comprehensive Cancer Network (NCCN) guidelines regardi ng genetic testing for hereditary cancer syndromes and ran a PREMM-5 Model calcu lation to estimate her risk of having a gene mutation (a genetic change) that is associated with Turcios syndrome which came back as a 2.2% risk. Current recommen dations for genetic testing in individuals affected by endometrial cancer includ e a PREMM-5 score greater than or equal to 2.5% or a family history of Turcios-ass ociated cancers. However, the patient's personal and family history does not meet nationally errol mmended criteria for genetic testing at this time and the patient stated she did not wish to pursue elective genetic testing at this time. The patient was informed of the benefits of genetic testing, as it may have impl ications for treatment if a genetic mutation was found; however, the patient sta christopher she did not wish to investigate this further as a 2.2% risk for a genetic mu tation (based on the PREMM-5 Model) was as much information as she wanted. The p atjudy was encouraged to inform her children of her cancer diagnosis as they per uld inform their doctors of the family history of endometrial cancer. The patient also wished to be put in touch with social support groups and I will place a referral for oncology psychology to discuss social support further. Some support groups that are available to those affected by cancer include: Cancer Support Community Website: https://www.nextsocial.org/ Free Line: (Responds to calls in multiple languages) Email: The Cancer Support Community (CSC) is dedicated to providing emotional support f or individuals affected by cancer, including their families and friends. With it s online community and global network of 175 locations, the [facility] offers a variety of free services, including: support groups, counseling, cancer education, saul gating costs, publications, webinars, personal patient websites (ShopLocket), an d healthy lifestyle programs. The [facility] also conducts research and advocates for ria olivera whose lives have been disrupted by cancer. Select online resources are avai lable in Kyrgyz, Irish, and other languages. The Cancer Support Helplines licensed counselors provide guidance, resources and support to cancer patients o r their loved ones. Counseling is available in over 200 languages. For longer-te rm support, referrals to local mental health professionals are available. CancerCare Website: https://www.cancercare.org/ Free Line: (8-165-136359-186-NIUI) (Responds to calls in Vincentian and Sp zion) Email: [facility] provides free, professional support services and information to help anyone affected by cancer. Services include individual and group counseling, sup port groups, educational workshops, publications, practical help and referrals. Limited financial assistance may be available for select cancer-related expenses . Information on current programs is available online or by calling [facility] d irectly. Short-term counseling is provided by oncology social workers and is re ilable in-person (at their local offices), online or over the telephone. Support groups were identified via: https://supportorgs.cancer.gov/ Plan 1. A referral to oncology psychology will be placed. 2. The schedulers will be mailing a copy of today's discussion to the patient. Emily is encouraged to reach out the the [facility] at the [facility] with any questions or concerns following today's vi sit at [phone]. Time: 60 minutes. Obtained and reviewed family history. Discussed hereditary cancer syndromes, autosomal dominant inheritance / other inheritance as relevant , presymptomatic surveillance, management and treatment. Possible testing outcom es, including possibility of uncertain variants, strategies for testing other [facility] if a gene alteration is found. Insurance information and out of poc ket elise discussed. Completed paperwork including verbal consent for genetic te sting. Nelly Jeffries MS, [facility] Certified Genetic Counselor [facility] [address] [place] [address] Email: [email or web address] Appointments documented in this encounter Plan of Treatment Order Schedule Name Type Priority Associated Diag noses Ordered: 12/19/2020 AMB REFERRAL TO Outpatient Routine Endometrial ca ncer (HCC) PSYCHOLOGY Referral documented as of this encounter Goals Goal Patient Associated Recent Progress Patient-Stat Aut hor Goal Type Problems ed? 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
[2021-01-21] MEDS ORDERED: ONDANSETRON 4 MG/2 ML (SDV) Z0FRAN IVP STA (07:36)
[2021-01-21] MEDS ORDERED: morphine INJ 10 MG/ML 1ML (SYR OR VIAL) IVP STA (07:36)
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
[2021-01-21 08:26] VITALS: BP 100/62
[2021-01-21] MEDS ORDERED: OXYC1TAB11 PO (08:27)
== END 2021-01-21 08:45 | disposition home or self-care (01) ==
LOC: EDUNIT# 07:25 → ER FS 07:26
DX: T24.312A Burn of third degree of left thigh, initial encounter (principal); T31.0 Burns involving less than 10% of body surface; R11.0 Nausea; I10 Essential (primary) hypertension; I50.32 Chronic diastolic (congestive) heart failure; I25.2 Old myocardial infarction; I48.91 Unspecified atrial fibrillation; I25.10 Atherosclerotic heart disease of native coronary artery without angina pectoris; K21.9 Gastro-esophageal reflux disease without esophagitis; F32.A Depression, unspecified; E66.01 Morbid (severe) obesity due to excess calories; F17.210 Nicotine dependence, cigarettes, uncomplicated; Z68.44 Body mass index [BMI] 60.0-69.9, adult; Z99.81 Dependence on supplemental oxygen; Z79.01 Long term (current) use of anticoagulants; Z79.899 Other long term (current) drug therapy; X08.8XXA Exposure to other specified smoke, fire and flames, initial encounter

== ENCOUNTER 2021-09-30 08:10 | Emergency (ER) | payer MEDICARE, MEDICAID ==
[~2021-09-30] VITALS: Ht 162 cm; Wt 160.0 kg
[~2021-09-30 08:10] MED LIST changes: +BUPR-104 PO; -BUPR100T8 PO; -LISI1TAB26 PO; +LISI1TAB48 PO; +OXYC1TAB87 PO; -POTA10TA36 PO; +POTA10TA37 PO
--- NOTE | 2021-09-30 08:18 | ED GI ---
General Stated Complaint: BLOODY STOOL History of Present Illness Date Seen by Provider: Sep 30, 2021 Time Seen by Provider: 08:14 Initial Comments 71-year-old female presents with diarrhea that has been going on for about 3 weeks. She reports that been worse over the last couple days has had some blood in it. Patient reports that she was told to come to the ER because she may need blood. Patient has not had a recent colonoscopy. She is missed 2 previous appointments to have her diarrhea evaluated because she reports she was having problems with her stool. Patient denies any abdominal pain occasionally has some nausea but no vomiting no nausea at this time. No fever or chills. Patient reports a history of uterine cancer in which she received radiation. She denies any vaginal bleeding or discharge. She denies any urinary symptoms. She reports that she has not eaten much in the last couple days hoping that the diarrhea will go away. She reports that the diarrhea is worse in the morning but better throughout the day. However she is likely better throughout the day because she takes Imodium. Patient has taken 4 Imodium's already today along wi th a hydrocodone and tramadol. Allergies and Home Medications Allergies Coded Allergies: No Known Drug Allergies (Verified , 11/20/08) Patient Home Medication List Home Medication List Reviewed: Yes Apixaban (Eliquis) 5 Mg Tablet, 5 MG PO BID Prescribed by: MARTHA MAY on 04/19/20 0938 Aripiprazole (Aripiprazole) 2 Mg Tablet, 2 MG PO DAILY, (Reported) Entered as Reported by: LISETH COLBERT on 05/05/19 1231 Bupropion HCl (Bupropion HCl Sr) 100 Mg Tablet.er, 200 MG PO DAILY, (Reported) Entered as Reported by: JONAS LEVY on 11/29/19 1707 Ciprofloxacin HCl (Ciprofloxacin HCl) 500 Mg Tablet, 500 MG PO BID Prescribed by: KETTY CUEVAS on 09/30/21 0945 Clonazepam (Clonazepam) 1 Mg Tablet, 1 MG PO DAILY, (Reported) Entered as Reported by: LISETH COLBERT on 05/05/19 1225 Duloxetine HCl (Duloxetine HCl) 60 Mg Capsule.dr, 120 MG PO DAILY, (Reported) Entered as Reported by: LISETH COLBERT on 05/05/19 1225 Fluticasone/Salmeterol (Advair Hfa 115-21 Mcg Inhaler) 12 Gm Hfa.aer.ad, 2 PUFF IH BID, (Reported) Entered as Reported by: JONAS LEVY on 11/29/19 170 Furosemide (Furosemide) 40 Mg Tablet, 40 MG PO BID, (Reported) Entered as Reported by: JONAS LEVY on 11/29/191706 Ipratropium/Albuterol Sulfate (Iprat-Albut 0.5-3(2.5) mg/3 ml) 3 Ml Ampul.neb, 3 ML INH RTQ4HR Prescribed by: DARBY SELBY on 05/10/191917 Lisinopril (Lisinopril) 20 Mg Tablet, 20 MG PO DAILY Prescribed by: MARTHA MAY on 04/19/20937 Megestrol Acetate (Megestrol Acetate) 40 Mg Tablet, 80 MG PO BID Prescribed by: MARTHA MAY on 04/19/20 09 Metoprolol Tartrate (Metoprolol Tartrate) 25 Mg Tablet, 25 MG PO BID Prescribed by: MARTHA MAY on 04/19/20 09 Metronidazole (Metronidazole) 500 Mg Tablet, 500 MG PO BID Prescribed by: KETTY CUEVAS on 09/30/21 0945 Morphine Sulfate (Morphine Sulfate ER) 15 Mg Tablet.er, 15 MG PO Q12H, (Reported) Entered as Reported by: LISETH COLBERT on 05/05/19 1225 Omeprazole (Omeprazole) 20 Mg Capsule.dr, 20 MG PO DAILY, (Reported) Entered as Reported by: LISETH COLBERT on 05/05/19 1231 Oxycodone HCl/Acetaminophen (Oxycodone-Acetaminophen 5-325) 1 Each Tablet, 1 TAB PO BID PRN for PAIN-MODERATE (5-7), (Reported) Entered as Reported by: LISETH COLBERT on 05/05/19 1225 Oxycodone HCl/Acetaminophen (Oxycodone-Acetaminophen 5-325) 1 Each Tablet, 1 EACH PO Q8H PRN for PAIN-BREAKTHROUGH Prescribed by: LLOYD PINEDA on 01/21/21 0828 Oxycodone HCl/Acetaminophen (Percocet 5-325 mg Tablet) 1 Each Tablet, 1 TAB PO Q6H PRN for PAIN-SEVERE (8-10) Prescribed by: ANNEMARIE MORTON MD on 07/18/21 0838 Potassium Chloride (Potassium Chloride) 10 Meq Capsule.er, 10 MEQ PO DAILY, (Reported) Entered as Reported by: JONAS LEVY on 11/29/19 1707 Simvastatin (Simvastatin) 10 Mg Tablet, 10 MG PO HS, (Reported) Entered as Reported by: LISETH COLBERT on 05/05/19 1225 Trazodone HCl (Trazodone HCl) 50 Mg Tablet, 50-100 MG PO HS, (Reported) Entered as Reported by: LISETH COLBERT on 05/05/19 1225 Review of Systems Review of Systems Constitutional: No chills, No fever Respiratory: Denies Cough, Denies Shortness of Air Cardiovascular: Denies Chest Pain, Denies Lightheadedness Gastrointestinal: Denies Abdominal Pain; Diarrhea; Denies Nausea; Rectal Bleeding; Denies Vomiting Genitourinary: No Symptoms Reported Musculoskeletal: no symptoms reported Skin: no symptoms reported Psychiatric/Neurological: No Symptoms Reported Past Tupwbet-Ymckmg-Gndmxj Hx Immunizations Up To Date Tetanus Booster (TDap): Unknown Seasonal Allergies Seasonal Allergies: No Past Medical History Surgeries: Yes (LEFT TKR) Gallbladder, Orthopedic Respiratory: Yes (severe KEVIN with hypoxia, Home O2 requirement 3L/m) Sleep Apnea, COPD Cardiac: Yes (Acute diastolic CHF, Hx 2nd degree AV block) Atrial Fibrillation, Coronary Artery Disease, Heart Attack, Hypertension Neurological: No Reproductive Disorders: No Female Reproductive Disorders: 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 Sexually Transmitted Disease: No HIV/AIDS: No Genitourinary: Yes (Hx ARF) Gastrointestinal: Yes (Alcoholic liver dz, ) Gastroesophageal Reflux, Liver Disease/Jaundice Musculoskeletal: Yes (Osteoarthritis) Arthritis Endocrine: Yes (Morbid obesity) HEENT: No Cancer: No Psychosocial: Yes (Prior ETOH addiction, mood disorder ) Depression Integumentary: No Blood Disorders: Yes (hx chronic anemia (prior blood transfusions)) Physical Exam Vital Signs Vital Signs - First Documented 09/30/21 08:19 Temp 36.0 Pulse 74 Resp 20 B/P (MAP) 119/64 (82) Pulse Ox 94 O2 Delivery Room Air Capillary Refill : Height/Weight/BMI Height: 5'5.00" Weight: 332lbs. 0oz. [id number]; 55.00 BMI Method:Stated General Appearance: WD/WN, no apparent distress, obese HEENT: PERRL/EOMI Respiratory: lungs clear, normal breath sounds Cardiovascular: normal peripheral pulses, regular rate, rhythm Gastrointestinal: non tender, soft Extremities: non-tender, normal inspection Neurologic/Psychiatric: alert, normal mood/affect, oriented x 3 Skin: normal color, warm/dry Focused Exam Lactate Level 09/30/21 08:29: Lactic Acid Level 1.75 Lactic Acid Level Laboratory Tests Test 09/30/21 08:29 Lactic Acid Level 1.75 MMOL/L (0.50-2.00) Progress/Results/Core Measures Results/Orders Lab Results Laboratory Tests Test 09/30/21 08:17 09/30/21 08:29 Range/Units White Blood Count 4.4 4.3-11.0 10^3/uL Red Blood Count 3.59 L 3.80-5.11 10^6/uL Hemoglobin 10.2 L 11.5-16.0 g/dL Hematocrit 33 L 35-52 % Mean Corpuscular Volume 91 80-99 fL Mean Corpuscular Hemoglobin 28 25-34 pg Mean Corpuscular Hemoglobin Concent 31 L 32-36 g/dL Red Cell Distribution Width 14.0 10.0-14.5 % Platelet Count 210 130-400 10^3/uL Mean Platelet Volume 10.3 9.0-12.2 fL Immature Granulocyte % (Auto) 0 % Neutrophils (%) (Auto) 77 H 42-75 % Lymphocytes (%) (Auto) 11 L 12-44 % Monocytes (%) (Auto) 9 0-12 % Eosinophils (%) (Auto) 2 0-10 % Basophils (%) (Auto) 0 0-10 % Neutrophils # (Auto) 3.4 1.8-7.8 10^3/uL Lymphocytes # (Auto) 0.5 L 1.0-4.0 10^3/uL Monocytes # (Auto) 0.4 0.0-1.0 10^3/uL Eosinophils # (Auto) 0.1 0.0-0.3 10^3/uL Basophils # (Auto) 0.0 0.0-0.1 10^3/uL Immature Granulocyte # (Auto) 0.0 0.0-0.1 10^3/uL Sodium Level 138 135-145 MMOL/L Potassium Level 3.4 L 3.6-5.0 MMOL/L Chloride Level 101 98-107 MMOL/L Carbon Dioxide Level 24 21-32 MMOL/L Anion Gap 13 5-14 MMOL/L Blood Urea Nitrogen 7 7-18 MG/DL Creatinine 0.87 0.60-1.30 MG/DL Estimat Glomerular Filtration Rate 72 BUN/Creatinine Ratio 8 Glucose Level 99 70-105 MG/DL Calcium Level 8.9 8.5-10.1 MG/DL Corrected Calcium 9.1 8.5-10.1 MG/DL Magnesium Level 1.8 1.6-2.4 MG/DL Total Bilirubin 0.4 0.1-1.0 MG/DL Aspartate Amino Transf (AST/SGOT) 11 5-34 U/L Alanine Aminotransferase (ALT/SGPT) 7 0-55 U/L Alkaline Phosphatase 103 40-136 U/L C-Reactive Protein 2.13 H <0.50 MG/DL Total Protein 7.4 6.4-8.2 GM/DL Albumin 3.7 3.2-4.5 GM/DL Lactic Acid Level 1.75 0.50-2.00 MMOL/L My Orders Orders - CUEVAS,KETTY L DO Cbc With Automated Diff (09/30/21 08:19) Comprehensive Metabolic Panel (09/30/21 08:19) Lactic Acid Analyzer (09/30/21 08:19) Magnesium (09/30/21 08:19) Crp Fs (09/30/21 08:19) Ct Abdomen/Pelvis Wo (09/30/21 08:19) Lactated Ringers (Lr 1000 Ml Iv Solution (09/30/21 08:19) Ed Iv/Invasive Line Start (09/30/21 08:19) Iohexol Injection (Omnipaque 350 Mg/Ml 1 (09/30/21 09:00) Received Contrast (Hold Metformin- Contr (09/30/21 09:00) Ns (Ivpb) (Sodium Chloride 0.9% Ivpb Bag (09/30/21 09:00) Vital Signs/I&O 09/30/21 09/30/21 08:19 09:50 Temp 36.0 Pulse 74 78 Resp 20 17 B/P (MAP) 119/64 (82) 164/74 Pulse Ox 94 97 O2 Delivery Room Air Room Air Progress Progress Note : Progress Note Patient with stable labs. Her hemoglobin is 10.2 which is as high as its been since 2019. Patient has had some diarrhea for about 3 weeks with a little bit of blood in it. I will treat her for an infectious cause with Cipro and Flagyl. Discussed with her the need to follow-up with her primary care provider for repeat labs and a GI consult to consider colonoscopy. Patient is not having signs of dehydration or significant electrolyte abnormalities from her diarrhea. Patient stable and discharged home Diagnostic Imaging Diagonstic Imaging: CT Comments Date of Exam:09/30/21 CT ABDOMEN/PELVIS WO PROCEDURE: CT abdomen and pelvis without contrast. TECHNIQUE: Multiple contiguous axial images were obtained through the abdomen and pelvis without the use of intravenous contrast. Auto Exposure Controls were utilized during the CT exam to meet ALARA standards for radiation dose reduction. INDICATION: Diarrhea for 3 weeks. Blood in stool. COMPARISON: 04/18/2020. FINDINGS: The lung bases demonstrate dependent atelectasis. There is elevation of the right hemidiaphragm. The heart is normal in size. The liver demonstrates no focal lesions. Cholecystectomy clips are noted. The spleen appears normal. The pancreas is mildly atrophic. The adrenal glands appear normal. The kidneys demonstrate no hydronephrosis or hydroureter. There is a simple appearing cyst in the left kidney which measures 3.5 cm. The bowel loops are nondistended without obstruction. The appendix is not seen but no secondary findings of appendicitis are identified. No free fluid or free air is seen. There is diverticulosis of the descending and sigmoid colon without diverticulitis seen. There is a calcification in the right pelvis which may be due to a fibroid on the uterus. There is a small fat-containing periumbilical hernia. There is no bowel involvement. There are advanced degenerative changes in the hips bilaterally. No acute osseous abnormality is seen. IMPRESSION: 1. Colonic diverticulosis without diverticulitis. 2. Small fat-containing periumbilical hernia. Reviewed: Reviewed by Me, Reviewed/Discussed Departure Impression Primary Impression: Chronic diarrhea Disposition: HOME, SELF-CARE Condition: Stable Departure-Patient Inst. Patient Instructions: Diarrhea, Adult ED Add. Discharge Instructions: Please follow-up with your primary care provider I do in the week for repeat check of your labs and to consider an outpatient GI/general surgery consult for your diarrhea and possible colonoscopy Return to the ER as needed Scripts Metronidazole (Metronidazole) 500 Mg Tablet 500 MG PO BID, #14 TAB 0 Refills Prov: KETTY CUEVAS DO 09/30/21 Ciprofloxacin HCl (Ciprofloxacin HCl) 500 Mg Tablet 500 MG PO BID, #14 TAB Prov: KETTY CUEVAS DO 09/30/21 KETTY CUEVAS DO Sep 30, 2021 08:18
[2021-09-30] MEDS ORDERED: LACTATED RINGERS 1,000 ML IV STA (08:19)
[2021-09-30 08:26] LABS: BASOPHILS % (AUTO) 0 % (0-10); EOSINOPHILS # (AUTO) 0.1 10^3/uL (0.0-0.3); EOSINOPHILS % (AUTO) 2 % (0-10); HEMATOCRIT 33 % (35-52); HEMOGLOBIN 10.2 g/dL (11.5-16.0); LYMPHOCYTES # (AUTO) 0.5 10^3/uL (1.0-4.0); LYMPHOCYTES % (AUTO) 11 % (12-44); MEAN CORPUSCULAR HEMOGLOBIN 28 pg (25-34); MEAN CORPUSCULAR HGB CONC 31 g/dL (32-36); MEAN CORPUSCULAR VOLUME 91 fL (80-99); MEAN PLATELET VOLUME 10.3 fL (9.0-12.2); MONOCYTES # (AUTO) 0.4 10^3/uL (0.0-1.0); MONOCYTES % (AUTO) 9 % (0-12); NEUTROPHILS # (AUTO) 3.4 10^3/uL (1.8-7.8); NEUTROPHILS % (AUTO) 77 % (42-75); PLATELET COUNT 210 10^3/uL (130-400); WHITE BLOOD COUNT 4.4 10^3/uL (4.3-11.0)
[2021-09-30 08:41] LABS: POTASSIUM 3.4 MMOL/L (3.6-5.0)
[2021-09-30 08:42] LABS: ALBUMIN 3.7 GM/DL (3.2-4.5); BILIRUBIN,TOTAL 0.4 MG/DL (0.1-1.0); CALCIUM 8.9 MG/DL (8.5-10.1); CREATININE SERUM 0.87 MG/DL (0.60-1.30); MAGNESIUM 1.8 MG/DL (1.6-2.4); TOTAL PROTEIN 7.4 GM/DL (6.4-8.2)
[2021-09-30] MEDS ORDERED: IOHEXOL 350 MG/ML 100 ML (OMNIPAQUE 350) VIAL IV ONE (09:00)
[2021-09-30] MEDS ORDERED: HOLD METFORMIN - RECEIVED CONTRAST 20 ML VIAL IV SCH (09:00)
[2021-09-30] MEDS ORDERED: NS 100 ML (IVPB) BAG IV ONE (09:00)
--- NOTE | 2021-09-30 09:35 | Diagnostic Imaging Report ---
PROCEDURE: CT abdomen and pelvis without contrast. TECHNIQUE: Multiple contiguous axial images were obtained through the abdomen and pelvis without the use of intravenous contrast. Auto Exposure Controls were utilized during the CT exam to meet ALARA standards for radiation dose reduction. INDICATION: Diarrhea for 3 weeks. Blood in stool. COMPARISON: 04/18/2020. FINDINGS: The lung bases demonstrate dependent atelectasis. There is elevation of the right hemidiaphragm. The heart is normal in size. The liver demonstrates no focal lesions. Cholecystectomy clips are noted. The spleen appears normal. The pancreas is mildly atrophic. The adrenal glands appear normal. The kidneys demonstrate no hydronephrosis or hydroureter. There is a simple appearing cyst in the left kidney which measures 3.5 cm. The bowel loops are nondistended without obstruction. The appendix is not seen but no secondary findings of appendicitis are identified. No free fluid or free air is seen. There is diverticulosis of the descending and sigmoid colon without diverticulitis seen. There is a calcification in the right pelvis which may be due to a fibroid on the uterus. There is a small fat-containing periumbilical hernia. There is no bowel involvement. There are advanced degenerative changes in the hips bilaterally. No acute osseous abnormality is seen. IMPRESSION: 1. Colonic diverticulosis without diverticulitis. 2. Small fat-containing periumbilical hernia. Dictated by: Dictated on workstation # [id number]
[2021-09-30] MEDS ORDERED: CIPR500T5 PO (09:45)
[2021-09-30] MEDS ORDERED: METR-145 PO (09:45)
[2021-09-30 09:50] VITALS: BP 164/74
== END 2021-09-30 09:50 | disposition home or self-care (01) ==
LOC: EDUNIT# 08:10 → ER FS 08:14
DX: K52.9 Noninfective gastroenteritis and colitis, unspecified (principal); E66.01 Morbid (severe) obesity due to excess calories; G47.33 Obstructive sleep apnea (adult) (pediatric); J44.9 Chronic obstructive pulmonary disease, unspecified; Z68.43 Body mass index [BMI] 50.0-59.9, adult; Z99.81 Dependence on supplemental oxygen
CPT/HCPCS: 36415; 74176; 80053; 83605; 83735; 85025; 86141

== ENCOUNTER 2021-12-02 10:01 | Emergency (ER) | payer MEDICARE, MEDICAID ==
[~2021-12-02 10:01] MED LIST changes: +CIPR500T5 PO; +METR-145 PO
--- NOTE | 2021-12-02 10:10 | ED GU-Female ---
General Chief Complaint: - Reproductive Stated Complaint: VAGINAL BLEEDING Source: patient Exam Limitations: no limitations History of Present Illness Date Seen by Provider: Dec 02, 2021 Time Seen by Provider: 09:50 Initial Comments 71-year-old female with known metastatic uterine cancer status post chemotherapy and radiation presents the emergency department today for vaginal and rectal bleeding. Symptoms present off and on for several months but persistent for the last 2 weeks. Presents today because she has been getting dizzy. She denies any fevers chills abdominal pain. Blood is bright red and nearly every time she urinates or has a bowel movement. In discussion with her she has been told that her cancer is inoperable and likely not curable. She was told that it would "likely take my life." She is on a waiting list to get into an assisted living facility. She denies any abdominal pain. No new symptoms and her biggest concern today is her dizziness. No blurred or double vision. No upper or lower extremity weakness numbness or tingling. Allergies and Home Medications Allergies Coded Allergies: No Known Drug Allergies (Verified , 11/20/08) Patient Home Medication List Home Medication List Reviewed: Yes Apixaban (Eliquis) 5 Mg Tablet, 5 MG PO BID Prescribed by: MARTHA MAY on 04/19/20 0938 Aripiprazole (Aripiprazole) 2 Mg Tablet, 2 MG PO DAILY, (Reported) Entered as Reported by: LISETH COLBERT on 05/05/19 1231 Bupropion HCl (Bupropion HCl Sr) 100 Mg Tablet.er, 200 MG PO DAILY, (Reported) Entered as Reported by: JONAS LEVY on 11/29/19 1707 Ciprofloxacin HCl (Ciprofloxacin HCl) 500 Mg Tablet, 500 MG PO BID Prescribed by: KETTY CUEVAS on 09/30/21 0945 Clonazepam (Clonazepam) 1 Mg Tablet, 1 MG PO DAILY, (Reported) Entered as Reported by: LISETH COLBERT on 05/05/19 1225 Duloxetine HCl (Duloxetine HCl) 60 Mg Capsule.dr, 120 MG PO DAILY, (Reported) Entered as Reported by: LISETH COLBERT on 05/05/19 1225 Fluticasone/Salmeterol (Advair Hfa 115-21 Mcg Inhaler) 12 Gm Hfa.aer.ad, 2 PUFF IH BID, (Reported) Entered as Reported by: JONAS LEVY on 11/29/19 170 Furosemide (Furosemide) 40 Mg Tablet, 40 MG PO BID, (Reported) Entered as Reported by: JONAS LEVY on 11/29/19 170 Ipratropium/Albuterol Sulfate (Iprat-Albut 0.5-3(2.5) mg/3 ml) 3 Ml Ampul.neb, 3 ML INH RTQ4HR Prescribed by: DARBY SELBY on 05/10/191917 Lisinopril (Lisinopril) 20 Mg Tablet, 20 MG PO DAILY Prescribed by: MARTHA MAY on 04/19/20 09 Megestrol Acetate (Megestrol Acetate) 40 Mg Tablet, 80 MG PO BID Prescribed by: MARTHA MAY on 04/19/20937 Metoprolol Tartrate (Metoprolol Tartrate) 25 Mg Tablet, 25 MG PO BID Prescribed by: MARTHA MAY on 04/19/20 09 Metronidazole (Metronidazole) 500 Mg Tablet, 500 MG PO BID Prescribed by: KETTY CUEVAS on 09/30/21 0945 Morphine Sulfate (Morphine Sulfate ER) 15 Mg Tablet.er, 15 MG PO Q12H, (Reported) Entered as Reported by: LISETH COLBERT on 05/05/19 1225 Omeprazole (Omeprazole) 20 Mg Capsule.dr, 20 MG PO DAILY, (Reported) Entered as Reported by: LISETH COLBERT on 05/05/19 1231 Oxycodone HCl/Acetaminophen (Oxycodone-Acetaminophen 5-325) 1 Each Tablet, 1 TAB PO BID PRN for PAIN-MODERATE (5-7), (Reported) Entered as Reported by: LISETH COLBERT on 05/05/19 1225 Oxycodone HCl/Acetaminophen (Oxycodone-Acetaminophen 5-325) 1 Each Tablet, 1 EACH PO Q8H PRN for PAIN-BREAKTHROUGH Prescribed by: LLOYD PINEDA on 01/21/21 0828 Oxycodone HCl/Acetaminophen (Percocet 5-325 mg Tablet) 1 Each Tablet, 1 TAB PO Q6H PRN for PAIN-SEVERE (8-10) Prescribed by: ANNEMARIE MORTON MD on 07/18/21 0838 Potassium Chloride (Potassium Chloride) 10 Meq Capsule.er, 10 MEQ PO DAILY, (Reported) Entered as Reported by: JONAS LEVY on 11/29/19 1707 Simvastatin (Simvastatin) 10 Mg Tablet, 10 MG PO HS, (Reported) Entered as Reported by: LISETH COLBERT on 05/05/19 1225 Trazodone HCl (Trazodone HCl) 50 Mg Tablet, 50-100 MG PO HS, (Reported) Entered as Reported by: LISETH COLBERT on 05/05/19 1225 Review of Systems Review of Systems Constitutional: dizziness EENTM: no symptoms reported Respiratory: no symptoms reported Cardiovascular: no symptoms reported Gastrointestinal: melena Genitourinary: hematuria Musculoskeletal: no symptoms reported Skin: no symptoms reported Past Pmkkfgr-Aubjyl-Jkbjwt Hx Patient Social History Tobacco Use?: Yes Immunizations Up To Date Tetanus Booster (TDap): Unknown Seasonal Allergies Seasonal Allergies: No Past Medical History Surgeries: Yes (LEFT TKR) Gallbladder, Orthopedic Respiratory: Yes (severe KEVIN with hypoxia, Home O2 requirement 3L/m) Sleep Apnea, COPD Cardiac: Yes (Acute diastolic CHF, Hx 2nd degree AV block) Atrial Fibrillation, Coronary Artery Disease, Heart Attack, Hypertension Neurological: No Reproductive Disorders: No Female 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 Sexually Transmitted Disease: No HIV/AIDS: No Genitourinary: Yes (Hx ARF) Gastrointestinal: Yes (Alcoholic liver dz, ) Gastroesophageal Reflux, Liver Disease/Jaundice Musculoskeletal: Yes (Osteoarthritis) Arthritis Endocrine: Yes (Morbid obesity) HEENT: No Cancer: No Psychosocial: Yes (Prior ETOH addiction, mood disorder ) Depression Integumentary: No Blood Disorders: Yes (hx chronic anemia (prior blood transfusions)) Family Medical History Reviewed Nursing Family Hx Physical Exam Vital Signs Vital Signs - First Documented 12/02/21 10:05 Temp 36.0 Pulse 70 Resp 16 B/P (MAP) 134/73 (93) Pulse Ox 95 O2 Delivery Room Air Capillary Refill : Height, Weight, BMI Height: 5'5.00" Weight: 332lbs. 0oz. 150.151242cf; 60.00 BMI Method:Stated General Appearance: WD/WN, no apparent distress HEENT: normal ENT inspection, pharynx normal Neck: non-tender, supple, normal inspection Cardiovascular: regular rate, rhythm, no murmur Respiratory: lungs clear, normal breath sounds, no respiratory distress Gastrointestinal: normal bowel sounds, non tender, soft, no organomegaly Rectal: deferred Extremities: normal inspection, no pedal edema Skin: warm/dry Progress/Results/Core Measures Suspected Sepsis SIRS Temperature: Pulse: Respiratory Rate: Laboratory Tests 12/02/21 10:05: White Blood Count 3.8L Blood Pressure / Mean: Laboratory Tests 12/02/21 10:05: Platelet Count 212 Results/Orders Lab Results Laboratory Tests Test 12/02/21 10:05 Range/Units White Blood Count 3.8 L 4.3-11.0 10^3/uL Red Blood Count 3.81 3.80-5.11 10^6/uL Hemoglobin 9.5 L 11.5-16.0 g/dL Hematocrit 32 L 35-52 % Mean Corpuscular Volume 84 80-99 fL Mean Corpuscular Hemoglobin 25 25-34 pg Mean Corpuscular Hemoglobin Concent 30 L 32-36 g/dL Red Cell Distribution Width 16.6 H 10.0-14.5 % Platelet Count 212 130-400 10^3/uL Mean Platelet Volume 10.8 9.0-12.2 fL Immature Granulocyte % (Auto) 0 % Neutrophils (%) (Auto) 71 42-75 % Lymphocytes (%) (Auto) 17 12-44 % Monocytes (%) (Auto) 10 0-12 % Eosinophils (%) (Auto) 2 0-10 % Basophils (%) (Auto) 0 0-10 % Neutrophils # (Auto) 2.7 1.8-7.8 10^3/uL Lymphocytes # (Auto) 0.7 L 1.0-4.0 10^3/uL Monocytes # (Auto) 0.4 0.0-1.0 10^3/uL Eosinophils # (Auto) 0.1 0.0-0.3 10^3/uL Basophils # (Auto) 0.0 0.0-0.1 10^3/uL Immature Granulocyte # (Auto) 0.0 0.0-0.1 10^3/uL My Orders Orders - NICK SALAMANCA DO Cbc With Automated Diff (12/02/21 10:04) Abo Rh Type (12/02/21 10:04) Ns Iv 500 Ml (Sodium Chloride 0.9%) (12/02/21 10:30) Medications Given in ED Current Medications Medications Dose Ordered Sig/Kylee Route Start Time Stop Time Status Last Admin Dose Admin Sodium Chloride 500 ml @ 999 mls/hr Q31M ONCE IV 12/02/21 10:30 12/02/21 11:00 12/02/21 10:37 999 MLS/HR Vital Signs/I&O 12/02/21 10:05 Temp 36.0 Pulse 70 Resp 16 B/P (MAP) 134/73 (93) Pulse Ox 95 O2 Delivery Room Air Capillary Refill : Departure Communication (Admissions) The patient is hemodynamically stable. She has normal vital signs. Pelvic exam is deferred due to her history of cancer. Unfortunately his cancer is inoperable per her report at least as far she has been told. She has had some form of chemotherapy, radiation treatment in the past. Advised her to stop taking her Eliquis for the next couple days and follow-up with her primary doctor for further evaluation and treatment recommendations she is not currently on hospice. I did advise her that she can follow-up with her primary doctor for further discussion of this. Impression Primary Impression: Uterine cancer Qualified Codes: C55 - Malignant neoplasm of uterus, part unspecified Additional Impression: Vaginal bleeding Disposition: HOME, SELF-CARE Condition: Stable Departure-Patient Inst. Referrals: LISETH DE LA ROSA APRN (PCP) Primary Care Physician [facility]/JESSICA (Family) Primary Care Physician Patient Instructions: Uterine Cancer Add. Discharge Instructions: You were seen in the emergency department for vaginal bleeding. As discussed I believe this is from your uterine cancer. Stop taking your eliquis for the next 2 days. would discuss the possibility of hospice care with your primary doctor. Your blood counts are normal today and there is no indication that you need a blood transfusion at this time. Please increase your fluids at home to avoid dehydration and rest as needed. Return to the emergency department for any severe concerns including severe dizziness, shortness of breath. All discharge instructions reviewed with patient and/or family. Voiced understanding. NICK SALAMANCA DO Dec 02, 2021 10:10
[2021-12-02 10:16] LABS: BASOPHILS % (AUTO) 0 % (0-10); EOSINOPHILS # (AUTO) 0.1 10^3/uL (0.0-0.3); EOSINOPHILS % (AUTO) 2 % (0-10); HEMATOCRIT 32 % (35-52); HEMOGLOBIN 9.5 g/dL (11.5-16.0); LYMPHOCYTES # (AUTO) 0.7 10^3/uL (1.0-4.0); LYMPHOCYTES % (AUTO) 17 % (12-44); MEAN CORPUSCULAR HEMOGLOBIN 25 pg (25-34); MEAN CORPUSCULAR HGB CONC 30 g/dL (32-36); MEAN CORPUSCULAR VOLUME 84 fL (80-99); MEAN PLATELET VOLUME 10.8 fL (9.0-12.2); MONOCYTES # (AUTO) 0.4 10^3/uL (0.0-1.0); MONOCYTES % (AUTO) 10 % (0-12); NEUTROPHILS # (AUTO) 2.7 10^3/uL (1.8-7.8); NEUTROPHILS % (AUTO) 71 % (42-75); PLATELET COUNT 212 10^3/uL (130-400); WHITE BLOOD COUNT 3.8 10^3/uL (4.3-11.0)
[2021-12-02] MEDS ORDERED: NS IV 1000 ML 500 ML IV SCH (10:30)
[2021-12-02] MEDS ORDERED: NS IV 500 ML 500 ML IV ONE (10:30)
[2021-12-02 11:09] VITALS: BP 134/73
== END 2021-12-02 11:10 | disposition home or self-care (01) ==
LOC: EDUNIT# 10:01 → ER FS 10:04
DX: N93.9 Abnormal uterine and vaginal bleeding, unspecified (principal); C55 Malignant neoplasm of uterus, part unspecified
CPT/HCPCS: 36415; 85025

== ENCOUNTER 2022-01-03 15:05 | Emergency (ER) | payer MEDICARE, MEDICAID ==
[~2022-01-03] VITALS: Ht 162.6 cm; Wt 137.4 kg
[~2022-01-03 15:05] MED LIST changes: -NYST15CR TP; +NYST15CR35 TP; +POTA-177 PO; -POTA10TA37 PO
[2022-01-03 15:10] VITALS: BP 139/62
[2022-01-03] MEDS ORDERED: NS IV 1000 ML 1,000 ML IV STA (15:17)
[2022-01-03 15:24] LABS: BASOPHILS % (AUTO) 0 % (0-10); EOSINOPHILS % (AUTO) 1 % (0-10); HEMATOCRIT 31 % (35-52); HEMOGLOBIN 9.1 g/dL (11.5-16.0); LYMPHOCYTES % (AUTO) 20 % (12-44); MEAN CORPUSCULAR HEMOGLOBIN 24 pg (25-34); MEAN CORPUSCULAR HGB CONC 30 g/dL (32-36); MEAN CORPUSCULAR VOLUME 81 fL (80-99); MEAN PLATELET VOLUME 11.6 fL (9.0-12.2); MONOCYTES # (AUTO) 0.5 X 10^3 (0.0-1.0); MONOCYTES % (AUTO) 11 % (0-12); NEUTROPHILS # (AUTO) 3.4 X 10^3 (1.8-7.8); NEUTROPHILS % (AUTO) 68 % (42-75); PLATELET COUNT 211 10^3/uL (130-400)
--- NOTE | 2022-01-03 15:24 | ED General ---
General Stated Complaint: DEHYDRATION Source of Information: Patient, EMS, Old Records History of Present Illness Date Seen by Provider: Jan 03, 2022 Time Seen by Provider: 15:07 Initial Comments 71-year-old female presenting by EMS from [facility] due to feeling like she might pass out this afternoon. She states that she has a problem with chronic diarrhea over the last several months. She also has metastatic uterine cancer per the patient report. She was on the toilet and felt like she was going to pass out. She states that the staff checked on her but then when she asked if she could get IV fluids the told her she needed to drink water. She decided to call 911 so the EMS could transport her here to have IV fluids. She states that they have checked her stool for C. difficile and she was waiting to hear results. She denies any other new complaints. No fever, chills, abdominal pain, vomiting. She states she feels like drinking water will make her nauseated. Timing/Duration: Other (Chronic diarrhea but today she felt like she might pass out and thought that she was dehydrated.) Modifying Factors: worse with Other (While having diarrhea on the toilet she felt like she might pass out) Associated Systoms: No Chest Pain; Cough (Chronic); No Diaphoresis, No Fever/Chills, No Headaches; Malaise; No Rash, No Seizure; Shortness of Air (Chronic); No Syncope Allergies and Home Medications Allergies Coded Allergies: No Known Drug Allergies (Verified , 11/20/08) Patient Home Medication List Home Medication List Reviewed: Yes Apixaban (Eliquis) 5 Mg Tablet, 5 MG PO BID Prescribed by: MARTHA MAY on 04/19/20 0938 Aripiprazole (Aripiprazole) 2 Mg Tablet, 2 MG PO DAILY, (Reported) Entered as Reported by: LISETH COLBERT on 05/05/19 1231 Bupropion HCl (Bupropion HCl Sr) 100 Mg Tablet.er, 200 MG PO DAILY, (Reported) Entered as Reported by: JONAS LEVY on 11/29/19 1707 Ciprofloxacin HCl (Ciprofloxacin HCl) 500 Mg Tablet, 500 MG PO BID Prescribed by: KETTY CUEVAS on 09/30/21 0945 Clonazepam (Clonazepam) 1 Mg Tablet, 1 MG PO DAILY, (Reported) Entered as Reported by: LISETH COLBERT on 05/05/19 1225 Duloxetine HCl (Duloxetine HCl) 60 Mg Capsule.dr, 120 MG PO DAILY, (Reported) Entered as Reported by: LISETH COLBERT on 05/05/19 1225 Fluticasone/Salmeterol (Advair Hfa 115-21 Mcg Inhaler) 12 Gm Hfa.aer.ad, 2 PUFF IH BID, (Reported) Entered as Reported by: JONAS LEVY on 11/29/19 170 Furosemide (Furosemide) 40 Mg Tablet, 40 MG PO BID, (Reported) Entered as Reported by: JONAS LEVY on 11/29/19 170 Ipratropium/Albuterol Sulfate (Iprat-Albut 0.5-3(2.5) mg/3 ml) 3 Ml Ampul.neb, 3 ML INH RTQ4HR Prescribed by: DARBY SELBY on 05/10/191917 Lisinopril (Lisinopril) 20 Mg Tablet, 20 MG PO DAILY Prescribed by: MARTHA MAY on 04/19/20 09 Megestrol Acetate (Megestrol Acetate) 40 Mg Tablet, 80 MG PO BID Prescribed by: MARTHA MAY on 04/19/20 09 Metoprolol Tartrate (Metoprolol Tartrate) 25 Mg Tablet, 25 MG PO BID Prescribed by: MARTHA MAY on 04/19/20 09 Metronidazole (Metronidazole) 500 Mg Tablet, 500 MG PO BID Prescribed by: KETTY CUEVAS on 09/30/21 0945 Morphine Sulfate (Morphine Sulfate ER) 15 Mg Tablet.er, 15 MG PO Q12H, (Reported) Entered as Reported by: LISETH COLBERT on 05/05/19 1225 Omeprazole (Omeprazole) 20 Mg Capsule.dr, 20 MG PO DAILY, (Reported) Entered as Reported by: LISETH COLBERT on 05/05/19 1231 Oxycodone HCl/Acetaminophen (Oxycodone-Acetaminophen 5-325) 1 Each Tablet, 1 TAB PO BID PRN for PAIN-MODERATE (5-7), (Reported) Entered as Reported by: LISETH COLBERT on 05/05/19 1225 Oxycodone HCl/Acetaminophen (Oxycodone-Acetaminophen 5-325) 1 Each Tablet, 1 EACH PO Q8H PRN for PAIN-BREAKTHROUGH Prescribed by: LLOYD PINEDA on 01/21/21 0828 Oxycodone HCl/Acetaminophen (Percocet 5-325 mg Tablet) 1 Each Tablet, 1 TAB PO Q6H PRN for PAIN-SEVERE (8-10) Prescribed by: ANNEMARIE MORTON MD on 07/18/21 0838 Potassium Chloride (Potassium Chloride) 10 Meq Capsule.er, 10 MEQ PO DAILY, (Reported) Entered as Reported by: JONAS LEVY on 11/29/19 1707 Simvastatin (Simvastatin) 10 Mg Tablet, 10 MG PO HS, (Reported) Entered as Reported by: LISETH COLBERT on 05/05/19 1225 Trazodone HCl (Trazodone HCl) 50 Mg Tablet, 50-100 MG PO HS, (Reported) Entered as Reported by: LISETH COLBERT on 05/05/19 1225 Review of Systems Review of Systems Constitutional: No chills, No fever; malaise EENTM: no symptoms reported Respiratory: see HPI Cardiovascular: No chest pain Gastrointestinal: see HPI Genitourinary: no symptoms reported Musculoskeletal: no symptoms reported Skin: No change in color Psychiatric/Neurological: Anxiety Past Urknsjk-Bwmfbw-Kijxho Hx Patient Social History Tobacco Use?: Yes Immunizations Up To Date Tetanus Booster (TDap): Unknown First/Initial COVID19 Vaccinat: Yes Second COVID19 Vaccination Rojelio: Yes Seasonal Allergies Seasonal Allergies: No Past Medical History Surgery/Hospitalization HX: Uterine cancer; COPD; High cholesterol; anxiety; depression; GERD; Heart issues Surgeries: Yes (LEFT TKR) Gallbladder, Orthopedic Respiratory: Yes (severe KEVIN with hypoxia, Home O2 requirement 3L/m) Sleep Apnea, COPD Cardiac: Yes (Acute diastolic CHF, Hx 2nd degree AV block) Atrial Fibrillation, Coronary Artery Disease, Heart Attack, Hypertension Neurological: No Reproductive Disorders: No Female Reproductive Disorders: Menstrual Problems CYANIDE POT [employer]ER History: IUD Sexually Transmitted Disease: No HIV/AIDS: No Genitourinary: Yes (Hx ARF) Gastrointestinal: Yes (Alcoholic liver dz, ) Gastroesophageal Reflux, Liver Disease/Jaundice Musculoskeletal: Yes (Osteoarthritis) Arthritis Endocrine: Yes (Morbid obesity) HEENT: No Cancer: No Psychosocial: Yes (Prior ETOH addiction, mood disorder ) Depression Integumentary: No Blood Disorders: Yes (hx chronic anemia (prior blood transfusions)) Physical Exam Vital Signs Vital Signs - First Documented 01/03/22 15:10 Temp 36.1 Pulse 71 Resp 18 B/P (MAP) 139/62 (87) Pulse Ox 97 O2 Delivery Room Air Capillary Refill : Height, Weight, BMI Height: 5'5.00" Weight: 332lbs. 0oz. 150.040568bk; 60.00 BMI Method:Stated General Appearance: No Apparent Distress, Obese Respiratory: Chest Non Tender, No Accessory Muscle Use, No Respiratory Distress, Decreased Breath Sounds Cardiovascular: Regular Rate, Rhythm, Normal Peripheral Pulses Gastrointestinal: Normal Bowel Sounds, No Pulsatile Mass, Non Tender, Soft Rectal: Deferred Extremity: Normal Capillary Refill, Non Tender, Pedal Edema Neurologic/Psychiatric: Alert, Oriented x3 Skin: Normal Color, Warm/Dry Progress/Results/Core Measures Suspected Sepsis SIRS Temperature: Pulse: Respiratory Rate: Laboratory Tests 01/03/22 15:10: White Blood Count 5.0 Blood Pressure / Mean: Laboratory Tests 01/03/22 15:10: Creatinine 0.65, Platelet Count 211, Total Bilirubin 0.2 Results/Orders Lab Results Laboratory Tests Test 01/03/22 15:10 Range/Units White Blood Count 5.0 4.3-11.0 10^3/uL Red Blood Count 3.78 L 3.80-5.11 10^6/uL Hemoglobin 9.1 L 11.5-16.0 g/dL Hematocrit 31 L 35-52 % Mean Corpuscular Volume 81 80-99 fL Mean Corpuscular Hemoglobin 24 L 25-34 pg Mean Corpuscular Hemoglobin Concent 30 L 32-36 g/dL Red Cell Distribution Width 17.9 H 10.0-14.5 % Platelet Count 211 130-400 10^3/uL Mean Platelet Volume 11.6 9.0-12.2 fL Neutrophils (%) (Auto) 68 42-75 % Lymphocytes (%) (Auto) 20 12-44 % Monocytes (%) (Auto) 11 0-12 % Eosinophils (%) (Auto) 1 0-10 % Basophils (%) (Auto) 0 0-10 % Neutrophils # (Auto) 3.4 1.8-7.8 X 10^3 Lymphocytes # (Auto) 1.0 1.0-4.0 X 10^3 Monocytes # (Auto) 0.5 0.0-1.0 X 10^3 Eosinophils # (Auto) 0.0 0.0-0.3 10^3/uL Basophils # (Auto) 0.0 0.0-0.1 10^3/uL Sodium Level 140 135-145 MMOL/L Potassium Level 3.4 L 3.6-5.0 MMOL/L Chloride Level 106 98-107 MMOL/L Carbon Dioxide Level 21 21-32 MMOL/L Anion Gap 13 5-14 MMOL/L Blood Urea Nitrogen 12 7-18 MG/DL Creatinine 0.65 0.60-1.30 MG/DL Estimat Glomerular Filtration Rate 95 BUN/Creatinine Ratio 18 Glucose Level 123 H 70-105 MG/DL Calcium Level 9.0 8.5-10.1 MG/DL Corrected Calcium 9.2 8.5-10.1 MG/DL Total Bilirubin 0.2 0.1-1.0 MG/DL Aspartate Amino Transf (AST/SGOT) 25 5-34 U/L Alanine Aminotransferase (ALT/SGPT) 13 0-55 U/L Alkaline Phosphatase 91 40-136 U/L Total Protein 7.6 6.4-8.2 GM/DL Albumin 3.7 3.2-4.5 GM/DL My Orders Orders - LLOYD PINEDA MD Comprehensive Metabolic Panel (01/03/22 15:17) Ed Iv/Invasive Line Start (01/03/22 15:17) Cbc With Automated Diff (01/03/22 15:17) Stool Culture (01/03/22 15:17) Fecal Wbc (01/03/22 15:17) C Difficile Ag + Toxin A/B. (01/03/22 15:17) Ns Iv 1000 Ml (Sodium Chloride 0.9%) (01/03/22 15:17) Vital Signs/I&O 01/03/22 15:10 Temp 36.1 Pulse 71 Resp 18 B/P (MAP) 139/62 (87) Pulse Ox 97 O2 Delivery Room Air Capillary Refill : Progress Note #1: Progress Note Will allow the IV fluids from EMS to finish infusing so that she gets a liter of normal saline. Check basic labs to look for any changes from testing done December 02 when she was last seen in the emergency department for her chronic issues. She has not recently been on antibiotics but since she keeps asking about C. difficile will order stool cultures and C. difficile toxin test in case she has diarrhea here. Progress Note #2: Time: 15:33 Progress Note CBC appears stable without elevation of WBC count. Hgb slightly lower at 9.1 than Dec 02 at 9.5 but still higher than prior labs. Chemistry without acute significant abnormality and no sign of renal failure or liver enzymes being abnormal. Reassure patient and again advise her to follow up with pcp for colonoscopy vs GI consult. Departure Impression Primary Impression: Chronic diarrhea Additional Impression: Vasovagal near syncope Disposition: HOME, SELF-CARE Condition: Stable Departure-Patient Inst. Decision time for Depature: 15:44 Referrals: LISETH DE LA ROSA APRN (PCP) Primary Care Physician [facility] (Family) Primary Care Physician Patient Instructions: Diarrhea, Adult ED, Near Fainting (DC) Add. Discharge Instructions: Make sure that you are drinking enough water to keep up with what comes out with the diarrhea. Continue to work with your regular provider about your chronic conditions and the chronic diarrhea. Pain may need to get you set up for a colonoscopy or GI doctor evaluation for continued concerns. LLOYD PINEDA MD Jan 03, 2022 15:24
[2022-01-03 15:39] LABS: ALBUMIN 3.7 GM/DL (3.2-4.5); BILIRUBIN,TOTAL 0.2 MG/DL (0.1-1.0); CREATININE SERUM 0.65 MG/DL (0.60-1.30); POTASSIUM 3.4 MMOL/L (3.6-5.0); TOTAL PROTEIN 7.6 GM/DL (6.4-8.2)
== END 2022-01-03 15:45 | disposition home or self-care (01) ==
LOC: EDUNIT# 15:05 → ER FS 15:07
DX: K52.9 Noninfective gastroenteritis and colitis, unspecified (principal); R55 Syncope and collapse; E66.01 Morbid (severe) obesity due to excess calories; Z72.0 Tobacco use; Z68.44 Body mass index [BMI] 60.0-69.9, adult
CPT/HCPCS: 36415; 80053; 85025

== ENCOUNTER 2022-03-14 11:46 | Inpatient (IN) | payer MEDICARE, MEDICAID ==
[~2022-03-14] VITALS: Ht 165.1 cm; Wt 109.7 kg
--- NOTE | 2022-03-14 12:00 | ED General ---
General Chief Complaint: General Problems/Pain Stated Complaint: N/V; DIARRHEA; WEAKNESS History of Present Illness Date Seen by Provider: Mar 14, 2022 Time Seen by Provider: 11:59 Initial Comments 71-year-old female with PMH of HTN/BPD/anxiety/irritable bowel syndrome/iron deficiency anemia/A. fib on Eliquis/cholecystectomy/diagnosed with C. difficile and currently having C. difficile diarrhea but not on any current medications as per face sheet. Pt is extremely lethargic and tired, and can state her name and place but could not remember the date. Pt c/o polyuria and tiredness for the past couple of days. She has been having diarrhea multiple times a day, and states that she has lost 50lbs over the past couple of weeks. Denies chest pain, palpitations, SOB. No known sick contacts. Allergies and Home Medications Allergies Coded Allergies: No Known Drug Allergies (Verified , 11/20/08) Patient Home Medication List Home Medication List Reviewed: Yes Apixaban (Eliquis) 5 Mg Tablet, 5 MG PO BID Prescribed by: MARTHA MAY on 04/19/20 0938 Aripiprazole (Aripiprazole) 2 Mg Tablet, 2 MG PO DAILY, (Reported) Entered as Reported by: LISETH COLBERT on 05/05/19 1231 Bupropion HCl (Bupropion HCl Sr) 100 Mg Tablet.er, 200 MG PO DAILY, (Reported) Entered as Reported by: JONAS LEVY on 11/29/19 1707 Ciprofloxacin HCl (Ciprofloxacin HCl) 500 Mg Tablet, 500 MG PO BID Prescribed by: KETTY CUEVAS on 09/30/21 0945 Clonazepam (Clonazepam) 1 Mg Tablet, 1 MG PO DAILY, (Reported) Entered as Reported by: LISETH COLBERT on 05/05/19 1225 Duloxetine HCl (Duloxetine HCl) 60 Mg Capsule.dr, 120 MG PO DAILY, (Reported) Entered as Reported by: LISETH COLBERT on 05/05/19 1225 Fluticasone/Salmeterol (Advair Hfa 115-21 Mcg Inhaler) 12 Gm Hfa.aer.ad, 2 PUFF IH BID, (Reported) Entered as Reported by: JONAS LEVY on 11/29/19 1707 Furosemide (Furosemide) 40 Mg Tablet, 40 MG PO BID, (Reported) Entered as Reported by: JONAS LEVY on 11/29/19 170 Ipratropium/Albuterol Sulfate (Iprat-Albut 0.5-3(2.5) mg/3 ml) 3 Ml Ampul.neb, 3 ML INH RTQ4HR Prescribed by: DARBY SELBY on 05/10/191917 Lisinopril (Lisinopril) 20 Mg Tablet, 20 MG PO DAILY Prescribed by: MARTHA MAY on 04/19/20 09 Megestrol Acetate (Megestrol Acetate) 40 Mg Tablet, 80 MG PO BID Prescribed by: MARTHA MAY on 04/19/20 09 Metoprolol Tartrate (Metoprolol Tartrate) 25 Mg Tablet, 25 MG PO BID Prescribed by: MARTHA MAY on 04/19/20 09 Metronidazole (Metronidazole) 500 Mg Tablet, 500 MG PO BID Prescribed by: KETTY CUEVAS on 09/30/21 0945 Morphine Sulfate (Morphine Sulfate ER) 15 Mg Tablet.er, 15 MG PO Q12H, (Reported) Entered as Reported by: LISETH COLBERT on 05/05/19 1225 Omeprazole (Omeprazole) 20 Mg Capsule.dr, 20 MG PO DAILY, (Reported) Entered as Reported by: LISETH COLBERT on 05/05/19 1231 Oxycodone HCl/Acetaminophen (Oxycodone-Acetaminophen 5-325) 1 Each Tablet, 1 TAB PO BID PRN for PAIN-MODERATE (5-7), (Reported) Entered as Reported by: LISETH COLBERT on 05/05/19 1225 Oxycodone HCl/Acetaminophen (Oxycodone-Acetaminophen 5-325) 1 Each Tablet, 1 EACH PO Q8H PRN for PAIN-BREAKTHROUGH Prescribed by: LLOYD PINEDA on 01/21/21 0828 Oxycodone HCl/Acetaminophen (Percocet 5-325 mg Tablet) 1 Each Tablet, 1 TAB PO Q6H PRN for PAIN-SEVERE (8-10) Prescribed by: ANNEMARIE MORTON MD on 07/18/21 0838 Potassium Chloride (Potassium Chloride) 10 Meq Capsule.er, 10 MEQ PO DAILY, (Reported) Entered as Reported by: JONAS LEVY on 11/29/19 170 Simvastatin (Simvastatin) 10 Mg Tablet, 10 MG PO HS, (Reported) Entered as Reported by: LISETH COLBERT on 05/05/19 1225 Trazodone HCl (Trazodone HCl) 50 Mg Tablet, 50-100 MG PO HS, (Reported) Entered as Reported by: LISETH COLBERT on 05/05/19 1225 Review of Systems Review of Systems Constitutional: malaise, weakness EENTM: no symptoms reported Respiratory: no symptoms reported Cardiovascular: no symptoms reported Gastrointestinal: abdominal pain, diarrhea, nausea Genitourinary: dysuria Musculoskeletal: no symptoms reported Skin: no symptoms reported Psychiatric/Neurological: Other Hematologic/Lymphatic: No Symptoms Reported Immunological/Allergic: no symptoms reported Past Kvtmgvv-Hrkobp-Ctbiqx Hx Immunizations Up To Date Tetanus Booster (TDap): Unknown First/Initial COVID19 Vaccinat: Yes Second COVID19 Vaccination Rojelio: Yes Third COVID19 Vaccination Date: Yes Seasonal Allergies Seasonal Allergies: No Past Medical History Surgery/Hospitalization HX: Uterine cancer; COPD; High cholesterol; anxiety; depression; GERD; Heart issues Surgeries: Yes (LEFT TKR) Gallbladder, Orthopedic Respiratory: Yes (severe KEVIN with hypoxia, Home O2 requirement 3L/m) Sleep Apnea, COPD Cardiac: Yes (Acute diastolic CHF, Hx 2nd degree AV block) Atrial Fibrillation, Coronary Artery Disease, Heart Attack, Hypertension Neurological: No Reproductive Disorders: No Female Reproductive Disorders: 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 Sexually Transmitted Disease: No HIV/AIDS: No Genitourinary: Yes (Hx ARF) Gastrointestinal: Yes (Alcoholic liver dz, ) Gastroesophageal Reflux, Liver Disease/Jaundice Musculoskeletal: Yes (Osteoarthritis) Arthritis Endocrine: Yes (Morbid obesity) HEENT: No Cancer: No Psychosocial: Yes (Prior ETOH addiction, mood disorder ) Depression Integumentary: No Blood Disorders: Yes (hx chronic anemia (prior blood transfusions)) Physical Exam Vital Signs Vital Signs - First Documented 03/14/22 03/14/22 12:15 18:06 Temp 36.0 Pulse 83 Resp 20 B/P (MAP) 123/92 (102) Pulse Ox 96 O2 Delivery Room Air Capillary Refill : Height, Weight, BMI Height: 5'5.00" Weight: 332lbs. 0oz. 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 Norm as Tested Skin: Other (Patient has multiple areas of skin infection and skin breakdown including her groin, legs) Focused Exam Lactate Level 03/14/22 14:53: Lactic Acid Level 2.48*H 03/14/22 16:52: Lactic Acid Level 1.85 Lactic Acid Level Laboratory Tests Test 03/14/22 12:15 03/14/22 14:53 03/14/22 16:52 Lactic Acid Level 5.71 MMOL/L (0.50-2.00) *H 2.48 MMOL/L (0.50-2.00) *H 1.85 MMOL/L (0.50-2.00) Progress/Results/Core Measures Suspected Sepsis SIRS Temperature: Pulse: Respiratory Rate: Laboratory Tests 03/14/22 12:15: White Blood Count 14.4H Blood Pressure / Mean: 03/14/22 14:53: Lactic Acid Level 2.48*H 03/14/22 16:52: Lactic Acid Level 1.85 Laboratory Tests 03/14/22 12:15: Creatinine 1.35H, INR Comment 1.3, Platelet Count 371, Total Bilirubin 0.6 Results/Orders Lab Results Laboratory Tests Test 03/14/22 12:15 03/14/22 14:45 03/14/22 14:53 03/14/22 16:52 Range/Units White Blood Count 14.4 H 4.3-11.0 10^3/uL Red Blood Count 4.04 3.80-5.11 10^6/uL Hemoglobin 9.6 L 11.5-16.0 g/dL Hematocrit 33 L 35-52 % Mean Corpuscular Volume 80 80-99 fL Mean Corpuscular Hemoglobin 24 L 25-34 pg Mean Corpuscular Hemoglobin Concent 30 L 32-36 g/dL Red Cell Distribution Width 25.0 H 10.0-14.5 % Platelet Count 371 130-400 10^3/uL Mean Platelet Volume 11.7 9.0-12.2 fL Immature Granulocyte % (Auto) 1 % Neutrophils (%) (Auto) 87 H 42-75 % Lymphocytes (%) (Auto) 6 L 12-44 % Monocytes (%) (Auto) 6 0-12 % Eosinophils (%) (Auto) 0 0-10 % Basophils (%) (Auto) 0 0-10 % Neutrophils # (Auto) 12.5 H 1.8-7.8 10^3/uL Lymphocytes # (Auto) 0.9 L 1.0-4.0 10^3/uL Monocytes # (Auto) 0.9 0.0-1.0 10^3/uL Eosinophils # (Auto) 0.0 0.0-0.3 10^3/uL Basophils # (Auto) 0.0 0.0-0.1 10^3/uL Immature Granulocyte # (Auto) 0.2 H 0.0-0.1 10^3/uL Neutrophils % (Manual) 78 % Lymphocytes % (Manual) 6 % Monocytes % (Manual) 6 % Band Neutrophils 10 % Platelet Estimate NORMAL Hypochromasia MODERATE Anisocytosis MODERATE Microcytosis SLIGHT Macrocytosis MODERATE Prothrombin Time 16.5 H 12.2-14.7 SEC INR Comment 1.3 0.8-1.4 Activated Partial Thromboplast Time 27 24-35 SEC D-Dimer 1.70 H 0.00-0.49 UG/ML Sodium Level 140 135-145 MMOL/L Potassium Level 3.7 3.6-5.0 MMOL/L Chloride Level 97 L 98-107 MMOL/L Carbon Dioxide Level 19 L 21-32 MMOL/L Anion Gap 24 H 5-14 MMOL/L Blood Urea Nitrogen 10 7-18 MG/DL Creatinine 1.35 H 0.60-1.30 MG/DL Estimat Glomerular Filtration Rate 42 BUN/Creatinine Ratio 7 Glucose Level 176 H 70-105 MG/DL Lactic Acid Level 5.71 *H 2.48 *H 1.85 0.50-2.00 MMOL/L Calcium Level 9.1 8.5-10.1 MG/DL Corrected Calcium 9.7 8.5-10.1 MG/DL Magnesium Level 1.7 1.6-2.4 MG/DL Total Bilirubin 0.6 0.1-1.0 MG/DL Aspartate Amino Transf (AST/SGOT) 32 5-34 U/L Alanine Aminotransferase (ALT/SGPT) 28 0-55 U/L Alkaline Phosphatase 162 H 40-136 U/L C-Reactive Protein 15.89 H <0.50 MG/DL Total Protein 8.0 6.4-8.2 GM/DL Albumin 3.3 3.2-4.5 GM/DL Lipase 21 8-78 U/L Urine Color YELLOW Urine Clarity CLOUDY Urine pH 7.0 5-9 Urine Specific [place] 1.010 L 1.016-1.022 Urine Protein 1+ H NEGATIVE Urine Glucose (UA) NEGATIVE NEGATIVE Urine Ketones NEGATIVE NEGATIVE Urine Nitrite POSITIVE H NEGATIVE Urine Bilirubin NEGATIVE NEGATIVE Urine Urobilinogen 0.2 < = 1.0 MG/DL Urine Leukocyte Esterase 2+ H NEGATIVE Urine RBC (Auto) 1+ H NEGATIVE Urine RBC 2-5 H /HPF Urine WBC 50-100 H /HPF Urine Squamous Epithelial Cells NONE /HPF Urine Crystals NONE /LPF Urine Bacteria LARGE H /HPF Urine Casts PRESENT /LPF Urine Hyaline Casts RARE /LPF Urine White Blood Cell Casts RARE H /LPF Urine Mucus SMALL H /LPF Urine Culture Indicated YES Urine Opiates Screen NEGATIVE NEGATIVE Urine Oxycodone Screen POSITIVE H NEGATIVE Urine Methadone Screen NEGATIVE NEGATIVE Urine Propoxyphene Screen NEGATIVE NEGATIVE Urine Barbiturates Screen NEGATIVE NEGATIVE Ur Tricyclic Antidepressants Screen NEGATIVE NEGATIVE Urine Phencyclidine Screen NEGATIVE NEGATIVE Urine Amphetamines Screen NEGATIVE NEGATIVE Urine Methamphetamines Screen NEGATIVE NEGATIVE Urine Benzodiazepines Screen NEGATIVE NEGATIVE Urine Cocaine Screen NEGATIVE NEGATIVE Urine Cannabinoids Screen NEGATIVE NEGATIVE My Orders Orders - ANNEMARIE MORTON MD Cbc With Automated Diff (03/14/22 12:11) Comprehensive Metabolic Panel (03/14/22 12:11) Fibrin Degradation Products (03/14/22 12:11) Drug Screen Stat (Urine) (03/14/22 12:11) Lactic Acid Analyzer (03/14/22 12:11) Lipase (03/14/22 12:11) Magnesium (03/14/22 12:11) Protime With Inr (03/14/22 12:11) Partial Thromboplastin Time (03/14/22 12:11) Ua Culture If Indicated (03/14/22 12:11) Crp Fs (03/14/22 12:11) Ct Abdomen/Pelvis W (03/14/22 12:19) Chest 1 View Ap/Pa Only (03/14/22 12:20) C Difficile Ag + Toxin A/B. (03/14/22 12:20) Isolation Central Supply Req (03/14/22 12:20) Stool Culture (03/14/22 12:21) Ed Iv/Invasive Line Start (03/14/22 12:21) Ns Iv 1000 Ml (Sodium Chloride 0.9%) (03/14/22 12:21) Ondansetron Injection (Zofran Injectio (03/14/22 12:45) Ondansetron Injection (Zofran Injectio (03/14/22 12:35) Manual Differential (03/14/22 12:15) Iohexol Injection (Omnipaque 350 Mg/Ml 1 (03/14/22 13:15) Received Contrast (Hold Metformin- Contr (03/14/22 13:15) Ns (Ivpb) (Sodium Chloride 0.9% Ivpb Bag (03/14/22 13:15) Vancomycin Injection (Vancomycin Injecti (03/14/22 13:15) Blood Culture (03/14/22 13:06) Enriquez Cath (03/14/22 14:27) Ceftriaxone 1 Gm Pre-Mix (Rocephin 1 Gm (03/14/22 14:27) Ct Angio Chest W (03/14/22 14:28) Ns Iv 1000 Ml (Sodium Chloride 0.9%) (03/14/22 14:51) Urine Culture (03/14/22 14:45) Iohexol Injection (Omnipaque 350 Mg/Ml 1 (03/14/22 15:30) Received Contrast (Hold Metformin- Contr (03/14/22 15:30) Ns (Ivpb) (Sodium Chloride 0.9% Ivpb Bag (03/14/22 15:30) Procalcitonin (Pct) (03/14/22 12:15) Ed Admission (Communication) (03/14/22 16:30) Medications Given in ED Current Medications Medications Dose Ordered Sig/Kylee Route Start Time Stop Time Status Last Admin Dose Admin Iohexol 100 ml ONCE ONCE IV 03/14/22 13:15 03/14/22 13:16 DC 03/14/22 13:36 100 ML Iohexol 100 ml ONCE ONCE IV 03/14/22 15:30 12/2/22 15:31 DC 03/14/22 15:34 100 ML Ondansetron HCl 4 mg ONCE ONCE IVP 03/14/22 12:45 03/14/22 12:46 DC 03/14/22 12:41 4 MG Sodium Chloride 100 ml ONCE ONCE IV 03/14/22 13:15 03/14/22 13:16 DC 03/14/22 13:36 100 ML Sodium Chloride 100 ml ONCE ONCE IV 03/14/22 15:30 03/14/22 15:31 DC 03/14/22 15:34 100 ML Vancomycin HCl 1000 mg/Sodium Chloride 250 ml @ 250 mls/hr ONCE ONCE IV 03/14/22 13:15 03/14/22 14:14 DC 03/14/22 14:47 250 MLS/HR Vital Signs/I&O 03/14/22 03/14/22 12:15 18:06 Temp 36.0 36.7 Pulse 83 83 Resp 20 18 B/P (MAP) 123/92 (102) 144/74 Pulse Ox 96 98 O2 Delivery Room Air Capillary Refill : Progress Note : Progress Note 1. GENERALIZED WEAKNESS; UROSEPSIS & Dehydration: - CT ABD & PELVIS: see report: left sided hydronephrosis and cystitis - CXR: no acute findings - UA is positive for leukocyte esterase, nitrate, RBCs, WBCs, bacteria. - CMP: Creatinine is 1.35 due to dehydration - CRP: elevated at 15.89 - Lactic acid 5.71, then 2.48, then 1.85, then 0.98 - Blood cultures sent - NS IVF bolus - Ceftriaxone 1gm iv STAT - Pt was initially extremely so lethargic that she had a difficult time holding her head up, but after receiving fluids and antibiotics patient was much improved, and lactic acid trending down. -Will admit patient to ICU. Accepted by hospitalist for admission 2. ELEVATED D-DIMER: - D-dimer is 1.70 - CTA negative for PE 3. C.Diff: - Stool studies - Vancomycin 1gm iv STAT in ER - As per pt's longterm face sheet, she was given 5 days of Fidamoxicin but not currently on anything for c. diff Diagnostic Imaging Diagonstic Imaging: Xray, CT Plain Films/CT/US/NM/MRI: chest, abdomen, pelvis [facility] [place], [place] NAME: NURA ORTIZ [facility] REC#: [id number] PT STATUS: REG ER : 1950 PHYSICIAN: ANNEMARIE MORTON MD ADMIT DATE: 03/14/22/ER FS Signed Date of Exam:03/14/22 CHEST 1 VIEW AP/PA ONLY INDICATION: Abdominal pain. COMPARISON: 04/18/2020. FINDINGS: A right subclavian line projects over the SVC. The lungs are clear. No failure, effusion, or pneumothorax. IMPRESSION: No acute appearing abnormality. Dictated by: Dictated on workstation # [id number] Dict: 03/14/22 1238 Trans: 03/14/22 1554 [id number] Interpreted by: HAILEE PERRY Electronically signed by: HAILEE PERRY 03/14/22 1554 [facility] [place] NAME: NURA ORTIZ [facility] REC#: [id number] PT STATUS: REG ER : 1950 PHYSICIAN: ANNEMARIE MORTON MD ADMIT DATE: 03/14/22/ER FS Signed Date of Exam:03/14/22 CT ANGIO CHEST W PROCEDURE: CT angiography of the chest with contrast. TECHNIQUE: Multiple contiguous axial images were obtained through the chest after uneventful bolus administration of intravenous contrast. 3D reconstructed CTA MIP acquisitions were also performed. Auto Exposure Controls were utilized during the CT exam to meet ALARA standards for radiation dose reduction. INDICATION: Elevated D-dimer. FINDINGS: There are no pulmonary arterial filling defects. There is no pulmonary arterial embolus. Thoracic aorta patent and nonaneurysmal and nonacute. No pneumothorax. No pleural or pericardial effusion. No consolidation. No pulmonary edema. No suspicious mass or lymphadenopathy. IMPRESSION: Negative for PE or other acute abnormalities. Dictated by: Dictated on workstation # [id number] Dict: 03/14/22 1537 Trans: 03/14/22 1612 [id number] Interpreted by: HAILEE PERRY Electronically signed by: HAILEE PERRY 03/14/22 1612 [facility] [place] [place] NAME: NURA ORTIZ [facility] REC#: [id number] PT STATUS: REG ER : 1950 PHYSICIAN: ANNEMARIE MORTON MD ADMIT DATE: 03/14/22/ER FS Signed Date of Exam:03/14/22 CT ABDOMEN/PELVIS W PROCEDURE: CT abdomen and pelvis with contrast. TECHNIQUE: Multiple contiguous axial images were obtained through the abdomen and pelvis after administration of intravenous contrast. Auto Exposure Controls were utilized during the CT exam to meet ALARA standards for radiation dose reduction. All CT scans use one or more of the following dose optimizing techniques: Automated exposure control, MA and/or KvP adjustment based on patient size and exam type or iterative reconstruction. INDICATION: Abdominal pain. Comparison is made with prior CT from 09/30/2021. FINDINGS: The lung bases are clear. No focal liver mass is detected. Gallbladder is surgically absent. There is no biliary ductal dilatation. Pancreas and spleen are unremarkable. No adrenal mass is detected. The right kidney is unremarkable. The left kidney does show some mild hydronephrosis. There is some enhancement to the proximal left ureter wall. No obstructing calculus is seen. There is some generalized bladder wall thickening, but no bladder calculus or mass is detected. Aorta and iliac vessels are calcified but nonaneurysmal. Bowel loops are normal in caliber without evidence of obstruction. There is some generalized wall thickening involving the rectum and sigmoid. There is diverticulosis of the sigmoid colon as well. No free fluid or fluid collection is seen. There is a fat-containing umbilical hernia. Uterus is unremarkable. IMPRESSION: 1. Mild left-sided hydronephrosis without evidence of obstructing calculus. There is some enhancement to the proximal left ureteral wall. Urinary tract infection cannot be entirely excluded. There is also bladder wall thickening, and cystitis could not be entirely excluded. 2. Sigmoid diverticulosis. There is also some wall thickening of the rectum and portions of the sigmoid colon, and nonspecific coloproctitis cannot be excluded. The remainder of the study is unremarkable. Dictated by: Dictated on workstation # [id number] Dict: 03/14/22 1410 Trans: 03/14/22 1601 [id number] Interpreted by: JULIANE BARBOZA MD Electronically signed by: JULIANE BARBOZA MD 03/14/22 1601 Departure Communication (Admissions) Time/Spoke to Admitting Phy: 16:[address] Johnson. Accepted for admission into ICU Impression Primary Impression: Sepsis due to urinary tract infection Additional Impressions: Dehydration Generalized weakness Elevated d-dimer C. difficile diarrhea Disposition: 30 STILL A PATIENT Condition: Improved Admissions Decision to Admit Reason: Admit from ER (General) Decision to Admit/Date: Mar 14, 2022 Time/Decision to Admit Time: 16:00 Transfer Method of Transfer: EMS Departure-Patient Inst. Referrals: LISETH DE LA ROSA APRN (PCP) Primary Care Physician [facility] (Family) Primary Care Physician ANNEMARIE MORTON MD Mar 14, 2022 12:00
[2022-03-14] MEDS ORDERED: NS IV 1000 ML 1,000 ML IV STA ×2 (12:21→14:51)
[2022-03-14] MEDS ORDERED: ONDANSETRON 4 MG/2 ML (SDV) Z0FRAN ONE (12:35)
[2022-03-14 12:42] LABS: BASOPHILS % (AUTO) 0 % (0-10); EOSINOPHILS % (AUTO) 0 % (0-10); HEMATOCRIT 33 % (35-52); HEMOGLOBIN 9.6 g/dL (11.5-16.0); LYMPHOCYTES # (AUTO) 0.9 10^3/uL (1.0-4.0); LYMPHOCYTES % (AUTO) 6 % (12-44); MEAN CORPUSCULAR HEMOGLOBIN 24 pg (25-34); MEAN CORPUSCULAR HGB CONC 30 g/dL (32-36); MEAN CORPUSCULAR VOLUME 80 fL (80-99); MEAN PLATELET VOLUME 11.7 fL (9.0-12.2); MONOCYTES # (AUTO) 0.9 10^3/uL (0.0-1.0); MONOCYTES % (AUTO) 6 % (0-12); NEUTROPHILS # (AUTO) 12.5 10^3/uL (1.8-7.8); NEUTROPHILS % (AUTO) 87 % (42-75); PLATELET COUNT 371 10^3/uL (130-400); WHITE BLOOD COUNT 14.4 10^3/uL (4.3-11.0)
[2022-03-14] MEDS ORDERED: ONDANSETRON 4 MG/2 ML (SDV) Z0FRAN IVP ONE (12:45)
[2022-03-14] MEDS ORDERED: RT-ALBUTEROL/IPRATROPIUM 3 ML (DUONEB) VIAL INH ONE (12:45)
--- NOTE | 2022-03-14 12:51 | Diagnostic Imaging Report ---
INDICATION: Abdominal pain. COMPARISON: 04/18/2020. FINDINGS: A right subclavian line projects over the SVC. The lungs are clear. No failure, effusion, or pneumothorax. IMPRESSION: No acute appearing abnormality. Dictated by: Dictated on workstation # [id number]
[2022-03-14 12:57] LABS: FIBRIN DEGRADATION PRODUCTS 1.7 UG/ML (0.00-0.49); INR 1.3 (0.8-1.4); PROTHROMBIN TIME PATIENT 16.5 SEC (12.2-14.7)
[2022-03-14 13:02] LABS: POTASSIUM 3.7 MMOL/L (3.6-5.0)
[2022-03-14 13:03] LABS: ALBUMIN 3.3 GM/DL (3.2-4.5); BILIRUBIN,TOTAL 0.6 MG/DL (0.1-1.0); CALCIUM 9.1 MG/DL (8.5-10.1); CREATININE SERUM 1.35 MG/DL (0.60-1.30); MAGNESIUM 1.7 MG/DL (1.6-2.4)
[2022-03-14] MEDS ORDERED: NS 100 ML (IVPB) BAG IV ONE ×2 (13:15→15:30)
[2022-03-14] MEDS ORDERED: VANCOMYCIN INJECTION 1,000 MG in NS (IVPB) 250 ML IV ONE (13:15)
[2022-03-14] MEDS ORDERED: IOHEXOL 350 MG/ML 100 ML (OMNIPAQUE 350) VIAL IV ONE ×2 (13:15→15:30)
[2022-03-14] MEDS ORDERED: HOLD METFORMIN - RECEIVED CONTRAST 20 ML VIAL IV SCH ×2 (13:15→15:30)
[2022-03-14 13:58] LABS: BAND NEUTROPHILS 10 %; HYPOCHROMASIA MODERATE; LYMPHOCYTES % (MANUAL) 6 %; MICROCYTOSIS SLIGHT; MONOCYTES % (MANUAL) 6 %; NEUTROPHILS % (MANUAL) 78 %; PLATELET ESTIMATE NORMAL
[2022-03-14 13:59] LABS: ANISOCYTOSIS MODERATE
--- NOTE | 2022-03-14 14:18 | Diagnostic Imaging Report ---
PROCEDURE: CT abdomen and pelvis with contrast. TECHNIQUE: Multiple contiguous axial images were obtained through the abdomen and pelvis after administration of intravenous contrast. Auto Exposure Controls were utilized during the CT exam to meet ALARA standards for radiation dose reduction. All CT scans use one or more of the following dose optimizing techniques: Automated exposure control, MA and/or KvP adjustment based on patient size and exam type or iterative reconstruction. INDICATION: Abdominal pain. Comparison is made with prior CT from 09/30/2021. FINDINGS: The lung bases are clear. No focal liver mass is detected. Gallbladder is surgically absent. There is no biliary ductal dilatation. Pancreas and spleen are unremarkable. No adrenal mass is detected. The right kidney is unremarkable. The left kidney does show some mild hydronephrosis. There is some enhancement to the proximal left ureter wall. No obstructing calculus is seen. There is some generalized bladder wall thickening, but no bladder calculus or mass is detected. Aorta and iliac vessels are calcified but nonaneurysmal. Bowel loops are normal in caliber without evidence of obstruction. There is some generalized wall thickening involving the rectum and sigmoid. There is diverticulosis of the sigmoid colon as well. No free fluid or fluid collection is seen. There is a fat-containing umbilical hernia. Uterus is unremarkable. IMPRESSION: 1. Mild left-sided hydronephrosis without evidence of obstructing calculus. There is some enhancement to the proximal left ureteral wall. Urinary tract infection cannot be entirely excluded. There is also bladder wall thickening, and cystitis could not be entirely excluded. 2. Sigmoid diverticulosis. There is also some wall thickening of the rectum and portions of the sigmoid colon, and nonspecific coloproctitis cannot be excluded. The remainder of the study is unremarkable. Dictated by: Dictated on workstation # [id number]
[2022-03-14] MEDS ORDERED: cefTRIAXone 1 GM PRE-MIX 50 ML IV STA (14:27)
[2022-03-14 14:54] LABS: BILIRUBIN,URINE NEGATIVE (NEGATIVE); CLARITY,URINE CLOUDY; COLOR,URINE YELLOW; GLUCOSE, URINE (UA) NEGATIVE (NEGATIVE); KETONES,URINE NEGATIVE (NEGATIVE); LEUKOCYTE ESTERASE ,URINE 2+ (NEGATIVE); NITRITE,URINE POSITIVE (NEGATIVE); PROTEIN,URINE 1+ (NEGATIVE)
[2022-03-14 15:00] LABS: BACTERIA,URINE LARGE /HPF
[2022-03-14 15:01] LABS: HYALINE CASTS, URINE RARE /LPF; WHITE BLOOD CELL CASTS, URINE RARE /LPF
[2022-03-14 15:03] LABS: OXYCODONE STAT POSITIVE (NEGATIVE)
[2022-03-14 15:04] LABS: AMPHETAMINE SCREEN, URINE NEGATIVE (NEGATIVE); BARBITURATE SCREEN URINE NEGATIVE (NEGATIVE); BENZODIAZEPINES SCREEN URINE NEGATIVE (NEGATIVE); CANNABINOID SCREEN, URINE NEGATIVE (NEGATIVE); COCAINE SCREEN URINE NEGATIVE (NEGATIVE); METHADONE STAT NEGATIVE (NEGATIVE); OPIATE SCREEN URINE NEGATIVE (NEGATIVE); PROPOXYPHENE STAT NEGATIVE (NEGATIVE); TRICYCLIC ANTIDEPRESSANTS SCRE NEGATIVE (NEGATIVE)
[2022-03-14 15:06] LABS: WBC,URINE 50-100 /HPF
--- NOTE | 2022-03-14 15:42 | Diagnostic Imaging Report ---
PROCEDURE: CT angiography of the chest with contrast. TECHNIQUE: Multiple contiguous axial images were obtained through the chest after uneventful bolus administration of intravenous contrast. 3D reconstructed CTA MIP acquisitions were also performed. Auto Exposure Controls were utilized during the CT exam to meet ALARA standards for radiation dose reduction. INDICATION: Elevated D-dimer. FINDINGS: There are no pulmonary arterial filling defects. There is no pulmonary arterial embolus. Thoracic aorta patent and nonaneurysmal and nonacute. No pneumothorax. No pleural or pericardial effusion. No consolidation. No pulmonary edema. No suspicious mass or lymphadenopathy. IMPRESSION: Negative for PE or other acute abnormalities. Dictated by: Dictated on workstation # [id number]
[2022-03-14 19:27] VITALS: BP 147/76
[2022-03-14] MEDS ORDERED: BISACODYL 10 MG SUPP (DULCOLAX) PR PRN (19:30)
[2022-03-14] MEDS ORDERED: ANTACID SUSP 30 ML UDC (MYLANTA) PO PRN (19:30)
[2022-03-14] MEDS ORDERED: diphenhydrAMINE 25 MG TAB (BENADRYL) PO PRN (19:30)
[2022-03-14] MEDS ORDERED: ONDANSETRON 4 MG (ZOFRAN) ORAL DISSOLVE TAB PO PRN (19:30)
[2022-03-14] MEDS ORDERED: diphenhydrAMINE 50 MG/ML INJ (BENADRYL) IVP PRN (19:30)
[2022-03-14] MEDS ORDERED: NS IV 500 ML 500 ML IV PRN (19:30)
[2022-03-14] MEDS ORDERED: polyethylene glycoL POWDER 17 GM (MIRALAX) PACK PO PRN (19:30)
[2022-03-14] MEDS ORDERED: ACETAMINOPHEN 325 MG TABLET PO PRN (19:30)
[2022-03-14] MEDS ORDERED: ONDANSETRON 4 MG/2 ML (SDV) Z0FRAN IV PRN (19:30)
[2022-03-14] MEDS ORDERED: VANCOMYCIN INJECTION 0.1 MG in NS (IVPB) 250 ML IV SCH (19:30)
[2022-03-14] MEDS ORDERED: MELATONIN 3 MG TABLET PO PRN (19:30)
[2022-03-14] MEDS ORDERED: HYDROmorphone 2 MG/ML VIAL (DILAUDID) IV PRN (19:30)
[2022-03-14] MEDS ORDERED: VANCOMYCIN 2000 MG/NS 500 ML IVPB IV ONE ×2 (20:00)
[2022-03-14 21:08] LABS: ABG OXYGEN SATURATION 96 % (94-100); ABG PCO2 32 MMHG (35-45); ABG PO2 73 MMHG (79-93); ABG TCO2 21.1 MMOL/L (21.0-31.0)
[2022-03-14 21:14] LABS: ALLENS TEST YES-POS; VENTILATOR NO
--- NOTE | 2022-03-14 21:25 | Tele-ICU Progress Note ---
Progress Note 71F with CHF, COPD on home O2, CAD, HTN, HLD, uterine cancer refusing treatment, admitted for septic shock secondary to urinary source, possible c diff. Per report had c diff a few months ago. Does have ongoing diarrhea, seems to be provoked by eating. - septic shock: has been HD stable. Initial lactic 5.7, now improved to 0.98. Cultures pending, broad spectrum abx intiated. PCT still pending. - c diff: c diff ordered, no sample produced yet. History sounds more suspicious for a microscopic colitis. I am not sure what her prognosis is from an untreated uterine cancer standpoint or whether proceeding with invasive work up is the best course. If c diff negative, will defer to primary team whether GI consult for colonscopy would be appropriate. - ALANA: creatinine from baseline 0.6 to 1.35. Fluid bolus completed and maintenance ordered NS@125. Monitor renal function, UOP. Avoid hypotension and nephrotoxins. - anemia: stable, at baseline. Diagnosis: _X__ patient provided consent for the telehealth visit ___patient is not able to provide consent for the telehealth visit, service provided to critically care patient using implied consent doctrine. A total of 12 minutes of critical care time was devoted to this patient, including reviewing this patient's available data, including medical history, events of note and test results. I have overseen the activities of other members of the care team under my direct supervision during events of the note . This was required to treat and/or prevent further deterioration of critical care conditions ( as above ). Service provided to a patient admitted to ICU bed via interactive E-CARE system with real-time audio and video telecommunications from [facility]- ICU hub located in [place], [place] Focused Exam Lactate Level 03/14/22 14:53: Lactic Acid Level 2.48*H 03/14/22 16:52: Lactic Acid Level 1.85 03/14/22 19:40: Lactic Acid Level 0.98 Height, Weight, BMI Height: 5'5.00" Weight: 332lbs. 0oz. 150.470394ne; 45.55 BMI Method:Stated Lactic Acid Level Laboratory Tests Test 03/14/22 19:40 Lactic Acid Level 0.98 MMOL/L (0.50-2.00) YIN REYES MD Mar 14, 2022 21:25
[2022-03-14] MEDS: DOCUSATE SODIUM 100 MG (COLACE) CAP PO SCH (22:10)
[2022-03-14] MEDS: inSUlin ASPART (NovoLOG) 1 UNIT/0.01 ML (CHARGE PER UNIT) SC SCH (22:11)
[2022-03-14] MEDS: NS IV 1000 ML 1,000 ML IV SCH (22:34)
[2022-03-14] MEDS: CEFEPIME INJECTION 1,000 MG in NS (IVPB) 50 ML IV SCH (22:34)
[2022-03-14] MEDS: ENOXAPARIN 40 MG/0.4 ML (LOVENOX) SYR SC SCH (22:34)
[2022-03-14] MEDS: RT-ALBUTEROL/IPRATROPIUM 3 ML (DUONEB) VIAL INH SCH (23:08)
[2022-03-15] MEDS: RT-ALBUTEROL/IPRATROPIUM 3 ML (DUONEB) VIAL INH SCH ×6 (03:09→23:08)
[2022-03-15] MEDS: CEFEPIME INJECTION 1,000 MG in NS (IVPB) 50 ML IV SCH ×3 (03:13→19:59)
[2022-03-15 04:57] LABS: BASOPHILS % (AUTO) 0 % (0-10); EOSINOPHILS % (AUTO) 0 % (0-10); HEMATOCRIT 25 % (35-52); HEMOGLOBIN 7.5 g/dL (11.5-16.0); LYMPHOCYTES # (AUTO) 0.8 10^3/uL (1.0-4.0); LYMPHOCYTES % (AUTO) 8 % (12-44); MEAN CORPUSCULAR HEMOGLOBIN 24 pg (25-34); MEAN CORPUSCULAR HGB CONC 30 g/dL (32-36); MEAN CORPUSCULAR VOLUME 81 fL (80-99); MEAN PLATELET VOLUME 11.3 fL (9.0-12.2); MONOCYTES # (AUTO) 0.8 10^3/uL (0.0-1.0); MONOCYTES % (AUTO) 8 % (0-12); NEUTROPHILS # (AUTO) 7.9 10^3/uL (1.8-7.8); NEUTROPHILS % (AUTO) 83 % (42-75); PLATELET COUNT 262 10^3/uL (130-400); WHITE BLOOD COUNT 9.6 10^3/uL (4.3-11.0)
[2022-03-15 05:36] LABS: ALBUMIN 2.5 GM/DL (3.2-4.5); BILIRUBIN,TOTAL 0.3 MG/DL (0.1-1.0); CALCIUM 8.1 MG/DL (8.5-10.1); CREATININE SERUM 1.13 MG/DL (0.60-1.30); MAGNESIUM 1.5 MG/DL (1.6-2.4); PHOSPHORUS 2.8 MG/DL (2.3-4.7); POTASSIUM 3.1 MMOL/L (3.6-5.0); TOTAL PROTEIN 6.1 GM/DL (6.4-8.2)
[2022-03-15] MEDS: inSUlin ASPART (NovoLOG) 1 UNIT/0.01 ML (CHARGE PER UNIT) SC SCH ×4 (05:52→20:41)
[2022-03-15] MEDS: KCL 20 MEQ TAB (K-DUR) PO SCH ×3 (05:57→08:07)
[2022-03-15] MEDS: MAGNESIUM 1 GM/100 ML IVPB 100 ML IV SCH ×2 (05:58→08:01)
[2022-03-15] MEDS ORDERED: POTASSIUM CL 10MEQ/50ML IVPB 50 ML IV SCH (06:00)
--- NOTE | 2022-03-15 06:45 | History & Physical-Hospitalist ---
History of Present Illness HPI/Chief Complaint Chief complaint: Altered mental status with sepsis HPI: This is a 71-year-old female of [facility] who presented to the [place] [facility] with altered mental status and found to have sepsis from UTI. Patient was placed on broad-spectrum antibiotics in the ICU due to elevated lactic acid but she was transferred out of the ICU when she stabilized this morning. Currently she is doing much better and I did consult therapy. Patient does not know details about her medical history so we will try to obtain details from another source. Source: patient, RN/MD Exam Limitations: clinical condition Date Seen 03/15/22 Time Seen by a Provider: 11:00 Attending Physician Mickie Maza Aprn PCP Admitting Physician: Livia Zuniga DO Attending Physician: Livia Zuniga DO Referring Physician Date of Admission Mar 14, 2022 at 18:51 Home Medications & Allergies Home Medications Reviewed patient Home Medication Reconciliation performed by pharmacy medication reconciliations mix technician and/or nursing. Patients Allergies have been reviewed. Allergies Allergies Coded Allergies No Known Drug Allergies (Verified11/20/08) Past Iotyocb-Xgavif-Hzithg Hx Patient Social History Marrital Status: single Employed/Student: retired Tobacco Use?: No Smoking Status: Never a Smoker Use of E-Cig and/or Vaping dev: No Substance use?: No Alcohol Use?: No Pt feels they are or have been: No Immunizations Up To Date Date of Influenza Vaccine: Feb 11, 2022 First/Initial COVID19 Vaccinat: Yes Second COVID19 Vaccination Rojelio: Yes Tetanus Booster (TDap): Unknown Date of Pneumonia Vaccine: Apr 13, 2018 Seasonal Allergies Seasonal Allergies: No Current Status Advance Directives: No Communicates: Verbally Primary Language: Sri Lankan Preferred Spoken Language: [place]ankan Is interpretation needed?: No Implanted or Applied Medical D: None Past Medical History Surgeries: Gallbladder, Orthopedic Sleep Apnea, COPD Atrial Fibrillation, Coronary Artery Disease, Heart Attack, Hypertension W[employer]ENCE [employer]ING History: IUD Sexually Transmitted Disease: No HIV/AIDS: No Gastroesophageal Reflux, Liver Disease/Jaundice Arthritis Depression Blood Disorders: Yes (hx chronic anemia (prior blood transfusions)) PMHx: Poor historian- denies PMH but is on multiple medications suggesting HTN, HLD, COPD, CHF, mood disorder Review of Systems Constitutional: see HPI, dizziness, fever, malaise, weakness EENTM: no symptoms reported Respiratory: cough, dyspnea on exertion Cardiovascular: no symptoms reported Gastrointestinal: no symptoms reported Genitourinary: no symptoms reported Musculoskeletal: back pain, joint pain Skin: no symptoms reported Psychiatric/Neurological: Depressed All Other Systems Reviewed Negative Unless Noted: Yes Physical Exam Physical Exam Vital Signs Vital Signs - First Documented 03/14/22 03/14/22 03/14/22 03/15/22 12:15 18:06 19:42 09:00 Temp 36.0 Pulse 83 Resp 20 B/P (MAP) 123/92 (102) Pulse Ox 96 O2 Delivery Room Air O2 Flow Rate 0.00 FiO2 21 Capillary Refill : Less Than 3 Seconds Height, Weight, BMI Height: 5'5.00" Weight: 332lbs. 0oz. 150.817281wk; 44.78 BMI Method:Stated General Appearance: No Apparent Distress, Chronically ill, Obese Eyes: Right Eye Normal Inspection, Right Eye PERRL HEENT: PERRL/EOMI, Normal ENT Inspection, Pharynx Normal, Moist Mucous Membranes Neck: Full Range of Motion, Normal Inspection, Non Tender Respiratory: Chest Non Tender, Lungs Clear, Normal Breath Sounds, No Accessory Muscle Use, No Respiratory Distress Cardiovascular: Regular Rate, Rhythm, No Edema, No Gallop, No JVD, No Murmur, Normal Peripheral Pulses Gastrointestinal: Normal Bowel Sounds, No Organomegaly, No Pulsatile Mass, Non Tender, Soft Back: Normal Inspection, No CVA Tenderness, No Vertebral Tenderness Extremity: Normal Capillary Refill, Normal Inspection, Normal Range of Motion, Non Tender, No Calf Tenderness, No Pedal Edema Neurologic/Psychiatric: Alert, Oriented x3, polymer specialist II-XII Norm as Tested, Abnormal Gait, Depressed Affect, Motor Weakness (Generalized) Skin: Normal Color, Warm/Dry Lymphatic: No Adenopathy Results Results/Procedures Labs Laboratory Tests 03/14/22 12:15 03/15/22 04:39 Patient resulted labs reviewed. Assessment/Plan Admission Diagnosis Assessment: Sepsis UTI COPD Obesity Atrial fibrillation CAD Hypertension Hyperlipidemia Severe debility Cognitive deficit? Plan: IV antibiotics Hep-Lock IV fluid Supportive care Therapy Admission Status: Observation Diagnosis/Problems Diagnosis/Problems (1) Sepsis due to urinary tract infection Status: Acute (2) Morbid obesity Status: Chronic (3) Chronic respiratory failure Status: Chronic (4) Atrial fibrillation Status: Chronic (5) Obesity hypoventilation syndrome Status: Chronic (6) Chronic pain Status: Chronic (7) Hypertension Status: Chronic LIVIA ZUNIGA DO Mar 15, 2022 06:45
[2022-03-15] MEDS: DOCUSATE SODIUM 100 MG (COLACE) CAP PO SCH ×2 (07:06→19:12)
[2022-03-15] MEDS: NS IV 1000 ML 1,000 ML IV SCH (08:01)
--- NOTE | 2022-03-15 08:27 | Tele-ICU Progress Note ---
Subjective Date Seen by a Provider: Mar 15, 2022 Time Seen by a Provider: 08:24 Subjective/Events-last exam 71 yo F with uterine Ca, declining any Rx, admitted with urosepsis, started on IV Vanco/Cefepime Sepsis Event Evaluation Height, Weight, BMI Height: 5'5.00" Weight: 332lbs. 0oz. 150.732310on; 44.78 BMI Method:Stated Focused Exam Lactate Level 03/14/22 14:53: Lactic Acid Level 2.48*H 03/14/22 16:52: Lactic Acid Level 1.85 03/14/22 19:40: Lactic Acid Level 0.98 Exam Exam Patient acknowledged, consented, and participated in this virtual visit which was conducted using real time audio/video Vital Signs Date Time Temp Pulse Resp B/P (MAP) Pulse Ox O2 Delivery O2 Flow Rate FiO2 03/15/22 07:52 36.0 03/15/22 07:00 82 03/15/22 06:00 86 16 133/75 (94) 97 Room Air 03/15/22 05:00 85 16 133/74 (93) 94 Room Air 03/15/22 04:00 97 Room Air 03/15/22 04:00 86 28 112/63 (79) 94 Room Air 03/15/22 03:32 36.6 03/15/22 03:00 84 27 106/73 (84) 97 Room Air 03/15/22 02:00 83 23 127/87 (100) 99 Room Air 03/15/22 01:00 89 27 135/89 (104) 98 Room Air 03/15/22 01:00 90 03/15/22 00:47 36.0 03/15/22 00:00 89 25 125/96 (106) 95 Room Air 03/14/22 23:59 97 Room Air 03/14/22 23:08 95 Room Air 03/14/22 23:00 87 20 124/77 (93) 94 Room Air 03/14/22 22:00 87 21 126/78 (94) 95 Room Air 03/14/22 20:45 86 20 122/88 (99) 98 Room Air 03/14/22 20:15 85 24 116/80 (92) 96 Room Air 03/14/22 20:00 97 Room Air 03/14/22 20:00 95 Room Air 03/14/22 19:45 84 24 125/76 (92) 98 Room Air 03/14/22 19:42 84 98 21 03/14/22 19:30 81 26 99 Room Air 03/14/22 19:27 36.0 81 26 147/76 (99) 99 Room Air 03/14/22 19:15 81 26 99 Room Air 03/14/22 19:03 82 03/14/22 18:56 36.0 84 20 147/76 (99) 98 Room Air 03/14/22 18:06 36.7 83 18 144/74 98 Room Air 03/14/22 12:15 36.0 83 20 123/92 (102) 96 I & O 03/15/22 07:00 Intake Total 2700 ml Output Total 900 ml Balance 1800 ml Height & Weight Height: 5'5.00" Weight: 332lbs. 0oz. 150.620284bf; 44.78 BMI Method:Stated General Appearance: No Apparent Distress, WD/WN, Chronically ill, Obese HEENT: PERRL/EOMI, Normal ENT Inspection Neck: Full Range of Motion, Normal Inspection, Non Tender Respiratory: Chest Non Tender, Lungs Clear, Normal Breath Sounds, No Accessory Muscle Use, No Respiratory Distress Cardiovascular: Regular Rate, Rhythm Capillary Refill: Less Than 3 Seconds Extremity: Normal Range of Motion Neurologic/Psychiatric: Oriented x3, No Motor/Sensory Deficits, Normal Mood/Affect, fuel retrofitting technician II-XII Norm as Tested Skin: Other (Patient has multiple areas of skin infection and skin breakdown including her groin, legs) Results Lab Laboratory Tests 03/14/22 12:15 03/15/22 04:39 Assessment/Plan Assessment/Plan Urosepsis, will continue present abx pending culture results COPD, continue present management HTN, HLD, CAD GEOFF TRIMBLE MD Mar 15, 2022 08:27
[2022-03-15 11:24] VITALS: BP 139/76
[2022-03-15] MEDS ORDERED: MAGNESIUM 1 GM/100 ML IVPB 0 ML IV ONE (11:53)
[2022-03-15] MEDS ORDERED: VANCOMYCIN 1500 MG/NS 500 ML IVPB IV SCH ×2 (14:00)
[2022-03-15 16:23] VITALS: BP 144/77
[2022-03-15 19:56] VITALS: BP 139/77
[2022-03-15] MEDS: ENOXAPARIN 40 MG/0.4 ML (LOVENOX) SYR SC SCH (19:59)
[2022-03-15 23:10] VITALS: BP 123/58
[2022-03-15 23:27] VITALS: BP 140/74
[2022-03-16] VITALS (7 sets, daily range): BP systolic 126–167; BP diastolic 68–89
[2022-03-16] MEDS: RT-ALBUTEROL/IPRATROPIUM 3 ML (DUONEB) VIAL INH SCH ×6 (02:43→22:49)
[2022-03-16] MEDS: CEFEPIME INJECTION 1,000 MG in NS (IVPB) 50 ML IV SCH ×3 (04:01→23:10)
[2022-03-16] MEDS: inSUlin ASPART (NovoLOG) 1 UNIT/0.01 ML (CHARGE PER UNIT) SC SCH ×4 (05:43→20:34)
--- NOTE | 2022-03-16 06:10 | Progress Note - Hospitalist ---
Subjective HPI/CC On Admission Date Seen by Provider: Mar 16, 2022 Time Seen by Provider: 12:30 Chief complaint: Altered mental status with sepsis HPI: This is a 71-year-old female of [facility] who presented to the [place] [facility] with altered mental status and found to have sepsis from UTI. Patient was placed on broad-spectrum antibiotics in the ICU due to elevated lactic acid but she was transferred out of the ICU when she stabilized this morning. Currently she is doing much better and I did consult therapy. Patient does not know details about her medical history so we will try to obtain details from another source. Subjective/Events-last exam No major issues Lost IV access but now she is coughing more so need IV access No pain reported Patient very end stage and debilitated Review of Systems General: Fatigue, Malaise Pulmonary: Dyspnea Focused Exam Lactate Level 03/14/22 14:53: Lactic Acid Level 2.48*H 03/14/22 16:52: Lactic Acid Level 1.85 03/14/22 19:40: Lactic Acid Level 0.98 Objective Exam Vital Signs Vital Signs Date Time Temp Pulse Resp B/P (MAP) Pulse Ox O2 Delivery O2 Flow Rate FiO2 03/16/22 15:27 38.2 123 20 151/89 (109) 93 Room Air 03/16/22 08:00 0.00 03/14/22 19:42 21 Capillary Refill : Less Than 3 Seconds General Appearance: No Apparent Distress, WD/WN, Chronically ill Respiratory: Lungs Clear, Normal Breath Sounds Cardiovascular: Regular Rate, Rhythm Neurologic/Psychiatric: Alert, Depressed Affect, Disoriented Results/Procedures Lab Laboratory Tests 03/16/22 06:20 Patient resulted labs reviewed. Assessment/Plan Assessment and Plan Assess & Plan/Chief Complaint Assessment: Sepsis UTI COPD Obesity Atrial fibrillation CAD Hypertension Hyperlipidemia Severe debility Cognitive deficit? Plan: IV antibiotics Hep-Lock IV fluid Supportive care Therapy Diagnosis/Problems Diagnosis/Problems (1) Sepsis due to urinary tract infection Status: Acute (2) Morbid obesity Status: Chronic (3) Chronic respiratory failure Status: Chronic (4) Atrial fibrillation Status: Chronic (5) Obesity hypoventilation syndrome Status: Chronic (6) Chronic pain Status: Chronic (7) Hypertension Status: Chronic DARBY SELBY DO Mar 16, 2022 06:09
[2022-03-16 06:43] LABS: BASOPHILS % (AUTO) 0 % (0-10); EOSINOPHILS % (AUTO) 0 % (0-10); HEMATOCRIT 25 % (35-52); HEMOGLOBIN 7.5 g/dL (11.5-16.0); LYMPHOCYTES # (AUTO) 0.5 10^3/uL (1.0-4.0); LYMPHOCYTES % (AUTO) 7 % (12-44); MEAN CORPUSCULAR HEMOGLOBIN 24 pg (25-34); MEAN CORPUSCULAR HGB CONC 30 g/dL (32-36); MEAN CORPUSCULAR VOLUME 81 fL (80-99); MEAN PLATELET VOLUME 10.6 fL (9.0-12.2); MONOCYTES # (AUTO) 0.4 10^3/uL (0.0-1.0); MONOCYTES % (AUTO) 7 % (0-12); NEUTROPHILS # (AUTO) 5.5 10^3/uL (1.8-7.8); NEUTROPHILS % (AUTO) 85 % (42-75); PLATELET COUNT 249 10^3/uL (130-400); WHITE BLOOD COUNT 6.5 10^3/uL (4.3-11.0)
[2022-03-16 06:55] LABS: ALBUMIN 2.6 GM/DL (3.2-4.5); POTASSIUM 3.4 MMOL/L (3.6-5.0)
[2022-03-16 06:57] LABS: TOTAL PROTEIN 6.3 GM/DL (6.4-8.2)
[2022-03-16 06:59] LABS: BILIRUBIN,TOTAL 0.5 MG/DL (0.1-1.0)
[2022-03-16] MEDS ORDERED: KCL 20 MEQ TAB (K-DUR) PO ONE (07:00)
[2022-03-16 07:01] LABS: CREATININE SERUM 0.86 MG/DL (0.60-1.30)
[2022-03-16 07:04] LABS: MAGNESIUM 1.7 MG/DL (1.6-2.4)
[2022-03-16] MEDS: KCL 20 MEQ TAB (K-DUR) PO SCH (07:04)
[2022-03-16] MEDS: KCL 10 MEQ TAB (MICRO K) PO SCH (08:37)
[2022-03-16] MEDS: APIXABAN 5 MG (ELIQUIS) TABLET PO SCH ×2 (08:37→21:39)
[2022-03-16] MEDS: DOCUSATE SODIUM 100 MG (COLACE) CAP PO SCH (11:33)
[2022-03-16] MEDS ORDERED: CEFDINIR 300 MG (OMNICEF) CAP PO SCH (13:00)
[2022-03-16] MEDS ORDERED: TROUGH ORDER-PHARMACY XX ONE (13:00)
[2022-03-16] MEDS ORDERED: fentaNYL INJ 100 MCG/2 ML AMP IVP STA (16:39)
[2022-03-16] MEDS ORDERED: fentaNYL INJ 100 MCG/2 ML AMP ONE (16:42)
[2022-03-16] MEDS ORDERED: morphine INJ 10 MG/ML 1ML (SYR OR VIAL) ONE (17:11)
--- NOTE | 2022-03-16 17:48 | CONSULTATION REPORT ---
DATE OF SERVICE: 03/15/2022 ADMITTING PHYSICIAN: Dr. Zuniga. ATTENDING PRIMARY EP TECH: Mickie Maza APRN HISTORY OF PRESENT ILLNESS: The patient is a 71-year-old female who presented to [facility] with altered mental status and was diagnosed with urosepsis. She was placed on broad-spectrum antibiotics and admitted to the ICU and was found to have an elevated lactic acidosis; however, this normalized on its own and she was transferred to the regular floor. Over time, she has been worsening with increased temperatures as well as hypotension. She has very poor peripheral venous circulation and will require a central venous catheter for likely vasopressors. PAST MEDICAL HISTORY: Coronary artery disease, atrial fibrillation, COPD, sleep apnea, history of myocardial infarction, hypertension, gastroesophageal reflux disease, degenerative joint disease, depression, history of anemia, congestive heart failure, hyperlipidemia. PAST SURGICAL HISTORY: Laparoscopic cholecystectomy, orthopedic procedures. ALLERGIES: NO KNOWN DRUG ALLERGIES. MEDICATIONS: Apixaban 5 mg daily, aripiprazole 2 mg daily, bupropion 100 mg daily, ciprofloxacin 500 mg b.i.d., clonazepam 1 mg daily, duloxetine 60 mg daily, fluticasone/salmeterol 12 grams 2 puffs b.i.d., furosemide 40 mg daily, ipratropium/albuterol inhaler q.4h. Lisinopril 20 mg daily, megestrol acetate 40 mg b.i.d., metoprolol 25 mg daily, metronidazole 500 mg b.i.d., morphine 15 mg q.12h. Omeprazole 20 mg daily, oxycodone p.r.n., potassium 10 mEq daily, simvastatin 10 mg daily, trazodone 50 mg each day at bedtime. SOCIAL HISTORY: Negative smoke. Negative alcohol. FAMILY HISTORY: Noncontributory. REVIEW OF SYSTEMS: A well-nourished female, currently guarded secondary to her respiratory status. She does not report any shortness of breath, cough or sputum production at rest. No hemoptysis. No nausea, vomiting, no diarrhea or constipation. No fever or chills. No recent inadvertent weight loss. No chest pain, palpitations, diaphoresis. No fever or chills. No recent inadvertent weight loss. All other review of systems negative. PHYSICAL EXAMINATION: VITAL SIGNS: Temperature 38.2, blood pressure 151/89, pulse 123, respirations 20, pulse ox 93% on room air. CHEST: Scattered rales and rhonchi bilaterally. HEART: Regular, no murmurs. EXTREMITIES: No lower extremity edema. Negative Homans sign. HEENT: No scleral icterus. No cervical lymphadenopathy. GASTROINTESTINAL: Abdomen is soft, nontender, nondistended. SKIN: Warm, dry. LABORATORY DATA: WBC 6.5, hemoglobin 7.5, hematocrit 25, platelets 249, BUN 7, creatinine 0.86, glucometer 92. Urine, 2+ positive for leukocyte esterase, large amount of bacteria. ASSESSMENT AND PLAN: A 71-year-old female with urosepsis and impending respiratory failure. She has very poor peripheral venous circulation and will likely require vasopressors and we will proceed with placement of a central venous catheter. Job ID: [id number] DocumentID: [id number] Dictated Date: 03/16/2022 16:52:45 Tower Watchman Date: 03/16/2022 17:47:00 Dictated By: BULMARO SLAUGHTER MD
[2022-03-16] MEDS ORDERED: diphenhydrAMINE 25 MG TAB (BENADRYL) PO PRN (18:00)
[2022-03-16] MEDS ORDERED: CALCIUM CARBONATE 500 MG (TUMS) TAB.CHEW PO PRN (18:00)
[2022-03-16] MEDS ORDERED: ONDANSETRON 4 MG/2 ML (SDV) Z0FRAN IVP PRN (18:00)
[2022-03-16] MEDS ORDERED: DOCUSATE SODIUM 100 MG (COLACE) CAP PO PRN (18:00)
[2022-03-16] MEDS ORDERED: ONDANSETRON 4 MG (ZOFRAN) ORAL DISSOLVE TAB PO PRN (18:00)
[2022-03-16] MEDS ORDERED: MELATONIN 3 MG TABLET PO PRN (18:00)
[2022-03-16] MEDS ORDERED: MENTHOL/ZINC OXIDE (CALMOSEPTINE) 113 GM TUBE TP PRN (18:00)
[2022-03-16] MEDS ORDERED: VANCOMYCIN INJECTION 0.1 MG in NS (IVPB) 250 ML IV SCH (18:00)
[2022-03-16] MEDS ORDERED: ACETAMINOPHEN 325 MG TABLET PO PRN (18:00)
[2022-03-16] MEDS ORDERED: guaiFENesin/CODEINE (ROBITUSSIN AC) 10ML UDC PO PRN (18:00)
--- NOTE | 2022-03-16 18:19 | Diagnostic Imaging Report ---
INDICATION: Central line placement. COMPARISON: 03/14/2022. TECHNIQUE: Single radiograph of the chest dated March 16, 2022. FINDINGS: Interval placement of left subclavian central venous catheter with the distal tip overlying the mid aspect of the superior vena cava. No pneumothorax. Right-sided Port-A-Cath is again identified and stable. Cardiac silhouette is unchanged given patient rotation. Low lung volumes with minimal perihilar and bibasilar interstitial opacities. No additional dense focal consolidation. No pleural effusion. No pneumothorax. Osseous structures are stable. IMPRESSION: Placement of a left subclavian central venous catheter with the distal tip overlying the mid superior vena cava without pneumothorax. Decreased lung volumes with minimal developing perihilar and bibasilar atelectasis or less likely pneumonitis. Dictated by: Dictated on workstation # [id number]
[2022-03-16] MEDS: polyethylene glycoL POWDER 17 GM (MIRALAX) PACK PO SCH (20:07)
[2022-03-16] MEDS: SENNA W/DOCUSATE (SENOKOT S) TABLET PO SCH (20:07)
[2022-03-16] MEDS: NS IV 1000 ML 1,000 ML IV SCH (22:19)
[2022-03-16] MEDS: VANCOMYCIN 1 GM/NS 250 ML IVPB IV SCH ×2 (23:47)
[2022-03-17] MEDS: VANCOMYCIN 1 GM/NS 250 ML IVPB IV SCH ×2 (00:50)
[2022-03-17] MEDS: RT-ALBUTEROL/IPRATROPIUM 3 ML (DUONEB) VIAL INH SCH ×6 (02:15→21:56)
--- NOTE | 2022-03-17 02:27 | OPERATIVE REPORT ---
DATE OF SERVICE: 03/15/2022 ADMITTING PHYSICIAN: Dr. Zuniga. ATTENDING PRIMARY TOLL LINE REPAIRER: Mickie Maza APRN. PREPROCEDURE DIAGNOSES: Urosepsis and hypotension with poor peripheral venous circulation. POSTPROCEDURE DIAGNOSES: Urosepsis and hypotension with poor peripheral venous circulation. PROCEDURE: Placement left subclavian [place] implantable catheter. SURGEON: Bulmaro Leonardo MD ANESTHESIA: Local. ESTIMATED BLOOD LOSS: Minimal. FINDINGS: Catheter tip at the superior vena caval -- right atrial junction. DISPOSITION: The patient tolerated the procedure well. INDICATIONS: The patient is a 71-year-old female, who presented with confusion and weakness and was found to have a urinary tract infection; however, she also has had diarrhea and is pending Clostridium difficile results. Since being admitted, she has had a steady decline in blood pressure and has very poor peripheral venous circulation and does not have any IV access at this time. DESCRIPTION OF PROCEDURE: The chest and neck were prepped and draped in standard surgical fashion. The left subclavian vein was then cannulated with drawing of venous blood. The guidewire was then inserted without any resistance cannulating needle was removed and a skin incision made using an 11 blade. A tract was then created using a venous dilator and through this opening, a triple lumen central venous catheter was placed over the guidewire using the Seldinger technique. The guidewire was then removed and all 3 ports linda venous blood and saline pushed in without any resistance. The catheter was then sutured to the skin using 3-0 silk interrupted sutures. The catheter was then cleaned and covered with Op-Site. The patient tolerated the procedure well. We will get a post-procedure chest x-ray and once confirmation of placement, the catheter may be accessed and used any time. Job ID: [id number] DocumentID: [id number] Dictated Date: 03/16/2022 17:50:23 Manager [employer] Date: 03/17/2022 02:25:00 Dictated By: BULMARO SLAUGHTER MD [facility]
[2022-03-17 03:12] VITALS: BP 155/72
[2022-03-17 04:33] LABS: BASOPHILS % (AUTO) 0 % (0-10); EOSINOPHILS % (AUTO) 0 % (0-10); HEMATOCRIT 26 % (35-52); HEMOGLOBIN 7.8 g/dL (11.5-16.0); LYMPHOCYTES # (AUTO) 0.5 10^3/uL (1.0-4.0); LYMPHOCYTES % (AUTO) 8 % (12-44); MEAN CORPUSCULAR HEMOGLOBIN 24 pg (25-34); MEAN CORPUSCULAR HGB CONC 30 g/dL (32-36); MEAN CORPUSCULAR VOLUME 80 fL (80-99); MEAN PLATELET VOLUME 10.7 fL (9.0-12.2); MONOCYTES # (AUTO) 0.9 10^3/uL (0.0-1.0); MONOCYTES % (AUTO) 14 % (0-12); NEUTROPHILS # (AUTO) 4.6 10^3/uL (1.8-7.8); NEUTROPHILS % (AUTO) 77 % (42-75); PLATELET COUNT 240 10^3/uL (130-400)
[2022-03-17 04:48] LABS: POTASSIUM 3.9 MMOL/L (3.6-5.0)
[2022-03-17 04:50] LABS: TOTAL PROTEIN 6.6 GM/DL (6.4-8.2)
[2022-03-17 04:52] LABS: BILIRUBIN,TOTAL 0.5 MG/DL (0.1-1.0)
[2022-03-17 04:54] LABS: CREATININE SERUM 0.94 MG/DL (0.60-1.30)
[2022-03-17] MEDS: CEFEPIME INJECTION 1,000 MG in NS (IVPB) 50 ML IV SCH ×3 (04:55→15:57)
[2022-03-17 04:56] LABS: MAGNESIUM 1.5 MG/DL (1.6-2.4)
[2022-03-17 05:00] LABS: ALBUMIN 2.7 GM/DL (3.2-4.5)
[2022-03-17] MEDS: KCL 20 MEQ TAB (K-DUR) PO SCH (05:21)
[2022-03-17] MEDS: inSUlin ASPART (NovoLOG) 1 UNIT/0.01 ML (CHARGE PER UNIT) SC SCH ×4 (05:21→21:00)
[2022-03-17] MEDS: KCL 10 MEQ TAB (MICRO K) PO SCH (06:26)
[2022-03-17 08:00] VITALS: BP 127/77
[2022-03-17] MEDS ORDERED: FAMOTIDINE 20 MG (PEPCID) TABLET PO NR (08:00)
[2022-03-17] MEDS ORDERED: POTA-177 PO (09:06)
[2022-03-17] MEDS ORDERED: METO50TA7 PO (09:06)
[2022-03-17] MEDS ORDERED: SIMV10TA26 PO (09:06)
[2022-03-17] MEDS ORDERED: BUPR300T98 PO (09:10)
[2022-03-17] MEDS ORDERED: OXYC1TAB11 PO (09:10)
[2022-03-17] MEDS ORDERED: OMEP20CA18 PO (09:10)
[2022-03-17] MEDS ORDERED: MEGE40TA5 PO (09:10)
[2022-03-17] MEDS ORDERED: LACT1CAP62 PO (09:10)
[2022-03-17] MEDS ORDERED: TRZ50T PO (09:10)
[2022-03-17] MEDS ORDERED: FIDA200T PO (09:11)
[2022-03-17] MEDS ORDERED: ONDA4TAB11 PO (09:14)
--- NOTE | 2022-03-17 09:42 | Occupational Therapy Eval ---
OT Evaluation-General/PLF Medical Diagnosis Admission Date Mar 14, 2022 at 18:51 Medical Diagnosis: sepsis Onset Date: Mar 14, 2022 Therapy Diagnosis Therapy Diagnosis: decreased ADL status Height/Weight Height (Feet): 5 Height (Inches): 5.00 Weight (Pounds): 332 Weight (Ounces): 0 Precautions Precautions/Isolations: Contact Isolation, Fall Prevention, Standard Precautions Referral Physician: Efrain Referral Reason: Evaluation/Treatment Medical History Pertinent Medical History: Atrial Fib, Arthritis, CAD, COPD, GERD, Heart Failure, HTN, CO, OA, Smoking Additional Medical History COPD, Afib, CAD, HTN, GERD, arthritis, depression Current History [facility] ED with AMS, found to have sepsis from UTI. Pt transferred to [facility] ICU. Social History Home: Long Term ADL-Prior Level of Function SCALE: Activities may be completed with or without assistive devices. 9-Qsborrqzas-cdexlfl completes the activity by him/herself with no assistance from a helper. 5-Set-up or Clean-up Assistance-helper sets up or cleans up; patient completes activity. [place] assists only prior to or following the activity. 4-Supervision or Touching Assistance-helper provides verbal cues and/or touching/steadying and/or contact guard assistance as patient completes activity. Assistance may be provided throughout the activity or intermittently. 3-Partial/Moderate Assistance-helper does LESS THAN HALF the effort. [place] lifts, holds or supports trunk or limbs, but provides less than half the effort. 2-Substantial/Maximal Assistance-helper does MORE THAN HALF the effort. [place] lifts or holds trunk or limbs and provides more than half the effort. 6-Lxtcfugup-zaecrd does ALL the effort. Patient does none of the effort to complete the activity. Or, the assistance of 2 or more helpers is required for the patient to complete the activity. If activity was not attempted, code reason: 7-Patient Refused. 9-Not Applicable-not attempted and the patient did not perform the activity before the current illness, exacerbation or injury. 10-Not Attempted due to Environmental Limitations-(lack of equipment, weather restraints, etc.). 88-Not Attempted due to Medical Conditions or Safety Concerns. ADL PLOF Comments Pt reports she hasn't walked in several months, mainly stays in the recliner during the day. Pt required assistance with ADLs and transfers at PLOF, although level of assistance unclean. Pt reports she is unable to complete any lower body self care tasks. Self Care: Needed Some Help Functional Cognition: Needed Some Help OT Current Status Subjective Pt in bed, agreeable to OT evaluation Mental Status/Objective Patient Orientation: Person Attachments: Enriquez Catheter, IV Current Hand Dominance: Right Upper Extremity ROM BUE shoulder flexion to approx 80 degrees during ADLs. Upper Extremity Coordination WFL Upper Extremity Strength grossly 3/5 ADL-Treatment Eating (QC): 6 (Per RN report.) Oral Hygiene (QC): 5 Shower/Bathe Self (QC): 1 (2 person assist would be required in standing.) Lower Body Dressing (QC): 1 (2 person assist would be required in stand, assist all parts.) On/Off Footwear (QC): 1 (total assist.) Toileting Hygiene (QC): 1 (2 person assist in stand.) Other Treatments Pt in bed, unable to don gripper socks, total assist required. PT present to assist with mobility/transfers due to pt's limitations in strength, activity tolerance, mobility. Pt transferred supine to EOB. Pt kept asking what she was doing, requiring multiple instruction/direction. Pt attempt to stand at EOB, unsuccessful 1st stand, but able to stand at FWW 2nd attempt. Pt transferred to recliner positioned right next to bed, states she is going fall and wouldn't make it to the chair. Pt sat in chair, then indicates she was having BM. Pt stood with FWW, required 2 person assist in stand for hygiene and changing pad in chair. Pt states she was unable to stand any longer, sitting back into the recliner. Post tx, pt in recliner, call light in reach and all needs met. Max A supine to sit, Max A sit to stand transfers Education OT Patient Education: Correct positioning, Energy conservation, Modified ADL techniques, Progress toward Goal/Update tx plan, Purpose of tx/functional activities, Rehab process Teaching Recipient: Patient Teaching Methods: Discussion Response to Teaching: Verbalize Understanding OT Shelter Goals Shelter Goals Time Frame: Apr 04, 2022 Eating (QC): 6 Oral Hygiene (QC): 5 Toileting Hygiene (QC): 2 Shower/Bathe Self (QC): 3 Upper Body Dressing (QC): 3 Lower Body Dressing (QC): 2 Additional Goals: 1-Demonstrate ADL Tasks, 2-Verbalize Understanding, 3- ImproveStrength/Neri 1=Demonstrate adherence to instructed precautions during ADL tasks. 2=Patient will verbalize/demonstrate understanding of assistive devices/modifications for ADL. 3=Patient will improve strength/tolerance for activity to enable patient to perform ADL's. OT Education/Plan Problem List/Assessment Assessment: Decreased Activ Tolerance, Decreased Safety Aware, Decreased UE Strength, Dependent Transfers, Impaired Bed Mobility, Impaired Funct Balance, Impaired I ADL's, Impaired Self-Care Skills, Restricted Funct UE ROM Pt would benefit from short term skilled OT services in order to increase BUE Strength and activity tolerance, and to increase safety and independence with ADLS to decrease caregiver burden. Discharge Recommendations Plan/Recommendations: Continue POC Treatment Plan/Plan of Care Patient would benefit from OT for education, treatment and training to promote independence in ADL's, mobility, safety and/or upper extremity function for ADL's. Plan of Care: ADL Retraining, Functional Mobility, UE Funct Exercise/Act Treatment Duration: Apr 04, 2022 Frequency: 3 times per week (3-5 times per week) Time Start Time: 08:32 Stop Time: 08:43 DATE: Mar 17, 2022 Total Time Billed (hr/min): 11 Billed Treatment Time 1, CHELY GALINDO OT Mar 17, 2022 09:41
[2022-03-17] MEDS: polyethylene glycoL POWDER 17 GM (MIRALAX) PACK PO SCH ×2 (09:50→21:00)
[2022-03-17] MEDS: SENNA W/DOCUSATE (SENOKOT S) TABLET PO SCH ×2 (09:51→21:00)
[2022-03-17] MEDS: MAGNESIUM 1 GM/100 ML IVPB 100 ML IV SCH ×2 (09:51→09:52)
[2022-03-17] MEDS: APIXABAN 5 MG (ELIQUIS) TABLET PO SCH (09:52)
[2022-03-17] MEDS: ALPRAZolam 0.5 MG (XANAX) TAB PO PRN (10:14)
--- NOTE | 2022-03-17 10:49 | Physical Therapy Evaluation ---
PT Evaluation-General Medical Diagnosis Admission Date Mar 14, 2022 at 18:51 Medical Diagnosis: sepsis Onset Date: Mar 14, 2022 Therapy Diagnosis Therapy Diagnosis: generalized weakness/debility Height/Weight Height (Feet): 5 Height (Inches): 5.00 Weight (Pounds): 332 Weight (Ounces): 0 Precautions Precautions/Isolations: Contact Isolation, Fall Prevention, Standard Precautions Referral Physician: Efrain Reason for Referral: Evaluation/Treatment Medical History Pertinent Medical History: Atrial Fib, Arthritis, CAD, COPD, GERD, Heart Failure, HTN, MA, OA, Smoking Current History ER secondary to sepsis Reviewed History: Yes Social History Home: Correction Prior Prior Level of Function SCALE: Activities may be completed with or without assistive devices. 6-Bmqxwxkgpv-ptgkpxa completes the activity by him/herself with no assistance from a helper. 5-Set-up or Clean-up Assistance-helper sets up or cleans up; patient completes activity. [place] assists only prior to or following the activity. 4-Supervision or Touching Assistance-helper provides verbal cues and/or touching/steadying and/or contact guard assistance as patient completes activity. Assistance may be provided throughout the activity or intermittently. 3-Partial/Moderate Assistance-helper does LESS THAN HALF the effort. [place] lifts, holds or supports trunk or limbs, but provides less than half the effort. 2-Substantial/Maximal Assistance-helper does MORE THAN HALF the effort. [place] lifts or holds trunk or limbs and provides more than half the effort. 2-Slpkpxnzt-dhqhth does ALL the effort. Patient does none of the effort to complete the activity. Or, the assistance of 2 or more helpers is required for the patient to complete the activity. If activity was not attempted, code reason: 7-Patient Refused. 9-Not Applicable-not attempted and the patient did not perform the activity before the current illness, exacerbation or injury. 10-Not Attempted due to Environmental Limitations-(lack of equipment, weather restraints, etc.). 88-Not Attempted due to Medical Conditions or Safety Concerns. Bed Mobility: 3 Transfers (B,C,W/C): 3 Gait: 3 (short distances only) Stairs: 9 Wheelchair Mobility: 2 Indoor Mobility (Ambulation): Needed Some Help Stairs: Not Applicalbe Prior Devices Use: Manual wheelchair, Walker PT Evaluation-Current Subjective Patient agrees to PT. Objective Patient Orientation: Person Attachments: Enriquez Catheter, IV ROM/Strength ROM Lower Extremities bilateral LE WFL Strength Lower Extremities 3/5 grossly bilateral LE all planes Integumentary/Posture Bowel Incontinence: Yes Bladder Incontinence: Enriquez Cath Posture WFL Neuromuscular (Tone, Coordination, Reflexes) grossly intact Sensory Vision: Functional Hearing: Functional Hand Dominance: Right Transfers Lying to Sitting/Side of Bed(Q: 2 Sit to Stand (QC): 2 Chair/Cmu-vh-Lbwjd Xfer(QC): 2 Gait Mode of Locomotion: Both Anticipated Mode of Locomotion: Both Distance: 5 steps Gait Assistive Device: FWW Comments/Gait Description shuffle gait sequence Balance Sitting Static: Fair Sitting Dynamic: Fair Standing Static: Fair Standing Dynamic: Fair Assessment/Needs 71 y.o. female, will benefit from skilled PT to address functional strength and mobility to improve current LOF. Patient is up in recliner with needs met. Incontinent BM during session with dependent assist to cleanse and change. Rehab Potential: Fair PT Retirement Goals Retirement Goals PT Retirement Goals Time Frame: Mar 29, 2022 Roll Left & Right (QC): 4 Sit to Lying (QC): 4 Lying-Sitting on Side/Bed(QC): 4 Sit to Stand (QC): 4 Chair/Nyv-me-Exspe Xfer(QC): 4 Walk 10 feet (QC): 4 PT Plan Problem List Problem List: Activity Tolerance, Functional Strength, Safety, Balance, Gait, Transfer, Bed Mobility Treatment/Plan Treatment Plan: Continue Plan of Care Treatment Plan: Bed Mobility, Education, Functional Activity Neri, Functional Strength, Gait, Safety, Therapeutic Exercise, Transfers Treatment Duration: Mar 29, 2022 Frequency: 6 times per week Estimated Hrs Per Day: .25 hour per day Patient and/or Family Agrees t: Yes Time Time In: 830 Time Out: 842 DATE: Mar 17, 2022 Total Billed Treatment Time: 12 [facility]US[facility]NE [facility]ORRES PT Mar 17, 2022 10:49
[2022-03-17] MEDS: NS IV 1000 ML 1,000 ML IV SCH ×2 (11:54→23:06)
[2022-03-17 12:00] VITALS: BP 123/75
[2022-03-17] MEDS ORDERED: VANCOMYCIN 1250 MG/NS 250 ML IVPB IV SCH ×2 (15:00)
[2022-03-17 15:13] VITALS: BP 174/84
--- NOTE | 2022-03-17 15:23 | Progress Note ---
Subjective Subjective/Events-last exam Pt states she is feeling okay. She had some confusion this morning and was a little agitated. Has been febrile to 38.4. Focused Exam Lactate Level 03/14/22 16:52: Lactic Acid Level 1.85 03/14/22 19:40: Lactic Acid Level 0.98 Objective Exam Last Set of Vital Signs Vital Signs Date Time Temp Pulse Resp B/P (MAP) Pulse Ox O2 Delivery O2 Flow Rate FiO2 03/17/22 15:13 36.7 117 20 174/84 (114) 94 Room Air 03/17/22 10:59 0.00 03/14/22 19:42 21 Capillary Refill : Less Than 3 Seconds I&O Intake and Output 03/17/22 00:00 Intake Total 760 ml Output Total 1600 ml Balance -840 ml Intake Oral 760 ml Output Urine Total 1600 ml # Bowel Movements 1 General: Alert, No Acute Distress Lungs: Clear to Auscultation, Normal Air Movement Heart: Other (tachycardic) Abdomen: Normal Bowel Sounds, Soft Neuro: Normal Speech Psych/Mental Status: Mental Status NL, Mood NL Results/Procedures Lab Laboratory Tests 03/16/22 15:25: Glucometer 92 03/16/22 20:26: Glucometer 89 03/17/22 04:24: White Blood Count 6.0, Red Blood Count 3.21L, Hemoglobin 7.8L, Hematocrit 26L, Mean Corpuscular Volume 80, Mean Corpuscular Hemoglobin 24L, Mean Corpuscular Hemoglobin Concent 30L, Red Cell Distribution Width 23.9H, Platelet Count 240, Mean Platelet Volume 10.7, Immature Granulocyte % (Auto) 1, Neutrophils (%) (Auto) 77H, Lymphocytes (%) (Auto) 8L, Monocytes (%) (Auto) 14H, Eosinophils (%) (Auto) 0, Basophils (%) (Auto) 0, Neutrophils # (Auto) 4.6, Lymphocytes # (Auto) 0.5L, Monocytes # (Auto) 0.9, Eosinophils # (Auto) 0.0, Basophils # (Auto) 0.0, Immature Granulocyte # (Auto) 0.1, Sodium Level 129L, Potassium Level 3.9, Chloride Level 99, Carbon Dioxide Level 19L, Anion Gap 11, Blood Urea Nitrogen 6L, Creatinine 0.94, Estimat Glomerular Filtration Rate 65, BUN/Creatinine Ratio 6, Glucose Level 87, Calcium Level 8.0L, Corrected Calcium 9.0, Magnesium Level 1.5L, Total Bilirubin 0.5, Aspartate Amino Transf (AST/SGOT) 54H, Alanine Aminotransferase (ALT/SGPT) 28, Alkaline Phosphatase 114, Total Protein 6.6, Albumin 2.7L 03/17/22 05:01: Glucometer 87 03/17/22 10:49: Glucometer 102 03/17/22 15:13: Glucometer 90 Microbiology 03/15/22 Stool Culture - Preliminary, Resulted Culture In Progress Presumptive Usual [place] 03/14/22 MRSA Screen - Final, Complete MRSA not isolated 03/14/22 Urine Culture - Preliminary, Resulted Gram Negative Bacillus 1 Culture In Progress 03/14/22 Blood Culture - Preliminary, Resulted No growth Assessment/Plan Assessment/Plan Assessment & Plan Sepsis- remains febrile, continue cefepime, no evidence of MRSA on cultures to date, will d/c vancomycin UTI- gram negative bacillus, final pending COPD- duoneb q4 Obesity Atrial fibrillation- resume home metoprolol, had home anticoagulation stopped earlier this year due to vaginal and rectal bleeding with history of endometrial cancer unable to tolerate radiation. Endometrial cancer- on palliative megestrol, resume. CAD Hypertension Hyperlipidemia DVT ppx- apixaban, monitor closely for bleeding KESHA REINOSO MD Mar 17, 2022 15:23
[2022-03-17 19:58] VITALS: BP 172/94
[2022-03-17] MEDS ORDERED: MEGESTROL ACETATE 80 MG PO SCH (21:00)
[2022-03-17] MEDS: MEGESTROL ACETATE 400 MG/10 ML (MEGACE) UDC PO SCH (21:00)
[2022-03-17] MEDS ORDERED: RT-ALBUTEROL/IPRATROPIUM 3 ML (DUONEB) VIAL INH PRN (23:30)
[2022-03-18] VITALS (7 sets, daily range): BP systolic 132–193; BP diastolic 75–105
[2022-03-18] MEDS: APIXABAN 5 MG (ELIQUIS) TABLET PO SCH ×3 (00:09→20:25)
[2022-03-18] MEDS: meTOproloL SUCCINATE 50 MG (TOPROL XL) TAB PO SCH ×2 (00:09→09:55)
[2022-03-18] MEDS: CEFEPIME INJECTION 1,000 MG in NS (IVPB) 50 ML IV SCH ×5 (00:11→22:08)
[2022-03-18] MEDS: traZODone 50 MG (DESYREL) TAB PO SCH ×2 (00:13→20:25)
[2022-03-18] MEDS: ALPRAZolam 0.5 MG (XANAX) TAB PO PRN (02:49)
[2022-03-18] MEDS: inSUlin ASPART (NovoLOG) 1 UNIT/0.01 ML (CHARGE PER UNIT) SC SCH ×4 (05:38→21:07)
[2022-03-18 05:48] LABS: BASOPHILS % (AUTO) 0 % (0-10); EOSINOPHILS % (AUTO) 0 % (0-10); HEMOGLOBIN 8.2 g/dL (11.5-16.0)
[2022-03-18 05:50] LABS: HEMATOCRIT 27 % (35-52); LYMPHOCYTES # (AUTO) 0.6 10^3/uL (1.0-4.0); LYMPHOCYTES % (AUTO) 13 % (12-44); MEAN CORPUSCULAR HEMOGLOBIN 24 pg (25-34); MEAN CORPUSCULAR HGB CONC 30 g/dL (32-36); MEAN CORPUSCULAR VOLUME 81 fL (80-99); MEAN PLATELET VOLUME 10.7 fL (9.0-12.2); MONOCYTES # (AUTO) 0.5 10^3/uL (0.0-1.0); MONOCYTES % (AUTO) 11 % (0-12); NEUTROPHILS # (AUTO) 3.6 10^3/uL (1.8-7.8); NEUTROPHILS % (AUTO) 75 % (42-75); PLATELET COUNT 211 10^3/uL (130-400); WHITE BLOOD COUNT 4.7 10^3/uL (4.3-11.0)
[2022-03-18 06:01] LABS: ALBUMIN 2.6 GM/DL (3.2-4.5); POTASSIUM 3.6 MMOL/L (3.6-5.0)
[2022-03-18 06:03] LABS: CALCIUM 7.8 MG/DL (8.5-10.1)
[2022-03-18 06:04] LABS: TOTAL PROTEIN 6.5 GM/DL (6.4-8.2)
[2022-03-18 06:06] LABS: BILIRUBIN,TOTAL 0.3 MG/DL (0.1-1.0)
[2022-03-18 06:08] LABS: CREATININE SERUM 0.83 MG/DL (0.60-1.30)
[2022-03-18 06:10] LABS: MAGNESIUM 1.7 MG/DL (1.6-2.4)
[2022-03-18] MEDS: RT-ALBUTEROL/IPRATROPIUM 3 ML (DUONEB) VIAL INH SCH ×2 (06:38→21:40)
[2022-03-18] MEDS: KCL 10 MEQ TAB (MICRO K) PO SCH (07:58)
--- NOTE | 2022-03-18 08:53 | Occupational Ther Daily Note ---
OT Current Status-Daily Note Subjective Pt in bed, agreeable to OT Tx. Pt declines OOB activity stating she didn't like being up in the chair that long yesterday. Mental Status/Objective Patient Orientation: Person, Place, Situation ADL-Treatment Therapy Code Descriptions/Definitions Functional [place] Measure: 0=Not Assessed/NA 4=Minimal Assistance 1=Total Assistance 5=Supervision or Setup 2=Maximal Assistance 6=Modified [place] 3=Moderate Assistance 7=Complete IndependenceSCALE: Activities may be completed with or without assistive devices. 5-Zwykhcahbj-mqvkwio completes the activity by him/herself with no assistance from a helper. 5-Set-up or Clean-up Assistance-helper sets up or cleans up; patient completes activity. [place] assists only prior to or following the activity. 4-Supervision or Touching Assistance-helper provides verbal cues and/or touching/steadying and/or contact guard assistance as patient completes activity. Assistance may be provided throughout the activity or intermittently. 3-Partial/Moderate Assistance-helper does LESS THAN HALF the effort. [place] lifts, holds or supports trunk or limbs, but provides less than half the effort. 2-Substantial/Maximal Assistance-helper does MORE THAN HALF the effort. [place] lifts or holds trunk or limbs and provides more than half the effort. 1-Moznlcmwu-ybnksq does ALL the effort. Patient does none of the effort to complete the activity. Or, the assistance of 2 or more helpers is required for the patient to complete the activity. If activity was not attempted, code reason: 7-Patient Refused. 9-Not Applicable-not attempted and the patient did not perform the activity before the current illness, exacerbation or injury. 10-Not Attempted due to Environmental Limitations-(lack of equipment, weather restraints, etc.). 88-Not Attempted due to Medical Conditions or Safety Concerns. Other Treatment Pt in bed, declined OOB activities. Pt agreeable to OT Tx with focus on BUE strengthening and activity tolerance. Pt completed x10 reps each of the following BUE exercises (tactile cues provided for all): shoulder flexion (to approx 80 degrees bilaterally), front punch, elbow flexion/extension and finger flexion/extension. Pt states increased pain in L shoulder with movements due to thrush but able to perform movements in a relatively pain free zone. OT informed pt to complete exercises throughout the day and informed her of the purpose/benefit of exercises, pt states "I'm lazy", and didn't agree to attempt exercises later. Post tx, pt in bed, call light in reach and all needs met, bed alarm activated. Education OT Patient Education: Correct positioning, Energy conservation, Exercise program, Modified ADL techniques, Progress toward Goal/Update tx plan, Purpose of tx/functional activities, Rehab process Teaching Recipient: Patient Response to Teaching: Reinforcement Needed OT Chcf Goals Chcf Goals Time Frame: Apr 04, 2022 Eating (QC): 6 Oral Hygiene (QC): 5 Toileting Hygiene (QC): 2 Shower/Bathe Self (QC): 3 Upper Body Dressing (QC): 3 Lower Body Dressing (QC): 2 Additional Goals: 1-Demonstrate ADL Tasks, 2-Verbalize Understanding, 3- ImproveStrength/Neri 1=Demonstrate adherence to instructed precautions during ADL tasks. 2=Patient will verbalize/demonstrate understanding of assistive devices/modifications for ADL. 3=Patient will improve strength/tolerance for activity to enable patient to perform ADL's. OT Education/Plan Problem List/Assessment Assessment: Decreased Activ Tolerance, Decreased UE Strength, Impaired Bed Mobility, Impaired Funct Balance, Impaired I ADL's, Impaired Self-Care Skills, Restricted Funct UE ROM Pt would benefit from short term skilled OT services in order to increase BUE Strength and activity tolerance, and to increase safety and independence with ADLS to decrease caregiver burden. Discharge Recommendations Plan/Recommendations: Continue POC Treatment Plan/Plan of Care Patient would benefit from OT for education, treatment and training to promote independence in ADL's, mobility, safety and/or upper extremity function for ADL's. Plan of Care: ADL Retraining, Functional Mobility, UE Funct Exercise/Act Treatment Duration: Apr 04, 2022 Frequency: 3 times per week (3-5 times per week) Rehab Potential: Fair Time Start Time: 08:28 Stop Time: 08:37 DATE: Mar 18, 2022 Total Time Billed (hr/min): 9 Billed Treatment Time 1, EX CHELY GOODWIN OT Mar 18, 2022 08:53
[2022-03-18] MEDS ORDERED: meTOproloL SUCCINATE 50 MG (TOPROL XL) TAB PO SCH (09:00)
[2022-03-18] MEDS ORDERED: buPROPion SR 150 MG (WELLBUTRIN SR) TAB PO SCH (09:00)
[2022-03-18] MEDS ORDERED: OMEPRAZOLE 20 MG (PriLOSEC) CAP NON-FORMULARY PO SCH (09:00)
[2022-03-18] MEDS ORDERED: NON-FORMULARY MEDICATION 1 EA EA (Lactobacillus Acidophilus (Probiotic) 1 EACH) PO SCH (09:00)
[2022-03-18] MEDS ORDERED: NON-FORMULARY MEDICATION 1 EA EA (Bupropion HCl (Bupropion Xl) 300 MG) PO SCH (09:00)
--- NOTE | 2022-03-18 09:45 | Physical Therapy Progress Note ---
Therapy Progress Note PT attempted to perform exercises bilateral LE due to patient adamant refusal for OOB activity. Patient began yelling and screaming with minimal attempt to perform ROM LE's. RN notified. Will attempt tomorrow a.m. 1 ref SUSANNE TORRES PT Mar 18, 2022 09:45
[2022-03-18] MEDS: MEGESTROL ACETATE 400 MG/10 ML (MEGACE) UDC PO SCH ×2 (09:52→20:25)
[2022-03-18] MEDS: PANTOPRAZOLE 20 MG TABLET (PROTONIX) PO SCH (09:53)
[2022-03-18] MEDS: meTOproloL SUCCINATE 50 MG (TOPROL XL) TAB PO NR ×2 (09:53→09:56)
[2022-03-18] MEDS: buPROPion SR 150 MG (WELLBUTRIN SR) TAB PO SCH ×2 (09:53→18:24)
[2022-03-18] MEDS: SENNA W/DOCUSATE (SENOKOT S) TABLET PO SCH ×2 (09:54→19:48)
[2022-03-18] MEDS: KCL 20 MEQ TAB (K-DUR) PO SCH (09:54)
[2022-03-18] MEDS: polyethylene glycoL POWDER 17 GM (MIRALAX) PACK PO SCH ×2 (09:54→19:48)
[2022-03-18] MEDS: LACTOBACILLUS ACIDOPHILUS (PROBIOTIC) CAPSULE PO SCH (09:54)
--- NOTE | 2022-03-18 12:19 | Progress Note ---
Subjective Subjective/Events-last exam Pt states she doesn't feel great, but doesn't have much specific complaint. She is happy to hear that her C diff is negative. She is tired of being sick. Objective Exam Last Set of Vital Signs Vital Signs Date Time Temp Pulse Resp B/P (MAP) Pulse Ox O2 Delivery O2 Flow Rate FiO2 03/18/22 11:06 36.0 90 16 168/81 (110) 90 Room Air 03/18/22 06:38 0.00 03/17/22 23:21 21 Capillary Refill : Less Than 3 Seconds I&O Intake and Output 03/18/22 00:00 Intake Total 5852 ml Output Total 2500 ml Balance 3352 ml Intake Oral 2850 ml IV Total 600 ml Tube Feeding 2402 ml Output Urine Total 2500 ml # Bowel Movements 1 General: Alert, No Acute Distress Lungs: Other (expiratory wheezing, ronchi) Heart: Other (tachycardic) Abdomen: Normal Bowel Sounds, Soft Neuro: Normal Speech Psych/Mental Status: Mood NL Results/Procedures Lab Laboratory Tests 03/17/22 15:13: Glucometer 90 03/17/22 20:55: Glucometer 107 03/18/22 05:00: White Blood Count 4.7, Red Blood Count 3.36L, Hemoglobin 8.2L, Hematocrit 27L, Mean Corpuscular Volume 81, Mean Corpuscular Hemoglobin 24L, Mean Corpuscular Hemoglobin Concent 30L, Red Cell Distribution Width 24.0H, Platelet Count 211, Mean Platelet Volume 10.7, Immature Granulocyte % (Auto) 0, Neutrophils (%) (Auto) 75, Lymphocytes (%) (Auto) 13, Monocytes (%) (Auto) 11, Eosinophils (%) (Auto) 0, Basophils (%) (Auto) 0, Neutrophils # (Auto) 3.6, Lymphocytes # (Auto) 0.6L, Monocytes # (Auto) 0.5, Eosinophils # (Auto) 0.0, Basophils # (Auto) 0.0, Immature Granulocyte # (Auto) 0.0, Percent Immature Platelet Fraction 7.6, Sodium Level 129L, Potassium Level 3.6, Chloride Level 98, Carbon Dioxide Level 22, Anion Gap 9, Blood Urea Nitrogen 8, Creatinine 0.83, Estimat Glomerular Filt ration Rate 76, BUN/Creatinine Ratio 10, Glucose Level 94, Calcium Level 7.8L, Corrected Calcium 8.9, Magnesium Level 1.7, Total Bilirubin 0.3, Aspartate Amino Transf (AST/SGOT) 55H, Alanine Aminotransferase (ALT/SGPT) 27, Alkaline Phosphatase 98, Total Protein 6.5, Albumin 2.6L 03/18/22 05:22: Glucometer 92 03/18/22 11:03: Glucometer 105 Microbiology 03/15/22 Stool Culture - Final, Complete 03/14/22 MRSA Screen - Final, Complete MRSA not isolated 03/14/22 Urine Culture - Final, Complete Escherichia coli Klebsiella oxytoca 03/14/22 Blood Culture - Preliminary, Resulted No growth Assessment/Plan Assessment/Plan Assessment & Plan Sepsis- remains febrile, continue cefepime, no evidence of MRSA on cultures to date, will d/c vancomycin UTI- gram negative bacillus, final pending COPD- duoneb q4 Obesity Atrial fibrillation- resume home metoprolol, had home anticoagulation stopped earlier this year due to vaginal and rectal bleeding with history of endometrial cancer unable to tolerate radiation. Endometrial cancer- on palliative megestrol, resume. CAD Hypertension Hyperlipidemia DVT ppx- apixaban, monitor closely for bleeding KESHA REINOSO MD Mar 18, 2022 12:19
[2022-03-18] MEDS ORDERED: TROUGH ORDER-PHARMACY XX ONE (14:00)
[2022-03-18 16:32] LABS: ABG BASE EXCESS -3.4 MMOL/L (-2.5-2.5); ABG OXYGEN SATURATION 94 % (94-100); ABG PCO2 33 MMHG (35-45); ABG PH 7.41 (7.37-7.43); ABG PO2 70 MMHG (79-93); ABG TCO2 21.7 MMOL/L (21.0-31.0)
[2022-03-18 16:33] LABS: EOSINOPHILS % (AUTO) 0 % (0-10); MEAN CORPUSCULAR HEMOGLOBIN 25 pg (25-34); MEAN CORPUSCULAR HGB CONC 30 g/dL (32-36); MONOCYTES % (AUTO) 7 % (0-12)
[2022-03-18 16:33] LABS: ALLENS TEST YES-POS; INSPIRED O2 5L; PATIENT TEMP 36.3; VENTILATOR NO
[2022-03-18 16:35] LABS: BASOPHILS % (AUTO) 0 % (0-10); HEMATOCRIT 30 % (35-52); LYMPHOCYTES # (AUTO) 1.1 10^3/uL (1.0-4.0); LYMPHOCYTES % (AUTO) 23 % (12-44); MEAN CORPUSCULAR VOLUME 83 fL (80-99); MEAN PLATELET VOLUME 10.9 fL (9.0-12.2); MONOCYTES # (AUTO) 0.4 10^3/uL (0.0-1.0); NEUTROPHILS # (AUTO) 3.5 10^3/uL (1.8-7.8); NEUTROPHILS % (AUTO) 70 % (42-75); PLATELET COUNT 241 10^3/uL (130-400)
--- NOTE | 2022-03-18 16:40 | Diagnostic Imaging Report ---
INDICATION: Chest congestion and desaturation. TECHNIQUE: Frontal chest obtained at 04:35 p.m. and compared to 03/16/2022. FINDINGS: Heart is normal in size. Mediastinal silhouette is unremarkable. The lungs are clear. There is no pneumothorax or pleural fluid. Left subclavian central line and right-sided Port-A-Cath are unchanged. IMPRESSION: No acute process in the chest. Dictated by: Dictated on workstation # [id number]
[2022-03-18 16:44] LABS: ALBUMIN 2.8 GM/DL (3.2-4.5)
[2022-03-18 16:45] LABS: POTASSIUM 4.5 MMOL/L (3.6-5.0)
[2022-03-18 16:46] LABS: CALCIUM 8.3 MG/DL (8.5-10.1)
[2022-03-18 16:49] LABS: BILIRUBIN,TOTAL 0.3 MG/DL (0.1-1.0)
[2022-03-18 16:51] LABS: CREATININE SERUM 0.93 MG/DL (0.60-1.30)
[2022-03-18] MEDS: NS IV 1000 ML 1,000 ML IV SCH (20:25)
--- NOTE | 2022-03-18 22:01 | Diagnostic Imaging Report ---
PROCEDURE: CT head wo r/o stroke. TECHNIQUE: Multiple contiguous axial images were obtained through the brain without the use of intravenous contrast. Auto Exposure Controls were utilized during the CT exam to meet ALARA standards for radiation dose reduction. INDICATION: Stroke, altered mental status COMPARISON: None available FINDINGS: Mild atrophy. No intracranial hemorrhage. No intracranial mass, mass effect, midline shift, herniation, hydrocephalus, or extra-axial fluid collection. Mild background chronic small vessel white matter ischemic disease is present. Minimal calcifications within the left basal ganglia. No CT evidence of an acute ischemic infarction. The orbits are unremarkable. Fluid and mucosal thickening within the right sphenoid sinus. Otherwise, the paranasal sinuses are clear. The calvarium and extracalvarial soft tissues are unremarkable. IMPRESSION: No acute intracranial abnormality with mild atrophy and mild background chronic small vessel white matter ischemic disease. Fluid and mucosal thickening within the right sphenoid sinus. If there remains clinical concern for recent infarction, then further evaluation with MRI of the brain would be recommended. Dictated by: Dictated on workstation # [id number]
[2022-03-19] VITALS (7 sets, daily range): BP systolic 82–127; BP diastolic 60–84
[2022-03-19] MEDS: CEFEPIME INJECTION 1,000 MG in NS (IVPB) 50 ML IV SCH (03:37)
[2022-03-19 05:55] LABS: BASOPHILS % (AUTO) 0 % (0-10); EOSINOPHILS % (AUTO) 0 % (0-10); HEMATOCRIT 27 % (35-52); HEMOGLOBIN 8.1 g/dL (11.5-16.0); LYMPHOCYTES # (AUTO) 0.7 10^3/uL (1.0-4.0); LYMPHOCYTES % (AUTO) 12 % (12-44); MEAN CORPUSCULAR HEMOGLOBIN 25 pg (25-34); MEAN CORPUSCULAR HGB CONC 30 g/dL (32-36); MEAN CORPUSCULAR VOLUME 82 fL (80-99); MEAN PLATELET VOLUME 11.2 fL (9.0-12.2); MONOCYTES # (AUTO) 0.4 10^3/uL (0.0-1.0); MONOCYTES % (AUTO) 7 % (0-12); NEUTROPHILS # (AUTO) 4.6 10^3/uL (1.8-7.8); NEUTROPHILS % (AUTO) 80 % (42-75); PLATELET COUNT 210 10^3/uL (130-400); WHITE BLOOD COUNT 5.7 10^3/uL (4.3-11.0)
[2022-03-19 06:17] LABS: ALBUMIN 2.6 GM/DL (3.2-4.5); BILIRUBIN,TOTAL 0.3 MG/DL (0.1-1.0); CALCIUM 7.9 MG/DL (8.5-10.1); CREATININE SERUM 0.83 MG/DL (0.60-1.30); MAGNESIUM 1.7 MG/DL (1.6-2.4); POTASSIUM 3.8 MMOL/L (3.6-5.0); TOTAL PROTEIN 6.3 GM/DL (6.4-8.2)
[2022-03-19] MEDS: inSUlin ASPART (NovoLOG) 1 UNIT/0.01 ML (CHARGE PER UNIT) SC SCH ×4 (06:21→20:48)
[2022-03-19] MEDS: KCL 20 MEQ TAB (K-DUR) PO SCH (06:22)
[2022-03-19] MEDS: KCL 10 MEQ TAB (MICRO K) PO SCH (06:39)
[2022-03-19] MEDS: RT-ALBUTEROL/IPRATROPIUM 3 ML (DUONEB) VIAL INH SCH ×2 (07:10→21:02)
--- NOTE | 2022-03-19 10:14 | Occupational Ther Daily Note ---
OT Current Status-Daily Note Subjective Pt verbalizes feeling "awful," needs encouragement to participate. Per RN, pt had a rapid response yesterday after using commode, possibly vagal response per RN. Appearance Pt left sitting upright in bed, all needs within reach at OT departure. Mental Status/Objective Patient Orientation: Person Attachments: IV, Oxygen ADL-Treatment Therapy Code Descriptions/Definitions Functional [place] Measure: 0=Not Assessed/NA 4=Minimal Assistance 1=Total Assistance 5=Supervision or Setup 2=Maximal Assistance 6=Modified [place] 3=Moderate Assistance 7=Complete IndependenceSCALE: Activities may be completed with or without assistive devices. 4-Tkuumdebrm-kmesjuy completes the activity by him/herself with no assistance from a helper. 5-Set-up or Clean-up Assistance-helper sets up or cleans up; patient completes activity. [place] assists only prior to or following the activity. 4-Supervision or Touching Assistance-helper provides verbal cues and/or touching/steadying and/or contact guard assistance as patient completes activity. Assistance may be provided throughout the activity or intermittently. 3-Partial/Moderate Assistance-helper does LESS THAN HALF the effort. [place] lifts, holds or supports trunk or limbs, but provides less than half the effort. 2-Substantial/Maximal Assistance-helper does MORE THAN HALF the effort. [place] lifts or holds trunk or limbs and provides more than half the effort. 7-Probhhskw-nqvbqu does ALL the effort. Patient does none of the effort to complete the activity. Or, the assistance of 2 or more helpers is required for the patient to complete the activity. If activity was not attempted, code reason: 7-Patient Refused. 9-Not Applicable-not attempted and the patient did not perform the activity before the current illness, exacerbation or injury. 10-Not Attempted due to Environmental Limitations-(lack of equipment, weather restraints, etc.). 88-Not Attempted due to Medical Conditions or Safety Concerns. At OT arrival, Pt leaning heavily to the right while reclined in bed. Min a to bring back to midline with patient pulling self with L hand on bed rail. Requires encouragement to participate. She reports L shoulder pain from old injury (trying to pull down corinne litter from high shelf). L shoulder AROM ~45 degrees. PROM to pain tolerance, ~90 degrees. R shoulder AROM limited by body habitus/addipose tissue but still within functional limits (~165 degrees). 1x10 shoulder flexion, elbow flexion/extension and digit flexion/extension. Pt often sighing when told to complete 10 reps each joint. Education OT Patient Education: Correct positioning, Exercise program, Purpose of tx/functional activities, Rehab process Teaching Recipient: Patient Teaching Methods: Demonstration, Discussion Response to Teaching: Verbalize Understanding, Return Demonstration, Reinforcement Needed OT Custodial Goals Custodial Goals Time Frame: Apr 04, 2022 Eating (QC): 6 Oral Hygiene (QC): 5 Toileting Hygiene (QC): 2 Shower/Bathe Self (QC): 3 Upper Body Dressing (QC): 3 Lower Body Dressing (QC): 2 Additional Goals: 1-Demonstrate ADL Tasks, 2-Verbalize Understanding, 3-Improv eStrength/Neri 1=Demonstrate adherence to instructed precautions during ADL tasks. 2=Patient will verbalize/demonstrate understanding of assistive devices/modifications for ADL. 3=Patient will improve strength/tolerance for activity to enable patient to p erform ADL's. OT Education/Plan Problem List/Assessment Assessment: Decreased Activ Tolerance, Decreased Safety Aware, Decreased UE Strength, Dependent Transfers, Impaired Bed Mobility, Impaired Cognition, Impa ired Funct Balance, Impaired Self-Care Skills, Restricted Funct UE ROM Pt would benefit from short term skilled OT services in order to increase BUE Strength and activity tolerance, and to increase safety and independence with ADLS to decrease caregiver burden. Discharge Recommendations Plan/Recommendations: Continue POC Target Placement return to assisted with continued assist Treatment Plan/Plan of Care Treatment,Training & Education: Yes Patient would benefit from OT for education, treatment and training to promote independence in ADL's, mobility, safety and/or upper extremity function for ADL's. Plan of Care: ADL Retraining, Functional Mobility, UE Funct Exercise/Act Treatment Duration: Apr 04, 2022 Frequency: 3 times per week (3-5 times per week) Rehab Potential: Fair Time Start Time: 09:33 Stop Time: 09:44 DATE: Mar 19, 2022 Total Time Billed (hr/min): 11 Billed Treatment Time 1 visit EX Cherie Palm OT Mar 19, 2022 10:14
[2022-03-19] MEDS: meTOproloL SUCCINATE 50 MG (TOPROL XL) TAB PO SCH (11:04)
[2022-03-19] MEDS: LACTOBACILLUS ACIDOPHILUS (PROBIOTIC) CAPSULE PO SCH (11:04)
[2022-03-19] MEDS: buPROPion SR 150 MG (WELLBUTRIN SR) TAB PO SCH ×2 (11:04→17:43)
[2022-03-19] MEDS: polyethylene glycoL POWDER 17 GM (MIRALAX) PACK PO SCH ×2 (11:04→20:50)
[2022-03-19] MEDS: MEGESTROL ACETATE 400 MG/10 ML (MEGACE) UDC PO SCH ×2 (11:05→20:50)
[2022-03-19] MEDS: PANTOPRAZOLE 20 MG TABLET (PROTONIX) PO SCH (11:05)
[2022-03-19] MEDS: SENNA W/DOCUSATE (SENOKOT S) TABLET PO SCH ×2 (11:05→20:51)
[2022-03-19] MEDS: APIXABAN 5 MG (ELIQUIS) TABLET PO SCH ×2 (11:05→20:48)
[2022-03-19] MEDS: CEFDINIR 300 MG (OMNICEF) CAP PO SCH ×2 (11:11→20:49)
--- NOTE | 2022-03-19 11:33 | Physical Therapy Daily Note ---
PT Daily Note-Current Subjective Pt. in bed, nursing present. Pt. was invited multiple times to participate in Rx. Pt. declined many times, agreeing only to LE therex in bed. Pt. states she is not active at home and stays in a lift recline chair or TRFs to [facility] which sets beside lift chair, "thats all I can do and thats all I want to do " Pt. declined sitting EOB , sit to stands, rolling etc. Pt. becoming agitated somewhat with education and encouragement to participate in PT Pain Location: No Pain Reported Section J - Health Conditions 1. Rarely or not at all 2. Occasionally 3. Frequently 4. Almost constantly 8. Unable to answer Pain Effect on Sleep: 8 Pain Interference with Therapy: 8 Pain Interference w/Day-to-Day: 8 Mental Status Patient Orientation: MR Attachments: Oxygen, IV Transfers SCALE: Activities may be completed with or without assistive devices. 1-Dwhmfgnavi-qorhjne completes the activity by him/herself with no assistance from a helper. 5-Set-up or Clean-up Assistance-helper sets up or cleans up; patient completes activity. [place] assists only prior to or following the activity. 4-Supervision or Touching Assistance-helper provides verbal cues and/or touching/steadying and/or contact guard assistance as patient completes activity. Assistance may be provided throughout the activity or intermittently. 3-Partial/Moderate Assistance-helper does LESS THAN HALF the effort. [place] lifts, holds or supports trunk or limbs, but provides less than half the effort. 2-Substantial/Maximal Assistance-helper does MORE THAN HALF the effort. [place] lifts or holds trunk or limbs and provides more than half the effort. 5-Pesyxiisf-pyelvi does ALL the effort. Patient does none of the effort to complete the activity. Or, the assistance of 2 or more helpers is required for the patient to complete the activity. If activity was not attempted, code reason: 7-Patient Refused. 9-Not Applicable-not attempted and the patient did not perform the activity before the current illness, exacerbation or injury. 10-Not Attempted due to Environmental Limitations-(lack of equipment, weather restraints, etc.). 88-Not Attempted due to Medical Conditions or Safety Concerns. Exercises Supine Ex: Ankle pumps, Quad Set, Heel Slides, Hip abd/add Supine Reps: 12 Treatments pt. needed much cajoling to participate in therex. Pt. is unmotivated and became somewhat agitated when encouraged to participate repeatedly Assessment Current Status: Poor Progress generally non participatory PT Qa Analyst Goals Qa Analyst Goals PT Senior Living Goals Time Frame: Mar 29, 2022 Roll Left & Right (QC): 4 Sit to Lying (QC): 4 Lying-Sitting on Side/Bed(QC): 4 Sit to Stand (QC): 4 Chair/Cud-kr-Igybm Xfer(QC): 4 Walk 10 feet (QC): 4 PT Plan Treatment/Plan Treatment Plan: Continue Plan of Care Treatment Plan: Bed Mobility, Education, Functional Activity Neri, Functional Strength, Gait, Safety, Therapeutic Exercise, Transfers Treatment Duration: Mar 29, 2022 Frequency: 6 times per week Estimated Hrs Per Day: .25 hour per day Patient and/or Family Agrees t: Yes Safety Risks/Education Patient Education: Correct Positioning Teaching Recipient: Patient Teaching Methods: Demonstration, Discussion Response to Teaching: Unable to Return Demonstration, Unable to Comprehend, Reinforcement Needed Time Time In: 1110 Time Out: 1120 DATE: Mar 19, 2022 Total Billed Treatment Time: 10 Total Billed Treatment 1,EX10m SARAH EDEN BOBCAT DRIVER/LABOR Mar 19, 2022 11:33
[2022-03-19] MEDS: NS IV 1000 ML 1,000 ML IV SCH (13:17)
--- NOTE | 2022-03-19 18:01 | Progress Note ---
Subjective Subjective/Events-last exam Pt had a possible vagal reaction yesterday, passed out when going to toilet with aides. Labs and CXR and head CT done were basically unremarkable, had mild elevation in troponin that trended down, no chest pain and no acute findings on EKG. Today she is her usual self. She states she is not feeling well because of her stomach, reports having diarrhea. Nurse says she hasn't had diarrhea today, Emily reports that is because she isn't eating- so that she won't have diarrhea. She has been afebrile last 24 hours. Objective Exam Last Set of Vital Signs Vital Signs Date Time Temp Pulse Resp B/P (MAP) Pulse Ox O2 Delivery O2 Flow Rate FiO2 03/19/22 16:00 36.6 87 16 106/67 (80) 93 Nasal Cannula 3.00 03/17/22 23:21 21 Capillary Refill : Less Than 3 Seconds I&O Intake and Output 03/18/22 23:59 Intake Total 2000 ml Output Total 3700 ml Balance -1700 ml Intake Oral 2000 ml Output Urine Total 3700 ml # Bowel Movements 4 General: Alert, No Acute Distress Lungs: Clear to Auscultation Heart: Regular Rate Abdomen: Normal Bowel Sounds, Soft Neuro: Normal Speech Psych/Mental Status: Mood NL Results/Procedures Lab Laboratory Tests 03/18/22 20:30: Glucometer 102 03/18/22 22:42: Troponin I 0.064H 03/19/22 05:49: White Blood Count 5.7, Red Blood Count 3.27L, Hemoglobin 8.1L, Hematocrit 27L, Mean Corpuscular Volume 82, Mean Corpuscular Hemoglobin 25, Mean Corpuscular Hemoglobin Concent 30L, Red Cell Distribution Width 23.9H, Platelet Count 210, Mean Platelet Volume 11.2, Immature Granulocyte % (Auto) 1, Neutrophils (%) (Auto) 80H, Lymphocytes (%) (Auto) 12, Monocytes (%) (Auto) 7, Eosinophils (%) (Auto) 0, Basophils (%) (Auto) 0, Neutrophils # (Auto) 4.6, Lymphocytes # (Auto) 0.7L, Monocytes # (Auto) 0.4, Eosinophils # (Auto) 0.0, Basophils # (Auto) 0.0, Immature Granulocyte # (Auto) 0.0, Sodium Level 131L, Potassium Level 3.8, Chloride Level 100, Carbon Dioxide Level 21, Anion Gap 10, Blood Urea Nitrogen 13, Creatinine 0.83, Estimat Glomerular Filtration Rate 76, BUN/Creatinine Ratio 16, Glucose Level 108H, Calcium Level 7.9L, Corrected Calcium 9.0, Magnesium Lev el 1.7, Total Bilirubin 0.3, Aspartate Amino Transf (AST/SGOT) 46H, Alanine Aminotransferase (ALT/SGPT) 28, Alkaline Phosphatase 87, Total Protein 6.3L, Albumin 2.6L 03/19/22 10:21: Glucometer 111H 03/19/22 16:23: Glucometer 97 Microbiology 03/15/22 Stool Culture - Final, Complete 03/14/22 MRSA Screen - Final, Complete MRSA not isolated 03/14/22 Urine Culture - Final, Complete Escherichia coli Klebsiella oxytoca 03/14/22 Blood Culture - Final, Complete No growth Assessment/Plan Assessment/Plan Assessment & Plan Sepsis- afebrile last 24 hours, initially on cefepime and vanc, no evidence of MRSA on cultures to date 03/18, will d/c vancomycin; on 03/19 changed cefepime to cefdinir based on sensitivities UTI- E coli and klebsiella, continue cefdinir COPD- duoneb q4 Diarrhea- c diff negative, is not eating well due to concern about diarrhea, will try anti-diarrheal Obesity Atrial fibrillation- resume home metoprolol, had home anticoagulation stopped earlier this year due to vaginal and rectal bleeding with history of endometrial cancer unable to tolerate radiation. Endometrial cancer- on palliative megestrol, resume. CAD Hypertension Hyperlipidemia DVT ppx- apixaban, monitor closely for bleeding KESHA REINOSO MD Mar 19, 2022 18:01
[2022-03-19] MEDS ORDERED: LOPERAMIDE 2 MG (IMODIUM) TABLET PO PRN (18:15)
[2022-03-19] MEDS: traZODone 50 MG (DESYREL) TAB PO SCH (20:48)
[2022-03-19] MEDS: ALPRAZolam 0.5 MG (XANAX) TAB PO PRN (20:48)
[2022-03-20] VITALS: BP 125/66
[2022-03-20 03:28] VITALS: BP 125/66
[2022-03-20 03:35] VITALS: BP 128/72
[2022-03-20] MEDS: NS IV 1000 ML 1,000 ML IV SCH (05:47)
[2022-03-20 05:48] LABS: BASOPHILS % (AUTO) 0 % (0-10); EOSINOPHILS % (AUTO) 0 % (0-10); HEMOGLOBIN 7.8 g/dL (11.5-16.0)
[2022-03-20 05:50] LABS: HEMATOCRIT 26 % (35-52); LYMPHOCYTES # (AUTO) 0.7 10^3/uL (1.0-4.0); LYMPHOCYTES % (AUTO) 18 % (12-44); MEAN CORPUSCULAR HEMOGLOBIN 25 pg (25-34); MEAN CORPUSCULAR HGB CONC 30 g/dL (32-36); MEAN CORPUSCULAR VOLUME 83 fL (80-99); MONOCYTES # (AUTO) 0.3 10^3/uL (0.0-1.0); MONOCYTES % (AUTO) 8 % (0-12); NEUTROPHILS # (AUTO) 2.9 10^3/uL (1.8-7.8); NEUTROPHILS % (AUTO) 73 % (42-75); PLATELET COUNT 173 10^3/uL (130-400)
[2022-03-20 06:01] LABS: ALBUMIN 2.5 GM/DL (3.2-4.5); POTASSIUM 3.7 MMOL/L (3.6-5.0)
[2022-03-20 06:02] LABS: CALCIUM 7.9 MG/DL (8.5-10.1)
[2022-03-20 06:05] LABS: BILIRUBIN,TOTAL 0.2 MG/DL (0.1-1.0)
[2022-03-20 06:07] LABS: CREATININE SERUM 0.78 MG/DL (0.60-1.30)
[2022-03-20 06:10] LABS: MAGNESIUM 1.6 MG/DL (1.6-2.4)
[2022-03-20] MEDS: inSUlin ASPART (NovoLOG) 1 UNIT/0.01 ML (CHARGE PER UNIT) SC SCH ×3 (06:12→16:09)
[2022-03-20] MEDS: KCL 20 MEQ TAB (K-DUR) PO SCH (06:12)
[2022-03-20] MEDS: KCL 10 MEQ TAB (MICRO K) PO SCH (06:29)
[2022-03-20 07:52] VITALS: BP 114/76
[2022-03-20] MEDS: polyethylene glycoL POWDER 17 GM (MIRALAX) PACK PO SCH (08:30)
[2022-03-20] MEDS: PANTOPRAZOLE 20 MG TABLET (PROTONIX) PO SCH (08:31)
[2022-03-20] MEDS: MEGESTROL ACETATE 400 MG/10 ML (MEGACE) UDC PO SCH (08:31)
[2022-03-20] MEDS: CEFDINIR 300 MG (OMNICEF) CAP PO SCH (08:32)
[2022-03-20] MEDS: LACTOBACILLUS ACIDOPHILUS (PROBIOTIC) CAPSULE PO SCH (08:32)
[2022-03-20] MEDS: buPROPion SR 150 MG (WELLBUTRIN SR) TAB PO SCH (08:32)
[2022-03-20] MEDS: APIXABAN 5 MG (ELIQUIS) TABLET PO SCH (08:32)
[2022-03-20] MEDS: SENNA W/DOCUSATE (SENOKOT S) TABLET PO SCH (08:32)
[2022-03-20] MEDS: meTOproloL SUCCINATE 50 MG (TOPROL XL) TAB PO SCH (08:32)
--- NOTE | 2022-03-20 10:39 | Occupational Ther Daily Note ---
OT Current Status-Daily Note Subjective Pt in bed, alert. Pt agrees to therapy after encouragement. Pt states, "people won't leave me alone and what do you want now?". C/o no pain. Mental Status/Objective Patient Orientation: Person, Confused, Place, Time, Situation ADL-Treatment Pt completes oral care by self after set up. Pt requires encouragement to participate. Pt asked multiple times "what do you want now" and required verbal reminders of the task we were completing. Pt cleaned face with warm wash cloth. Takes an extended amount of time to complete task. In recliner at end of session with phone/call light in reach. All needs met. Therapy Code Descriptions/Definitions Functional [place] Measure: 0=Not Assessed/NA 4=Minimal Assistance 1=Total Assistance 5=Supervision or Setup 2=Maximal Assistance 6=Modified [place] 3=Moderate Assistance 7=Complete IndependenceSCALE: Activities may be completed with or without assistive devices. 1-Ecromluxot-bjavcuu completes the activity by him/herself with no assistance from a helper. 5-Set-up or Clean-up Assistance-helper sets up or cleans up; patient completes activity. [place] assists only prior to or following the activity. 4-Supervision or Touching Assistance-helper provides verbal cues and/or touching/steadying and/or contact guard assistance as patient completes acti vity. Assistance may be provided throughout the activity or intermittently. 3-Partial/Moderate Assistance-helper does LESS THAN HALF the effort. [place] lifts, holds or supports trunk or limbs, but provides less than half the effort. 2-Substantial/Maximal Assistance-helper does MORE THAN HALF the effort. [place] lifts or holds trunk or limbs and provides more than half the effort. 4-Ontigajzy-zkvcty does ALL the effort. Patient does none of the effort to complete the activity. Or, the assistance of 2 or more helpers is required for the patient to complete the activity. If activity was not attempted, code reason: 7-Patient Refused. 9-Not Applicable-not attempted and the patient did not perform the activity before the current illness, exacerbation or injury. 10-Not Attempted due to Environmental Limitations-(lack of equipment, weather restraints, etc.). 88-Not Attempted due to Medical Conditions or Safety Concerns. Oral Hygiene (QC): 5 OT Base Filler Goals Halfway Goals Time Frame: Apr 04, 2022 Eating (QC): 6 Oral Hygiene (QC): 5 Toileting Hygiene (QC): 2 Shower/Bathe Self (QC): 3 Upper Body Dressing (QC): 3 Lower Body Dressing (QC): 2 Additional Goals: 1-Demonstrate ADL Tasks, 2-Verbalize Understanding, 3- ImproveStrength/Neri 1=Demonstrate adherence to instructed precautions during ADL tasks. 2=Patient will verbalize/demonstrate understanding of assistive devices/modifications for ADL. 3=Patient will improve strength/tolerance for activity to enable patient to perform ADL's. OT Education/Plan Problem List/Assessment Assessment: Decreased Activ Tolerance, Impaired Self-Care Skills Pt would benefit from short term skilled OT services in order to increase BUE Strength and activity tolerance, and to increase safety and independence with ADLS to decrease caregiver burden. Discharge Recommendations Plan/Recommendations: Continue POC Treatment Plan/Plan of Care Patient would benefit from OT for education, treatment and training to promote independence in ADL's, mobility, safety and/or upper extremity function for ADL's. Plan of Care: ADL Retraining, Functional Mobility, UE Funct Exercise/Act Treatment Duration: Apr 04, 2022 Frequency: 3 times per week (3-5 times per week) Rehab Potential: Fair Time Start Time: 10:10 Stop Time: 10:21 DATE: Mar 20, 2022 Total Time Billed (hr/min): 11 Billed Treatment Time 1 visit ADL (11 min) VITA WHITTAKER Mar 20, 2022 10:39
[2022-03-20] MEDS ORDERED: DOCU100C37 PO (12:29)
[2022-03-20] MEDS ORDERED: SENN1TAB76 PO (12:29)
[2022-03-20] MEDS ORDERED: APIX5TAB PO (12:29)
--- NOTE | 2022-03-20 12:30 | Discharge Summary ---
Discharge Summary Hospital Course Hospital Course Date of Admission: Mar 14, 2022 at 19:19 Admission Diagnosis : Sepsis Urinary tract infection COPD Diarrhea [facility] Date [facility]: 03/20/22 Discharge Diagnosis: Sepsis- initially on cefepime and vanc, no evidence of MRSA on cultures to date 03/18, will d/c vancomycin; on 03/19 changed cefepime to cefdinir based on sensitivities. UTI- E coli and klebsiella, treated with above antibiotics. COPD- duoneb q4 Diarrhea- c diff negative, pt reported concern about diarrhea, however, had no bowel movement last 24 or more hours before d/c and then concerned about const ipation. PRN meds ordered for nursing facility. Obesity Atrial fibrillation- resumed home metoprolol, had home anticoagulation stopped earlier this year due to vaginal and rectal bleeding with history of endometrial cancer unable to tolerate radiation. Endometrial cancer- on palliative megestrol, resumed. CAD Hypertension Hyperlipidemia Hospital Course: See discharge diagnoses. Labs and Pending Lab Test: Laboratory Tests 03/19/22 16:23: Glucometer 97 03/19/22 20:47: Glucometer 98 03/20/22 05:40: White Blood Count 4.0L, Red Blood Count 3.14L, Hemoglobin 7.8L, Hematocrit 26L, Mean Corpuscular Volume 83, Mean Corpuscular Hemoglobin 25, Mean Corpuscular Hemoglobin Concent 30L, Red Cell Distribution Width 23.9H, Platelet Count 173, Mean Platelet Volume 11.0, Immature Granulocyte % (Auto) 1, Neutrophils (%) (Auto) 73, Lymphocytes (%) (Auto) 18, Monocytes (%) (Auto) 8, Eosinophils (%) (Auto) 0, Basophils (%) (Auto) 0, Neutrophils # (Auto) 2.9, Lymphocytes # (Auto) 0.7L, Monocytes # (Auto) 0.3, Eosinophils # (Auto) 0.0, Basophils # (Auto) 0.0, Immature Granulocyte # (Auto) 0.0, Percent Immature Platelet Fraction 7.2, Sodium Level 132L, Potassium Level 3.7, Chloride Level 102, Carbon Dioxide Level 23, Anion Gap 7, Blood Urea Nitrogen 10, Creatinine 0.78, Estimat Glomerular Filtration Rate 82, BUN/Creatinine Ratio 13, Glucose Level 99, Calcium Level 7.9L, Corrected Calcium 9.1, Magnesium Level 1.6, Total Bilirubin 0.2, Aspartate Amino Transf (AST/SGOT) 49H, Alanine Aminotransferase (ALT/SGPT) 23, Alkaline Phosphatase 80, Total Protein 6.0L, Albumin 2.5L 03/20/22 11:47: Glucometer 92 Microbiology 03/15/22 Stool Culture - Final, Complete 03/14/22 MRSA Screen - Final, Complete MRSA not isolated 03/14/22 Urine Culture - Final, Complete Escherichia coli Klebsiella oxytoca 03/14/22 Blood Culture - Final, Complete No growth Home Meds Active Stool Softener-Laxative Tablet (Sennosides/Docusate Sodium) 8.6 Mg-50 Mg Tablet 2 Ea PO BID Docusate Sodium 100 Mg Capsule 100 Mg PO BID PRN Eliquis (Apixaban) 5 Mg Tablet 5 Mg PO BID Reported Ondansetron Odt (Ondansetron) 4 Mg Tab.rapdis 4 Mg PO Q8H PRN Dificid (Fidaxomicin) 200 Mg Tablet 200 Mg PO Q48H 20 Days FILLED 03-03-2022 #20 Probiotic (Lactobacillus Acidophilus) 10 Billion Cell Capsule 1 Each PO DAILY Megestrol Acetate 40 Mg Tablet 80 Mg PO BID TAKES 2 (40MG) TABS Oxycodone-Acetaminophen 5-325 (Oxycodone HCl/Acetaminophen) 5 Mg-325 Mg Tablet 1 Ea PO BID Trazodone HCl 50 Mg Tablet 50-100 Mg PO HS TAKES 1 TO 2 (50MG) TABS Bupropion Xl (Bupropion HCl) 300 Mg Tab.er.24h 300 Mg PO DAILY Omeprazole 20 Mg Capsule.dr 20 Mg PO DAILY Potassium Chloride 10 Meq Tab.er.prt 10 Meq PO DAILY Simvastatin 10 Mg Tablet 10 Mg PO 1999 Metoprolol Succinate 50 Mg Tab.er.24h 50 Mg PO DAILY Assessment/Pt DC Instructions Follow up at nursing facility Activity as Tolerated: Yes Discharge Physical Examination Allergies: Coded Allergies: No Known Drug Allergies (Verified , 11/20/08) General Appearance: No Apparent Distress Respiratory: Lungs Clear, Normal Breath Sounds Cardiovascular: Regular Rate, Rhythm Skin: Warm/Dry Neurologic/Psychiatric: Alert, Normal Mood/Affect KESHA REINOSO MD Mar 20, 2022 12:30
[2022-03-20 12:35] VITALS: BP 92/58
[2022-03-20] MEDS: ALPRAZolam 0.5 MG (XANAX) TAB PO PRN (13:59)
[2022-03-20 16:00] VITALS: BP 92/58
== END 2022-03-20 16:35 | disposition home or self-care (01) | DRG 871 ==
LOC: EDUNIT# 11:46 → ER FS 11:49 → ICU 18:51 → OBSVTOIN 19:19 → 4TH 03-15 08:35
PROVIDERS: ADMIT Internal Medicine; ATTEND Family Medicine
PROC: 02HV33Z Insertion of Infusion Device into Superior Vena Cava, Percutaneous Approach (ICD-10-PCS; principal; 2022-03-16)
DX: A41.9 Sepsis, unspecified organism (principal); R65.21 Severe sepsis with septic shock; N39.0 Urinary tract infection, site not specified; N17.9 Acute kidney failure, unspecified; J96.10 Chronic respiratory failure, unspecified whether with hypoxia or hypercapnia; I48.20 Chronic atrial fibrillation, unspecified; E87.20 Acidosis, unspecified; Z68.41 Body mass index [BMI] 40.0-44.9, adult; I95.9 Hypotension, unspecified; B96.20 Unspecified Escherichia coli [E. coli] as the cause of diseases classified elsewhere; B96.1 Klebsiella pneumoniae [K. pneumoniae] as the cause of diseases classified elsewhere; J44.9 Chronic obstructive pulmonary disease, unspecified; R19.7 Diarrhea, unspecified; C54.1 Malignant neoplasm of endometrium; I25.10 Atherosclerotic heart disease of native coronary artery without angina pectoris; E78.00 Pure hypercholesterolemia, unspecified; F41.9 Anxiety disorder, unspecified; F32.A Depression, unspecified; K21.9 Gastro-esophageal reflux disease without esophagitis; G47.33 Obstructive sleep apnea (adult) (pediatric); I25.2 Old myocardial infarction; M19.90 Unspecified osteoarthritis, unspecified site; E66.01 Morbid (severe) obesity due to excess calories; E86.0 Dehydration; Z99.81 Dependence on supplemental oxygen; I50.9 Heart failure, unspecified; D64.9 Anemia, unspecified; R53.81 Other malaise; G89.29 Other chronic pain; I11.0 Hypertensive heart disease with heart failure
CPT/HCPCS: 36415; 36600; 51702; 70450; 71045; 71275; 74177; 80053; 80306; 81000; 82607; 82805; 82947; 83540; 83605; 83690; 83735; 84100; 84145; 84484; 85007; 85025; 85027; 85379; 85610; 85730; 86141; 87015; 87040; 87045; 87046; 87077; 87081; 87088; 87186; 87324; 87449; 87899; 93005; 94640; 94760; Q9967